=== PATIENT | male | born 1965 | race Caucasian/White ===

== ENCOUNTER 2019-03-15 17:33 | Outpatient (REF) | payer BC, SELFPAY ==
[2019-03-17 16:12] LABS: Ethyl Glucuronide Screen, U Negative
[2019-03-19 06:22] LABS: Benzoylecgonine 223 ng/mL (Cutoff: 50); Cocaine Negative ng/mL (Cutoff: 50); Cocaine Interpretation Positive.
== END 2019-03-15 17:53 ==
LOC: NCHCN 17:33
PROVIDERS: PCP Internal Medicine; Visit Provider Nurse Practitioner Family
DX: F15.10 Other stimulant abuse, uncomplicated (principal); F10.11 Alcohol abuse, in remission
CPT/HCPCS: 80307; 80353

== ENCOUNTER 2019-04-12 10:53 | Outpatient (REF) | payer BC, SELFPAY ==
[2019-04-16 03:54] LABS: Amphetamine Negative ng/mL (Cutoff: 25); MDMA (Ecstasy) Negative ng/mL (Cutoff: 25); Methamphetamine Negative ng/mL (Cutoff: 25); Phentermine Negative ng/mL (Cutoff: 25); Pseudoephedrine/Ephedrine Negative ng/mL (Cutoff: 25)
[2019-04-16 15:21] LABS: Benzoylecgonine Negative ng/mL (Cutoff: 50); Cocaine Negative ng/mL (Cutoff: 50); Cocaine Interpretation Negative.
[2019-04-18 22:47] LABS: 2-OH-Ethyl-Flurazepam Negative ng/mL (Cutoff: 100); 7-NH-Clonazepam Negative ng/mL (Cutoff: 100); 7-NH-Flunitrazepam Negative ng/mL (Cutoff: 50); Alpha OH-Alprazolam Negative ng/mL (Cutoff: 100); Alpha-OH-Triazolam Negative ng/mL (Cutoff: 100); Benzodiazepines Interpretation Positive.; Lorazepam 619 ng/mL (Cutoff: 100); Temazepam Negative ng/mL (Cutoff: 100)
== END 2019-04-12 11:13 ==
LOC: NCHCN 10:53
PROVIDERS: PCP Internal Medicine; Visit Provider Nurse Practitioner Psychiatric/Mental Health
DX: F15.10 Other stimulant abuse, uncomplicated (principal)
CPT/HCPCS: 80324; 80346; 80353

== ENCOUNTER 2020-03-28 08:39 | Outpatient (REF) | payer OTHER, SELFPAY ==
[2020-03-28 21:05] LABS: Hemoglobin A1C 5.6 % (<5.7)
[2020-03-28 21:15] LABS: ALT 52 U/L (16-63); AST 28 U/L (15-37); Albumin 3.9 g/dL (3.4-5.0); Alkaline Phosphatase 65 U/L (46-116); Anion Gap 9.3 mmol/L (3-11); BUN 17 mg/dL (7-18); Bilirubin, Total 0.7 mg/dL (0.2-1.0); CO2 25.7 mmol/L (21.0-32.0); CREATININE 1.58 mg/dL (0.70-1.30); Calcium 8.7 mg/dL (8.5-10.1); Calculated LDL 167 mg/dL (<100); Chloride 104 mmol/L (98-107); Cholesterol 236 mg/dL (<200); Estimated GFR 46.29 (mL/min/1.73m2); Glucose 100 mg/dL (74-106); HDL Cholesterol 39 mg/dL (40-60); Potassium 4.3 mmol/L (3.5-5.1); Sodium 139 mmol/L (136-145); TSH (W/Ref FT4) 0.99 uIU/mL (0.36-3.74); Triglyceride 150 mg/dL (<150)
== END 2020-03-28 08:59 ==
LOC: NCHCN 08:39
PROVIDERS: PCP Internal Medicine; Visit Provider Physician Assistant
DX: E78.5 Hyperlipidemia, unspecified (principal); I12.9 Hypertensive chronic kidney disease with stage 1 through stage 4 chronic kidney disease, or unspecified chronic kidney disease; N18.30 Chronic kidney disease, stage 3 unspecified
CPT/HCPCS: 80053; 80061; 83036; 84443

== ENCOUNTER 2021-07-31 17:51 | Outpatient (REF) | payer OTHER, SELFPAY ==
[2021-08-02 15:13] LABS: Chlamydia Result Negative (Negative); GC Result Negative (Negative)
[2021-08-08 15:42] LABS: Source Urine
[2021-08-08 15:43] LABS: T.vaginalis, Misc, RNA Positive (Negative)
== END 2021-07-31 17:52 | disposition home or self-care (01) ==
LOC: NCHCN 17:51
PROVIDERS: PCP Internal Medicine; Visit Provider Nurse Practitioner Family
DX: Z20.2 Contact with and (suspected) exposure to infections with a predominantly sexual mode of transmission (principal)
CPT/HCPCS: 87491; 87591; 87661

== ENCOUNTER 2022-04-13 17:47 | Emergency (ER) | payer OTHER, SELFPAY ==
[2022-04-13 17:52] VITALS: BP 142/86; PULSE 83; RESP 18; TEMP 36.5; O2SAT 97
--- OUTSIDE RECORDS SUMMARY | 2022-04-13 17:55 | XMS_ITS | Encounter Summary ---
:1965 Author Organization [facility] Address [facility] [address] [place] [address] Care Team Providers Name Role Phone Jf Cervantes Primary Care Provider Encounter Details Date Type Department Care Team Description 09/08/2017 Orders Only Nephrology Hypertension Raquel Goldsmith on W, DO Hypertension, unspecified type; at [facility] CKD (chronic kidney disease) stage 2, GFR 60-89 ml/min; [facility] Hematuria, unspecified type; [facility] NEPHROLOGY DEPT Proteinuria, unspecified type; [place] [phone] [place] [address] Gout, unspecified cause, unspecified chr onicity, unspecified site [phone] Social History Tobacco Use Types Packs/Day Years Used Date Smoking Tobacco: Never Smokeless Tobacco: Never Sex Assigned at Date Recorded Not on file documented as of this encounter Plan of Treatment Scheduled Orders Name Type Priority Associated Diagnoses Order S chedule CBC (with Diff) Lab Routine Hypertension, Expected: 0 09/09/2017 unspecified type (Approximate), CKD (chronic kidney Expires: 09/08/2018 disease) stage 2, GFR 60-89 ml/min Hematuria, unspecified type Proteinuria, unspecified type Gout, unspecified cause, unspecified chronicity, unspecified site Comprehensive metabolic Lab Routine Hypertension, Exp ected: 09/09/2017 panel (non-fasting) unspecified type (Approximate), CKD (chronic kidney Expires: 03/11/2018 disease) stage 2, GFR 60-89 ml/min Hematuria, unspecified type Proteinuria, unspecified type Gout, unspecified cause, unspecified chronicity, unspecified site Magnesium Lab Routine Hypertension, Expected: 08/17 unspecified type (Approximate), CKD (chronic kidney Expires: 03/11/2018 disease) stage 2, GFR 60-89 ml/min Hematuria, unspecified type Proteinuria, unspecified type Gout, unspecified cause, unspecified chronicity, unspecified site Phosphorus Lab Routine Hypertension, Expected: 08/17 unspecified type (Approximate), CKD (chronic kidney Expires: 09/08/2018 disease) stage 2, GFR 60-89 ml/min Hematuria, unspecified type Proteinuria, unspecified type Gout, unspecified cause, unspecified chronicity, unspecified site Uric acid Lab Routine Gout, unspecified cause, Exp ected: 09/09/2017 unspecified chronicity, (Jovan roximate), unspecified site Expires: documented as of this encounter Visit Diagnoses Diagnosis Hypertension, unspecified type CKD (chronic kidney disease) stage 2, GF R 60-89 ml/min Chronic kidney disease, Stage II (mild) Hematuria, unspecified type Proteinuria, unspecified type Gout, unspecified cause, unspecified chr onicity, unspecified site documented in this encounter Care Teams Tennis Player Relationship Specialty Start Date End Date Jf Cervantes PA PCP - General General Internal Medicine 01/16/[address] [place] [id number] documented as of this encounter
--- OUTSIDE RECORDS SUMMARY | 2022-04-13 17:55 | XMS_ITS | Encounter Summary ---
:1965 Author Organization [facility] [place] [address] Care Team Providers Name Role Phone Jf Cervantes Primary Care Provider Reason for Visit Reason Comments Chronic Kidney Disease Hematuria Encounter Details Date Type Department Care Team Description 09/09/2017 Office Visit Nephrology Hypertension Mary Kate Emery MD [facility] [place] [address] Chronic kidney disease, unspecified CKD stage; at [facility] Stevie Goldsmith, DO [facility] [place] [address] Microscopic hematuria; [facility] Hypertens ion, unspecified type; Drive Gout, unspecified cause, uns pecified chronicity, [place] [address] Social History Tobacco Use Types Packs/Day Years Used Date Smoking Tobacco: Never Smokeless Tobacco: Never Sex Assigned at Date Recorded Not on file documented as of this encounter Last Filed Vital Signs Vital Sign Reading Time Taken Comments Blood Pressure 132/88 09/09/2017 10:02 AM EDT Pulse 84 09/09/2017 10:02 AM EDT Temperature - - Respiratory Rate - - Oxygen Saturation - - Inhaled Oxygen Concentration - - Weight 96.6 kg (213 lb) 09/09/2017 10:02 AM EDT Height 177.8 cm (5' 10) 09/09/2017 10:02 AM EDT Body Mass Index 30.56 09/09/2017 10:02 AM EDT documented in this encounter Progress Notes Stevie Goldsmith, DO - 09/09/2017 3:30 PM EDT [facility] Nephrology/Hypertension Follow Up Mathew Han [id number] 1965 HPI: 52 y/o WM with a history of microscopic hematuria and CKD presents to Nephrology Clinic for follow-up after being re-referred by his PCP. 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 Patient subsequently had a renal biopsy performed when patient was stationed at [employer],but patient describes that results were unremarkable. Patient denies any recent illnesses of hospitalizations. Denies any niurka hematuria, dysuria, flank pain or change in urination. Patient had previous urologic work-up which was also negative. Patient recently was seen by PCP and had his Lisinopril increased from 10 --> 20mg, with improvement of BP control. Patient has a longstanding history of gout, but denies any recent flares over the past 18 months. Patient was started on allopurinol whenlast seen in nephrology Clinic (01/2016), however patient was only taking it intermittently and when he though a flare might be starting. Renal function remains stable --> and serum Cr was stable at 1.22mg/dL this AM PAST MEDICAL HX: Microscopic hematuria (since age 21) HTN x 4 yrs HLD Hx Cocaine abuse Hx Alcohol abuse Gout ROS: -no fever, chills, night sweats -no headache, blurring of vision, diplopia -no dysphagia, hearing problems -no chest pain, palpitation, no BLACK, orthopnea -no cough or SOB -no abdominal pain, nausea, vomiting or diarrhea -no rash -no neuropathy -no LE swelling -no change in mood -no heat or cold intolerance Medications: Prior to Admission medications Medication Sig Start Date End Date Taking? Authorizing Provider lisinopril (PRINIVIL;ZESTRIL) 10 mg Tablet Take 20 mg by mouth daily. Yes PROVIDER, HISTORICAL fexofenadine (RACHEL) 60 mg Tablet Take 60 mg by mouth daily as needed. Yes PROVIDER, HISTORICAL allopurinol (ZYLOPRIM) 100 mg Tablet Take 2 tablets by mouth daily. 02/07/16 Mary Kate Emery MD colchicine (MITIGARE) 0.6 mg Capsule Take 0.6 mg by mouth daily as needed. 02/07/16 Mary Kate Emery MD Allergies / ADRs: No Known Allergies PHYSICAL EXAM: Most Recent Vitals: 09/09/17 1002 BP: 132/88 Pulse: 84 PainSc: 0 - No pain Gen - AAO x 3 in NAD Skin - No rash HEENT - Moist mucous membranes Chest: Lungs clear to auscultation, no wheezes/ rhonchi/ crackles. Heart - S1/S2 normal, no murmur, gallop, or rub. JVP not elevated. Abd - Soft. + BS. No bruit. Non tender. No organomegaly. Ext - Warm. No cyanosis. No dependent edema. Labs/ Imaging: Recent Results (from the past 24 hour(s)) Magnesium Result Value Ref Range Magnesium 0.75 0.69 - 1.07 mmol/L Uric acid Result Value Ref Range Uric Acid 8.1 3.5 - 8.5 mg/dL Comprehensive metabolic panel (non-fasting) Result Value Ref Range Glucose Lvl 89 65 - 199 mg/dL BUN 18 10 - 20 mg/dL Creatinine 1.22 0.80 - 1.50 mg/dL Sodium 139 135 - 145 mmol/L Potassium 4.0 3.5 - 5.0 mmol/L Chloride 101 98 - 107 mmol/L CO2 24 22 - 31 mmol/L Anion Gap 14 5 - 15 mmol/L Calcium 9.3 8.5 - 10.5 mg/dL Total Protein 7.5 6.1 - 8.0 gm/dL Albumin 4.1 3.2 - 5.2 gm/dL AST 22 0 - 39 unit/L ALT 36 0 - 55 unit/L Alk Phos 74 40 - 120 unit/L Total Bilirubin <0.2 (L) 0.2 - 1.3 mg/dL Estimated GFR >60 >=60 PTH Result Value Ref Range PTH 39 15 - 65 pg/mL Phosphorus Result Value Ref Range Phosphorus 2.7 2.5 - 4.5 mg/dL Hemogram Result Value Ref Range WBC 7.0 4.0 - 9.5 x10(3)/mcL RBC 5.15 4.58 - 5.54 x10(6)/mcL Hemoglobin 15.4 13.7 - 16.5 gm/dL Hematocrit 45.9 40.5 - 48.5 % MCV 89.1 82.9 - 93.1 fL MCH 29.9 27.5 - 32.1 pg MCHC 33.6 32.0 - 35.7 gm/dL Platelets 238 145 - 357 x10(3)/mcL RDWSD 42.6 36.0 - 45.0 fL RDWCV 12.9 11.4 - 13.8 % MPV 10.2 7.6 - 12.9 fL nRBC % Auto 0.0 % nRBC Abs Auto 0.000 0.000 - 0.000 x10(3)/mcL Differential, Automated Result Value Ref Range Neutrophils % 64.8 % Neutr Abs (ANC) 4.53 1.70 - 6.10 x10(3)/mcL Lymphocytes % 19.3 % Lymphocytes Abs 1.4 0.9 - 3.2 x10(3)/mcL Monocytes % 11.2 % Monocyte Abs 0.8 0.3 - 0.9 x10(3)/mcL Eosinophils % 3.6 % Eosinophils Abs 0.2 0.0 - 0.4 x10(3)/mcL Basophils % 0.7 % Basophils Abs 0.0 0.0 - 0.1 x10(3)/mcL Immature Gran % 0.40 % Nancy Gran Abs 0.03 0.00 - 0.04 x10(3)/mcL U Albumin/Cre Ratio Result Value Ref Range Alb/Cr Ratio, Random 521 (H) 0 - 29 mcg/mg Cr U Albumin Conc, Random 453.7 mg/L U Creatinine 87 mg/dL Protein/Creatinine Ratio, urine Result Value Ref Range U Creatinine 87 mg/dL U Protein Ran 62 (H) 0 - 12 mg/dL Prot/Cre Ratio 0.7 ratio Urine Microscopy: showed occasional dysmorphic RBCs (1-2 per HPF) Urinalysis: 1+ proteinuria and + microscopic hematuria, otherwise was negative Assessment and Plan: 52 y/o WM with a history of CKD, long standing microscopic hematuria and HTN presents to Nephrology Clinic for follow-up ?? 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 Patient does not have a family historyof renal disease or of hearing/ vision loss. Less likely this is due to IgA based on the chronicity and that he consistently has microscopic hematuria -serum Cr stable/ improved --> was 1.22mg/dL today in clinic -previous normal/ unremarkable renal biopsy. Had length conversation with the patient about possibly repeating renal biopsy. However with the renal function remaining stable, will hold off pursuing biopsy unless there is a change in renal function -Urine prot/creat 0.7 (on RAAS inhibition, MITCHELL-I) -Urine microscopy showed occasional dysmorphic RBCs -continue BP control ?? Hypertension -BP improved and controlled with increase in Lisinopril to 20mg -Patient described occasional dry cough after increase. Discussed the possibility of transitioning him to ARB, however patient did not want to change medication at this time ?? Gout: -Uric acid improved today -Avoid NSAIDS (Indomethacin PRN gouty attacks), and recommend Colchicine v Steroids for treatment offlares -Allopurinol 200mg was started but patient was taking it prn. Recommended q daily dosing Follow up: RTC in 6 months Seen and Discussed w/ Dr. Yuly Goldsmith DO Nephrology Fellow [facility] THOMAS Malhotra [address] [place] [id number] Mary Kate Emery MD - 09/09/2017 3:30 PM EDT Nephrology Attending Mathew Han was seen and examined and discussed with the Renal Fellow Dr Goldsmith The data and chart were reviewed. My findings and recommendations are accurately detailed in the note above. The findings, recommendations, and plan for ongoing care were discussed with the patient and the Renal Fellow documented in this encounter Plan of Treatment Not on filedocumented as of this encounter Procedures Procedure Name Priority Date/Time Associated Diagnosis Comme nts PROTEIN/CREATININE Routine 09/09/2017 3:30 PM Chronic kidney R esults for this RATIO, URINE EDT disease, unspecified procedu re are in CKD stage the results section. U ALBUMIN/CRE RATIO Routine 09/09/2017 3:30 PM Chronic kidney Results for this EDT disease, unspecified procedu re are in CKD stage the results section. documented in this encounter Results (ABNORMAL) Protein/Creatinine Ratio, urine (09/09/2017 3:30 PM EDT) P athologist Signature U Creatinine 87 mg/dL [facility] U Protein Ran 62 (H) 0 - 12 [facility] mg/dL [facility] Prot/Cre Ratio 0.7 ratio [facility] Specimen Anatomical Collection Method Collection Time Receive d Time (Source) Location / / Volume Laterality Urine specimen 09/09/2017 3:30 PM 018 4:28 (specimen) EDT PM EDT Resulting Agency Comment Spec In Lab Mary Kate Emery MD URINE ORDERABLES Performing Organization Address City/State/[place] [address] (ABNORMAL) U Albumin/Cre Ratio (09/09/2017 3:30 PM EDT) athologist Signature Alb/Cr Ratio, 521 (H) 0 - 29 [facility] Random mcg/mg Cr [facility] Comment: Reference Ranges: <30 mcg/mg: Normal 30-300 mcg/mg: Moderately increased albu minuria.* >300 mcg/mg: Severely increased albuminu estela. * ACEI or ARB recommended if diabetic; s uggested if BP>130/80 without diabetes ACEI or ARB strongly recommended if di abetic; recommended if BP>130/80 without diabetes Two of three specimens collected within a 3 to 6 month period should be abnormal before considering a patient to have albuminuria. Transient causes: exercise, fever, infection, CHF, marked hyperglycemia or hypertension. Persistent albuminuria indicates CKD and is an independent risk factor for ASCVD. ADA Standards of Medical Care in Diabete s-2016; KDIGO: Kidney International Supplements (2012) 2, 357? 362 U Albumin Conc, Random 453.7 mg/L [facility] U Creatinine 87 mg/dL [facility] Specimen Anatomical Collection Method Collection Time Receive d Time (Source) Location / / Volume Laterality Urine specimen 09/09/2017 3:30 PM 018 4:28 (specimen) EDT PM EDT Resulting Agency Comment Spec In Lab Mary Kate Emery MD URINE ORDERABLES Performing Organization Address City/State/ZIP Code Phon e Number [place] [phone] documented in this encounter Visit Diagnoses Diagnosis Chronic kidney disease, unspecified CKD stage Microscopic hematuria Hypertension, unspecified type Gout, unspecified cause, unspecified chr onicity, unspecified site documented in this encounter Care Teams Stock Receiver Relationship Specialty Start Date End Date Jf Cervantes PA PCP - General General Internal Medicine 01/16/[address] [place] [id number] documented as of this encounter
--- OUTSIDE RECORDS SUMMARY | 2022-04-13 17:55 | XMS_ITS | Encounter Summary ---
:1965 Author Organization [facility] Address [address] [place] [address] Care Team Providers Name Role Phone Jf Cervantes Primary Care Provider Encounter Details Date Type Department Care Team Description 09/09/2017 Laboratory Appointment Lab 3L [facility] Chronic kidney disease, unspecified CKD stage; [facility] Hypertension, unspecified ty pe; [facility] Hematuria , unspecified type; [place] CKD (chronic kidney disease) stage 2, GFR 60-89 ml/min; [place], [place] Proteinuria, un specified type; [phone] Gout, unspecified cause, uns pecified chronicity, unspecified site [phone] Social History Tobacco Use Types Packs/Day Years Used Date Smoking Tobacco: Never Smokeless Tobacco: Never Sex Assigned at Date Recorded Not on file documented as of this encounter Plan of Treatment Not on filedocumented as of this encounter Procedures Procedure Name Priority Date/Time Associated Comments Diagnosis PTH Routine 09/09/2017 2:25 PM Chronic kidney Results for this EDT disease, procedure are i n unspecified CKD the results stage section. Hypertension, unspecified type Hematuria, unspecified type HEMOGRAM Routine 09/09/2017 2:25 PM Chronic kidney Results for this EDT disease, procedure are i n unspecified CKD the results stage section. Hypertension, unspecified type Hematuria, unspecified type DIFFERENTIAL, Routine 09/09/2017 2:25 PM Chronic kidney Result s for this AUTOMATED EDT disease, procedure are i n unspecified CKD the results stage section. Hypertension, unspecified type Hematuria, unspecified type CBC (WITH DIFF) Routine 09/09/2017 2:25 PM Chronic kidney EDT disease, unspecified CKD stage Hypertension, unspecified type Hematuria, unspecified type URIC ACID Routine 09/09/2017 2:25 PM Chronic kidney Results for this EDT disease, procedure are i n unspecified CKD the results stage section. Hypertension, unspecified type Hematuria, unspecified type PHOSPHORUS Routine 09/09/2017 2:25 PM Chronic kidney Results for this EDT disease, procedure are i n unspecified CKD the results stage section. Hypertension, unspecified type Hematuria, unspecified type MAGNESIUM Routine 09/09/2017 2:25 PM Chronic kidney Results for this EDT disease, procedure are i n unspecified CKD the results stage section. Hypertension, unspecified type Hematuria, unspecified type COMPREHENSIVE Routine 09/09/2017 2:25 PM Chronic kidney Result s for this METABOLIC PANEL EDT disease, procedure ar e in (NON-FASTING) unspecified CKD the results stage section. Hypertension, unspecified type Hematuria, unspecified type documented in this encounter Results Differential, Automated (09/09/2017 2:25 PM EDT) P athologist Signature Neutrophils % 64.8 % [facility] Neutr Abs (ANC) 4.53 1.70 - [facility] 6.10 [facility] x10(3)/[facility] Lymphocytes % 19.3 % [facility] Lymphocytes Abs 1.4 0.9 - 3.2 [facility] x10(3)/[facility] LABORATORY Monocytes % 11.2 % [facility] Monocyte Abs 0.8 0.3 - 0.9 [facility] x10(3)/[facility] LABORATORY Eosinophils % 3.6 % [facility] Eosinophils Abs 0.2 0.0 - 0.4 [facility] x10(3)/[facility] LABORATORY Basophils % 0.7 % [facility] Basophils Abs 0.0 0.0 - 0.1 [facility] x10(3)/[facility] LABORATORY Immature Gran % 0.40 % [facility] Comment: Immature granulocytes(IG's)percentage an d absolute count will include metamyelocytes, myelocytes, and promyelo cytes. Blood smears from CBCs yielding IG's will be scanned manually for concor dance. If this scan disagrees with the automated IG or if promyelocytes are not ed, a manual differential will be performed. Nancy Gran Abs 0.03 0.00 - 0.04 x10(3)/[facility] Specimen Anatomical Collection Method Collection Time Receive d Time (Source) Location / / Volume Laterality Blood specimen 09/09/2017 2:25 PM 018 2:41 (specimen) EDT PM EDT Resulting Agency Comment Spec In Lab Stevie Goldsmith DO HEMATOLOGY ORDERABLES Performing Organization Address City/State/[place] [address] Hemogram (09/09/2017 2:25 PM EDT) athologist Signature WBC 7.0 4.0 - 9.5 [facility] x10(3)/[facility] LABORATORY RBC 5.15 4.58 - [facility] 5.54 [facility] x10(6)/[facility] LABORATORY Hemoglobin 15.4 13.7 - [facility] 16.5 gm/dL [facility] Hematocrit 45.9 40.5 - [facility] 48.5 % [facility] MCV 89.1 82.9 - [facility] 93.1 [facility] LABORATORY MCH 29.9 27.5 - [facility] 32.1 pg [facility] MCHC 33.6 32.0 - [facility] 35.7 gm/dL [facility] Platelets 238 145 - 357 [facility] x10(3)/[facility] RDWSD 42.6 36.0 - [facility] 45.0 [facility] LABORATORY RDWCV 12.9 11.4 - [facility] KARYN 13.8 % [facility] MPV 10.2 7.6 - 12.9 [facility] LABORATORY nRBC % Auto 0.0 % [facility] nRBC Abs Auto 0.000 0.000 - [facility] 0.000 [facility] x10(3)/[facility] LABORATORY Specimen Anatomical Collection Method Collection Time Receive d Time (Source) Location / / Volume Laterality Blood specimen 09/09/2017 2:25 PM 018 2:41 (specimen) EDT PM EDT Resulting Agency Comment Spec In Lab Stevie Goldsmith DO HEMATOLOGY ORDERABLES Performing Organization Address City/State/[place] [address] Phosphorus (09/09/2017 2:25 PM EDT) athologist Signature Phosphorus 2.7 2.5 - 4.[address] [facility] mg/dL [facility] Specimen Anatomical Collection Method Collection Time Receive d Time (Source) Location / / Volume Laterality Blood specimen 09/09/2017 2:25 PM 018 2:41 (specimen) EDT PM EDT Resulting Agency Comment Spec In Lab Dilan Gtz MD CHEMISTRY ORDERABLES Performing Organization Address City/[facility]/ZIP Code Phon e Number [address] PTH (09/09/2017 2:25 PM EDT) athologist Signature PTH 39 15 - 65 [facility]/mL [facility] Specimen Anatomical Collection Method Collection Time Receive d Time (Source) Location / / Volume Laterality Blood specimen 09/09/2017 2:25 PM 018 2:41 (specimen) EDT PM EDT Resulting Agency Comment Spec In Lab Dilan Gtz MD CHEMISTRY ORDERABLES Performing Organization Address City/[facility]/ZIP [facility] [place] [place] [address] (ABNORMAL) Comprehensive metabolic panel (non-fasting) (09/09/2017 2:25 PM EDT) athologist Signature Glucose Lvl 89 65 - 199 [facility] mg/dL [facility] Comment: Diabetes: >=200 mg/dL plus symp toms BUN 18 10 - 20 mg/dL [facility] Creatinine 1.22 0.80 - 1.50 mg/dL [facility] Sodium 139 135 - 145 mmol/L [facility] Potassium 4.0 3.5 - 5.0 mmol/L [facility] Comment: Please note: ??Patients with WBC >100,00 0 may have falsely elevated Potassium levels. ??For accurate Potassium quantif ication in these patients send serum separator tube (gold top) for subsequent determinations. ??Contact the Clinical Chemistry Laboratory if there are any qu estions. Chloride 101 98 - 107 mmol/L [facility] CO2 24 22 - 31 mmol/L [facility] Anion Gap 14 5 - 15 mmol/L [facility] Calcium 9.3 8.5 - 10.5 mg/dL [facility] Total Protein 7.5 6.1 - 8.0 gm/dL [facility] Albumin 4.1 3.2 - 5.2 gm/dL [facility] AST 22 0 - 39 unit/L [facility] ALT 36 0 - 55 unit/L [facility] Alk Phos 74 40 - 120 unit/L [facility] Total Bilirubin <0.2 (L) 0.2 - 1.3 mg/dL [facility] Estimated GFR >60 >=60 [facility] Comment: The reported eGFR should be multiplied b y 1.2 for patients. The MDRD is not an appropriate measure o f renal function for patients with body mass extremes or in patients with acute kidney failure. http://[employer]/DHnkdep http://[employer]/DHMCnkf Specimen Anatomical Collection Method Collection Time Receive d Time (Source) Location / / Volume Laterality Blood specimen 09/09/2017 2:25 PM 018 2:41 (specimen) EDT PM EDT Resulting Agency Comment Spec In Lab Dilan Gtz MD CHEMISTRY ORDERABLES Performing Organization Address City/State/[place] [address] Uric acid (09/09/2017 2:25 PM EDT) P athologist Signature Uric Acid 8.1 3.5 - 8.5 [facility] mg/dL [facility] Specimen Anatomical Collection Method Collection Time Receive d Time (Source) Location / / Volume Laterality Blood specimen 09/09/2017 2:25 PM 018 2:41 (specimen) EDT PM EDT Resulting Agency Comment Spec In Lab Dilan Gtz MD CHEMISTRY ORDERABLES Performing Organization Address City/[facility]/ZIP Code Phon e Number [address] Magnesium (09/09/2017 2:25 PM EDT) P athologist Signature Magnesium 0.75 0.69 - 1.07 [facility] mmol/L [facility] Specimen Anatomical Collection Method Collection Time Receive d Time (Source) Location / / Volume Laterality Blood specimen 09/09/2017 2:25 PM 018 2:41 (specimen) EDT PM EDT Resulting Agency Comment Spec In Lab Dilan Gtz MD CHEMISTRY ORDERABLES Performing Organization Address City/[facility] [place] [address] documented in this encounter Visit Diagnoses Diagnosis Chronic kidney disease, unspecified CKD stage Hypertension, unspecified type Hematuria, unspecified type CKD (chronic kidney disease) stage 2, GF R 60-89 ml/min Chronic kidney disease, Stage II (mild) Proteinuria, unspecified type Gout, unspecified cause, unspecified chr onicity, unspecified site documented in this encounter Care Teams Dot Compliance Coordinator Relationship Specialty Start Date End Date Jf Cervantes PA PCP - General General Internal Medicine 01/16/[address] [place] [id number] documented as of this encounter
--- OUTSIDE RECORDS SUMMARY | 2022-04-13 17:55 | XMS_ITS | Clinical Summary ---
:1965 Author Organization [facility] [place] [address] Care Team Providers Name Role Phone Unknown Primary Care Provider Unavailable Allergies No known active allergies Medications Medication Sig Dispensed Refills Start Date End Date Status lisinopril Take 20 mg by 0 Activ e (PRINIVIL;ZESTRIL) 10 mouth daily. mg TabletIndications: CKD (chronic kidney disease), unspecified stage fexofenadine (RACHEL) Take 60 mg by 0 Active 60 mg mouth daily as TabletIndications: CKD needed. (chronic kidney disease), unspecified stage allopurinol (ZYLOPRIM) Take 2 tablets by 60 tablet 11 6 Active 100 mg Tablet mouth daily. colchicine (MITIGARE) Take 0.6 mg by 30 capsule 1 02/07/2016 Active 0.6 mg Capsule mouth daily as needed. Active Problems Problem Noted Date Chronic kidney disease 09/10/2017 Microscopic hematuria 09/10/2017 Hypertension 09/10/2017 Gout 09/10/2017 Social History Tobacco Use Types Packs/Day Years Used Date Smoking Tobacco: Never Smokeless Tobacco: Never Sex Assigned at Date Recorded Not on file Last Filed Vital Signs Vital Sign Reading [...] Mass Index 30.56 09/09/2017 10:02 AM EDT Plan of Treatment Health Maintenance Due Date Last Done Comments Hepatitis B vaccine (0-59 yrs) (1 - 1965 3-dose series) Covid-19 Vaccine (#1) 01/01/1968 HIV screen 1985 Hepatitis C Screening 1985 Lipid Screening 1985 Tdap adult 1986 Tetanus vaccine 1986 Colonoscopy 2012 Zoster vaccine (1 of 2) 2017 Influenza (Flu) vaccine (1 of 1 - 01/16/2022 Influenza standard series) Diabetes Screening (HgbA1C or Glucose) Discontinued 8, 02/07/2016 Care Teams Turning Machine Operator Helper Relationship Specialty Start Date End Date Unknown PCP - General 05/18/19 None
--- OUTSIDE RECORDS SUMMARY | 2022-04-13 17:56 | XMS_ITS | Encounter Summary ---
:1965 Author Organization [facility] [place] [address] Care Team Providers Name Role Phone Jf Cervantes Primary Care Provider Encounter Details Date Type Department Care Team Description 08/03/2017 Orders Only Nephrology Hypertension Raquel Goldsmith on W, DO Chronic kidney disease, unspecified CKD stage; at [facility] Hypertension, unspecified ty pe; [facility] DR Hematuria, unspecified type [place] [address] [place] [address] [phone] Social History Tobacco Use Types Packs/Day Years Used Date Smoking Tobacco: Never Smokeless Tobacco: Never Sex Assigned at Date Recorded Not on file documented as of this encounter Plan of Treatment Not on filedocumented as of this encounter Results Uric acid (09/09/2017 2:25 PM EDT) athologist Signature Uric Acid 8.1 3.5 - 8.5 [facility] mg/dL [facility] Specimen Anatomical Collection Method Collection Time Receive d Time (Source) Location / / Volume Laterality Blood specimen 09/09/2017 2:25 PM 018 2:41 (specimen) EDT PM EDT Resulting Agency Comment Spec In Lab Dilan Gtz MD CHEMISTRY ORDERABLES Performing Organization Address City/State/[place] [address] Magnesium (09/09/2017 2:25 PM EDT) athologist Signature Magnesium 0.75 0.69 - 1.07 [facility] mmol/L [facility] Specimen Anatomical Collection Method Collection Time Receive d Time (Source) Location / / Volume Laterality Blood specimen 09/09/2017 2:25 PM 018 2:41 (specimen) EDT PM EDT Resulting Agency Comment Spec In Lab Dilan Gtz MD CHEMISTRY ORDERABLES Performing Organization Address City/[facility]/ZIP Code Phon e Number [address] Phosphorus (09/09/2017 2:25 PM EDT) athologist [facility] Phosphorus 2.7 2.5 - 4.5 [facility] Specimen Anatomical Collection Method Collection Time Receive d Time (Source) Location / / Volume Laterality Blood specimen 09/09/2017 2:25 PM 018 2:41 (specimen) EDT PM EDT Resulting Agency Comment Spec In Lab Dilan Gtz MD CHEMISTRY ORDERABLES Performing Organization Address City/[facility]/ZIP Code Phon e Number [address] PTH (09/09/2017 2:25 PM EDT) athologist [facility] PTH 39 15 - 65 [facility] pg/mL [facility] Specimen Anatomical Collection Method Collection Time Receive d Time (Source) Location / / Volume Laterality Blood specimen 09/09/2017 2:25 PM 018 2:41 (specimen) EDT PM EDT Resulting Agency Comment Spec In Lab Dilan Gtz MD CHEMISTRY ORDERABLES Performing Organization Address City/[facility]/ZIP [facility] [place] [address] (ABNORMAL) Comprehensive metabolic panel (non-fasting) (09/09/2017 2:25 PM EDT) athologist [facility] Glucose Lvl 89 65 - 199 [facility] Comment: Diabetes: >=200 mg/dL plus symp toms BUN 18 10 - 20 mg/dL [facility] Creatinine 1.22 0.80 - 1.50 mg/dL [facility] Sodium 139 135 - 145 mmol/L [facility] Potassium 4.0 3.5 - 5.0 mmol/L [facility] Comment: Please note: ??Patients with WBC >100,00 0 may have falsely elevated Potassium levels. ??For accurate Potassium quantif ication in these patients send serum separator tube (gold top) for subsequent determinations. ??Contact the Clinical Chemistry Laboratory if there are any qu estions. Chloride 101 98 - 107 mmol/L [facility] CO2 24 22 - 31 mmol/L [facility] Anion Gap 14 5 - 15 mmol/L [facility] Calcium 9.3 8.5 - 10.5 mg/dL [facility] Total Protein 7.5 6.1 - 8.0 gm/dL [facility] Albumin 4.1 3.2 - 5.2 gm/dL [facility] AST 22 0 - 39 unit/L [facility] ALT 36 0 - 55 unit/L [facility] Alk Phos 74 40 - 120 unit/L [facility] Total Bilirubin <0.2 (L) 0.2 - 1.3 mg/dL [facility] Estimated GFR >60 >=60 [facility] Comment: The reported eGFR should be multiplied b y 1.2 for patients. The MDRD is not an appropriate measure o f renal function for patients with body mass extremes or in patients with acute kidney failure. [email or web address] [email or web address] Specimen Anatomical Collection Method Collection Time Receive d Time (Source) Location / / Volume Laterality Blood specimen 09/09/2017 2:25 PM 018 2:41 (specimen) EDT PM EDT Resulting Agency Comment Spec In Lab Dilan Gtz MD CHEMISTRY ORDERABLES Performing Organization Address City/State/ZIP Code Phon e Number [place] [phone] documented in this encounter Visit Diagnoses Diagnosis Chronic kidney disease, unspecified CKD stage Hypertension, unspecified type Hematuria, unspecified type documented in this encounter Care Teams Bus Washer Relationship Specialty Start Date End Date Jf Cervantes PA PCP - General General Internal Medicine 01/16/[address] [place] [id number] documented as of this encounter
--- OUTSIDE RECORDS SUMMARY | 2022-04-13 17:56 | XMS_ITS | Encounter Summary ---
:1965 Author Organization [facility] Address [address] [place] [address] Care Team Providers Name Role Phone Unknown, Provider Primary Care Provider Encounter Details Date Type Department Care Team Description 04/11/2020 Lab Requisition [facility] Aleja Gaviria for Pathology & MD Gem screening for Laboratory Medicine 41 MEDICAL malignan t neoplasm of [facility] colon [address] [place] [address] [place], [place] [id number] Social History Tobacco Use Types Packs/Day Years Used Date Smoking Tobacco: Never Smokeless Tobacco: Never Alcohol Use Standard Drinks/Week Comments Not Currently 0 (1 standard drink = 0.6 oz pure alcoho l) sober 9 years Sex Assigned at Date Recorded Not on file documented as of this encounter Plan of Treatment Not on filedocumented as of this encounter Procedures Procedure Name Priority Date/Time Associated Diagnosis Comme nts SURGICAL PATHOLOGY Today 04/11/2020 8:40 EST Re sults for this procedure are i n the results section. documented in this encounter Results SURGICAL PATHOLOGY (04/11/2020 8:40 EST) Component Value Ref Test Analysis Performed At [facility] Range Method Time Signature Final A. COLON, SIGMOID, POLYP, BIOPSY: 2019 [facility] Diagnosis - Fragments of tubular adenoma. 15:05 [facility] Attestation By the signature 04/16/2020 [facility] Electronically below, the 15:05 EST CENTER signed by attending LABORATORY Emmett Hancock, physician SERVICES on 03/20 certifies that at 15 05 they have 1) personally conducted a gross and/or microscopic examination of the described specimen(s), and/or personally interpreted the results of laboratory testing of the described specimen(s), and 2) personally rendered or confirmed the above diagnosis. Clinical Screening; colon 04/16/2020 [facility] History polyp 15:05 [facility] SERVICES Gross A. 04/16/2020 [facility] Description Received in formalin clayton d with proper patient identification (initials D, W) and sigmoid polyp are two barlow irregular tissues averaging 0.2 x 0.2 x 0.2 cm. Entirely submitted in A1. 15:05 [facility] LAB[facility]ORY THOMAS RODRIGUEZ(ASCP) 04/13/2020 10:10 SERVICES Performing Lab [facility] 04/16/2020 [facility] AL LAB 15:05 [facility] SERVICES Scanned Images 04/16/2020 [facility] 15:05 [facility] SERVICES Specimen Anatomical Collection Method Collection Time Receive d Time (Source) Location / / Volume Laterality Tissue (Colon, 04/11/2020 8:40 04/13/2020 8:32 Polyp) [facility] EST Aleja Gaviria MD PATHOLOGY ORDERABLES Performing Organization Address City/State/ZIP Code Phon e Number [facility]ORY [address] [place] [address] SERVICES documented in this encounter Visit Diagnoses Diagnosis Encounter for screening for malignant ne oplasm of colon Special screening for malignant neoplasm s, colon documented in this encounter Care Teams Medical Director Occupational Health Relationship Specialty Start Date End Date Unknown, Provider, PCP - General 02/12/19 documented as of this encounter
--- OUTSIDE RECORDS SUMMARY | 2022-04-13 17:56 | XMS_ITS | Encounter Summary ---
:1965 Author Organization [facility] Address [address] [place] [address] Care Team Providers Name Role Phone Merlene Eduardo MD Primary Care Provider Encounter Details Date Type Department Care Team Description 11/21/2015 Results Only [facility] Urology Isra Faye, - [facility] MD [address] [facility] [address] [place] [address] [place], [place] [phone] (Wo rk) Social History Tobacco Use Types Packs/Day Years Used Date Smoking Tobacco: Never Assessed Sex Assigned at Date Recorded Not on file documented as of this encounter Plan of Treatment Not on filedocumented as of this encounter Procedures Procedure Name Priority Date/Time Associated Diagnosis Comme nts CYTOPATHOLOGY Routine 11/21/2015 0:00 EDT Results for this procedure are i n the results section . documented in this encounter Results CYTOPATHOLOGY (11/21/2015 0:00 EDT) Component Value Ref Test Analysis Performed At [facility] Method Time Signature Pathology CYTOPATHOLOGY REPORT [facility] Report: CENTER Reports generated via electronic interface contain origina l data; LABORATORY however they are lacking the format of the original report. SERVICES Caution should be taken when reading/interpreting unformatte d reports. Name: ? MATHEW HAN ? Accession #: ? [id number] : ? 1965 (Age: [age]) ??M ?Collect Date: ? 11/21/2015 Location: ? [facility] ? Receive Date: ? 11/22/2015 Provider: ? ISRA FAYE MD Copy to: ?MERLENE CARSON DO ? CYTOLOGIC DIAGNOSIS: URINE, BARBOTAGE, CYTOLOGIC EVALUATION: - ??No malignant cells identified. - ??Few clusters of urothelial cells present, co nsistent with instrumentation effect. ?? - ??Rare cell with features suggestive of polyoma viral [place]. Document reviewed and electronically signed by: ? SHRUTHI RESTREPO MD Report Date: ??11/23/2015 08:56 By the signature above, the attending physician certifies th at he/she has personally conducted a gross and/or microscopic examin ation of the described specimens and rendered or confirmed the above diagnosis. Specimen Type: ? Urine, Barbotage Clinical History: ? Hematuria. ? Gross Description: ? 10ccs of clear yellow fluid were received and pr ocessed by selective cellular enhancement technique. ? End of Report Specimen (Source) Anatomical Collection Method Collection Time Re ceived Time Location / / Volume Laterality 11/21/2015 11/22/2015 6:38 EDT Isra Faye MD PATHOLOGY ORDERABLES Performing Organization Address City/State/ZIP Code Phon e Number [facility] [address] [place] [address] SERVICES documented in this encounter Visit Diagnoses Not on filedocumented in this encounter Care Teams Home Health Provider Relationship Specialty Start Date End Date Merlene Eduardo MD PCP - General 09/03/15 02/11/19 [address] [place], [place] [id number] documented as of this encounter
--- OUTSIDE RECORDS SUMMARY | 2022-04-13 17:56 | XMS_ITS | Encounter Summary ---
:1965 Author Organization [facility] Address [address] [place] [address] Care Team Providers Name Role Phone Unknown, Provider MD Primary Care Provider Encounter Details Date Type Department Care Team Description 08/01/2021 Lab Requisition [facility] Outr Resulting Lab, Pathology & Laboratory Provider [facility] [address] [place], [place] [id number] Social History Tobacco Use Types Packs/Day Years [...] Procedure Name Priority Date/Time Associated Comments Diagnosis CHLAMYDIA/N. Routine 07/31/2021 11:00 Results for this GONORRHOEAE AMPLIFIED EDT proced ure are in RNA the results section. documented in this encounter Results CHLAMYDIA/N. GONORRHOEAE AMPLIFIED RNA (07/31/2021 11:00 EDT) [facility] Method Time Signature Gonococcus Negative Negative 08/02/2021 [facility] Result 15:08 EDT [facility] Chlamydia Negative Negative 08/02/2021 [facility] Result 15:08 EDT [facility] Specimen Anatomical Collection Method Collection Time Receive d Time (Source) Location / / Volume Laterality Urine (Urine, 07/31/2021 11:00 08/01/2021 Initial Void) EDT 19:08 EDT Provider Outr Resulting Lab MICROBIOLOGY - GENERAL ORD ERABLES Performing Organization Address City/State/ZIP Code Phon e Number [facility] [address] [place] [address] SERVICES documented in this encounter Visit Diagnoses Not on filedocumented in this encounter Care Teams Plan Examiner Relationship Specialty Start Date End Date Unknown, Provider, PCP - General 02/12/19 documented as of this encounter
--- OUTSIDE RECORDS SUMMARY | 2022-04-13 17:56 | XMS_ITS | Encounter Summary ---
:1965 Author Organization [facility] Address [address] [place] [address] Care Team Providers Name Role Phone Philip Eduardo MD Primary Care Provider Encounter Details Date Type Department Care Team Description 11/21/2015 Hospital Encounter [facility]- Maria Eugenia Unknown, Provider, [facility] [address] [facility] [phone] [place] [address] (Work) [phone] Social History Tobacco Use Types Packs/Day Years Used Date Smoking Tobacco: Never Assessed Sex Assigned at Date Recorded Not on file documented as of this encounter Discharge Disposition Disposition Code Departure Means Destination Home or Self [facility] documented in this encounter Plan of Treatment Not on filedocumented as of this encounter Visit Diagnoses Not on filedocumented in this encounter Care Teams Professor Of Mathematics Relationship Specialty Start Date End Date Philip Eduardo MD PCP - General 09/03/15 02/11/19 [address] [place] [address] documented as of this encounter
--- OUTSIDE RECORDS SUMMARY | 2022-04-13 17:56 | XMS_ITS | Encounter Summary ---
:1965 Author Organization [facility] Address [address] [place] [address] Care Team Providers Name Role Phone Unknown, Provider Primary Care Provider Reason for Visit Reason Comments Act 1 Clearance Here for ACT 1 clearance, de nies use of illicit substance today. Arrives alert and oriented, VSS. NAD in triage. Encounter Details Date Type Department Care Team Description 02/12/2019 Emergency [facility] Omer Calixto MD [address] [facility] [place] [phone] Cocaine abuse Emergency Department Emergency, MD [place] ([facility]) (Primary Dx) - [address] [address] Social History Tobacco Use Types Packs/Day Years Used Date Smoking Tobacco: Never Smokeless Tobacco: Never Alcohol Use Standard Drinks/Week Comments Not Currently 0 (1 standard drink = 0.6 oz pure alcoho l) sober 9 years Sex Assigned at Date Recorded Not on file documented as of this encounter Last Filed Vital Signs Vital Sign Reading Time Taken Comments Blood Pressure 160/84 02/12/2019 1634 EDT Pulse 84 02/12/2019 1634 EDT Temperature 36.7 ??C (98.1 ??F) 02/12/2019 1504 EDT Respiratory Rate 18 02/12/2019 1634 EDT Oxygen Saturation 98% 02/12/2019 1634 EDT Inhaled Oxygen Concentration - - Weight 94.8 kg (209 lb) 02/12/2019 1504 EDT Height 180.3 cm (5' 11) 02/12/2019 1504 EDT Body Mass Index 29.15 02/12/2019 1504 EDT documented in this encounter Discharge Diagnoses Diagnosis F14.10 Cocaine abuse, uncomplicated-F14. 10[ICD-10-CM] documented in this encounter Discharge Instructions AttachmentsThe following attachments cannot be sent through Care Everywhere.Drug Overdose: Cocaine (Tanzanian)documented in this encounter Discharge Disposition Disposition Code Departure Means Destination Discharged to Other Facility Car documented in this encounter ED Notes Portillo Denis RN - 02/12/2019 1635 EDT AVS reviewed with patient. Discharge vital signs stable. Ambulatory out of department in no acute distress with [facility] textile machinery sales representative. Dillon Calixto MD - 02/12/2019 1556 EDT This patient received an evaluation and medical screening exam for emergent medical conditions at the [facility] on 02/12/2019 Scribe attestation: This documentation is recorded by Jenifer Cortez acting as Scribe under the direction and presence of Dillon Calixto MD. Dillon Calixto MD: I personally performed the services recorded by the scribe in my presence. Iconfirm the scribe's documentation has been reviewed by me to accurately and completely record my work, treatment, procedures, and medical decision making. HPI Mathew Han is a 53 y.o. male with pertinent medical history who presents to the ED for [facility] clearance. Per patient, he went to [facility] and they sent him here to be medically cleared. He isgoing to [facility] for cocaine abuse. He denies any cocaine use today. He denies any other symptoms. History was provided by: The patient and medical records. Patient's pertinent PMH, FH, SH were reviewed and updated PRN. ROS ROS as noted in HPI above. My standard 10 point review of systems for this complaint is otherwise negative. Physical Exam Vital Signs Vitals Reassessment?: Yes Temp: 36.7 ??C (98.1 ??F) Temp src: Oral Heart Rate: 76 BPM Resp: 20 SpO2: 97 % BP: (!) 159/105 BP Device: BP Machine Patient Position: Sitting BP Cuff Location: Right arm O2 Device: None (Room air) Nursing notes and vital signs were reviewed. Constitutional: Well appearing in no acute distress HEENT: NC/AT. Pupils equal and reactive to light, no scleral icterus Moist oral mucosa without apparent lesions Neck: Full ROM, no cervical LAD Heart: RRR without MRG Lungs: Clear to auscultation bilaterally, no respiratory distress Abdomen: Soft NT/ND Skin: No rash on exposed skin Extremities: No deformities, warm and well perfused. Neuro: Awake, alert, oriented. Speech is fluent. Movements show normal coordination Psych: No agitation or overt thought disorder Data Interpretation Procedures Procedures Medical Decision Making: This is a 53 y.o. male who presents to the ED with medical clearance for cocainin abuse. Pt has no complaints. Will DC to ACT as exam is reassuring and no medical complaints. ED Course This was a 53 year old male who presented to the ED for ACT one clearance for cocaine abuse. A medical screening exam was performed. 1630 - The patient was medically cleared for ACT one and discharged to their care. Impression Final diagnoses: Cocaine abuse ([facility]) Disposition Disposition decisions were made weighing risks and benefits of hospitalization vs. outpatient treatment, the risk for further decompensation, and the patient???s wishes. Discharged. The patient was stable, improved, or requested discharge. Prior to discharge my usual and customary return precautions were reviewed with the patient and/or family. This included follow-up instructions and reasons to return to the Emergency Department if condition worsens, does not improveas expected, or other new concerns arise. The patient's pain was managed to an adequate level weighing risk vs. benefit of further medications. Upon departure from the Emergency Department, the patient's pain was 0 on a zero to ten scale. Any further pain treatment will be at the discretion of the provider following up with the patient based on their clinical assessment. Condition at departure from the Emergency Department: Stable SharitaLyle - 02/12/2019 4986 EDT TCALL: MATHEW HAN. [id number]. PT REFERRED BY [facility] 1 FOR MEDICAL CLEARANCE FROM COCAINE DETOX. LAST USE WAS YESTERDAY. (YAHIR) documented in this encounter Plan of Treatment Not on filedocumented as of this encounter Visit Diagnoses Diagnosis Cocaine abuse (HCC) - Primary Cocaine abuse, unspecified documented in this encounter Care Teams Freight Flow Sales Leader Relationship Specialty Start Date End Date Unknown, Provider, PCP - General 02/12/19 documented as of this encounter
--- OUTSIDE RECORDS SUMMARY | 2022-04-13 17:56 | XMS_ITS | Encounter Summary ---
:1965 Author Organization [facility] Address [address] [place] [address] Care Team Providers Name Role Phone Gautam Madrigal MD Primary Care Provider Unavailable Encounter Details Date Type Department Care Team Description 08/28/2015 Results Only [facility] [place] [phone] [address] [place], [place] [phone] (Wo rk) Social History Tobacco Use Types Packs/Day Years Used Date Smoking Tobacco: Never Assessed Sex Assigned at Date Recorded Not on file documented as of this encounter Plan of Treatment Not on filedocumented as of this encounter Procedures Procedure Name Priority Date/Time Associated Diagnosis Comme nts CYTOPATHOLOGY Routine 08/28/2015 0:00 EDT Results for this procedure are i n the results section . documented in this encounter Results CYTOPATHOLOGY (08/28/2015 0:00 EDT) Component Value Ref Test Analysis Performed At [facility] Method Time Signature Pathology CYTOPATHOLOGY REPORT [facility] Report: CENTER Reports generated via electronic interface contain origina l data; LABORATORY however they are lacking the format of the original report. SERVICES Caution should be taken when reading/interpreting unformatte d reports. Name: ? MATHEW HAN ? Accession #: ? [id number] : ? 1965 (Age: [age]) ??M ?Collect Date: ? 08/28/2015 Location: ? [facility] ? Receive Date: ? 08/30/2015 Provider: ? SIN GUZMAN Copy to: ? CYTOLOGIC DIAGNOSIS: URINE, COLLECTION METHOD NOT SPECIFIED, CYTOLOGIC EVALUATION : - ??No malignant cells identified. - ??Urothelial cells with degenerative changes. - ??Polyoma viral changes. Document reviewed and electronically signed by: ? NEGIN ARAMBULA MD [facility] Report Date: ??08/30/2015 15:38 By the signature above, the attending physician certifies th at he/she has personally conducted a gross and/or microscopic examin ation of the described specimens and rendered or confirmed the above diagnosis. Specimen Type: ? Urine, NOS Clinical History: ? Gout; microscopic hematuria. clinical diagnosis code: ??M10. 9, R31.2 ? Gross Description: ? One vial of Cytolyt was rece ived and processed by selective cellular enhancement technique. ? End of Report Specimen (Source) Anatomical Collection Method Collection Time Re ceived Time Location / / Volume Laterality 08/28/2015 08/30/2015 9:27 EDT Sin GUZMAN PATHOLOGY ORDERABLES Performing Organization Address City/State/ZIP Code Phon e Number [facility] [address] [place] [address] SERVICES documented in this encounter Visit Diagnoses Not on filedocumented in this encounter Care Teams Flower Grower Relationship Specialty Start Date End Date Gautam Madrigal MD PCP - General 08/30/15 09/02/15 documented as of this encounter
--- OUTSIDE RECORDS SUMMARY | 2022-04-13 17:56 | XMS_ITS | Encounter Summary ---
:1965 Author Organization [facility] [place] [address] Care Team Providers Name Role Phone Jf Cervantes Primary Care Provider Reason for Visit Reason Comments Chronic Kidney Disease Consultation (Routine) - Closed Specialty Diagnoses / Procedures Referred By Contact Refer red To Contact Nephrology Diagnoses abnormal renal function and proteinuria Jf Cervantes PA [facility] Nephrology 2m [address] [place], [place] [address] [place] [address] Fax: Referral ID Status Reason Start Date Expiration Date Visits V isits Requested Authorized [id number] Closed Consult, Test 01/16/2016 01/15/2017 [facility] PCP Updated and/or Approved Encounter Details Date Type Department Care Team Description 02/07/2016 Office Visit Nephrology Hypertension Mary Kate Emery MD [facility] [place] [address] CKD (chronic kidney at [facility] Jagjit Lennon, [facility] [place] [address] disease), [place] [address] Social History Tobacco Use Types Packs/Day Years Used Date Smoking Tobacco: Never Smokeless Tobacco: Never Sex Assigned at Date Recorded Not on file documented as of this encounter Last Filed Vital Signs Vital Sign Reading Time Taken Comments Blood Pressure 144/100 02/07/2016 3:37 PM EDT Pulse 84 02/07/2016 3:37 PM EDT Temperature - - Respiratory Rate - - Oxygen Saturation - - Inhaled Oxygen Concentration - - Weight 95.7 kg (211 lb) 02/07/2016 3:37 PM EDT Height 177.8 cm (5' 10) 02/07/2016 3:37 PM EDT Body Mass Index 30.28 02/07/2016 3:37 PM EDT documented in this encounter Progress Notes Jagjit Lennon, DO - 02/07/2016 3:30 PM EDT HYPERTENSION/ NEPHROLOGY CONSULT PATIENT: Mathew Han : 1965 REASON FOR CONSULTATION: Acute kidney injury, hematuria, proteinuria referred by Dr. Cervantes PMH: Microscopic hematuria (since age 21) HTN x 4 yrs HLD Hx Cocaine abuse Hx Alcohol abuse Gout HPI: 50 y.o. male who presents to nephrology clinic to establish care. Patient with hx of microscopic hematuria since age 21. Noticed microscopic hematuria from a screening test as part of [facility]. Subsequently had kidney biopsy in 1987 at [facility] which was 'unremarkable'. Patient denies niurka hematuria, flank pain. No hx of kidney stones, no weight loss. Uses NSAIDs (Indomethacin PRN for gouty attacks; last attack 2 weeks ago). BP 140's at home. On Lisinopril for past 5 months but noncompliant. Had urological workup with negative cystoscopy, cytology. MEDICATIONS: Allergies: No Known Allergies PSH: R knee meniscus repair 1995 FH: Denies family hx of kidney disease SH: Cocaine abuse (last 6 yrs ago), alcohol abuse (quit 6 yrs; would drink 6 beers/day), denies smoking ROS: Constitutional - No fevers, chills, weight loss Skin - No rash or itchy skin HEENT - No headaches, visual changes Resp - No cough, shortness of breath CV - No chest pain, leg swelling, difficulty breathing lying flat GI - No nausea, vomiting,change in bowel habits/abdominal pain - No change in urine output. No pain urinating or blood in urine. Neuro - No weakness. No numbness/ tingling in extremities. PHYSICAL EXAM: Temp: -- Heart Rate: -- Resp: -- BP: -- SpO2: -- Heart Rate from SPO2: -- Appearance - Alert, Comfortable. Skin - No exanthem. HEENT - Sclera white. Mucous membranes moist. Chest: Lungs clear to ausculatation w/o wheezes/ rhonchi/ crackles. Heart - S1 and S2 clear w/o murmur, gallop, or rub. JVP not elevated. Abd - Soft. + BS. No bruit. Non tender. Ext - Warm. No cyanosis. No dependent edema. Neuro - No asterixis. STUDIES: Results for MATHEW HAN ( ) as of 02/09/2016 20:58 Ref. Range 02/07/2016 17:21 WBC Latest Ref Range: 4.0 - 9.5 x10(3)/mcL 7.7 RBC Latest Ref Range: 4.58 - 5.54 x10(6)/mcL 4.96 Hemoglobin Latest Ref Range: 13.7 - 16.5 gm/dL 15.0 Hematocrit Latest Ref Range: 40.5 - 48.5 % 43.9 MCV Latest Ref Range: 82.9 - 93.1 fL 88.5 MCH Latest Ref Range: 27.5 - 32.1 pg 30.2 MCHC Latest Ref Range: 32.0 - 35.7 gm/dL 34.2 RDWSD Latest Ref Range: 36.0 - 45.0 fL 40.7 RDWCV Latest Ref Range: 11.4 - 13.8 % 12.4 Platelets Latest Ref Range: 145 - 357 x10(3)/mcL 287 MPV Latest Ref Range: 7.6 - 12.9 fL 9.9 nRBC % Auto Latest Units: % 0.0 nRBC Abs Auto Latest Ref Range: 0.000 - 0.000 x10(3)/mcL 0.000 Neutr Abs (ANC) Latest Ref Range: 1.70 - 6.10 x10(3)/mcL 4.74 Neutrophils % Latest Units: % 61.5 Immature Gran % Latest Units: % 0.40 Lymphocytes % Latest Units: % 20.6 Monocytes % Latest Units: % 11.6 Eosinophils % Latest Units: % 4.7 Basophils % Latest Units: % 1.2 Nancy Gran Abs Latest Ref Range: 0.00 - 0.04 x10(3)/mcL 0.03 Lymphocytes Abs Latest Ref Range: 0.9 - 3.2 x10(3)/mcL 1.6 Monocyte Abs Latest Ref Range: 0.3 - 0.9 x10(3)/mcL 0.9 Eosinophils Abs Latest Ref Range: 0.0 - 0.4 x10(3)/mcL 0.4 Basophils Abs Latest Ref Range: 0.0 - 0.1 x10(3)/mcL 0.1 Sodium Latest Ref Range: 135 - 145 mmol/L 140 Potassium Latest Ref Range: 3.5 - 5.0 mmol/L 4.2 Chloride Latest Ref Range: 98 - 107 mmol/L 99 CO2 Latest Ref Range: 22 - 31 mmol/L 23 Anion Gap Latest Ref Range: 5 - 15 mmol/L 18 (H) BUN Latest Ref Range: 10 - 20 mg/dL 14 Creatinine Latest Ref Range: 0.80 - 1.50 mg/dL 1.28 Estimated GFR Latest Ref Range: >=60 60 Glucose Lvl Latest Ref Range: 65 - 199 mg/dL 99 Calcium Latest Ref Range: 8.5 - 10.5 mg/dL 8.8 Uric Acid Latest Ref Range: 3.5 - 8.5 mg/dL 8.8 (H) Albumin Latest Ref Range: 3.2 - 5.2 gm/dL 3.9 Creatinine 1.28mg/dL (02/07/16), 1.48mg/dL (10/01/15), 1.53mg/dL (08/28/15) CT abdomen w/o contrast (10/31/15): no obstruction, normal kidneys Urine microscopy (02/07/16): fatty cast, granular RBCs IMPRESSION/ RECOMMENDATIONS: Mr. aHn is a 50 yr old gentleman w/ hx of CKD, hematuria who presents to nephrology clinic to establish care. 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 Patient noncompliant recently thus had discussion reiterating importance of compliant. Hx Gout -Uric acid 8.8 today -Avoid NSAIDS (Indomethacin PRN gouty attacks). -Will start Allopurinol 200mg PO QDAY. -Patient may use Colchicine PRN (ordered) Plan: -Continue Lisinopril -Avoid NSAIDS (Indomethacin PRN gouty attacks). Will start Allopurinol 200mg PO QDAY. Patient may use Colchicine PRN. -Obtained repeat labs today -Will obtain old kidney biopsy records (1987) from [facility] in [place]. -Renal ultrasound RTC in 2 months Thanks for letting us participate in the care of this patient. Seen and Discussed w/ Dr. Yuly Lennon DO Nephrology Fellow Pager [phone] Mary Kate Emery MD - 02/07/2016 3:30 PM EDT Nephrology Attending Mathew Han was seen and examined with the Renal Fellow Dr Lennon The data and chart were reviewed. My findings and recommendations are accurately detailed in the note above. The findings, recommendations, and plan for ongoing care were discussed with the patient and the Renal Fellow documented in this encounter Plan of Treatment Not on filedocumented as of this encounter Procedures Procedure Name Priority Date/Time Associated Diagnosis Comme nts HEMOGRAM Routine 02/07/2016 5:21 PM CKD (chronic kidney Re sults for this EDT disease), procedure are i n unspecified stage the result s section. DIFFERENTIAL, Routine 02/07/2016 5:21 PM CKD (chronic kidney R esults for this AUTOMATED EDT disease), procedure are i n unspecified stage the result s section. CBC (WITH DIFF) Routine 02/07/2016 5:21 PM CKD (chronic kidney EDT disease), unspecified stage URIC ACID Routine 02/07/2016 5:21 PM CKD (chronic kidney Re sults for this EDT disease), procedure are i n unspecified stage the result s section. ALBUMIN LEVEL Routine 02/07/2016 5:21 PM CKD (chronic kidney R esults for this EDT disease), procedure are i n unspecified stage the result s section. BASIC METABOLIC Routine 02/07/2016 5:21 PM CKD (chronic kidney Results for this PANEL (NON-FASTING) EDT disease), procedur e are in unspecified stage the result s section. PROTEIN/CREATININE Routine 02/07/2016 3:30 PM CKD (chronic kid kylah Results for this RATIO, URINE EDT disease), procedure are i n unspecified stage the result s section. documented in this encounter Results Differential, Automated (02/07/2016 5:21 PM EDT) athologist Signature Neutrophils % 61.5 % [facility] Neutr Abs (ANC) 4.74 1.70 - [facility] 6.10 [facility] x10(3)/[facility] LABORATORY Lymphocytes % 20.6 % [facility] Lymphocytes Abs 1.6 0.9 - 3.2 [facility] x10(3)/[facility] LABORATORY Monocytes % 11.6 % [facility] Monocyte Abs 0.9 0.3 - 0.9 [facility] x10(3)/[facility] LABORATORY Eosinophils % 4.7 % [facility] Eosinophils Abs 0.4 0.0 - 0.4 [facility] x10(3)/[facility] LABORATORY Basophils % 1.2 % [facility] Basophils Abs 0.1 0.0 - 0.1 [facility] x10(3)/[facility] LABORATORY Immature Gran % 0.40 % [facility] Comment: Immature granulocytes(IG's)percentage an d absolute count will include metamyelocytes, myelocytes, and promyelo cytes. Blood smears from CBCs yielding IG's will be scanned manually for concor dance. If this scan disagrees with the automated IG or if promyelocytes are not ed, a manual differential will be performed. Nancy Gran Abs 0.03 0.00 - 0.04 x10(3)/[facility] Specimen Anatomical Collection Method Collection Time Receive d Time (Source) Location / / Volume Laterality Blood specimen 02/07/2016 5:21 PM 016 5:31 (specimen) EDT PM EDT Resulting Agency Comment Spec In Lab Mary Kate Emery MD HEMATOLOGY ORDERABLES Performing Organization Address City/State/[place] [address] Hemogram (02/07/2016 5:21 PM EDT) P athologist Signature WBC 7.7 4.0 - 9.5 [facility] x10(3)/[facility] LABORATORY RBC 4.96 4.58 - [place] 5.54 [facility] x10(6)/[facility] LABORATORY Hemoglobin 15.0 13.7 - [facility] 16.5 gm/dL [facility] Hematocrit 43.9 40.5 - [facility] 48.5 % [facility] MCV 88.5 82.9 - [facility] 93.1 [facility] LABORATORY MCH 30.2 27.5 - [place] 32.1 pg [facility] MCHC 34.2 32.0 - [facility] 35.7 gm/dL [facility] Platelets 287 145 - 357 [facility] x10(3)/[facility] LABORATORY RDWSD 40.7 36.0 - [place] 45.0 [facility] LABORATORY RDWCV 12.4 11.4 - [facility] [place] 13.8 % [facility] LABORATORY MPV 9.9 7.6 - 12.9 [facility] LABORATORY nRBC % Auto 0.0 % [facility] nRBC Abs Auto 0.000 0.000 - [facility] 0.000 [facility] x10(3)/[facility] LABORATORY Specimen Anatomical Collection Method Collection Time Receive d Time (Source) Location / / Volume Laterality Blood specimen 02/07/2016 5:21 PM 016 5:31 (specimen) EDT PM EDT Resulting Agency Comment Spec In Lab Mary Kate Emery MD HEMATOLOGY ORDERABLES Performing Organization Address City/State/ZIP Code Phon e Number [place] [phone] (ABNORMAL) Uric acid (02/07/2016 5:21 PM EDT) athologist Signature Uric Acid 8.8 (H) 3.5 - 8.5 [facility] mg/dL [facility] Specimen Anatomical Collection Method Collection Time Receive d Time (Source) Location / / Volume Laterality Blood specimen 02/07/2016 5:21 PM 016 5:31 (specimen) EDT PM EDT Resulting Agency Comment Spec In Lab Mary Kate Emery MD CHEMISTRY ORDERABLES Performing Organization Address City/[facility]/ZIP Code Phon e Number [address] Albumin Level (02/07/2016 5:21 PM EDT) athologist Signature Albumin 3.9 3.2 - 5.2 [facility] gm/dL [facility] Specimen Anatomical Collection Method Collection Time Receive d Time (Source) Location / / Volume Laterality Blood specimen 02/07/2016 5:21 PM 016 5:31 (specimen) EDT PM EDT Resulting Agency Comment Spec In Lab Mary Kate Emery MD CHEMISTRY ORDERABLES Performing Organization Address City/[facility] [place] [address] (ABNORMAL) Basic Metabolic Panel (non-fasting) (02/07/2016 5:21 PM EDT) athologist Signature Glucose Lvl 99 65 - 199 [facility] mg/dL [facility] Comment: Diabetes: >=200 mg/dL plus symp toms BUN 14 10 - 20 mg/dL [facility] Creatinine 1.28 0.80 - 1.50 mg/dL [facility] Comment: Please note that the pediatric reference intervals supplied above were not validated at [facility]. Results from pediatri c patients should be interpreted in conjunction to the patient's age, height and muscle mass. Sodium 140 135 - 145 mmol/L [facility] Potassium 4.2 3.5 - 5.0 mmol/L [facility] Comment: Please note: ??Patients with WBC >100,00 0 may have falsely elevated Potassium levels. ??For accurate Potassium quantif ication in these patients send serum separator tube (gold top) for subsequent determinations. ??Contact the Clinical Chemistry Laboratory if there are any qu estions. Chloride 99 98 - 107 mmol/L [facility] CO2 23 22 - 31 mmol/L [facility] Anion Gap 18 (H) 5 - 15 mmol/L [facility] Calcium 8.8 8.5 - 10.5 mg/dL [facility] Estimated GFR 60 >=60 [facility] Comment: This estimated GFR (eGFR) value was calc ulated using the MDRD equation which has been validated on patients between t he ages of 18 and 70. The MDRD should not be used to assess kidney function in patients < 18 years of age or in patients with extremes of body mass, or in patients with acute kidney failure. This value should be multiplied by 1.2 f or patients. For further information please copy and past e the following links into your internet browser. [email or web address] [email or web address] Specimen Anatomical Collection Method Collection Time Receive d Time (Source) Location / / Volume Laterality Blood specimen 02/07/2016 5:21 PM 016 5:31 (specimen) EDT PM EDT Resulting Agency Comment Spec In Lab Mary Kate Emery MD CHEMISTRY ORDERABLES Performing Organization Address City/State/ZIP Code Phon e Number [place] [phone] (ABNORMAL) Protein/Creatinine Ratio, urine (02/07/2016 3:30 PM EDT) Analysis Performed At Patho logist Time Signature U Creatinine 203 mg/dL [facility] U Protein Ran 206 (H) 0 - 12 [facility] mg/dL [facility] Prot/Cre Ratio 1.0 ratio [facility] Specimen Anatomical Collection Method Collection Time Receive d Time (Source) Location / / Volume Laterality Urine specimen 02/07/2016 3:30 PM 016 5:03 (specimen) EDT PM EDT Resulting Agency Comment Spec In Lab Mary Kate Emery MD URINE ORDERABLES Performing Organization Address City/State/[place] [address] documented in this encounter Visit Diagnoses Diagnosis CKD (chronic kidney disease), unspecifie d stage documented in this encounter Care Teams Crew Scheduler Relationship Specialty Start Date End Date Jf Cervantes PA PCP - General General Internal Medicine 01/16/[address] [place] [phone] documented as of this encounter
--- OUTSIDE RECORDS SUMMARY | 2022-04-13 17:56 | XMS_ITS | Clinical Summary ---
:1965 Author Organization [facility] Address [address] [place] [address] Care Team Providers Name Role Phone Unknown, Provider Primary Care Provider Allergies No known active allergies Social History Tobacco Use Types Packs/Day Years Used Date Smoking Tobacco: Never Smokeless Tobacco: Never Alcohol Use Standard Drinks/Week Comments Not Currently 0 (1 standard drink = 0.6 oz pure alcoho l) sober 9 years Sex Assigned at Date Recorded Not on file Obstetrics History Last Filed Vital Signs Vital Sign Reading [...] Body Mass Index 29.15 02/12/2019 1504 EDT Plan of Treatment Health Maintenance Due Date Last Done Comments Hepatitis C Screen 1965 COVID-19 Vaccine (#1) 01/01/1966 Insurance Payer Benefit Plan / Subscriber ID Effective Dates Phone Addre ss Type Group [employer] MVP ASO [id number] 2019-Present [address] [place] [phone] Care Teams Plastics Supervisor Relationship Specialty Start Date End Date Unknown, Provider, PCP - General 02/12/19
--- OUTSIDE RECORDS SUMMARY | 2022-04-13 17:56 | XMS_ITS | Encounter Summary ---
:1965 Author Organization [place] [address] Care Team Providers Name Role Phone Jf Cervantes Primary Care Provider Encounter Details Date Type Department Care Team Description 05/06/2016 Telephone Nephrology Hypertens ion at [facility] [place] [address] Social History Tobacco Use Types Packs/Day Years Used Date Smoking Tobacco: Never Smokeless Tobacco: Never Sex Assigned at Date Recorded Not on file documented as of this encounter Miscellaneous Notes Telephone Encounter - Fani Guan - 05/06/2016 9:34 AM EST Patient did not answer, Voicemail full. documented in this encounter Plan of Treatment Not on filedocumented as of this encounter Visit Diagnoses Not on filedocumented in this encounter Care Teams Water Pumper Relationship Specialty Start Date End Date Jf Cervantes PA PCP - General General Internal Medicine 01/16/[address] [place] [phone] documented as of this encounter
[2022-04-13 17:59] VITALS: RESP 18
--- NOTE | 2022-04-13 18:00 | RT.EKG_ITS ---
APPROVED REPORT Exam: Resting ECG Reason for Exam: chest pain Patient Location: E HR:82 bpm ECG Measurements Heart Rate 82 AXIS MO 141 P 53 QRSd 86 QRS -15 QT 366 T 54 QTc 428 Conclusion Sinus rhythm...normal P axis, V-rate 60- 99
--- NOTE | 2022-04-13 19:43 | ED.GENADUL_ITS ---
Discharge Plan Disposition Patient Disposition: Home Condition: Stable Discharge Details Clinical Impression: Bronchitis Primary Care Provider: Philip Eduardo ED Provider: Jayda Campos Home Meds and New Rx's Prescriptions: New benzonatate 100 mg capsule 100 mg PO BID-TID PRN (Reason: cough) Qty: 14 0RF Rx Instructions: Take one tablet up to 3 times daily as needed for cough. No Action lisinopril 20 mg tablet 1 tab PO DAILY Label Comments: Take 1 tablet by mouth once a day Discharge Instructions Instructions: Acute Bronchitis (ED) Additional Instructions: Cardiac work up within normal limits, Chest x-ray shows bronchitis. Use the cough medicine as directed. Use the albuterol inhaler, one to two puffs every 4- 6 hours as needed for wheezing and shortness of breath. Follow up with primary care provider in 3-5 days. Return to ED sooner if any w orsening or concerns. Increase oral fluids. Please take Tylenol or Ibuprofen with food every 4-6 hours as needed for pain and swelling. Referrals: Philip Eduardo [Primary Care Provider] - 5 days Medical Decision Making 56 year old male presents to ED with Chief complaint of anxiety and chest pain which is been on and off for last few days. He reports yesterday he was upset and began having some chest pain along with a panic attack. He also endorses cocaine use last cocaine use was 3 days ago. He denies any alcohol or other drugs. He is not a smoker. He does have a past medical history of hypertension and reports that he takes lisinopril which he is taking the last couple of days but does not take consistently. He is not taking aspirin daily. He also reports cough with increased phlegm production. Labs are unremarkable, troponin within normal limits, BUN 21 creatinine 1.4 given a liter of normal saline. X-ray shows bronchitis COVID flu RSV negative. Serial troponin within normal limits patient discharged with follow-up care, given albuterol inhaler and perles. This text was generated using ROSTRation system, please disregard any oddities of phrase or misspellings. Imaging Data Radiologic Study: Radiologist's impression: COMPARISON: No relevant prior studies available. FINDINGS: Lungs: Mild interstitial prominence. No consolidation. Pleural spaces: Unremarkable. No pleural effusion. No pneumothorax. Heart/Mediastinum: Unremarkable. No cardiomegaly. Bones/joints: Unremarkable. IMPRESSION: Mild interstitial prominence which may be chronic. Comparison with prior images would be helpful. Otherwise, mild bronchitis/interstitial pneumonitis not excluded Thank you for allowing us to participate in the care of your patient. Dictated and Authenticated by: Devan Barriga MD Lab Data Lab results reviewed: Yes I reviewed the patient's lab results. Labs: Laboratory Tests Range/Units 04/13/22 04/13/22 04/13/22 19:35 19:35 19:55 WBC (4.4-10.8) 10^3/uL 9.36 RBC (4.36-5.78) 10^6/uL 5.23 Hgb (13.5-17.5) g/dL 15.3 Hct (40.0-50.0) % 47.2 MCV (80-95) fL 90 MCH (27.0-33.0) pg 29.3 MCHC (32.0-36.0) % 32.4 RDW (11.8-14.1) % 13.3 Plt Count (130-400) 10^3/uL 286 MPV (8.0-11.0) fL 9.7 Immature Gran % 0.3 Neutrophils % 68.7 Lymphocytes % 17.2 Monocytes % 10.6 Eosinophils % 2.6 Basophils % 0.6 Nucleated RBC % (0.0-0.3) % 0.0 Absolute Neutrophils (1.2-6.7) 10^3/uL 6.43 Absolute Lymphocytes (1.2-3.4) 10^3/uL 1.61 Absolute Monocytes (0.1-0.8) 10^3/uL 0.99 H Absolute Eosinophils (0.0-0.7) 10^3/uL 0.24 Absolute Basophils (0.0-0.2) 10^3/uL 0.06 Sodium (136-145) mmol/L 137 Potassium (3.5-5.1) mmol/L 4.2 Chloride (98-107) mmol/L 102 Carbon Dioxide (21.0-32.0) mmol/L 27.3 Anion Gap (3-11) mmol/L 7.7 BUN (7-18) mg/dL 21 H Creatinine (0.70-1.30) mg/dL 1.4 H Est GFR (CKD-EPI 2020) (mL/min/1.73m2) 59.73 Glucose (74-106) mg/dL 111 H Calcium (8.5-10.1) mg/dL 9.5 Magnesium (1.8-2.4) mg/dL 2.2 Total Bilirubin (0.2-1.0) mg/dL 0.3 AST (15-37) U/L 22 ALT (16-63) U/L 28 Alkaline Phosphatase (46-116) U/L 69 Troponin I (<or=60) ng/L < 50 Total Protein (6.4-8.2) g/dL 8.4 H Albumin (3.4-5.0) g/dL 3.7 COVID-19 Source Nasopharynx SARS-CoV-2 (PCR) (Negative) Negative Influenza Type A (PCR) (Negative) Negative Influenza Type B (PCR) (Negative) Negative RSV (PCR) (Negative) Negative Sign Out No HPI General Mode of arrival: ambulatory . Date/Time Provider Initiated Documentation: 04/13/22 17:48 . Limitations to Documentation: no limitations . Information obtained by: patient, RN notes reviewed and old records reviewed . HPI Narrative: 56 year old male presents to ED with Chief complaint of anxiety and chest pain which is been on and off for last few days. He reports yesterday he was upset and began having some chest pain along with a panic attack. He also endorses cocaine use last cocaine use was 3 days ago. He denies any alcohol or other drugs. He is not a smoker. He does have a past medical history of hypertension and reports that he takes lisinopril which he is taking the last couple of days but does not take consistently. He is not taking aspirin daily. He also reports cough with increased phlegm production. Denies any fever chills denies any nausea vomiting diarrhea. No abdominal pain. Related Data Home Medications Medication Instructions Recorded Confirmed benzonatate 100 mg capsule 100 mg PO BID-TID PRN cough #14 04/13/22 caps lisinopril 20 mg tablet 1 tab PO DAILY 04/13/22 04/13/22 Previous Rx's Medication Instructions Recorded benzonatate 100 mg capsule 100 mg PO BID-TID PRN cough #14 04/13/22 caps Allergies Allergy/AdvReac Type Severity Reaction Status Date / Time No Known Allergies Allergy Unverified 04/13/22 17:55 General Stated Complaint: Anxiety MANJULA: 3 Review of Systems All systems reviewed & are unremarkable except as noted in HPI and below Constitutional Constitutional: Reports headache(s) ENT Ears, Nose, Mouth, and Throat: Reports headache(s) Cardiovascular Cardiovascular: Reports chest pain Respiratory Respiratory: Reports cough, Reports excessive phlegm production and Reports pain with cough Neurologic Neurologic: Reports headache(s) PFSH All Active Problems (Updated 04/13/22 @ 21:47 by Jayda Campos NP) Bronchitis (Acute) Social History Smoking/Tobacco Use Status: Never Smoking risk assessment performed?: Yes Alcohol Intake: former Substance use type: former substance user Do you feel safe at home: Yes Do you feel safe in your relationship?: Yes Exam Narrative Exam Narrative: Constitutional: Alert and oriented x3. Appears stated age. Normal body habitus. Head: Normocephalic, no trauma. Eyes: Pupils PERRL, Red reflex noted, EOM's intact. Eyelids symmetrical without lesions, discharge, or swelling. ENT: Bilateral TM's WNL, External ear normal to inspection, no mastoid TTP, swelling, or erythema, Nasal turbinates WNL, no nasal discharge. Normal dentition, Posterior pharynx WNL, no exudate. Chest: RRR, Normal S1, S2, distal pulses intact. Resp: Lungs clear to auscultation bilaterally, no wheezes, rales, or rhonchi. Abdomen: Soft, non-distended, Normoactive bowel sounds all 4 quads. Musculoskeletal: Normal gait, 5/5 strength to all four extremities. Skin: No suspicious rashes or lesions. Capillary refill less than 2 sec. Neurologic: Cranial nerves II-XII intact. Alert and oriented x 3. Motor: No deficits noted. Sensory: Intact bilaterally all 4 extremities. Reflexes: DTR's intact bilaterally.. Hematologic/Lymphatic: No ecchymosis, no lymphadenopathy. Course Vital Signs Vital signs: Vital Signs Temperature 36.5 C 04/13/22 17:52 Pulse 83 04/13/22 17:52 Respiratory Rate 18 04/13/22 17:52 Blood Pressure 142/86 H 04/13/22 17:52 Pulse Oximetry 97 04/13/22 17:52 Temperature 36.5 C 04/13/22 17:52 Temperature Source Temporal Artery Scan 04/13/22 17:52 Pulse 83 04/13/22 17:52 Respiratory Rate 18 04/13/22 17:59 Respiratory Effort Non-Labored 04/13/22 17:59 Respiratory Depth Normal 04/13/22 17:59 Respiratory Pattern Normal 04/13/22 17:59 Blood Pressure 142/86 H 04/13/22 17:52 Blood Pressure Position Sitting 04/13/22 17:52 Pulse Oximetry 97 04/13/22 17:52 Oxygen Delivery Method Room Air 04/13/22 17:52 Oxygen Flow Rate 0 04/13/22 17:52
--- NOTE | 2022-04-13 19:45 | DI.RAD_ITS ---
Exam(s) XR CHEST 2V PA LATERAL EXAM: XR CHEST 2V PA LATERAL CLINICAL HISTORY: Cough, Chest pain TECHNIQUE: 2D digital imaging was performed. COMPARISON: No exams were available for comparison FINDINGS: HEART: Normal size. Aorta: PULMONARY VASCULATURE: Normal. LUNGS: Mildly increased diffuse interstitial opacities are seen which could represent an element of f ibrosis. No focal area of consolidation is seen. PLEURAL SPACE: No pleural effusion or pneumothorax. BONE:Unremarkable for age. IMPRESSION: Increased interstitial markings could indicate fibrotic changes. No focal consolidation. DATA REPOSITORY: RADIATION DOSE DELIVERED:
[2022-04-13 19:53] LABS: Abs Immature Grans 0.03 10^3/uL (0.0-0.06); Absolute Basophil Count 0.06 10^3/uL (0.0-0.2); Absolute Eosinophil Count 0.24 10^3/uL (0.0-0.7); Absolute Lymphocyte Count 1.61 10^3/uL (1.2-3.4); Absolute Monocyte Count 0.99 10^3/uL (0.1-0.8); Absolute Neutrophil Count 6.43 10^3/uL (1.2-6.7); Basophils % 0.6; Eosinophils % 2.6; HCT 47.2 % (40.0-50.0); HGB 15.3 g/dL (13.5-17.5); Immature Grans % 0.3; Lymphocytes % 17.2; MCH 29.3 pg (27.0-33.0); MCHC 32.4 % (32.0-36.0); MCV 90 fL (80-95); MPV 9.7 fL (8.0-11.0); Monocytes % 10.6; Neutrophils % 68.7; Platelet Count 286 10^3/uL (130-400); RBC 5.23 10^6/uL (4.36-5.78); RDW 13.3 % (11.8-14.1); RDW-SD 44.4 fL; WBC 9.36 10^3/uL (4.4-10.8)
[2022-04-13 20:15] LABS: ALT 28 U/L (16-63); AST 22 U/L (15-37); Albumin 3.7 g/dL (3.4-5.0); Alkaline Phosphatase 69 U/L (46-116); Anion Gap 7.7 mmol/L (3-11); BUN 21 mg/dL (7-18); Bilirubin, Total 0.3 mg/dL (0.2-1.0); CO2 27.3 mmol/L (21.0-32.0); CREATININE 1.4 mg/dL (0.70-1.30); Calcium 9.5 mg/dL (8.5-10.1); Chloride 102 mmol/L (98-107); Estimated GFR 59.73 (mL/min/1.73m2); Glucose 111 mg/dL (74-106); Magnesium 2.2 mg/dL (1.8-2.4); Potassium 4.2 mmol/L (3.5-5.1); Sodium 137 mmol/L (136-145); Total Protein 8.4 g/dL (6.4-8.2); Troponin I < 50 ng/L (<or=60)
--- NOTE | 2022-04-13 20:23 | DI.VRAD_ITS ---
PROCEDURE INFORMATION: Exam: XR Chest Exam date and time: 04/13/2022 8:14 PM Age: 56 years old Clinical indication: Patient HX: Cough for months, chest pain TECHNIQUE: Imaging protocol: Radiologic exam of the chest. Views: 2 views. COMPARISON: No relevant prior studies available. FINDINGS: Lungs: Mild interstitial prominence. No consolidation. Pleural spaces: Unremarkable. No pleural effusion. No pneumothorax. Heart/Mediastinum: Unremarkable. No cardiomegaly. Bones/joints: Unremarkable. IMPRESSION: Mild interstitial prominence which may be chronic. Comparison with prior images would be helpful. Otherwise, mild bronchitis/interstitial pneumonitis not excluded Dictated and Authenticated by: Devan Barriga MD. Ordering:DESTINI Montelongo MD
[2022-04-13 20:33] LABS: COVID-19 PCR Negative (Negative); Influenza A PCR Negative (Negative); Influenza B PCR Negative (Negative); RSV PCR Negative (Negative)
[2022-04-13 20:38] LABS: Source Nasopharynx
[2022-04-13] MEDS: Normal Saline 1,000 ML 1000 ML IV (20:44)
[2022-04-13] MEDS: Benzonatate 100 MG CAP PO (21:06)
[2022-04-13 22:35] LABS: Troponin I < 50 ng/L (<or=60)
[2022-04-13] MEDS: Albuterol HFA 8 GM 60 PUFF INH IH (22:53)
[2022-04-13 22:54] VITALS: BP 139/70; PULSE 72; RESP 16; TEMP 36.9; O2SAT 99
== END 2022-04-13 22:47 | disposition home or self-care (01) ==
PROVIDERS: Emergency Provider Registered Nurse Emergency; PCP Internal Medicine
DX: J40 Bronchitis, not specified as acute or chronic (principal); I10 Essential (primary) hypertension; Z20.822 Contact with and (suspected) exposure to COVID-19
CPT/HCPCS: 36415; 80053; 87637; 93005; 96360; 99284; 71046; 83735; 84484; 85025; 93010; 99285; J3490

== ENCOUNTER 2022-08-23 03:48 | Inpatient (IN) | payer OTHER, SELFPAY ==
[2022-08-23] VITALS (98 sets, daily range): BP systolic 91–144; BP diastolic 60–89; PULSE 67–92; RESP 8–39; TEMP 36.2–37; O2SAT 84–100
--- NOTE | 2022-08-23 03:30 | RT.EKG_ITS ---
APPROVED REPORT Exam: Resting ECG Reason for Exam: post cardiac arrest Patient Location: E HR:89 bpm ECG Measurements Heart Rate 89 AXIS OH 155 P 49 QRSd 97 QRS -17 QT 382 T 56 QTc 466 Conclusion Sinus rhythm...normal P axis, V-rate 60- 99
--- NOTE | 2022-08-23 03:45 | DI.CT_ITS ---
Exam(s) CT CHEST PE ABD PELVIS W EXAM: CT CHEST PE ABD PELVIS W CLINICAL HISTORY: fall, syncope, trauma. TECHNIQUE: Imaging Protocol: Axial CT angiography was performed with multi-slice acquisition and mu lti-planar and/or 3D reconstructions. CONTRAST MATERIAL: Intravenous: Contrast contrast volume:100 mL COMPARISON: No exams were available for comparison FINDINGS: CHEST: Tracheobronchial tree: Patent where visualized. Pulmonary parenchyma: There are bilateral ground-glass opacities present. The findings are most porsche ed in the upper lobes bilaterally and the superior segments of the lower lobes bilaterally. There is relative sparing of the right middle lobe. No architectural distortion. Pulmonary Arteries: No evidence of filling defect to suggest pulmonary emboli. Mediastinum and Breonna: No dominant adenopathy or fluid collection. The esophagus is unremarkable. The small hiatal hernia. Visualized thyroid gland: Unremarkable. Pleura: No effusion or pneumothorax. Heart: The heart is not dilated. Coronary artery calcification is present. No pericardial effusion. Aorta: Thoracic aorta non-dilated. No evidence of dissection. Atherosclerosis is present. Bones: Within normal limits for the patient's age. Soft tissues: Unremarkable. ABDOMEN: Liver: There is decreased attenuation of the liver suggesting fatty infiltration. No measurable mass . Portal, Superior Mesenteric, and Splenic Veins: Unremarkable. Gallbladder and Biliary Tract: No radiodense calculus or dilation. Pancreas: Normal density, no abnormal calcifications or inflammatory process. Spleen: Normal. Adrenals: No masses seen. Kidneys: Normal size, contour and axis. No radiodense stones or obstructive uropathy. There is a 1.2 cm hypodensity in the upper pole of the left kidney. Hounsfield units of 60. This is indeterminate. Abdominal Aorta: Abdominal portion non-dilated. Atherosclerosis. Bowel: No obstruction or bowel wall thickening. Appendix is unremarkable. Peritoneal Cavity: No ascites, collection or mesenteric inflammatory response. No free air. Lymph Nodes: Within normal limits. Bones: Within normal limits for the patient's age. Soft Tissues: There is a small fat containing umbilical hernia. There is a left inguinal hernia. PELVIS: Bladder: Symmetric distention, no gross wall thickening. Reproductive Organs: Unremarkable as visualized. Lymph Nodes: Within normal limits. Bones: Within normal limits. IMPRESSION: 1. No evidence pulmonary embolism, thoracic aortic dissection or aneurysm. 2. Bilateral ground-glass opacities predominantly involving the upper lobes and superior segments of the lower lobes bilaterally. This may represent a pneumonia. Pulmonary edema or hemorrhage/contusio ns should be considered. Please correlate clinically. 3. No acute abdominal or pelvic organ injury. No acute fracture. 4. Indeterminate 1.2 cm left renal upper pole hypodensity. Further characterization with MRI is amrk mmended. RADIATION DOSE DELIVERED: 1,687.98mGy.cm Total DLP DATA REPOSITORY: All CT scans at this facility are submitted to the National Radiology Data Registry (NRDR) Dose Index Registry (DIR) with the [employer] ([employer]). RADIATION OPTIMIZATION: All CT scans at this facility use at least one of these dose optimization te chniques: automated exposure control; mA and/or kV adjustment per patient size (includes targeted exa ms where dose is matched to clinical indication); or iterative reconstruction.
--- NOTE | 2022-08-23 04:00 | DI.CT_ITS ---
Exam(s) CT HEAD CERVICAL SPINE WO EXAM: CT HEAD CERVICAL SPINE WO CLINICAL HISTORY: fall, syncope, trauma. TECHNIQUE: Imaging Protocol: Axial computed tomography images with coronal and sagittal reformatted images were created and reviewed COMPARISON: No priors for comparison. FINDINGS: CT Head: Ventricles and Extra axial spaces: Normal in size and morphology for the patient's age. Hemorrhage: None. Cerebral parenchyma: Normal. Midline shift: None. Brainstem/Cerebellum: Normal. Calvarium: Normal. Visualized Paranasal sinuses/Mastoids: Clear. Soft Tissues: There is a small subcutaneous hematoma overlying the left frontal bone. CT Cervical Spine: Bones: No acute fracture or subluxation. Degenerative changes are seen throughout the cervical spine. Soft Tissues: Unremarkable. Lung Apices: There are ground-glass opacities in the lung apices bilaterally. Please refer to the CT scan of the chest, abdomen and pelvis from the same day. IMPRESSION: 1. No acute intracranial process. 2. Small subcutaneous hematoma overlying the left frontal bone. 3. No acute fracture or subluxation in the cervical spine. RADIATION DOSE DELIVERED: 1,568.89mGy.cm Total DLP DATA REPOSITORY: All CT scans at this facility are submitted to the National Radiology Data Registry (NRDR) Dose Index Registry (DIR) with the [employer] ([employer]). RADIATION OPTIMIZATION: All CT scans at this facility use at least one of these dose optimization te chniques: automated exposure control; mA and/or kV adjustment per patient size (includes targeted exa ms where dose is matched to clinical indication); or iterative reconstruction.
--- NOTE | 2022-08-23 04:04 | W.ED.GENAD ---
Discharge Plan Disposition Patient Disposition: Admit to [facility] Discharge Details Clinical Impression: Cardiac arrest, Cocaine abuse, Bilateral pulmonary contusion, Facial laceration, Hypoxia, Kidney lesion, Concussion Admit Date/Time: 08/23/22 05:40 Admit Provider: Otilio Florentino Attending Provider: Otilio Florentino Primary Care Provider: Philip Eduardo ED Provider: Trell Cordoba Discharge Data Discharge Date/Time-TO BE ENTERED AT DEPARTURE: 08/23/22 06:15 Medical Decision Making 410 --57-year-old male arrives by EMS with altered mental status after cardiac arrest. Bystander CPR was provided in addition to 2 minutes of CPR by EMS before ROSC obtained. Patient was noted to have pinpoint pupils and respiratory depression. He was given naloxone and mentation has improved. Patient arrives confused, hemodynamically stable. Patient is hypoxic in the low 90s on supplemental oxygen. He does have signs of head trauma including laceration left forehead. Unclear etiology for cardiac arrest. Consider substance abuse versus acute pulmonary embolism versus arrhythmia versus other. EKG was reviewed and interpreted by me: Please see report, normal sinus rhythm, 89 bpm, nondiagnostic. Consider acute intracranial traumatic hemorrhage. Plan to obtain CT of the head. We will obtain CT of the chest to assess for acute pulmonary embolism and acute thoracic traumatic injury as well as CT of the abdomen pelvis to assess for traumatic injury from fall. Initial labs reviewed including VBG shows concerning for metabolic acidosis. -- Patient was given 500 mL crystalloid bolus. Zofran 4 mg IV for nausea. 500 --CT of the head was interpreted by radiology: No acute intracranial abnormality. CT of the cervical spine was interpreted by radiology: Degenerative changes. No acute findings are evident. CT of the chest interpreted by radiology: Bilateral, left worse than right, mid and upper lung zone mixed consolidative and groundglass opacities, suspicious for pneumonia. Pulmonary edema or hemorrhage may appear similar. No pulmonary emboli. CT of the abdomen pelvis interpreted by radiology: No acute intra-abdominal or pelvic findings. Indeterminate 12 mm left upper pole hypodense lesion. Recommend outpatient CT or MRI for further characterization. Patient reassessed and continues to have repetitive questioning. Maintaining airway. Patient saturating in low 90s on supplemental mask oxygen. Will give ceftriaxone 1g IV for potential PNA. Patient admits to smoking cocaine. Consider possible accidental fentanyl exposure. Plan will be to hospitalize in the ICU. 4 cm left forehead laceration was irrigated with copious sterile saline and primary closure performed with skin adhesive. Hemostasis achieved. Wound border well approximated. 535 --I spoke with Dr. Florentino, on-call hospitalist, discussed ED presentation and course, he will admit the patient. He request bridging admission orders be placed to expedite transfer to the ICU. Lab Data Lab results reviewed: Yes I reviewed the patient's lab results. Labs: Laboratory Tests Range/Units 08/23/22 08/23/22 08/23/22 03:35 03:35 03:35 WBC (4.4-10.8) 10^3/uL 10.46 RBC (4.36-5.78) 10^6/uL 5.59 Hgb (13.5-17.5) g/dL 16.6 Hct (40.0-50.0) % 51.6 H MCV (80-95) fL 92 MCH (27.0-33.0) pg 29.7 MCHC (32.0-36.0) % 32.2 RDW (11.8-14.1) % 12.8 Plt Count (130-400) 10^3/uL 280 MPV (8.0-11.0) fL 9.8 Immature Gran % 1.5 Neutrophils % 80.0 Lymphocytes % 10.8 Monocytes % 7.0 Eosinophils % 0.1 Basophils % 0.6 Nucleated RBC % (0.0-0.3) % 0.0 Absolute Neutrophils (1.2-6.7) 10^3/uL 8.37 H Absolute Lymphocytes (1.2-3.4) 10^3/uL 1.13 L Absolute Monocytes (0.1-0.8) 10^3/uL 0.73 Absolute Eosinophils (0.0-0.7) 10^3/uL 0.01 Absolute Basophils (0.0-0.2) 10^3/uL 0.06 PT (9.3-11.0) sec 10.9 INR (0.9-1.1) 1.1 APTT (21.5-31.9) sec 26.1 VBG pH (7.31-7.41) VBG pCO2 (41-51) mmHg VBG pO2 mmHg VBG HCO3 (23-28) mmol/L VBG Total CO2 (24-29) mmol/L VBG O2 Saturation % VBG Base Excess (-2-3) mmol/L Sodium (136-145) mmol/L 137 Potassium (3.5-5.1) mmol/L 4.5 Chloride (98-107) mmol/L 100 Carbon Dioxide (21.0-32.0) mmol/L 20.6 L Anion Gap (3-11) mmol/L 16.4 H BUN (7-18) mg/dL 26 H Creatinine (0.70-1.30) mg/dL 2.4 H Est GFR (CKD-EPI 2020) (mL/min/1.73m2) 31.09 Glucose (74-106) mg/dL 309 H Calcium (8.5-10.1) mg/dL 9.1 Magnesium (1.8-2.4) mg/dL 2.2 Total Bilirubin (0.2-1.0) mg/dL 0.5 AST (15-37) U/L 45 H ALT (16-63) U/L 69 H Alkaline Phosphatase (46-116) U/L 61 Troponin I (<or=60) ng/L < 50 Total Protein (6.4-8.2) g/dL 8.6 H Albumin (3.4-5.0) g/dL 3.9 COVID-19 Source Patient ABO/Rh Antibody Screen Range/Units 08/23/22 08/23/22 08/23/22 03:35 04:00 04:38 WBC (4.4-10.8) 10^3/uL RBC (4.36-5.78) 10^6/uL Hgb (13.5-17.5) g/dL Hct (40.0-50.0) % MCV (80-95) fL MCH (27.0-33.0) pg MCHC (32.0-36.0) % RDW (11.8-14.1) % Plt Count (130-400) 10^3/uL MPV (8.0-11.0) fL Immature Gran % Neutrophils % Lymphocytes % Monocytes % Eosinophils % Basophils % Nucleated RBC % (0.0-0.3) % Absolute Neutrophils (1.2-6.7) 10^3/uL Absolute Lymphocytes (1.2-3.4) 10^3/uL Absolute Monocytes (0.1-0.8) 10^3/uL Absolute Eosinophils (0.0-0.7) 10^3/uL Absolute Basophils (0.0-0.2) 10^3/uL PT (9.3-11.0) sec INR (0.9-1.1) APTT (21.5-31.9) sec VBG pH (7.31-7.41) 7.20 L VBG pCO2 (41-51) mmHg 51 VBG pO2 mmHg 38 VBG HCO3 (23-28) mmol/L 20 L VBG Total CO2 (24-29) mmol/L 18 L VBG O2 Saturation % 63 VBG Base Excess (-2-3) mmol/L -8 L Sodium (136-145) mmol/L Potassium (3.5-5.1) mmol/L Chloride (98-107) mmol/L Carbon Dioxide (21.0-32.0) mmol/L Anion Gap (3-11) mmol/L BUN (7-18) mg/dL Creatinine (0.70-1.30) mg/dL Est GFR (CKD-EPI 2020) (mL/min/1.73m2) Glucose (74-106) mg/dL Calcium (8.5-10.1) mg/dL Magnesium (1.8-2.4) mg/dL Total Bilirubin (0.2-1.0) mg/dL AST (15-37) U/L ALT (16-63) U/L Alkaline Phosphatase (46-116) U/L Troponin I (<or=60) ng/L Total Protein (6.4-8.2) g/dL Albumin (3.4-5.0) g/dL COVID-19 Source Nasal/Nares Patient ABO/Rh O Negative Antibody Screen NEGATIVE She lives in [place] HPI General Mode of arrival: ambulatory. Date/Time Provider Initiated Documentation: 08/23/22 04:04. Limitations to Documentation: altered mental status. Information obtained by: patient and EMS. HPI Narrative: 57-year-old male presents with EMS after cardiac arrest. Patient apparently collapsed in his bedroom to the floor. His started CPR. EMS arrived to find the patient pulseless. CPR was continued for 2 minutes at which point there was return of spontaneous circulation. Patient required continued rescue breathing. Patient was noted to have pinpoint pupil. IO placed left distal femur. Naloxone was administered by IO and patient slowly had improvement in mentation. Mentation has improved in route to the hospital. He continues to be hypoxic and require supplemental oxygen. Related Data Home Medications Medication Instructions Recorded Confirmed benzonatate 100 mg capsule 100 mg PO BID-TID PRN cough #14 04/13/22 08/23/22 caps lisinopril 20 mg tablet 1 tab PO DAILY 04/13/22 08/23/22 albuterol sulfate 90 mcg/actuation 2 inh inhalation QID PRN #8.5 grams 08/23/22 aerosol inhaler amoxicillin 500 mg-potassium 1 tab PO TID #15 tabs 08/23/22 clavulanate 125 mg tablet (Augmentin) prednisone 20 mg tablet 40 mg PO DAILY #10 tabs 08/23/22 Previous Rx's Medication Instructions Recorded benzonatate 100 mg capsule 100 mg PO BID-TID PRN cough #14 04/13/22 caps albuterol sulfate 90 mcg/actuation 2 inh inhalation QID PRN #8.5 grams 08/23/22 aerosol inhaler amoxicillin 500 mg-potassium 1 tab PO TID #15 tabs 08/23/22 clavulanate 125 mg tablet (Augmentin) prednisone 20 mg tablet 40 mg PO DAILY #10 tabs 08/23/22 Allergies Allergy/AdvReac Type Severity Reaction Status Date / Time No Known Allergies Allergy Unverified 08/23/22 04:47 General MANJULA: 3 Review of Systems Unobtainable due to mental status Cardiovascular Cardiovascular: Reports chest pain PFSH All Active Problems (Updated 08/23/22 @ 07:01 by Otilio Florentino MD) Acute kidney injury (Acute) Cardiac arrest (Acute) Cocaine abuse (Acute) Bilateral pulmonary contusion (Acute) Facial laceration (Acute) Hypoxia (Acute) Kidney lesion (Acute) Concussion (Acute) Social History Smoking/Tobacco Use Status: Never Smoking risk assessment performed?: Yes Alcohol Intake: former Substance use type: former substance user Do you feel safe at home: Yes Do you feel safe in your relationship?: Yes Exam Const Nutritional Appearance: well nourished Limitations: altered mental status HENMT Head: no Maldonado's sign, laceration (Left supraorbital) and no raccoon eyes Mouth: moist mucous membranes Eyes Conjunctivae: normal conjunctivae Sclera: normal sclerae Neck Neck: trachea midline and supple Resp Auscultation: clear to auscultation bilaterally, no rales, no rhonchi and no wheezes Cardio Rate: regular rate and not tachycardic Rhythm: regular rhythm GI Palpation: soft, not firm, no guarding, no masses, not rigid and nontender Skin General skin exam: no rashes or lesions noted Neuro General: patient alert, patient awake, tone normal and patient confused Other: Following commands, repetitive questioning, moving all extremities Extrem General: no edema Procedures Laceration Laceration 1: Site: face Side (If applicable): left Size (cm): 4 Description: linear Depth: simple, single layer Pre-repair: wound explored and irrigated extensively Skin layer closed with: other (skin adhesive) Critical Care Time Critical Care Time Critical Care Time: Yes Total Critical Care Time: 50 Attestation: I spent greater than 50 minutes addressing this patient's immediate life threats. Please see MDM section of note. This time was spent engaged in work directly related to the patient's care, exclusive of separate procedures, and failure to initiate these interventions would have likely resulted in clinically significant or life threatening deterioration in the patient's condition.
[2022-08-23 04:06] LABS: BE (Venous) -8 mmol/L (-2-3); HCO3 (Venous) 20 mmol/L (23-28); O2 Sat (Venous) 63 %; TCO2 (Venous) 18 mmol/L (24-29); pCO2 (Venous) 51 mmHg (41-51); pO2 (Venous) 38 mmHg
[2022-08-23 04:11] LABS: Abs Immature Grans 0.16 10^3/uL (0.0-0.06); Absolute Basophil Count 0.06 10^3/uL (0.0-0.2); Absolute Eosinophil Count 0.01 10^3/uL (0.0-0.7); Absolute Lymphocyte Count 1.13 10^3/uL (1.2-3.4); Absolute Monocyte Count 0.73 10^3/uL (0.1-0.8); Absolute Neutrophil Count 8.37 10^3/uL (1.2-6.7); Basophils % 0.6; Eosinophils % 0.1; HCT 51.6 % (40.0-50.0); HGB 16.6 g/dL (13.5-17.5); Immature Grans % 1.5; Lymphocytes % 10.8; MCH 29.7 pg (27.0-33.0); MCHC 32.2 % (32.0-36.0); MCV 92 fL (80-95); MPV 9.8 fL (8.0-11.0); Platelet Count 280 10^3/uL (130-400); RBC 5.59 10^6/uL (4.36-5.78); RDW 12.8 % (11.8-14.1); RDW-SD 43.9 fL; WBC 10.46 10^3/uL (4.4-10.8)
[2022-08-23 04:21] LABS: INR 1.1 (0.9-1.1); PTT Activated 26.1 sec (21.5-31.9); Prothrombin Time 10.9 sec (9.3-11.0)
--- NOTE | 2022-08-23 04:23 | NUR.NOTE ---
Accessed [facility] patient chart for med list and tetanus status.Nursing Note:
[2022-08-23] MEDS: Ondansetron 4 MG/2 ML VIAL IVP (04:26)
[2022-08-23] MEDS: Omnipaque 350 MG/ML 100 ML BTL IJ (04:27)
[2022-08-23] MEDS: Normal Saline - Diluent 50 ML VIAL IJ (04:28)
[2022-08-23 04:29] LABS: ALT 69 U/L (16-63); AST 45 U/L (15-37); Albumin 3.9 g/dL (3.4-5.0); Alkaline Phosphatase 61 U/L (46-116); Anion Gap 16.4 mmol/L (3-11); BUN 26 mg/dL (7-18); Bilirubin, Total 0.5 mg/dL (0.2-1.0); CO2 20.6 mmol/L (21.0-32.0); CREATININE 2.4 mg/dL (0.70-1.30); Calcium 9.1 mg/dL (8.5-10.1); Chloride 100 mmol/L (98-107); Estimated GFR 31.09 (mL/min/1.73m2); Glucose 309 mg/dL (74-106); Magnesium 2.2 mg/dL (1.8-2.4); Potassium 4.5 mmol/L (3.5-5.1); Sodium 137 mmol/L (136-145); Total Protein 8.6 g/dL (6.4-8.2); Troponin I < 50 ng/L (<or=60)
[2022-08-23] MEDS: Lactated Ringers 500 ML 1000 ML IV (04:37)
[2022-08-23] MEDS: Lidocaine 2% Jelly 6 ML SYR (04:37)
[2022-08-23 04:41] LABS: Source Nasal/Nares
--- NOTE | 2022-08-23 04:45 | DI.VRAD_ITS ---
PROCEDURE INFORMATION: Exam: CT Head Without Contrast Exam date and time: 08/23/2022 4:13 AM Age: 57 years old Clinical indication: Injury or trauma; Blunt trauma (contusions or hematomas); Consciousness not specified; Blunt trauma and concussion/head injury; Injury details: Fall, syncope, trauma TECHNIQUE: Imaging protocol: Computed tomography of the head without contrast. Radiation optimization: All CT scans at this facility use at least one of these dose optimization techniques: automated exposure control; mA and/or kV adjustment per patient size (includes targeted exams where dose is matched to clinical indication); or iterative reconstruction. COMPARISON: No relevant prior studies available. FINDINGS: Brain: Normal. No hemorrhage. Unremarkable white matter. No mass effect. Cerebral ventricles: No ventriculomegaly. Paranasal sinuses: Visualized sinuses are unremarkable. No fluid levels. Mastoid air cells: Visualized mastoid air cells are well aerated. Bones/joints: Unremarkable. No acute fracture. Soft tissues: Left frontal scalp hematoma. IMPRESSION: No acute intracranial abnormality. PROCEDURE INFORMATION: Exam: CT Cervical Spine Without Contrast Exam date and time: 08/23/2022 4:13 AM Age: 57 years old Clinical indication: Injury or trauma; Blunt trauma (contusions or hematomas); Consciousness not specified; Blunt trauma and concussion/head injury; Injury details: Fall, syncope, trauma TECHNIQUE: Imaging protocol: Computed tomography of the cervical spine without contrast. Radiation optimization: All CT scans at this facility use at least one of these dose optimization techniques: automated exposure control; mA and/or kV adjustment per patient size (includes targeted exams where dose is matched to clinical indication); or iterative reconstruction. COMPARISON: CR XR CHEST 2V PA LATERAL 04/13/2022 8:14 PM FINDINGS: Bones/joints: No acute fracture. Normal alignment. Multilevel uncovertebral spurring and hypertrophic facet arthropathy. No significant disc bulge or herniation. No severe spinal canal stenosis. No significant neural foraminal narrowing. Lungs: Ground-glass opacification within the lung apices. Please refer to dedicated CT of the chest for complete findings. Soft tissues: Unremarkable. IMPRESSION: Degenerative changes. No acute findings are evident. Dictated and Authenticated by: Celio Delcid MD. Ordering:KATHLEEN Cai MD
--- NOTE | 2022-08-23 04:52 | DI.VRAD_ITS ---
PROCEDURE INFORMATION: Exam: CTA Chest With Contrast Exam date and time: 08/23/2022 4:17 AM Age: 57 years old Clinical indication: Pain and injury or trauma; Generalized; Abdominal pain; Localized; Blunt trauma (contusions or hematomas); Left-sided; Injury details: Fall, syncope, trauma TECHNIQUE: Imaging protocol: Computed tomographic angiography of the chest with contrast. 3D rendering (Not supervised by radiologist): MIP and/or 3D reconstructed images were created by the technologist. Radiation optimization: All CT scans at this facility use at least one of these dose optimization techniques: automated exposure control; mA and/or kV adjustment per patient size (includes targeted exams where dose is matched to clinical indication); or iterative reconstruction. Contrast material: OMNI 350; Contrast volume: 100 ml; Contrast route: INTRAVENOUS (IV); COMPARISON: CR XR CHEST 2V PA LATERAL 04/13/2022 8:14 PM FINDINGS: Pulmonary arteries: Normal. No pulmonary emboli. Aorta: No aortic aneurysm. No aortic dissection. Lungs: Left worse than right upper and midlung zone predominant mixed ground-glass and consolidative opacities. Pleural spaces: No pleural effusion or pneumothorax. Heart: Unremarkable. No cardiomegaly. No pericardial effusion. Lymph nodes: Unremarkable. No enlarged lymph nodes. Diaphragm: Small sliding hiatal hernia. Bones/joints: Unremarkable. No acute fracture. Soft tissues: Unremarkable. IMPRESSION: Bilateral, left worse than right, mid and upper lung zone mixed consolidative and ground-glass opacities, suspicious for pneumonia. Pulmonary edema or hemorrhage may appear similar. PROCEDURE INFORMATION: Exam: CT Abdomen And Pelvis With Contrast Exam date and time: 08/23/2022 4:17 AM Age: 57 years old Clinical indication: Pain and injury or trauma; Generalized; Abdominal pain; Localized; Blunt trauma (contusions or hematomas); Left-sided; Injury details: Fall, syncope, trauma TECHNIQUE: Imaging protocol: Computed tomography of the abdomen and pelvis with contrast. Radiation optimization: All CT scans at this facility use at least one of these dose optimization techniques: automated exposure control; mA and/or kV adjustment per patient size (includes targeted exams where dose is matched to clinical indication); or iterative reconstruction. Contrast material: OMNI 350; Contrast volume: 100 ml; Contrast route: INTRAVENOUS (IV); COMPARISON: CR XR CHEST 2V PA LATERAL 04/13/2022 8:14 PM FINDINGS: Liver: Normal. No mass. Gallbladder and bile ducts: Normal. No calcified stones. No ductal dilation. Pancreas: Normal. No ductal dilation. Spleen: Normal. No splenomegaly. Adrenal glands: Normal. No mass. Kidneys and ureters: Kidneys enhance symmetrically. Left upper pole 12 mm hypodensity, average 60 Hounsfield units, indeterminate. No hydronephrosis. Stomach and bowel: No obstruction. No mucosal thickening. Appendix: Normal appendix. Intraperitoneal space: No free air. No significant fluid collection. Vasculature: Atherosclerosis. Mild ectasia of the infrarenal abdominal aorta up to 2.3 cm. No aneurysm. Lymph nodes: No enlarged lymph nodes. Urinary bladder: Unremarkable as visualized. Reproductive: Unremarkable as visualized. Bones/joints: No acute fracture. Soft tissues: Small fat containing periumbilical hernia and right inguinal hernia. IMPRESSION: 1. No acute intra-abdominal or pelvic findings. 2. Indeterminate 12 mm left upper pole hypodense lesion. Recommend outpatient CT or MRI for further characterization. Dictated and Authenticated by: Genoveva Montano MD. Ordering:KATHLEEN Cai MD
[2022-08-23 05:04] LABS: *AMPHETAMINES SCREEN URINE Negative (Negative); *BARBITURATES SCREEN URINE Negative (Negative); *BENZODIAZEPINES SCREEN URINE Negative (Negative); Cannabinoids THC Negative (Negative); Cocaine Screen,Urine Positive (Negative); METHADONE URINE SCREEN Negative (Negative); OPIATES URINE SCREEN Negative (Negative)
[2022-08-23 05:09] LABS: Tricyclic Antidepressants Negative (Negative)
[2022-08-23 05:13] LABS: COVID-19 PCR Negative (Negative)
[2022-08-23] MEDS: cefTRIAXone 1 GM/50 ML BAG IVPB (05:22)
--- NOTE | 2022-08-23 06:29 | W.PM.HP.N ---
Date of service: 08/23/22 Time of Service: 06:29 Assessment and Plan Assessment and plan (1) Cardiac arrest: Status: Resolved Assessment and plan: Found down by at home. CPR administered by and then for 2 more minutes by EMS. IO placed. Narcan administered and his level of consciousness improved. He does not recall the events. Has admitted to smoking cocaine to ED staff but now is questioning whether he did or not. First troponin negative. Cont cardiac monitoring. Requiring supplemental O2. + chest wall pain, s/p chest compressions. (2) Cocaine abuse: Status: Acute Assessment and plan: He states he had been clean and sober for 12 years. Now states he is angry with himself and that he is screwed. Questionably also had intake of fentanyl given his improved mentation/level of consciousness when narcan administered. Care management to discuss substance abuse resources. (3) Bilateral pulmonary contusion: Status: Acute Assessment and plan: CT chest indicates PNA vs hemorrhage vs edema; possibly combination. Intermittent cough with bloody sputum. (4) Facial laceration: Status: Acute Assessment and plan: Wound edges well approximated with skin glue. (5) Kidney lesion: Status: Acute Assessment and plan: He will need f/u scan as outpt. (6) Concussion: Status: Acute Assessment and plan: No recall of the events that led to his collapse. (7) Hypoxia: Status: Resolved Assessment and plan: Secondary to possible PNA, likely hemorrhage as a result of CPR and edema. Titrate O2. He denies tobacco use. (8) Acute kidney injury: Status: Acute Assessment and plan: Creatinine elevated at 2.4. Creatinine 1.4 in Mar. Encourage fluid intake. Hold lisinopril. History of Present Illness History of Present Illness Chief Complaint: Cardiac arrest Narrative: This is a 57 yo male with a PMH of HTN. He presented to the ED via EMS after found down in his home. He collapsed on his bedroom floor and his initiated CPR. EMS arrived and continued CPR after finding no pulse. After 2 minutes of CPR there was return of spontaneous circulation. He also required rescue breathing. Pupils noted to be pinpoint and naloxone administered via IO that was placed in the left distal femur. His mentation/level of consciousness improved. A laceration of the left forehead was noted. CT head showed no acute processes. Atrophy noted. EKG showed NSR rate of [address] c-spine w/o acute findings. CT chest with bilateral mid and upper lung zone mixed consolidative and groundglass opacities suspicious for PNA, but pulmonary edema or hemorrhage possible. No pulmonary emboli. CT abd/pelvis w/o acute findings. An indeterminate 12 mm left upper pole kidney hypodense lesion noted. Recommended outpt CT or MRI for further characterisation. 4cm left forehead lac. was cleansed and closed with skin adhesive. Lab showed a WBC count of 10.46. Hgb 16.6. VBG pH 7.2. CO2 18. pO2 38. Na 137. K 4.5. Anion Gap 16.4. BUN 26. Creatinine 2.4. AST 45. ALT 69. Trop neg. Toxicology + for cocaine. Ceftriaxone 1 gr IV administered in the ED. Review of Systems All systems reviewed & are unremarkable except as noted in HPI and below PFSH All Active Problems (Updated 08/27/22 @ 00:05 by RADHA CEJA) Acute kidney injury (Acute) Cocaine abuse (Acute) Bilateral pulmonary contusion (Acute) Facial laceration (Acute) Kidney lesion (Acute) Concussion (Acute) Social History Smoking/Tobacco Use Status: Never Smoking risk assessment performed?: Yes Alcohol Intake: former Substance use type: former substance user Do you feel safe at home: Yes Do you feel safe in your relationship?: Yes Meds Allergies and Home Medications Allergies Allergy/AdvReac Type Severity Reaction Status Date / Time No Known Allergies Allergy Unverified 08/23/22 04:47 Home Medications Medication Instructions Recorded Confirmed Type benzonatate 100 mg capsule 100 mg PO BID-TID PRN cough #14 04/13/22 08/23/22 Rx caps lisinopril 20 mg tablet 1 tab PO DAILY 04/13/22 08/23/22 History albuterol sulfate 90 mcg/actuation 2 inh inhalation QID PRN #8.5 grams 08/23/22 Rx aerosol inhaler amoxicillin 500 mg-potassium 1 tab PO TID #15 tabs 08/23/22 Rx clavulanate 125 mg tablet (Augmentin) prednisone 20 mg tablet 40 mg PO DAILY #10 tabs 08/23/22 Rx Exam Const Nutritional Appearance: well nourished Limitations: altered mental status HENMT Head: no Maldonado's sign, laceration (Left supraorbital) and no raccoon eyes Mouth: moist mucous membranes Eyes Conjunctivae: normal conjunctivae Sclera: normal sclerae Neck Neck: trachea midline and supple Resp Effort & Inspection: normal respiratory effort Auscultation: clear to auscultation bilaterally, no rales, no rhonchi and no wheezes Cardio Rate: regular rate Rhythm: regular rhythm Heart Sounds: S1 normal and S2 normal GI Palpation: soft, not rigid and nontender Skin General skin exam: no rashes or lesions noted Neuro General: patient alert, patient awake and patient confused Other: Following commands, repetitive questioning, moving all extremities Extrem General: no calf tenderness and no edema Results Labs 08/23/22 03:35 08/23/22 03:35 Labs: Laboratory Results - last 24 hr 08/23/22 08/23/22 08/23/22 03:35 03:35 03:35 WBC 10.46 RBC 5.59 Hgb 16.6 Hct 51.6 H MCV 92 MCH 29.7 MCHC 32.2 RDW 12.8 Plt Count 280 MPV 9.8 Immature Gran % 1.5 Neutrophils % 80.0 Lymphocytes % 10.8 Monocytes % 7.0 Eosinophils % 0.1 Basophils % 0.6 Nucleated RBC % 0.0 Absolute Neutrophils 8.37 H Absolute Lymphocytes 1.13 L Absolute Monocytes 0.73 Absolute Eosinophils 0.01 Absolute Basophils 0.06 PT 10.9 INR 1.1 APTT 26.1 VBG pH VBG pCO2 VBG pO2 VBG HCO3 VBG Total CO2 VBG O2 Saturation VBG Base Excess Sodium 137 Potassium 4.5 Chloride 100 Carbon Dioxide 20.6 L Anion Gap 16.4 H BUN 26 H Creatinine 2.4 H Est GFR (CKD-EPI 2020) 31.09 Glucose 309 H Calcium 9.1 Magnesium 2.2 Total Bilirubin 0.5 AST 45 H ALT 69 H Alkaline Phosphatase 61 Troponin I < 50 Total Protein 8.6 H Albumin 3.9 Urine Opiates Screen Urine Methadone Screen Ur Barbiturates Screen Ur Tricyclics Screen Ur Amphetamines Screen U Benzodiazepines Scrn Urine Cocaine Screen Ur THC Screen COVID-19 Source SARS-CoV-2 (PCR) Patient ABO/Rh Antibody Screen 08/23/22 08/23/22 08/23/22 03:35 04:00 04:38 WBC RBC Hgb Hct MCV MCH MCHC RDW Plt Count MPV Immature Gran % Neutrophils % Lymphocytes % Monocytes % Eosinophils % Basophils % Nucleated RBC % Absolute Neutrophils Absolute Lymphocytes Absolute Monocytes Absolute Eosinophils Absolute Basophils PT INR APTT VBG pH 7.20 L VBG pCO2 51 VBG pO2 38 VBG HCO3 20 L VBG Total CO2 18 L VBG O2 Saturation 63 VBG Base Excess -8 L Sodium Potassium Chloride Carbon Dioxide Anion Gap BUN Creatinine Est GFR (CKD-EPI 2020) Glucose Calcium Magnesium Total Bilirubin AST ALT Alkaline Phosphatase Troponin I Total Protein Albumin Urine Opiates Screen Negative Urine Methadone Screen Negative Ur Barbiturates Screen Negative Ur Tricyclics Screen Negative Ur Amphetamines Screen Negative U Benzodiazepines Scrn Negative Urine Cocaine Screen Positive A Ur THC Screen Negative COVID-19 Source SARS-CoV-2 (PCR) Patient ABO/Rh O Negative Antibody Screen NEGATIVE 08/23/22 04:38 WBC RBC Hgb Hct MCV MCH MCHC RDW Plt Count MPV Immature Gran % Neutrophils % Lymphocytes % Monocytes % Eosinophils % Basophils % Nucleated RBC % Absolute Neutrophils Absolute Lymphocytes Absolute Monocytes Absolute Eosinophils Absolute Basophils PT INR APTT VBG pH VBG pCO2 VBG pO2 VBG HCO3 VBG Total CO2 VBG O2 Saturation VBG Base Excess Sodium Potassium Chloride Carbon Dioxide Anion Gap BUN Creatinine Est GFR (CKD-EPI 2020) Glucose Calcium Magnesium Total Bilirubin AST ALT Alkaline Phosphatase Troponin I Total Protein Albumin Urine Opiates Screen Urine Methadone Screen Ur Barbiturates Screen Ur Tricyclics Screen Ur Amphetamines Screen U Benzodiazepines Scrn Urine Cocaine Screen Ur THC Screen COVID-19 Source Nasal/Nares SARS-CoV-2 (PCR) Negative Patient ABO/Rh Antibody Screen Last Vital Signs Temp 37.0 C 08/23/22 04:11 Pulse 81 08/23/22 05:30 Resp 23 08/23/22 05:32 BP 115/75 08/23/22 05:30 Pulse Ox 94 08/23/22 05:32 Time Spent Time spent with Patient: 40-54 minutes Time was spent: preparing to see the patient(eg.review tests), obtaining and/or reviewing separately otained hiistory, ordering medications,tests, procedures, referring, communicating with other health urgent care nurse practitioner, indepentently interpreting results, counseling the patient and care coordination
[2022-08-23 07:43] LABS: Lab Add On Test DONE
[2022-08-23 08:02] LABS: Anion Gap 10.8 mmol/L (3-11); BUN 25 mg/dL (7-18); CO2 22.2 mmol/L (21.0-32.0); CREATININE 1.7 mg/dL (0.70-1.30); Calcium 8.9 mg/dL (8.5-10.1); Chloride 105 mmol/L (98-107); Estimated GFR 47.02 (mL/min/1.73m2); Glucose 184 mg/dL (74-106); Potassium 4.6 mmol/L (3.5-5.1); Sodium 138 mmol/L (136-145)
--- NOTE | 2022-08-23 08:13 | NUR.NOTE ---
Patient vomits approximately 300ml of pink fluid. RN martina's oxymask. Oxygenation much better after vomiting. Patient now on 3 liters of 02 via nasal cannula sating 93%.Nursing Note:
[2022-08-23 08:14] LABS: Troponin I 257 ng/L (<or=60)
--- NOTE | 2022-08-23 08:16 | NUR.NOTE ---
Labs are drawn.
--- NOTE | 2022-08-23 08:16 | NUR.NOTE ---
RN removes IO in left leg above the knee.Nursing Note:
--- NOTE | 2022-08-23 08:18 | PDOC.CMIN ---
- If Service Date Differs Date of service: 08/23/22 Time of Service: 08:18 Care Management Initial Assess REASON FOR HOSPITALIZATION:: Cardiac arrest, pulmonary contusions PAST MEDICAL HISTORY/PAST SURGICAL HISTORY:: All Active Problems (Updated 08/23/22 @ 07:01 by Otilio Florentino MD). Acute kidney injury (Acute). Cardiac arrest (Acute). Cocaine abuse (Acute). Bilateral pulmonary contusion (Acute). Facial laceration (Acute). Hypoxia (Acute). Kidney lesion (Acute). Concussion (Acute) PREVIOUS FUNCTIONAL STATUS/SOCIAL/FAMILY SUPPORTS:: Mathew lives in [facility] with his girlfriend Sherry. He drives and is independent at baseline. 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 Per RN, Mathew has a recovery room rn and sponsor. CURRENT FUNCTIONAL STATUS:: Mathew is lying in bed, he is awake and engages in conversation, minimally. Per pt, he is leaving the hospital AMA by 11:15am. He reports, that the doctor feels he should stay, but he needs to leave. His girlfriend is arranging a taxi. ADVANCE DIRECTIVES:: None Has patient been provided with info about the portal/API?: Yes Did the patient sign up for the portal?: No CODE STATUS:: Full Code INSURANCE COVERAGE / FINANCIAL ISSUES:: [facility] CURRENT HOME/COMMUNITY SERVICES/EQUIPMENT:: None PRIMARY CARE PHYSICIAN:: Philip Eduardo PATIENT/FAMILY EDUCATION NEEDS:: Review discharge instructions, limitations and plan to follow up with community providers. Discuss ask me three. TRANSPORTATION:: Via private vehicle with family PLAN:: Mathew is leaving AMA. His girlfriend arranged a Taxi. Mathew is encouraged to follow up with his PCP and recovery room rn. New RX's are Printed.
[2022-08-23 08:22] LABS: BE (Venous) -4 mmol/L (-2-3); HCO3 (Venous) 22 mmol/L (23-28); O2 Sat (Venous) 94 %; TCO2 (Venous) 19 mmol/L (24-29); pCO2 (Venous) 40 mmHg (41-51); pH (Venous) 7.35 (7.31-7.41); pO2 (Venous) 68 mmHg
[2022-08-23 08:24] LABS: Procalcitonin 0.3 ng/mL
[2022-08-23 08:24] LABS: Lactate 1.3 mmol/L (0.6-1.4)
--- NOTE | 2022-08-23 08:54 | NUR.NOTE ---
Patient has a calm and appropriate discussion telephonically with his significant other. Patient now tired and wants to sleep.Nursing Note:
--- NOTE | 2022-08-23 09:19 | NUR.NOTE ---
Patient drinks a small cup of orange juice and vomits same immediately.Nursing Note:
--- NOTE | 2022-08-23 09:45 | RT.EKG_ITS ---
APPROVED REPORT Exam: Resting ECG Reason for Exam: elevated troponin Patient Location: I HR:68 bpm ECG Measurements Heart Rate 68 AXIS MT 146 P 42 QRSd 87 QRS -11 QT 456 T 24 QTc 486 Conclusion Sinus rhythm...normal P axis, V-rate 50- 99 Borderline abnrm T, anterolateral leads...T flat/neg, I aVL V2-V6 Borderline prolonged QT interval...QTc >475mS
--- NOTE | 2022-08-23 09:56 | NUR.NOTE ---
Meera is dc'd by RN.Nursing Note:
--- NOTE | 2022-08-23 10:38 | NUR.NOTE ---
EKG is taken by respiratory therapist.Nursing Note:
--- NOTE | 2022-08-23 10:38 | NUR.NOTE ---
International Relations Professor meets with patient.Nursing Note:
--- NOTE | 2022-08-23 10:43 | DSE_ITS ---
Date of service: 08/23/22 Time of Service: 10:43 DS: Diagnosis Discharge Diagnosis (1) Cardiac arrest: Status: Acute Asessment and Plan: s/p cardiopulmonary arrest after use of cocaine. Patient received immediate bystander CPR and subsequent treatment by EMS and achieved ROSC while in the field. Incident occurred in his home. Patient was admitted to the ICU w/ bilateral pulmonary hemorrhages/contusions, ?pneumonia and was treated w/ supplemental oxygen, analgesics and empiric antibiotics (Rocephin). No cardiac arrhythmia were noted during his time he was hospitalized. He suffered SWAPNIL and recieved intravenous fluid hydration. Patient refused to remain hospitalized even though it was explained that needed observtion for at least 24 hours to monitor for cardiac arrhythmias, provide antibiotics, oxygen, iv hydration for renal recovery and to monitor his pulmonary and renal status. He was advised to cease use of illicit drugs or medications. He understands that he nearly . Neverthless, he indicated that he had matters that he had to take care of and refused to remain hospitalized. He left the hospital against medical advice fully understanding the potential consequences of his actions including worsening hypoxemia, worsening renal function, cardiac arrhythmias and potential . Patient was discharged w/ an Rx for Augmentin for potential pneumonic infection and an albuterol inhaler to use as needed for wheezing. He was given a 5 day course of prednisone. CM met with him to see what assistance he may need. (2) Cocaine abuse: Status: Acute (3) Bilateral pulmonary contusion: Status: Acute (4) Facial laceration: Status: Acute (5) Kidney lesion: Status: Acute Asessment and Plan: Patient was informed of the indeterminate 1.2 cm left upper pole renal lesion and advised to have this further investigated. It was explained that at this time we can not exclude the possibility of an early cancer. (6) Concussion: Status: Acute (7) Hypoxia: Status: Acute Asessment and Plan: patient's SPO2 at rest off oxygen at the time of discharge was 92% (8) Acute kidney injury: Status: Acute Discharge Plan Disposition Patient Disposition: Against Medical Advice Condition: Stable Discharge Details Reason For Visit: pulmonary contusions, post cardiac arrest, hypoxia Admit Date/Time: 08/23/22 05:40 Admit Provider: Otilio Florentino Attending Provider: Otilio Florentino Primary Care Provider: Primeau,Philip E Home Meds and New Rx's Prescriptions: New amoxicillin-pot clavulanate [Augmentin] 500-125 mg tablet 1 tab PO TID Qty: 15 0RF albuterol sulfate 90 mcg/actuation HFA aerosol inhaler 2 inh inhalation QID PRNQty: 8.5 0RF prednisone 20 mg tablet 40 mg PO DAILY Qty: 10 0RF Held lisinopril 20 mg tablet 1 tab PO DAILY Hold Instructions: Resume on 08/26/22. Patient Comments: Take 1 tablet by mouth once a day No Action benzonatate 100 mg capsule 100 mg PO BID-TID PRN (Reason: cough) Qty: 14 0RF Rx Instructions: Take one tablet up to 3 times daily as needed for cough. Discharge Instructions Instructions: Acute Kidney Injury (DC), Pulmonary Contusion (DC), Impaired Ki dney Function (DC) Additional Instructions: You survived cardiopulmonary arrest that was associated with recent cocaine use and you sustained acute bilteral pulmonary contusions/hemorrhage and may have concommitant pneumonia. You also suffered chest wall and facial contusions and suffered from acute kidney injury (not trauma but decreased kidney function noted by abnormal BUN and creatinine). With iv fluid hydration your kidney function was improving although not yet back to your baseline. You were started on iv antibiotics (Ceftriaxone) and are being discharged on oral antibiotics (Augmentin) for 5 days along w/ an inhaler bronchodilator (albuterol HFA) and a short course of corticosteroids, prednisone (to reduce lung inflammation and help w/ the pain). You should refrain from any further use of cocaine or other non-medical drug use. You have chosen to leave the hospital against the advice of your physicians as we believe you should be observed for a minimum of 24 hours to monitor for cardiac arrhythmia, allow you lungs and kidneys to recover. If you have worsening shortness of breath, dizziness, passing out, palpitations, chest pressure/pain (other than the musculoskeletal chest wall pain which was due to the chest contusion from CPR, then please return to the hospital. Stay off your lisinopril for the next few days until your kidneys recover and drink plenty of water ( 6 to 8 glasses of 8 ounces) per day. As part of your evaluation you had a CT scan done of your chest, abdomen and pelivs. An incidental finding was a non-specific 1.2 cm (about 1/2 inch) sized hypodensity was seen on the upper pole of your left kidney. While this may be a benign finding, we can not exclude the possibility of this developing into a cancer. It is recommended that you have an MRI of your kidneys within the next month to further characterize the nature of this lesion. Your primary care provider can provide referral for this MRI or he can refer you to a urologist who can follow this. Referrals: Philip Eduardo [Primary Care Provider] - (call the office on Thursday for follow up in the next week) Activity:: Activity as Tolerated Equipment/Supplies:: No Equipment Needed Diet:: Normal Diet Discharge Orders Discharge Orders: Discharge Order (Routine); Ordered 08/23/22 Ordered By: Jerrell Michelle Discharge Data Discharge Date/Time-TO BE ENTERED AT DEPARTURE: 08/23/22 11:50 Discharge Comment: Patient to follow-up with primary care physician. DS: Summary Time Spent with Patient providing and/or coordinating discharge services: Less than 30 minutes Status at Discharge Functional status at discharge: independent ambulation Overall status at discharge: patient is not back to baseline Mental Status: mental status grossly normal Speech and Movement: speech and movement normal Mood: congruent mood Affect: normal affect Exam Narrative Exam Narrative: Middle-aged white male with mendieta and long graying black hair who has contusions over his forehead and bridge of his nose. He is alert and oriented person place time circumstance. We discussed the circumstances of his cardiopulmonary arrest as well as the subsequent complications. Psych Mental Status: mental status grossly normal Speech and Movement: speech and movement normal Mood: congruent mood Affect: normal affect DS: Data Vitals/I&O Vitals and I&O: Vital Signs Temperature 36.2 C L 08/23/22 08:28 Temperature Source Temporal Artery Scan 08/23/22 08:28 Pulse 67 08/23/22 09:01 Pulse 72 08/23/22 09:50 Respiratory Rate 21 08/23/22 09:50 Respiratory Effort Non-Labored 08/23/22 08:28 Respiratory Depth Shallow 08/23/22 08:28 Respiratory Pattern Tachypnea 08/23/22 08:28 Blood Pressure 106/60 08/23/22 09:01 Blood Pressure Mean 72 08/23/22 09:01 Blood Pressure Position Supine 08/23/22 08:28 Pulse Oximetry 94 08/23/22 09:50 Respiratory End-tidal CO2 38 08/23/22 07:50 Oxygen Delivery Method Nasal Cannula 08/23/22 08:28 Oxygen Flow Rate 2 08/23/22 08:28 Pain Level 1 08/23/22 08:28 Comment RN present 08/23/22 06:33 Intake & Output 08/22/22 08/22/22 08/23/22 11:59 23:59 11:59 Intake Total 560 / 560 Output Total 1200 / 1200 Balance -640 / -640 Weight 86.3 kg Intake: IV 510 / 510 Oral 50 / 50 Output: Urine 1200 / 1200 Other: Urine Color Yellow Urine Appearance Clear Urine Odor None Comment Was emptied prior to transfer to ICU from ER. Voiding Methods Indwelling Catheter Data Completed and Pending Labs on day of discharge: Labs from last 24 hours 08/23/22 08/23/22 08/23/22 12:00 08:15 08:15 WBC RBC Hgb Hct MCV MCH MCHC RDW Plt Count MPV Immature Gran % Neutrophils % Lymphocytes % Monocytes % Eosinophils % Basophils % Nucleated RBC % Absolute Neutrophils Absolute Lymphocytes Absolute Monocytes Absolute Eosinophils Absolute Basophils PT INR APTT VBG pH 7.35 VBG pCO2 40 L VBG pO2 68 VBG HCO3 22 L VBG Total CO2 19 L VBG O2 Saturation 94 VBG Base Excess -4 L VBG Lactate 1.3 Sodium Potassium Chloride Carbon Dioxide Anion Gap BUN Creatinine Est GFR (CKD-EPI 2020) Glucose Calcium Magnesium Total Bilirubin AST ALT Alkaline Phosphatase Troponin I Pending Total Protein Albumin Procalcitonin Urine Opiates Screen Urine Methadone Screen Ur Barbiturates Screen Ur Tricyclics Screen Ur Amphetamines Screen U Benzodiazepines Scrn Urine Cocaine Screen Ur THC Screen COVID-19 Source SARS-CoV-2 (PCR) Add-On Test Request Patient ABO/Rh Antibody Screen 08/23/22 08/23/22 08/23/22 07:35 07:35 07:35 WBC RBC Hgb Hct MCV MCH MCHC RDW Plt Count MPV Immature Gran % Neutrophils % Lymphocytes % Monocytes % Eosinophils % Basophils % Nucleated RBC % Absolute Neutrophils Absolute Lymphocytes Absolute Monocytes Absolute Eosinophils Absolute Basophils PT INR APTT VBG pH VBG pCO2 VBG pO2 VBG HCO3 VBG Total CO2 VBG O2 Saturation VBG Base Excess VBG Lactate Sodium 138 Potassium 4.6 Chloride 105 Carbon Dioxide 22.2 Anion Gap 10.8 BUN 25 H Creatinine 1.7 H Est GFR (CKD-EPI 2020) 47.02 Glucose 184 H Calcium 8.9 Magnesium Total Bilirubin AST ALT Alkaline Phosphatase Troponin I Total Protein Albumin Procalcitonin 0.3 Urine Opiates Screen Urine Methadone Screen Ur Barbiturates Screen Ur Tricyclics Screen Ur Amphetamines Screen U Benzodiazepines Scrn Urine Cocaine Screen Ur THC Screen COVID-19 Source SARS-CoV-2 (PCR) Add-On Test Request DONE Patient ABO/Rh Antibody Screen 08/23/22 08/23/22 08/23/22 07:35 04:38 04:38 WBC RBC Hgb Hct MCV MCH MCHC RDW Plt Count MPV Immature Gran % Neutrophils % Lymphocytes % Monocytes % Eosinophils % Basophils % Nucleated RBC % Absolute Neutrophils Absolute Lymphocytes Absolute Monocytes Absolute Eosinophils Absolute Basophils PT INR APTT VBG pH VBG pCO2 VBG pO2 VBG HCO3 VBG Total CO2 VBG O2 Saturation VBG Base Excess VBG Lactate Sodium Potassium Chloride Carbon Dioxide Anion Gap BUN Creatinine Est GFR (CKD-EPI 2020) Glucose Calcium Magnesium Total Bilirubin AST ALT Alkaline Phosphatase Troponin I 257 H* Total Protein Albumin Procalcitonin Urine Opiates Screen Negative Urine Methadone Screen Negative Ur Barbiturates Screen Negative Ur Tricyclics Screen Negative Ur Amphetamines Screen Negative U Benzodiazepines Scrn Negative Urine Cocaine Screen Positive A Ur THC Screen Negative COVID-19 Source Nasal/Nares SARS-CoV-2 (PCR) Negative Add-On Test Request Patient ABO/Rh Antibody Screen 08/23/22 08/23/22 08/23/22 04:00 03:35 03:35 WBC RBC Hgb Hct MCV MCH MCHC RDW Plt Count MPV Immature Gran % Neutrophils % Lymphocytes % Monocytes % Eosinophils % Basophils % Nucleated RBC % Absolute Neutrophils Absolute Lymphocytes Absolute Monocytes Absolute Eosinophils Absolute Basophils PT 10.9 INR 1.1 APTT 26.1 VBG pH 7.20 L VBG pCO2 51 VBG pO2 38 VBG HCO3 20 L VBG Total CO2 18 L VBG O2 Saturation 63 VBG Base Excess -8 L VBG Lactate Sodium Potassium Chloride Carbon Dioxide Anion Gap BUN Creatinine Est GFR (CKD-EPI 2020) Glucose Calcium Magnesium Total Bilirubin AST ALT Alkaline Phosphatase Troponin I Total Protein Albumin Procalcitonin Urine Opiates Screen Urine Methadone Screen Ur Barbiturates Screen Ur Tricyclics Screen Ur Amphetamines Screen U Benzodiazepines Scrn Urine Cocaine Screen Ur THC Screen COVID-19 Source SARS-CoV-2 (PCR) Add-On Test Request Patient ABO/Rh O Negative Antibody Screen NEGATIVE 08/23/22 08/23/22 03:35 03:35 WBC 10.46 RBC 5.59 Hgb 16.6 Hct 51.6 H MCV 92 MCH 29.7 MCHC 32.2 RDW 12.8 Plt Count 280 MPV 9.8 Immature Gran % 1.5 Neutrophils % 80.0 Lymphocytes % 10.8 Monocytes % 7.0 Eosinophils % 0.1 Basophils % 0.6 Nucleated RBC % 0.0 Absolute Neutrophils 8.37 H Absolute Lymphocytes 1.13 L Absolute Monocytes 0.73 Absolute Eosinophils 0.01 Absolute Basophils 0.06 PT INR APTT VBG pH VBG pCO2 VBG pO2 VBG HCO3 VBG Total CO2 VBG O2 Saturation VBG Base Excess VBG Lactate Sodium 137 Potassium 4.5 Chloride 100 Carbon Dioxide 20.6 L Anion Gap 16.4 H BUN 26 H Creatinine 2.4 H Est GFR (CKD-EPI 2020) 31.09 Glucose 309 H Calcium 9.1 Magnesium 2.2 Total Bilirubin 0.5 AST 45 H ALT 69 H Alkaline Phosphatase 61 Troponin I < 50 Total Protein 8.6 H Albumin 3.9 Procalcitonin Urine Opiates Screen Urine Methadone Screen Ur Barbiturates Screen Ur Tricyclics Screen Ur Amphetamines Screen U Benzodiazepines Scrn Urine Cocaine Screen Ur THC Screen COVID-19 Source SARS-CoV-2 (PCR) Add-On Test Request Patient ABO/Rh Antibody Screen PFSH All Active Problems (Updated 08/23/22 @ 07:01 by Otilio Florentino MD) Acute kidney injury (Acute) Cardiac arrest (Acute) Cocaine abuse (Acute) Bilateral pulmonary contusion (Acute) Facial laceration (Acute) Hypoxia (Acute) Kidney lesion (Acute) Concussion (Acute) Social History Smoking/Tobacco Use Status: Never Smoking risk assessment performed?: Yes Alcohol Intake: former Substance use type: former substance user Do you feel safe at home: Yes Do you feel safe in your relationship?: Yes Time Spent with Patient Time Spent with Patient: <45 minutes Time was spent: preparing to see the patient(eg.review tests), obtaining and/or reviewing separately otained hiistory, ordering medications,tests, procedures, indepentently interpreting results and counseling the patient
--- NOTE | 2022-08-23 11:02 | CMDISCH_ITS ---
- If Service Date Differs Date of service: 08/23/22 Time of Service: 11:02 LACE Index Scoring Tool - Questions: Length of Stay (in days): 1 Acuity (Admit via E.D.?): Yes E.D. Visits: 2 - Answers: Total Score: 6 Risk of Readmission: Low Risk Care Management Discharge Reason for Hospitalization: Cardiac arrest, pulmonary contusions Discharge Plan: Mathew is leaving AMA. His girlfriend arranged a Taxi. Mathew is encouraged to follow up with his PCP and recovery manager. Patient/Family Education Needs: Review AMA risks, encourage pt to follow up with his community providers. Discuss ask me three.
--- NOTE | 2022-08-23 11:44 | NUR.NOTE ---
Patient given paper scrubs since patient's clothing was cut up in ED. Both IV's are dc'd and covered with gauze and tape. Cab to arrive in front of hospital at noon today to collect patient. Patient will be placed in wheel chaire and brought to entrance of hospital. Patient sating 94% on room air.Nursing Note:
== END 2022-08-23 11:50 | disposition left against medical advice (07) | DRG 205 ==
LOC: ER 05:48 → ICU 06:17
PROVIDERS: Internal Medicine; Admitting Provider Family Medicine; Emergency Provider Student in an Organized Health Care Education/Training Program; PCP Internal Medicine; Visit Provider Family Medicine
DX: S27.322A Contusion of lung, bilateral, initial encounter (principal); I46.9 Cardiac arrest, cause unspecified; S06.0X9A Concussion with loss of consciousness of unspecified duration, initial encounter; F14.10 Cocaine abuse, uncomplicated; S01.81XA Laceration without foreign body of other part of head, initial encounter; R09.02 Hypoxemia; W19.XXXA Unspecified fall, initial encounter; R93.422 Abnormal radiologic findings on diagnostic imaging of left kidney
CPT/HCPCS: 36415; 51702; 71275; 74177; 80048; 80053; 80307; 82805; 84145; 86850; 86900; 86901; 87635; 93005; 96365; 96375; 99285; 70450; 72125; 83605; 83735; 84484; 85025; 85610; 85730; 93010; 99223; J0696; J2405; J3490

== ENCOUNTER 2022-08-26 18:17 | Outpatient (REF) | payer OTHER, SELFPAY ==
[2022-08-26 18:59] LABS: ALT 39 U/L (16-63); AST 24 U/L (15-37); Albumin 3.5 g/dL (3.4-5.0); Alkaline Phosphatase 70 U/L (46-116); Anion Gap 12.2 mmol/L (3-11); BUN 26 mg/dL (7-18); Bilirubin, Total 0.4 mg/dL (0.2-1.0); CO2 23.8 mmol/L (21.0-32.0); CREATININE 1.7 mg/dL (0.70-1.30); Calcium 9.1 mg/dL (8.5-10.1); Chloride 103 mmol/L (98-107); Estimated GFR 47.02 (mL/min/1.73m2); Glucose 171 mg/dL (74-106); Potassium 4.8 mmol/L (3.5-5.1); Sodium 139 mmol/L (136-145)
== END 2022-08-26 18:18 | disposition home or self-care (01) ==
LOC: NCHCN 18:17
PROVIDERS: PCP Internal Medicine; Visit Provider Physician Assistant
DX: I10 Essential (primary) hypertension (principal)
CPT/HCPCS: 80053

== ENCOUNTER 2022-09-02 11:26 | Outpatient (REF) | payer OTHER, SELFPAY ==
[2022-09-02 19:42] LABS: Anion Gap 4.9 mmol/L (3-11); BUN 26 mg/dL (7-18); CO2 29.1 mmol/L (21.0-32.0); CREATININE 1.5 mg/dL (0.70-1.30); Calcium 8.7 mg/dL (8.5-10.1); Calculated LDL 125 mg/dL (<100); Chloride 103 mmol/L (98-107); Cholesterol 211 mg/dL (<200); Estimated GFR 54.64 (mL/min/1.73m2); Glucose 98 mg/dL (74-106); HDL Cholesterol 40 mg/dL (40-60); Potassium 4.8 mmol/L (3.5-5.1); Sodium 137 mmol/L (136-145); Triglyceride 231 mg/dL (<150)
== END 2022-09-02 11:27 | disposition home or self-care (01) ==
LOC: NCHCN 11:26
PROVIDERS: PCP Internal Medicine; Visit Provider Physician Assistant
DX: F14.10 Cocaine abuse, uncomplicated (principal); I10 Essential (primary) hypertension; N18.30 Chronic kidney disease, stage 3 unspecified
CPT/HCPCS: 80048; 80061

== ENCOUNTER 2023-06-11 09:18 | Emergency (ER) | payer OTHER, SELFPAY ==
[2023-06-11 09:26] VITALS: BP 170/113; PULSE 72; RESP 18; TEMP 36.6; O2SAT 99
--- NOTE | 2023-06-11 09:30 | DI.RAD_ITS ---
Exam(s) XR WRIST LT COMPLETE EXAM: XR WRIST LT COMPLETE CLINICAL HISTORY: pain and swelling. TECHNIQUE: 2D digital imaging was performed of the left wrist. Three images were obtained. PA, obl ique and lateral views were obtained. COMPARISON: No exams were available for comparison FINDINGS: BONES: No acute fracture is present. No bony destructive lesion is seen. There is a lucency seen at t he medial aspect of the distal radius only on the PA view (series 1, image 1). This may reflect posi tioning artifact. JOINTS: The carpal bones are normally aligned. The joint spaces are well maintained. SOFT TISSUE: Normal. IMPRESSION: No definite acute fracture or dislocation. DATA REPOSITORY: RADIATION DOSE DELIVERED:
[2023-06-11] MEDS: oxyCODONE 5 mg/Acetaminophen 325 mg TAB 2 TAB PO (09:52)
[2023-06-11] MEDS: predniSONE 20 MG TAB 40 MG PO (09:52)
[2023-06-11 10:14] LABS: Abs Immature Grans 0.03 10^3/uL (0.0-0.06); Absolute Basophil Count 0.03 10^3/uL (0.0-0.2); Absolute Eosinophil Count 0.14 10^3/uL (0.0-0.7); Absolute Lymphocyte Count 0.73 10^3/uL (1.2-3.4); Absolute Monocyte Count 0.71 10^3/uL (0.1-0.8); Absolute Neutrophil Count 7.52 10^3/uL (1.2-6.7); Basophils % 0.3; Eosinophils % 1.5; HCT 46.9 % (40.0-50.0); HGB 15.8 g/dL (13.5-17.5); Immature Grans % 0.3; MCH 29.9 pg (27.0-33.0); MCHC 33.7 % (32.0-36.0); MCV 89 fL (80-95); MPV 9.7 fL (8.0-11.0); Monocytes % 7.8; Neutrophils % 82.1; Platelet Count 229 10^3/uL (130-400); RBC 5.29 10^6/uL (4.36-5.78); RDW 12.7 % (11.8-14.1); RDW-SD 41.6 fL; WBC 9.16 10^3/uL (4.4-10.8)
[2023-06-11 10:16] LABS: ESR 36 mm/hr (0-20)
[2023-06-11 10:27] LABS: ALT 29 U/L (16-63); AST 13 U/L (15-37); Albumin 3.1 g/dL (3.4-5.0); Alkaline Phosphatase 58 U/L (46-116); Anion Gap 8.9 mmol/L (3-11); BUN 14 mg/dL (7-18); Bilirubin, Total 0.5 mg/dL (0.2-1.0); CO2 25.1 mmol/L (21.0-32.0); CREATININE 1.5 mg/dL (0.70-1.30); Calcium 8.5 mg/dL (8.5-10.1); Chloride 103 mmol/L (98-107); Estimated GFR 54.64 (mL/min/1.73m2); Glucose 184 mg/dL (74-106); Potassium 4.2 mmol/L (3.5-5.1); Sodium 137 mmol/L (136-145); Total Protein 7.7 g/dL (6.4-8.2)
--- NOTE | 2023-06-11 10:44 | ED.GENADUL_ITS ---
HPI General Date/Time Provider Initiated Documentation: 06/11/23 09:30 . HPI Narrative: This 57-year-old male with history of cocaine abuse, chronic kidney disease, hyperlipidemia, hypertension presents with report of left wrist pain and swelling. This started several days ago. He states he has a history of gout and this is similar. He has had gout in this wrist before. He denies any trauma. He denies any fever or chills. He is still actively using cocaine. He denies alcohol or injection of illicit drugs. States the pain is exacerbated with moving his wrist. Related Data Home Medications Medication Instructions Recorded Confirmed benzonatate 100 mg capsule 100 mg PO BID-TID PRN cough #14 04/13/22 08/23/22 caps lisinopril 20 mg tablet 1 tab PO DAILY 04/13/22 08/23/22 albuterol sulfate 90 mcg/actuation 2 inh inhalation QID PRN #8.5 grams 08/23/22 aerosol inhaler amoxicillin 500 mg-potassium 1 tab PO TID #15 tabs 08/23/22 clavulanate 125 mg tablet (Augmentin) prednisone 20 mg tablet 40 mg (2 x 20 mg) PO DAILY #10 tabs 08/23/22 lisinopril 20 mg tablet 20 mg PO DAILY 09/01/22 prednisone 20 mg tablet 40 mg (2 x 20 mg) PO DAILY #8 tabs 06/11/23 Previous Rx's Medication Instructions Recorded benzonatate 100 mg capsule 100 mg PO BID-TID PRN cough #14 04/13/22 caps albuterol sulfate 90 mcg/actuation 2 inh inhalation QID PRN #8.5 grams 08/23/22 aerosol inhaler amoxicillin 500 mg-potassium 1 tab PO TID #15 tabs 08/23/22 clavulanate 125 mg tablet (Augmentin) prednisone 20 mg tablet 40 mg (2 x 20 mg) PO DAILY #10 tabs 08/23/22 prednisone 20 mg tablet 40 mg (2 x 20 mg) PO DAILY #8 tabs 06/11/23 Allergies Allergy/AdvReac Type Severity Reaction Status Date / Time No Known Allergies Allergy Unverified 08/23/22 04:47 General Stated Complaint: [facility] MANJULA: 3 Course Vital Signs Vital signs: Vital Signs Temperature 36.6 C 06/11/23 09:26 Pulse 72 06/11/23 09:26 Respiratory Rate 18 01/25/24 09:26 Blood Pressure 170/113 H 06/11/23 09:26 Pulse Oximetry 99 06/11/23 09:26 Temperature 36.6 C 06/11/23 09:26 Temperature Source Temporal Artery Scan 06/11/23 09:26 Pulse 72 06/11/23 09:26 Respiratory Rate 18 06/11/23 09:26 Respiratory Effort Normal 06/11/23 09:56 Blood Pressure 170/113 H 06/11/23 09:26 Blood Pressure Position Sitting 06/11/23 09:26 Pulse Oximetry 99 06/11/23 09:26 Oxygen Delivery Method Room Air 06/11/23 09:26 Oxygen Flow Rate 0 06/11/23 09:26 Lab/Test Results Lab/Test Results: Laboratory Tests Range/Units 06/11/23 10:07 WBC (4.4-10.8) 10^3/uL 9.16 RBC (4.36-5.78) 10^6/uL 5.29 Hgb (13.5-17.5) g/dL 15.8 Hct (40.0-50.0) % 46.9 MCV (80-95) fL 89 MCH (27.0-33.0) pg 29.9 MCHC (32.0-36.0) % 33.7 RDW (11.8-14.1) % 12.7 Plt Count (130-400) 10^3/uL 229 MPV (8.0-11.0) fL 9.7 Immature Gran % 0.3 Neutrophils % 82.1 Lymphocytes % 8.0 Monocytes % 7.8 Eosinophils % 1.5 Basophils % 0.3 Nucleated RBC % (0.0-0.3) % 0.0 Absolute Neutrophils (1.2-6.7) 10^3/uL 7.52 H Absolute Lymphocytes (1.2-3.4) 10^3/uL 0.73 L Absolute Monocytes (0.1-0.8) 10^3/uL 0.71 Absolute Eosinophils (0.0-0.7) 10^3/uL 0.14 Absolute Basophils (0.0-0.2) 10^3/uL 0.03 ESR (0-20) mm/hr 36 H Sodium (136-145) mmol/L 137 Potassium (3.5-5.1) mmol/L 4.2 Chloride (98-107) mmol/L 103 Carbon Dioxide (21.0-32.0) mmol/L 25.1 Anion Gap (3-11) mmol/L 8.9 BUN (7-18) mg/dL 14 Creatinine (0.70-1.30) mg/dL 1.5 H Est GFR (CKD-EPI 2020) (mL/min/1.73m2) 54.64 Glucose (74-106) mg/dL 184 H Calcium (8.5-10.1) mg/dL 8.5 Total Bilirubin (0.2-1.0) mg/dL 0.5 AST (15-37) U/L 13 L ALT (16-63) U/L 29 Alkaline Phosphatase (46-116) U/L 58 C-Reactive Protein (0.0-0.3) mg/dL 1.60 H Total Protein (6.4-8.2) g/dL 7.7 Albumin (3.4-5.0) g/dL 3.1 L Medical Decision Making 57-year-old male presenting with left wrist pain and swelling, swelling noted to left wrist, mildly decreased range of motion, neurovascularly intact, no erythema, no tenderness to forearm or elbow X-ray was ordered which does not show evidence of acute abnormality per radiology interpretation my review Labs with creatinine of 1.5, consistent with patient's prior CKD, encouraged to follow-up with his doctor regarding this Placed under a splint for comfort, likely gout given history of similar symptoms and risk factors Placed on prednisone for the next 5 days Encouraged to return for reassessment if no improvement in 48 hours Tylenol for breakthrough pain, given 4 tablets of oxycodone with risk of addiction reviewed No evidence of septic joint at this time Mildly elevated CRP and sed rate, likely related to gouty arthritis Return precautions reviewed and patient expressed understanding Encouraged to have blood pressure checked by primary care physician Quality:SDOH Health Related Social Needs: No Data to Display PFSH All Active Problems (Updated 06/11/23 @ 10:45 by THOMAS Glass) Pain and swelling of left wrist (Acute) CKD (chronic kidney disease) (Chronic) Anxiety (Chronic) HLD (hyperlipidemia) (Acute) HTN (hypertension) with goal to be determined (Acute) Acute kidney injury (Acute) Cocaine abuse (Acute) Bilateral pulmonary contusion (Acute) Facial laceration (Acute) Kidney lesion (Acute) Concussion (Acute) Medical History (Updated 06/11/23 @ 10:45 by THOMAS Glass) Alcohol abuse Gout Social History Smoking/Tobacco Use Status: Never Smoking risk assessment performed?: Yes Alcohol Intake: former Substance use type: former substance user Do you feel safe at home: Yes Do you feel safe in your relationship?: Yes Discharge Plan Disposition Patient Disposition: Home Condition: Stable Discharge Details Clinical Impression: CKD (chronic kidney disease), Pain and swelling of left wrist Primary Care Provider: Philip Eduardo ED Provider: Radha Crowder Home Meds and New Rx's Prescriptions: New prednisone 20 mg tablet 40 mg PO DAILY Qty: 8 0RF Continued lisinopril 20 mg tablet 20 mg PO DAILY lisinopril 20 mg tablet 1 tab PO DAILY Hold Instructions: Resume on 08/26/22. Patient Comments: Take 1 tablet by mouth once a day benzonatate 100 mg capsule 100 mg PO BID-TID PRN (Reason: cough) Qty: 14 0RF Rx Instructions: Take one tablet up to 3 times daily as needed for cough. amoxicillin-pot clavulanate [Augmentin] 500-125 mg tablet 1 tab PO TID Qty: 15 0RF albuterol sulfate 90 mcg/actuation HFA aerosol inhaler 2 inh inhalation QID PRNQty: 8.5 0RF prednisone 20 mg tablet 40 mg PO DAILY Qty: 10 0RF Discharge Instructions Additional Instructions: I have given you 4 tablets of oxycodone, do not use any illicit substances while taking this medication If you are not feeling improvement with the prednisone within the next 48 hours you should be reassessed to be sure this is not an infected joint You received your dose of prednisone today, your next dose is tomorrow Take Tylenol 1 g every 6 hours, do not exceed 4 g of Tylenol daily Wear your wrist splint for comfort With spreading redness, worsening pain, please return immediately for reassessment You have chronic kidney disease, please follow-up with your doctor regarding additional intervention Referrals: Philip Eduardo [Primary Care Provider] - 2 days
[2023-06-11 11:00] VITALS: BP 141/96; PULSE 63; RESP 16; TEMP 37; O2SAT 95
== END 2023-06-11 11:08 | disposition home or self-care (01) ==
PROVIDERS: Emergency Provider Physician Assistant; PCP Internal Medicine
DX: M25.532 Pain in left wrist (principal); I12.9 Hypertensive chronic kidney disease with stage 1 through stage 4 chronic kidney disease, or unspecified chronic kidney disease; N18.9 Chronic kidney disease, unspecified; I10 Essential (primary) hypertension
CPT/HCPCS: 80053; 85652; 99284; 73110; 85025; 86140; J7512

== ENCOUNTER 2023-06-29 13:48 | Emergency (ER) | payer OTHER, SELFPAY ==
[2023-06-29 13:52] VITALS: BP 173/98; PULSE 75; RESP 18; TEMP 37.1; O2SAT 99
--- OUTSIDE RECORDS SUMMARY | 2023-06-29 14:05 | XMS_ITS | Continuity of Care Document ---
Author Name Unknown Organization [facility] Address [address] [place] [address] Encounter [facility] NBR [id number] Date(s): 01/15/23 - 01/15/23 [facility] Occupational Health [address] [place] [address]- [place] Encounter Diagnosis Encounter for examination required by Department of Transportation (DOT) (Discharge Diagnosis) - 01/15/23 Discharge Disposition: Home or Self Care Attending Physician: Galina Thurman APRN Admitting Physician: Galina Thurman APRN Physician Outpatient Note * Genoveva Esquivel PA-C: PERFORM Event Display: Office Clinic Note Physician Authored Date: [id number] KRISHPATRICK DIANA Anastasia :1965 Age:57 years Sex:Male Visit Date:01/15/2023 History of Present Illness Patient is a 57-year-old male who presents to the occupational health office today for a DOT physical. 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 ??Last renewed 3 months ago due to elevated blood pressure. ??He was started on lisinopril 20 mg once daily which she has been taking daily. ??No adverse side effects. ??Denies any headaches, chest pain shortness of breath or exertional dizziness. ??Please see scanned documents. ?? No surgical procedures. He otherwise feels well,??in??normal state of health. Review of Systems Constitutional:?No??fevers,?No??chills,?No??sweats Eye:?No??recent visual problems ENT:?No??ear pain,?No??nasal congestion,?No??sore throat Respiratory:?No??shortness of breath,?No??cough Cardiovascular:?No??Chest pain,?No??palpitations,?No??syncope Gastrointestinal:?Nonausea,?No??vomiting,?No??diarrhea Genitourinary:?No??hematuria Magdi/Lymph:?No??bruising tendency,?No??swollen lymph glands Endocrine:?No??excessive thirst,??No??excessive hunger Musculoskeletal:??No??back pain,??No??neck pain,??No??joint pain,??No??muscle pain,??No??decreased range of motion Integumentary:?No??rash,?No??pruritus,?No??abrasions Neurologic: Alert & oriented X 4 Psychiatric:?No??anxiety,?No??depression Physical Exam General: Alert and oriented, well nourished,?No??acute distress Eye: PERRL, EOMI,?Normal?conjunctiva HENT: Normocephalic, clear tympanic membranes,?Normal? hearing, moist oral mucosa,?No??scleral icterus,?No??sinus tenderness Neck: Supple, non-tender,?No??carotid bruits,?No??JVD,?No??lymphadenopathy Lungs:??Clear to auscultation?? Respiration:??Non-Labored Heart:?Normal? rate,?Regular??rhythm,?No??murmur,?No??gallop,?No??edema Breast:?No??lumps,?No??bumps,?No??scars,?Normal? nipples Abdomen: Soft, non-tender, non-distended,?Normal? bowel sounds,?No??masses Musculoskeletal:?Normal? range of motion and strength,?No??tenderness,?No??swelling Skin: Skin is warm, dry and pink,?No??rashes,?No??lesions Neurologic: Awake, alert and oriented X4, CN II-XII intact Psychiatric: Cooperative, appropriate mood and affect Assessment/Plan 1.??Encounter for examination required by Department of Transportation (DOT)??Z02.89 Patient meets DOT guidelines for a 1 year certificate??wearing corrective lenses. ??Please see scanned documents. Repeat blood pressure 138/88.?? No adverse side effects of lisinopril, take as prescribed.?He will continue to follow-up with his PCP as recommended. Problem List/Past Medical History Ongoing No qualifying data Historical No qualifying data Medications No active medications Allergies No active allergies Electronically Signed on 01/15/23 02:05 PM Genoveva Esquivel PA-C Patient Care team information Care Team Related Persons Name: PADMAJA RUDOLPH
--- NOTE | 2023-06-29 14:10 | ED.GENADUL_ITS ---
HPI General Mode of arrival: ambulatory . Date/Time Provider Initiated Documentation: 06/29/23 13:55 . Limitations to Documentation: no limitations . Information obtained by: patient . History of Present Illness 57 year old M presents to the emergency department with the chief complaint of right posterior shoulder pain, described as moderate, Quality is described as aching, Patient reports no radiation. Patient started experiencing this day(s) (4) and it has been intermittent. No relieving factors improve symptom(s), No exacerbating factors reported . Patient notes no other symptoms.; denies chest pain and fever/chills. Patient did receive the following treatments prior to arrival, none Related Data Home Medications Medication Instructions Recorded Confirmed lisinopril 20 mg tablet 1 tab PO DAILY 04/13/22 06/29/23 albuterol sulfate 90 mcg/actuation 2 inh inhalation QID PRN #8.5 grams 08/23/22 06/29/23 aerosol inhaler lisinopril 20 mg tablet 20 mg PO DAILY 09/01/22 06/29/23 cyclobenzaprine 10 mg tablet 10 mg PO TID PRN #20 tabs 06/29/23 Previous Rx's Medication Instructions Recorded albuterol sulfate 90 mcg/actuation 2 inh inhalation QID PRN #8.5 grams 08/23/22 aerosol inhaler cyclobenzaprine 10 mg tablet 10 mg PO TID PRN #20 tabs 06/29/23 Allergies Allergy/AdvReac Type Severity Reaction Status Date / Time No Known Allergies Allergy Unverified 06/29/23 13:54 General Stated Complaint: Orthopedic MANJULA: 4 Review of Systems All systems reviewed & are unremarkable except as noted in HPI and below Constitutional Constitutional: Denies chills, Denies fever(s) and Denies weakness Cardiovascular Cardiovascular: Denies chest pain and Denies dyspnea Respiratory Respiratory: Denies cough and Denies dyspnea Gastrointestinal Gastrointestinal: Denies abdominal pain, Denies nausea and Denies vomiting Musculoskeletal Musculoskeletal: Denies joint swelling Integumentary/Breasts Skin/Breast: Denies rash Neurologic Neurologic: Denies weakness Exam Const General: no acute distress Orientation: alert HENAL Head: normal to inspection Ears: external ears normal General nose exam: external nose normal Mouth: moist mucous membranes Eyes General: appearance normal, both eyes and all related structures Neck Neck: normal visual inspection Resp Effort & Inspection: normal respiratory effort and able to speak in complete sentences Auscultation: clear to auscultation bilaterally Cardio Jugular venous pressure: no JVD Rate: regular rate Heart Sounds: no murmurs Skin General skin exam: no rashes or lesions noted Neuro General: patient alert and patient oriented x3 Extrem General: normal to inspection Right upper extremity: normal to inspection, full ROM and normal capillary refill Psych Mental Status: mental status grossly normal Course Vital Signs Vital signs: Vital Signs Temperature 37.1 C 06/29/23 13:52 Pulse 75 06/29/23 13:52 Respiratory Rate 18 06/29/23 13:52 Blood Pressure 173/98 H 06/29/23 13:52 Pulse Oximetry 99 06/29/23 13:52 Temperature 37.1 C 06/29/23 13:52 Temperature Source Temporal Artery Scan 06/29/23 13:52 Pulse 75 06/29/23 13:52 Respiratory Rate 18 06/29/23 13:52 Respiratory Effort Normal, Non-Labored 06/29/23 13:56 Blood Pressure 173/98 H 06/29/23 13:52 Blood Pressure Position Sitting 06/29/23 13:52 Pulse Oximetry 99 06/29/23 13:52 Oxygen Delivery Method Room Air 06/29/23 13:52 Oxygen Flow Rate 0 06/29/23 13:52 Medical Decision Making 57-year-old male with a history of chronic kidney disease, hypertension, hyperlipidemia, comes in with 4 days of right shoulder pain. He states he was in an argument with someone and moved his right arm and had some pain behind the right shoulder which has been intermittent since then. Denies any falls, chest pain, difficulty breathing, fevers or chills. He is alert and oriented x 4 no distress on exam speaking clearly. He localizes the pain to the right posterior shoulder over the trapezius muscle and has reproducible tenderness here, full range of motion of the shoulder though he does say it hurts to move his shoulder, no redness, no warmth, intact distal sensation and swelling. Suspect trapezius strain, no findings on exam to suggest infectious etiology such as septic joint. Will obtain x-rays and reassess. xray unremarkable, pt stable and feels better after Flexeril. He is stable for discharge, will provide a sling to use for comfort and advised to follow-up with either his primary care or orthopedics within 1 to 2 weeks if not improving. Return precautions given Differential Diagnosis Differential Diagnosis: trapezius strain, spasm Medical Records Medical records reviewed: Yes I reviewed the patient's medical records. Imaging Data Radiologic Study: Attestation: I personally reviewed and interpreted this imaging study as follows: Imaging: X-Ray Radiologist's impression: Exam(s) XR SHOULDER RT COMPLETE 2+V EXAM: XR SHOULDER RT COMPLETE 2+V CLINICAL HISTORY: pain. TECHNIQUE: 2D digital imaging was performed. Five views. COMPARISON: No exams were available for comparison FINDINGS: BONES: No acute fracture is present. No bony destructive lesion is seen. JOINTS: No dislocation present. Mild degenerative changes at the AC joint and glenohumeral joint. SOFT TISSUE: Normal. IMPRESSION: Mild degenerative changes. Quality:SDOH Health Related Social Needs: No Data to Display PFSH All Active Problems (Updated 06/29/23 @ 14:19 by Campbell Burnett MD) Strain of right trapezius muscle (Acute) Pain and swelling of left wrist (Acute) CKD (chronic kidney disease) (Chronic) Anxiety (Chronic) HLD (hyperlipidemia) (Acute) HTN (hypertension) with goal to be determined (Acute) Acute kidney injury (Acute) Cocaine abuse (Acute) Bilateral pulmonary contusion (Acute) Facial laceration (Acute) Kidney lesion (Acute) Concussion (Acute) Medical History (Updated 06/29/23 @ 14:19 by Campbell Burnett MD) Alcohol abuse Gout Social History Smoking/Tobacco Use Status: Never Smoking risk assessment performed?: Yes Alcohol Intake: former Substance use type: former substance user Do you feel safe at home: Yes Do you feel safe in your relationship?: Yes Discharge Plan Disposition Patient Disposition: Home Condition: Stable Discharge Details Clinical Impression: Strain of right trapezius muscle Primary Care Provider: Philip Eduardo ED Provider: Campbell Burnett Home Meds and New Rx's Prescriptions: New cyclobenzaprine 10 mg tablet 10 mg PO TID PRNQty: 20 0RF Continued lisinopril 20 mg tablet 20 mg PO DAILY lisinopril 20 mg tablet 1 tab PO DAILY Hold Instructions: Resume on 08/26/22. Patient Comments: Take 1 tablet by mouth once a day albuterol sulfate 90 mcg/actuation HFA aerosol inhaler 2 inh inhalation QID PRNQty: 8.5 0RF Discharge Instructions Additional Instructions: Your x-ray did not show any concerning findings at this time. If pain continues in a week follow-up with your primary care or orthopedics. If you feel more ill, have new symptoms such as high fevers, or difficulty breathing return to the emergency department
[2023-06-29] MEDS: Cyclobenzaprine 10 MG TAB PO (14:16)
--- NOTE | 2023-06-29 14:38 | DI.RAD_ITS ---
Exam(s) XR SHOULDER RT COMPLETE 2+V EXAM: XR SHOULDER RT COMPLETE 2+V CLINICAL HISTORY: pain. TECHNIQUE: 2D digital imaging was performed. Five views. COMPARISON: No exams were available for comparison FINDINGS: BONES: No acute fracture is present. No bony destructive lesion is seen. JOINTS: No dislocation present. Mild degenerative changes at the AC joint and glenohumeral joint. SOFT TISSUE: Normal. IMPRESSION: Mild degenerative changes. DATA REPOSITORY: RADIATION DOSE DELIVERED:
== END 2023-06-29 15:14 | disposition home or self-care (01) ==
PROVIDERS: Emergency Provider Emergency Medicine; PCP Internal Medicine
DX: S46.811A Strain of other muscles, fascia and tendons at shoulder and upper arm level, right arm, initial encounter (principal); X50.1XXA Overexertion from prolonged static or awkward postures, initial encounter
CPT/HCPCS: 99283; 73030

== ENCOUNTER 2023-09-20 16:45 | Emergency (ER) | payer OTHER, SELFPAY ==
[2023-09-20] VITALS (118 sets, daily range): BP systolic 118–155; BP diastolic 60–93; PULSE 76–84; RESP 13–34; TEMP 37.3–39.3; O2SAT 94–99
--- NOTE | 2023-09-20 17:15 | RT.EKG_ITS ---
APPROVED REPORT Exam: Resting ECG Reason for Exam: chest pain Patient Location: E HR:89 bpm ECG Measurements Heart Rate [address] 129 P 53 QRSd 97 QRS -32 QT 363 T 12 QTc 414 Conclusion Sinus rhythm...normal P axis, V-rate 60- 99 Atrial premature complexes...SV complexes w/ short R-R intvls Left axis deviation...QRS axis (-30,-90) Physician: no stemi
--- NOTE | 2023-09-20 17:15 | DI.RAD_ITS ---
Exam(s) XR PORTABLE CHEST AP EXAM: XR PORTABLE CHEST AP CLINICAL HISTORY: cough, SOB, fever, crack coke, he is describing co TECHNIQUE: 2D digital imaging was performed. COMPARISON: CR,XR XR CHEST 2V PA LATERAL from 04/13/2022 FINDINGS: LUNGS: Fibrotic changes. No focal consolidation. No pleural abnormality seen. HEART: Normal size. AORTA: Normal diameter. BONES: Unremarkable for age. Soft tissues: Unremarkable. IMPRESSION: No acute findings. DATA REPOSITORY: RADIATION DOSE DELIVERED:
--- NOTE | 2023-09-20 17:19 | ED.GENADUL_ITS ---
Discharge Plan Disposition Patient Disposition: Home Condition: Good Discharge Details Clinical Impression: RSV bronchitis, Pneumonia Primary Care Provider: Philip Eduardo ED Provider: Gianfranco Henderson Home Meds and New Rx's Prescriptions: New benzonatate 100 mg capsule 100 mg PO TID Qty: 30 0RF doxycycline hyclate 100 mg tablet 100 mg PO BID Qty: 20 0RF No Action lisinopril 20 mg tablet 20 mg PO DAILY rosuvastatin 10 mg tablet 10 mg PO DAILY Patient Comments: TAKE ONE TABLET BY MOUTH EVERY DAY lisinopril 20 mg tablet 1 tab PO DAILY Hold Instructions: Resume on 08/26/22. Patient Comments: Take 1 tablet by mouth once a day albuterol sulfate 90 mcg/actuation HFA aerosol inhaler 2 inh inhalation QID PRNQty: 8.5 0RF Discharge Instructions Instructions: Acute Bronchitis (ED), Pneumonia (ED) Additional Instructions: At this time you have RSV bronchiolitis with mild pneumonia. Please take the antibiotic doxycycline as prescribed. Please make sure to take it with food as it can cause nausea and vomiting if you take it on an empty stomach. The likely original source of your symptoms was RSV which is respiratory syncytial virus. This causes an increase in mucus production. Please avoid any smoking. Please take the inhaler Symbicort 2 puffs every 12 hours for the next 1 to 2 weeks. If you notice any worsening of your symptoms, or any new symptoms such as vomiting, diarrhea, fever, chills, shortness of breath, chest pain, numbness, weakness, or fainting , please return immediately to the emergency department for reevaluation. Please follow up with your primary care provider as soon as possible for reassessment and reevaluation. As always, it was a pleasure parti cipating in your medical care today. Referrals: Philip Eduardo [Primary Care Provider] - [facility] General Date/Time Provider Initiated Documentation: 09/20/23 16:46 . HPI Narrative: This is a pleasant 58-year-old male with a past medical history of hypertension, high cholesterol, anxiety, history of, who presents today for evaluation of 4 days of cough. Patient states that 4 days ago the patient took 3-4 hits of cocaine from a friend. However the third hit felt very atypical. He had burning in his lungs after this. Since then he has had a cough, felt weak, felt tired and fatigued. He denies any vomiting or diarrhea. He denies any focal chest pain. He does admit to a fever at home. He denies any hemoptysis. No other complaints at this time. No other modifying factors. He does not smoke tobacco. He does not vape. Related Data Home Medications Medication Instructions Recorded Confirmed lisinopril 20 mg tablet 1 tab PO DAILY 04/13/22 09/20/23 albuterol sulfate 90 mcg/actuation 2 inh inhalation QID PRN #8.5 grams 08/23/22 09/20/23 aerosol inhaler lisinopril 20 mg tablet 20 mg PO DAILY 09/01/22 09/20/23 benzonatate 100 mg capsule 100 mg PO TID #30 caps 09/20/23 doxycycline hyclate 100 mg tablet 100 mg PO BID #20 tabs 09/20/23 rosuvastatin 10 mg tablet 10 mg PO DAILY 09/20/23 09/20/23 Previous Rx's Medication Instructions Recorded albuterol sulfate 90 mcg/actuation 2 inh inhalation QID PRN #8.5 grams 08/23/22 aerosol inhaler benzonatate 100 mg capsule 100 mg PO TID #30 caps 09/20/23 doxycycline hyclate 100 mg tablet 100 mg PO BID #20 tabs 09/20/23 Allergies Allergy/AdvReac Type Severity Reaction Status Date / Time No Known Allergies Allergy Unverified 09/20/23 17:01 General Stated Complaint: RespSymp MANJULA: 3 Review of Systems All systems reviewed & are unremarkable except as noted in HPI and below Exam Narrative Exam Narrative: 1.Const: Well-nourished, Well-developed, appearing stated age 2.Eyes: PERRL, no conjunctival injection, and symmetrical lids. 3.ENT: Atraumatic external nose and ears. Moist MM. Neck: Symmetric, trachea midline, No thyromegaly. 4.CVS: +S1/S2, No murmurs or gallops. Peripheral pulses 2+ and equal in all extremities. Brisk capillary refill in all extremities. 5.RESP: Unlabored respiratory effort. Minimal crackles in the bases, worse on the left than the right. 6.GI: Soft, Nontender/Nondistended, No hepatosplenomegaly. No guarding or rebound. 7.MSK: Normocephalic/Atraumatic, Extremities w/o deformity or ttp No cyanosis or clubbing, Normal movement of all extremities 8.Skin: Warm, Dry. No rashes or lesions. 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 Sensation grossly intact, no focal neurologic deficits. 10.Psych: (AAO) x3. Appropriate mood and affect Course Vital Signs Vital signs: Vital Signs Temperature 39.3 C H 09/20/23 17:03 Pulse 82 09/20/23 17:03 Respiratory Rate 18 09/20/23 17:03 Blood Pressure 150/69 H 09/20/23 17:03 Pulse Oximetry 99 09/20/23 17:03 Temperature 39.3 C H 09/20/23 17:12 Temperature Source Temporal Artery Scan 09/20/23 17:12 Pulse 82 09/20/23 17:03 Respiratory Rate 18 09/20/23 17:03 Respiratory Effort Normal, Non-Labored 09/20/23 17:07 Blood Pressure 150/69 H 09/20/23 17:03 Blood Pressure Position Sitting 09/20/23 17:03 Pulse Oximetry 99 09/20/23 17:03 Oxygen Delivery Method Room Air 09/20/23 17:03 Oxygen Flow Rate 0 09/20/23 17:03 Pain Level 9 09/20/23 17:03 Medical Decision Making This is a pleasant 58-year-old male with a past medical history of hypertension, high cholesterol, anxiety, history of, who presents today for evaluation of 4 days of cough. Patient states that 4 days ago the patient took 3-4 hits of cocaine from a friend. However the third hit felt very atypical. He had burning in his lungs after this. Since then he has had a cough, felt weak, felt tired and fatigued. He denies any vomiting or diarrhea. He denies any focal chest pain. He does admit to a fever at home. He denies any hemoptysis. No other complaints at this time. No other modifying factors. He does not smoke tobacco. He does not vape. Exam demonstrates minimal crackles in the bases worse on the left than the right, patient is febrile, oxygen saturation is good. Concern for pneumonia, empyema, or other concerning pulmonary etiology. No wheezes. No hypoxemia. No indication for breathing treatments at this time. Will get blood cultures, evaluate for concerning etiology, get a chest x-ray, monitor closely and reassess. No murmur on exam to suggest endocarditis. No IV drug use. 7:13 PM Patient is still febrile, laboratory workup shows evidence of elevated white blood cell count, mild left shift, no bandemia. pH demonstrates no acidosis. Electrolytes normal. Creatinine slightly elevated at 1.5. Procalcitonin is 0.1. Troponin normal, EKG benign. With the patient's persistent cough and laboratory workup and a negative chest x-ray I am concerned for potential underlying underlying etiology. Will get a CT for further assessment, will monitor closely and reassess. Patient remained stable hemodynamically. Lactate is 1.9. He has received 2 L of lactated Ringer. He is requesting UDS for further identification of potential inhaled substances. We will get this. 8:[address] scan results have returned, no evidence of pulmonary embolism, no mass or consolidation otherwise aside for some interstitial densities noted on the posterior margins of both lungs. RSV test has returned positive. COVID and flu negative. Troponin normal. Procalcitonin is mildly elevated at 0.1. I am concerned for early development of pneumonia in conjunction with bronchitis and pulmonary irritation from smoking the crack cocaine. Interestingly enough the patient's urine drug screen is negative including for cocaine. On reassessment patient feels much better, he shows no evidence of hypoxemia or respiratory distress otherwise. He has been rehydrated, he has been started on his first dose of doxycycline. Will give a Symbicort inhaler for pulmonary irritation management. Will give Tessalon Perles to help with the cough. Patient will be discharged home. Discussed red flags which to return. I have extensively reviewed the treatment plan and discharge instructions with the patient and their family. I have addressed all patient concerns at this time. The patient and family was made aware of what symptoms to monitor for that would warrant a return to the emergency department. Discussed the plan with the patient and family, they demonstrate verbal understanding and agreement with our assessment and plan at this time. The documentation in this chart was dictated using [employer] dictation software. Please excuse any dictation errors. FINDINGS: Lungs: Lungs are clear throughout with no mass or consolidation detected. Pleural spaces: No pneumothorax or pleural effusion detected. Heart/Mediastinum: Heart size is normal and vessel margins are sharply defined. Bones/joints: No acute osseous lesions are detected. IMPRESSION: No acute findings. Thank you for allowing us to participate in the care of your patient. Dictated and Authenticated by: Peewee Baez MD 09/20/2023 6:46 PM Eastern Time ([place] & [place]) FINDINGS: Pulmonary arteries: There is adequate opacification of blood within the main pulmonary outflow tract, right and left pulmonary arteries and major lobar and segmental branches to both lungs with no pulmonary embolism detected. Aorta: Unremarkable. No aortic aneurysm. No aortic dissection. Lungs: Indistinct interstitial densities are seen along the posterior margins of both lower lobes and the lung parenchyma is otherwise grossly clear throughout with no discrete mass or consolidation identified. Pleural spaces: No pneumothorax or pleural effusion. Heart: Coronary calcifications are evident and heart size is normal with no jasson dence of pericardial effusion or right heart strain. RV/LV ratio is estimated at 0.75. Lymph nodes: No mediastinal or hilar mass or adenopathy detected. Bones/joints: No acute osseous lesions are detected at thoracic levels. Soft tissues: Unremarkable IMPRESSION: 1. No acute pulmonary embolism is identified. 2. Indistinct interstitial densities incidentally noted along the posterior margins of both lower lobes with no other parenchymal mass or consolidation detected. 3. Coronary calcifications are evident and heart size is normal with no evidence of pericardial effusion or right heart strain. RV/LV ratio is estimated at 0.75. Thank you for allowing us to participate in the care of your patient. Dictated and Authenticated by: Peewee Baez MD 09/20/2023 7:46 PM Eastern Time ([place] & [place]) Quality:SDOH Health Related Social Needs: No Data to Display PFSH All Active Problems (Updated 09/20/23 @ 20:51 by Gianfranco Henderson DO) Pneumonia (Acute) RSV bronchitis (Acute) Anxiety (Chronic) HLD (hyperlipidemia) (Acute) HTN (hypertension) with goal to be determined (Acute) Acute kidney injury (Acute) Cocaine abuse (Acute) Bilateral pulmonary contusion (Acute) Facial laceration (Acute) Kidney lesion (Acute) Concussion (Acute) Medical History Alcohol abuse Gout Social History Smoking/Tobacco Use Status: Never Smoking risk assessment performed?: Yes Alcohol Intake: former Drug use: Binges Substance use type: former substance user and crack/cocaine Details: last smoked crack 5 days ago, thinks 'bad shit'. Housing: apartment Do you feel safe at home: Yes Do you feel safe in your relationship?: Yes
[2023-09-20 17:29] LABS: BE (Venous) 2 mmol/L (-2-3); HCO3 (Venous) 26 mmol/L (23-28); O2 Sat (Venous) 79 %; TCO2 (Venous) 23 mmol/L (24-29); pCO2 (Venous) 38 mmHg (41-51); pH (Venous) 7.45 (7.31-7.41); pO2 (Venous) 41 mmHg
[2023-09-20 17:30] LABS: Lactate 1.9 mmol/L (0.6-1.4)
[2023-09-20 17:31] LABS: Abs Immature Grans 0.05 10^3/uL (0.0-0.06); Absolute Basophil Count 0.05 10^3/uL (0.0-0.2); Absolute Eosinophil Count 0.05 10^3/uL (0.0-0.7); Absolute Lymphocyte Count 0.87 10^3/uL (1.2-3.4); Absolute Monocyte Count 1.17 10^3/uL (0.1-0.8); Absolute Neutrophil Count 10.38 10^3/uL (1.2-6.7); Basophils % 0.4 %; Eosinophils % 0.4 %; HCT 46.1 % (40.0-50.0); HGB 15.5 g/dL (13.5-17.5); Immature Grans % 0.4 %; Lymphocytes % 6.9 %; MCH 29.8 pg (27.0-33.0); MCHC 33.6 % (32.0-36.0); MCV 89 fL (80-95); MPV 9.7 fL (8.0-11.0); Monocytes % 9.3 %; Neutrophils % 82.6 %; Platelet Count 220 10^3/uL (130-400); RBC 5.21 10^6/uL (4.36-5.78); RDW 12.7 % (11.8-14.1); RDW-SD 41.3 fL; WBC 12.57 10^3/uL (4.4-10.8)
[2023-09-20] MEDS: Lactated Ringers 1,000 ML 1000 ML IV ×2 (17:41→18:22)
[2023-09-20 17:55] LABS: ALT 24 U/L (16-63); AST 12 U/L (15-37); Albumin 3.2 g/dL (3.4-5.0); Alkaline Phosphatase 76 U/L (46-116); Anion Gap 12.5 mmol/L (3-11); BUN 12 mg/dL (7-18); Bilirubin, Total 0.5 mg/dL (0.2-1.0); CO2 25.5 mmol/L (21.0-32.0); CREATININE 1.5 mg/dL (0.70-1.30); Calcium 8.6 mg/dL (8.5-10.1); Chloride 99 mmol/L (98-107); Glucose 140 mg/dL (74-106); Potassium 3.6 mmol/L (3.5-5.1); Sodium 137 mmol/L (136-145); Total Protein 8.1 g/dL (6.4-8.2); Troponin I < 50 ng/L (< or =60)
[2023-09-20 18:04] LABS: Procalcitonin 0.1 ng/mL
--- NOTE | 2023-09-20 18:45 | DI.CT_ITS ---
Exam(s) CT CHEST PE CTA EXAM: CT CHEST PE CTA CLINICAL HISTORY: cough, fever, eval for pneumonia/PE. TECHNIQUE: Imaging Protocol: Axial CT angiography was performed with multi-slice acquisition and mu lti-planar reconstructions as well as axial, coronal and sagittal MIP reconstructions. CONTRAST MATERIAL: Intravenous: Omnipaque 350 Contrast volume:100 ml COMPARISON: CT CT CHEST PE ABD PELVIS W from 08/23/2022 FINDINGS: Pulmonary Arteries: No evidence of filling defect to suggest pulmonary emboli. Tracheobronchial tree: No mucous plugging. Mediastinum and Breonna: No dominant adenopathy or fluid collection. Pulmonary parenchyma: There are a few tiny peripheral posterior cysts. Posterior dependent changes. No consolidation or dominant measurable mass. Pleura: Trace right pleural effusion versus posterior pleural thickening. No pneumothorax. Heart: The heart is not dilated. Moderate coronary artery calcifications are seen. No pericardial e ffusion. Aorta: Thoracic aorta non-dilated. No dissection. Upper abdomen: No acute findings. Bones: Unremarkable for age. Tubes, Catheters, and Lines: None Soft tissues: Unremarkable. IMPRESSION: No evidence of pulmonary embolism. Trace right pleural fluid versus pleural thickening. RADIATION DOSE DELIVERED: 448.92mGy.cm Total DLP DATA REPOSITORY: All CT scans at this facility are submitted to the National Radiology Data Registry (NRDR) Dose Index Registry (DIR) with the [employer] (ACR). RADIATION OPTIMIZATION: All CT scans at this facility use at least one of these dose optimization te chniques: automated exposure control; mA and/or kV adjustment per patient size (includes targeted exa ms where dose is matched to clinical indication); or iterative reconstruction.
--- NOTE | 2023-09-20 18:46 | DI.VRAD_ITS ---
PROCEDURE INFORMATION: Exam: XR Chest Exam date and time: 09/20/2023 5:42 PM Age: 58 years old Clinical indication: Cough and shortness of breath; Patient HX: Cough, SOB, fever, crack coke, he is describing CO TECHNIQUE: Imaging protocol: Radiologic exam of the chest. Views: 1 view. COMPARISON: CT CHEST PE ABD PELVIS W 08/23/2022 4:17 AM FINDINGS: Lungs: Lungs are clear throughout with no mass or consolidation detected. Pleural spaces: No pneumothorax or pleural effusion detected. Heart/Mediastinum: Heart size is normal and vessel margins are sharply defined. Bones/joints: No acute osseous lesions are detected. IMPRESSION: No acute findings. Dictated and Authenticated by: Peewee Baez MD. Ordering:SOLOMON Medel MD
[2023-09-20] MEDS: Omnipaque 350 MG/ML 100 ML BTL IJ (19:15)
[2023-09-20] MEDS: Normal Saline Flush 10 ML SYR IVP (19:15)
[2023-09-20] MEDS: Normal Saline - Diluent 50 ML VIAL IJ (19:16)
[2023-09-20] MEDS: Ketorolac 15 MG/ML VIAL IVP (19:39)
[2023-09-20] MEDS: ACETAMINOPHEN 1,000 MG/100 ML BTL 400 MG IVPB (19:43)
--- NOTE | 2023-09-20 19:46 | DI.VRAD_ITS ---
PROCEDURE INFORMATION: Exam: CTA Chest With Contrast Exam date and time: 09/20/2023 7:15 PM Age: 58 years old Clinical indication: Other: Unspecified; Patient HX: Cough 4 days, chest pain TECHNIQUE: Imaging protocol: Computed tomographic angiography of the chest with contrast. Exam focused on the arteries. 3D rendering (Not supervised by radiologist): MIP and/or 3D reconstructed images were created by the technologist. COMPARISON: CT CHEST PE ABD PELVIS W 08/23/2022 4:17 AM FINDINGS: Pulmonary arteries: There is adequate opacification of blood within the main pulmonary outflow tract, right and left pulmonary arteries and major lobar and segmental branches to both lungs with no pulmonary embolism detected. Aorta: Unremarkable. No aortic aneurysm. No aortic dissection. Lungs: Indistinct interstitial densities are seen along the posterior margins of both lower lobes and the lung parenchyma is otherwise grossly clear throughout with no discrete mass or consolidation identified. Pleural spaces: No pneumothorax or pleural effusion. Heart: Coronary calcifications are evident and heart size is normal with no evidence of pericardial effusion or right heart strain. RV/LV ratio is estimated at 0.75. Lymph nodes: No mediastinal or hilar mass or adenopathy detected. Bones/joints: No acute osseous lesions are detected at thoracic levels. Soft tissues: Unremarkable. IMPRESSION: 1. No acute pulmonary embolism is identified. 2. Indistinct interstitial densities incidentally noted along the posterior margins of both lower lobes with no other parenchymal mass or consolidation detected. 3. Coronary calcifications are evident and heart size is normal with no evidence of pericardial effusion or right heart strain. RV/LV ratio is estimated at 0.75. Dictated and Authenticated by: Peewee Baez MD. Ordering:SOLOMON Medel MD
[2023-09-20 20:25] LABS: *AMPHETAMINES SCREEN URINE Negative (Negative); *BARBITURATES SCREEN URINE Negative (Negative); *BENZODIAZEPINES SCREEN URINE Negative (Negative); Cannabinoids THC Negative (Negative); Cocaine Screen,Urine Negative (Negative); METHADONE URINE SCREEN Negative (Negative); OPIATES URINE SCREEN Negative (Negative)
[2023-09-20 20:28] LABS: Tricyclic Antidepressants Negative (Negative)
[2023-09-20 20:39] LABS: COVID-19 PCR Negative (Negative); Influenza A PCR Negative (Negative); Influenza B PCR Negative (Negative)
[2023-09-20 20:40] LABS: RSV PCR Positive (Negative); Source NASOPHARYNX
[2023-09-20] MEDS: Benzonatate 100 MG CAP PO (20:54)
[2023-09-20] MEDS: Doxycycline Hyclate 100 MG CAP PO (20:54)
[2023-09-20] MEDS: Budesonide/Formoterol 160/4.5 6 GM 60 PUFF INH IH (20:55)
== END 2023-09-20 21:28 | disposition home or self-care (01) ==
PROVIDERS: Emergency Provider Student in an Organized Health Care Education/Training Program; PCP Internal Medicine
DX: J20.5 Acute bronchitis due to respiratory syncytial virus (principal); J12.1 Respiratory syncytial virus pneumonia; F14.90 Cocaine use, unspecified, uncomplicated; I10 Essential (primary) hypertension; E78.5 Hyperlipidemia, unspecified; F41.9 Anxiety disorder, unspecified
CPT/HCPCS: 71275; 80053; 80307; 82805; 84145; 87637; 93005; 96361; 96365; 96375; 99285; 71045; 83605; 84484; 85025; 93010; 99284; J0131; J1885; J3490

== ENCOUNTER 2024-01-17 09:54 | Emergency (ER) | payer OTHER, SELFPAY ==
[2024-01-17 10:11] VITALS: BP 127/79; PULSE 73; RESP 12; TEMP 36.7; O2SAT 98
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
[2024-01-17] MEDS: oxyCODONE 5 mg/Acetaminophen 325 mg TAB 1 TAB PO (10:51)
[2024-01-17] MEDS: predniSONE 20 MG TAB 60 MG PO (10:52)
[2024-01-17 11:02] VITALS: BP 127/79; PULSE 73; RESP 12; TEMP 36.7; O2SAT 98
== END 2024-01-17 11:03 | disposition home or self-care (01) ==
PROVIDERS: Emergency Provider Registered Nurse Emergency; PCP Internal Medicine
DX: M54.16 Radiculopathy, lumbar region (principal)
CPT/HCPCS: 99283; J7512

== ENCOUNTER 2024-01-20 13:44 | Emergency (ER) | payer OTHER, SELFPAY ==
[2024-01-20 13:54] VITALS: BP 102/76; PULSE 71; RESP 16; TEMP 36.7; O2SAT 98
--- OUTSIDE RECORDS SUMMARY | 2024-01-20 14:07 | XMS_ITS | Encounter Summary ---
Author Organization [facility] [place] [address] Care Team Providers Care Building Principal Name Role Phone Jf Cervantes Primary Care Provider [phone] Reason for Visit * Reason Comments Chronic Kidney Disease * Consultation (Routine) - Closed Specialty Diagnoses / Procedures Referred By Contpernell t Referred To Contact Nephrology Diagnoses abnormal renal function and proteinuria Jf Cervantes PA [address] [address] [facility] [address] [place] [id number] Referral ID Status Reason Start Date Expiration Date V isits Requested Visits Authorized [id number] Closed Consult, [facility] PCP Updated and/or Approved 01/16/2016 01/15/2017 1 1 Encounter Details Date Type Department Care Team (Latest Contact Info) Description 02/07/2016 3:30 PM EDT Office Visit Nephrology [place] [address] Mary Kate Emery MD [facility] [place] [address] Jagjit Lennon, [facility] [place] [address] CKD (chronic kidney disease), unspecified stage Social History Tobacco Use Types Packs/Day Years Used Date Smoking Tobacco: Never Smokeless Tobacco: Never Sex and Gender Information Value Date Recorded Sex Assigned at Not on file Gender Identity Not on file Sexual Orientation Not on file documented as of this [...] EDT documented in this encounter Progress Notes * Jagjit Lennon, DO - 02/07/2016 3:30 PM [...] from a screening test as part of [facility]. Subsequently had kidney biopsy in 1987 at [facility] which was 'unremarkable'. Patient denies niurka hematuria, flank pain. No hx of kidney stones, no weight loss. Uses NSAIDs (Indomethacin PRNfor gouty attacks; last attack 2 weeks ago). [...] fatty cast, granular RBCs IMPRESSION/ RECOMMENDATIONS: Mr. Han is a 50 yr old gentleman w/ hx of CKD, hematuria who presents to nephrology clinic to establish care. 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 -Renal ultrasound RTC in 2 months Thanks for letting us participate in the care of this patient. Seen and Discussed w/ Dr. Yuly Lennon DO Nephrology Fellow Pager [phone] * Mary Kate Emery MD - 02/07/2016 3:30 [...] this encounter Plan of Treatment Not on file documented as of this encounter Procedures Procedure Name Priority Date/Time Associated Diagnosis Comments HEMOGRAM Routine 02/07/2016 5:21 PM EDT CKD (chronic kidney disease), unspecified stage DIFFERENTIAL, AUTOMATED Routine 02/07/2016 5:21 PM EDT CKD (chronic kidney disease), unspecified stage CBC (WITH DIFF) Routine 02/07/2016 5:21 PM EDT CKD (chronic kidney disease), unspecified stage URIC ACID Routine 02/07/2016 5:21 PM EDT CKD (chronic kidney disease), unspecified stage ALBUMIN LEVEL Routine 02/07/2016 5:21 PM EDT CKD (chronic kidney disease), unspecified stage BASIC METABOLIC PANEL Routine 02/07/2016 5:21 PM EDT CKD (chronic kidney disease), unspecified stage PROTEIN/CREATININE RATIO, URINE Routine 02/07/2016 3:30 PM EDT CKD (chronic kidney disease), unspecified stage documented in this encounter Results * Differential, Automated (02/07/2016 5:21 PM EDT) Neutrophil % 61.5 % [facility] Neutrophil Absolute 4.74 1.70 - 6.10 x10(3)/[facility] Lymph % 20.6 % [facility] Lymphocytes Abs 1.6 0.9 - 3.2 x10(3)/[facility] Monocyte % 11.6 % [facility] Monocyte Abs 0.9 0.3 - 0.9 x10(3)/[facility] Eos % 4.7 % [facility] Eosinophils Abs 0.4 0.0 - 0.4 x10(3)/[facility] Basophil % 1.2 % [facility] Baso Absolute 0.1 0.0 - 0.1 x10(3)/[facility] Immature Gran % 0.40 % [facility] Comment: Immature granulocytes(IG's)percentage and absolute count will include metamyelocytes, myelocytes, and promyelocytes. Blood smears from CBCs yielding IG's will be scanned manually for concordance. If this scan disagrees with the automated IG or if promyelocytes are noted, a manual differential will be performed. Immature Gran Absolute 0.03 0.00 - 0.04 x10(3)/[facility] Blood specimen (specimen) 02/07/2016 5:21 PM EDT 02/07/2016 5:31 PM EDT Narrative Resulting Agency Comment Spec In Lab Mary Kate Emery MD HEMATOLOGY ORDERABLE S [facility] [place] [address] * Hemogram (02/07/2016 5:21 PM EDT) White Blood Cell 7.7 4.0 - 9.5 x10(3)/[facility] Red Blood Cell 4.96 4.58 - 5.54 x10(6)/[facility] Hemoglobin 15.0 13.7 - 16.5 gm/dL [facility] Hematocrit 43.9 40.5 - 48.5 % [facility] Mean Cell Volume 88.5 82.9 - 93.1 [facility] Mean Cell Hemoglobin 30.2 27.5 - 32.1 pg [facility] Mean Cell Hemoglobin Concentration 34.2 32.0 - 35.7 gm/dL [facility] Platelet 287 145 - 357 x10(3)/[facility] RDW Standard Deviation 40.7 36.0 - 45.0 [facility] RDW coefficient of variation 12.4 11.4 - 13.8 % [facility] Mean Platelet Volume 9.9 7.6 - 12.9 [facility] NRBC% auto 0.0 % [facility] NRBC Absolute 0.000 0.000 - 0.000 x10(3)/[facility] Blood specimen (specimen) 02/07/2016 5:21 PM EDT 02/07/2016 5:31 PM EDT Narrative Resulting Agency Comment Spec In Lab Mary Kate Emery MD HEMATOLOGY ORDERABLE S [facility] [place] [address] * (ABNORMAL) Uric acid (02/07/2016 5:21 PM EDT) Uric Acid 8.8(H) 3.5 - 8.5 mg/dL [facility] Blood specimen (specimen) 02/07/2016 5:21 PM EDT 02/07/2016 5:31 PM EDT Narrative Resulting Agency Comment Spec In Lab Mary Kate Emery MD CHEMISTRY ORDERABLES Performing Organization Address [facility] Co de Phone Number [facility] [address] * Albumin Level (02/07/2016 5:21 PM EDT) Albumin 3.9 3.2 - 5.2 gm/dL [facility] Blood specimen (specimen) 02/07/2016 5:21 PM EDT 02/07/2016 5:31 PM EDT Narrative Resulting Agency Comment Spec In Lab Mary Kate Emery MD CHEMISTRY ORDERABLES Performing Organization Address [facility] Co de Phone Number [facility] [address] * (ABNORMAL) Basic Metabolic Panel (non-fasting) (02/07/2016 5:21 PM EDT) Pathologist [facility] Glucose 99 65 - 199 mg/dL [facility] Comment:Diabetes: >=200 mg/d L plus symptoms Blood Urea Nitrogen 14 10 - 20 mg/dL [facility] Creatinine 1.28 0.80 - 1.50 mg/dL [facility] Comment: Please note that the pediatric reference intervals supplied above were not validated at [facility]. Results from pediatric patients should be interpreted in conjunction to the patient's age, height and muscle mass. Sodium 140 135 - 145 mmol/L [facility] Potassium 4.2 3.5 - 5.0 mmol/L [facility] Comment: Please note: ??Patients with WBC >100,000 may have falsely elevated Potassium levels. ??For accurate Potassium quantification in these patients send serum separator tube (gold top) for subsequent determinations. ??Contact the Clinical Chemistry Laboratory if there are any questions. Chloride 99 98 - 107 mmol/L [facility] Carbon Dioxide 23 22 - 31 mmol/L [facility] Anion Gap 18(H) 5 - 15 mmol/L [facility] Calcium 8.8 8.5 - 10.5 mg/dL [facility] Est Glomerular Filtration Rate 60 >=60 [facility] Comment: This estimated GFR (eGFR) value was calculated using the MDRD equation which has been validated on patients between the ages of 18 and 70. The MDRD should not be used to assess kidney function in patients < 18 years of age or in patients with extremes of body mass, or in patients with acute kidney failure. This value should be multiplied by 1.2 for patients. For further information please copy and paste the following links into your internet browser. [email or web address]/DHnkdep [email or web address]/DHMCnkf Blood specimen (specimen) 02/07/2016 5:21 PM EDT 02/07/2016 5:31 PM EDT Narrative Resulting Agency Comment Spec In Lab Mary Kate Emery MD CHEMISTRY ORDERABLES Performing Organization Address City/[facility] Co de Phone Number [facility] [address] * (ABNORMAL) Protein/Creatinine Ratio, urine (02/07/2016 3:30 PM EDT) Creatinine, Urine 203 mg/dL [facility] Protein, Urine 206(H) 0 - 12 mg/dL [facility] Protein / Creatinine Ratio, Urine 1.0 ratio [facility] Urine specimen (specimen) 02/07/2016 3:30 PM EDT 02/07/2016 5:03 PM EDT Narrative Resulting Agency Comment Spec In Lab Mary Kate Emery MD URINE ORDERABLES Performing Organization Address City/[facility]/ZIP Co de Phone Number [facility] [place] [address] documented in this encounter Visit Diagnoses Diagnosis CKD (chronic kidney disease), unspecified stage documented in this encounter Care Teams Building Principal Relationship Specialty Start Date End Date Jf Cervantes PA [address] [place] [id number] PCP - General General Internal Medicine 01/16/16 documented as of this encounter
--- OUTSIDE RECORDS SUMMARY | 2024-01-20 14:07 | XMS_ITS | Clinical Summary ---
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 Venipuncture / Unknown 01/14/2024 4:14 EDT 01/14/2024 4:17 EDT Fani Laws DO CHEMISTRY & BLOO D GAS ORDERABLES [facility] [address] [place] [id number] * EKG 12-LEAD (01/14/2024 4:05 EDT) 01/14/2024 4:05 EDT Narrative [facility] - 01/14/2024 8:43 EDT ? [facility] ? Test Date: ?2024-01-14 Pat Name: ? DIANA RUDOLPH ? Department: ? Room: ? A02 Gender: ? Male ? Nurse: ?? lw : ?1965 ? Requested By: STEFANY Almeida Order Number: [id number] ? [place] CHO: ?? ALFONZO BROWN MD ? Measurements Intervals ?[place] ? Rate: ? 94 ? P: ?52 VT: ? 136 ?QRS: ?-3 QRSD: ? 94 ? T: ?50 QT: ? 378 ? QTc: ?472 ? Interpretive Statements Sinus rhythm with premature supraventricular complexes and with occasional premature ventricular complexes Inferior infarct ,old No previous ECG available for comparison I reviewed the tracing and have either agreed or edited the findings in this report. Electronically Signed On 01-14-2024 08:43:21 EDT by ALFONZO BROWN MD. Procedure Note Alfonzo Brown MD - 01/14/2024 [facility] Test Date: 2024-01-14 Pat Name: DIANA RUDOLPH Department: Room: A02 Gender: Male Nurse: darron : 1965 Requested By: STEFANY LOPEZ Order Number: [id number] [place] MD: ALFONZO BROWN MD Measurements Intervals [place] Rate: 94 P: 52 VT: 136 QRS: -3 QRSD: 94 T: 50 QT: 378 QTc: 472 Interpretive Statements Sinus rhythm with premature supraventricular complexes and withoccasional premature ventricular complexes Inferior infarct ,old No previous ECG available for comparison I reviewed the tracing and have either agreed or edited the findings inthis report. Electronically Signed On 01-14-2024 08:43:21 EDT by ALFONZO MARIE. Fani Laws DO CARDIAC ECG [facility] from Last 3 Months Care Teams Endband Cutter Hand Relationship Specialty Start Date End Date Unknown, Provider, PCP - General 02/12/19
--- OUTSIDE RECORDS SUMMARY | 2024-01-20 14:07 | XMS_ITS | Encounter Summary ---
Author Organization [facility] [place] [address] Care Team Providers Care Rate Examiner Name Role Phone Jf Cervantes Primary Care Provider [phone] Encounter Details Date Type Department Care Team ([facility] st Contact Info) Description 09/08/2017 Orders Only [place] [address] Stevie Goldsmith, [facility] [place] [address] Hypertension, unspecified type; CKD (chronic kidney disease) stage 2, GFR 60-89 ml/min; Hematuria, unspecified type; Proteinuria, unspecified type; Gout, unspecified cause, unspecified chronicity, unspecified site Social History Tobacco Use Types Packs/Day Years Used Date Smoking Tobacco: Never Smokeless Tobacco: Never Sex and Gender Information Value Date Recorded Sex Assigned at Not on file Gender Identity Not on file Sexual Orientation Not on file documented as of this encounter Plan of Treatment Scheduled Orders Name Type Priority Associated Diagnoses Orde r Schedule CBC (with Diff) Lab Routine Hypertension, unspecified type CKD (chronic kidney disease) stage 2, GFR 60-89 ml/min Hematuria, unspecified type Proteinuria, unspecified type Gout, unspecified cause, unspecified chronicity, unspecified site Expected: 09/09/2017 (Approximate), Expires: 09/08/2018 Comprehensive metabolic panel (non-fasting) Lab Routine Hypertension, unspecified type CKD (chronic kidney disease) stage 2, GFR 60-89 ml/min Hematuria, unspecified type Proteinuria, unspecified type Gout, unspecified cause, unspecified chronicity, unspecified site Expected: 09/09/2017 (Approximate), Expires: 03/11/2018 Magnesium Lab Routine Hypertension, unspecified type CKD (chronic kidney disease) stage 2, GFR 60-89 ml/min Hematuria, unspecified type Proteinuria, unspecified type Gout, unspecified cause, unspecified chronicity, unspecified site Expected: 09/09/2017 (Approximate), Expires: 03/11/2018 Phosphorus Lab Routine Hypertension, unspecified type CKD (chronic kidney disease) stage 2, GFR 60-89 ml/min Hematuria, unspecified type Proteinuria, unspecified type Gout, unspecified cause, unspecified chronicity, unspecified site Expected: 09/09/2017 (Approximate), Expires: 09/08/2018 Uric acid Lab Routine Gout, unspecified cause, unspecified chronicity, unspecified site Expected: 09/09/2017 (Approximate), Expires: 03/11/2018 documented as of this encounter Visit Diagnoses Diagnosis Hypertension, unspecified type CKD (chronic kidney disease) stage 2, GFR 60-89 ml/min Chronic kidney disease, Stage II (mild) Hematuria, unspecified type Proteinuria, unspecified type Gout, unspecified cause, unspecified chronicity, unspecified site documented in this encounter Care Teams Rate Examiner Relationship Specialty Start Date End Date Jf Cervantes [place] [address] [place] [id number] PCP - General General Internal Medicine 01/16/16 documented as of this encounter
--- OUTSIDE RECORDS SUMMARY | 2024-01-20 14:07 | XMS_ITS | Encounter Summary ---
Author Organization [facility] [place] [address] Care Team Providers Care Platform Attendant Name Role Phone Jf Cervantes Primary Care Provider [phone] Reason for Visit * Reason Comments Chronic Kidney Disease Hematuria Encounter Details Date Type Department Care Team (Latest Contact Info) Description 09/09/2017 3:30 PM EDT Office Visit [place] [address] Mary Kate Emery MD [facility] [place] [address] Stevie Goldsmith DO [facility] [place] [address] Chronic kidney disease, unspecified CKD stage; Microscopic hematuria; Hypertension, unspecified type; Gout, unspecified cause, unspecified chronicity, [...] documented in this encounter Progress Notes * Haleigh Goldsmithn Meeta, DO - 09/09/2017 3:30 PM EDT [facility] Nephrology/Hypertension Follow Up Mathew Han [id number] 1965 HPI: 52 y/o WM with a history of microscopic hematuria and CKD presents to Nephrology Clinic for follow-up after being re-referred by his PCP. Patient was initially diagnosed with microscopic hematuria when he was 21 years old as part of routine health screening in the [employer] (where he served for 6 years). Patient subsequently had a renal biopsy performed when patient was stationed at [facility], but patient describes that results were unremarkable. Patient denies any recent illnesses of hospitalizations. Denies any niurka hematuria, dysuria, flank pain or change in urination. Patient had previous urologic work-up which was also negative. Patient recently was seen by PCP and had his Lisinopril increased from 10 --> 20mg, with improvement of BP control. Patient has a longstanding hi story of gout, but denies any recent flares over the past 18 months. Patient was started on allopurinol when last seen in nephrology Clinic (01/2016), however patient was only taking it intermittentlyand when he though a flare might be starting. Renal function remains stable --> and serum Cr wasstable at 1.22mg/dL this AM PAST MEDICAL HX: [...] standing microscopic hematuria and HTN presents to NephrologyClinic for follow-up ?? 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 Patient does not have a family history of renal disease or of hearing/ vision loss. Less likely this is due to IgA based on the chronicity and that he consistently has microscopic hematuria -serum Cr stable/ improved --> was 1.22mg/dL today in clinic -previous normal/ unremarkable renal biopsy. Had length conversation with the patient about possibly repeating renal biopsy. However with the renal function remaining stable, will hold off pursuingbiopsy unless there is a change in renal [...] and recommend Colchicine v Steroids for treatment of flares -Allopurinol 200mg was started but patient was taking it prn. Recommended q daily dosing Follow up: RTC in 6 months Seen and Discussed w/ Dr. Yuly Goldsmith DO Nephrology Fellow [facility] THOMAS Malhotra [address] [place] [id number] * Mary Kaet Emery MD - 09/09/2017 3:30 PM EDT [...] Procedure Name Priority Date/Time Associated Diagnosis Comments PROTEIN/CREATININE RATIO, URINE Routine 09/09/2017 3:30 PM EDT Chronic kidney disease, unspecified CKD stage U ALBUMIN/CRE RATIO Routine 09/09/2017 3 :30 PM EDT Chronic kidney disease, unspecified CKD stage documented in this encounter Results * (ABNORMAL) Protein/Creatinine Ratio, urine (09/09/2017 3:30 PM EDT) Creatinine, Urine 87 mg/dL [facility] Protein, Urine 62(H) 0 - 12 mg/dL [facility] Protein / Creatinine Ratio, Urine 0.7 ratio [facility] Urine specimen (specimen) 09/09/2017 3:30 PM EDT 09/09/2017 4:28 PM EDT Narrative Resulting Agency Comment Spec In Lab Mary Kate Emery MD URINE ORDERABLES [facility] [place] [address] * (ABNORMAL) U Albumin/Cre Ratio (09/09/2017 3:30 PM EDT) Albumin / Creatinin Ratio, Urine 521(H) 0 - 29 mcg/mg Cr [facility] Comment: Reference Ranges: <30 mcg/mg: Normal 30-300 mcg/mg: Moderately increased albuminuria.* >300 mcg/mg: Severely increased albuminuria. * ACEI or ARB recommended if diabetic; suggested if BP>130/80 without diabetes ACEI or ARB strongly recommended if diabetic; recommended if BP>130/80 without diabetes Two of three specimens collected within a 3 to 6 month period should be abnormal before considering a patient to have albuminuria. Transient causes: exercise, fever, infection, CHF, marked hyperglycemia or hypertension. Persistent albuminuria indicates CKD and is an independent risk factor for ASCVD. ADA Standards of Medical Care in Diabetes-2016; KDIGO: Kidney International Supplements (2012) 2, 357? 362 Albumin, Urine 453.7 mg/L [facility] Creatinine, Urine 87 mg/dL [facility] Urine specimen (specimen) 09/09/2017 3:30 PM EDT 09/09/2017 4:28 PM EDT Narrative Resulting Agency Comment Spec In Lab Mary Kate Emery MD URINE ORDERABLES [facility] [place] [address] documented in this encounter Visit Diagnoses Diagnosis Chronic kidney disease, unspecified CKD stage Microscopic hematuria Hypertension, unspecified type Gout, unspecified cause, unspecified chronicity, unspecified site documented in this encounter Care Teams Platform Attendant Relationship Specialty Start Date End Date Jf Cervantes [place] [address] [place] [id number] PCP - General General Internal Medicine 01/16/16 documented as of this encounter
--- OUTSIDE RECORDS SUMMARY | 2024-01-20 14:07 | XMS_ITS | Continuity of Care Document ---
Author Organization [facility] Occupationa l Health Address [address] [place] [address] Encounter [facility] NBR [id number] Date(s): 12/25/23 - 12/25/23 [facility] Occupational Health [address] [place] [address]- [place] Encounter Diagnosis Encounter for examination required by Department of Transportation (DOT) (Discharge Diagnosis) - 12/25/23 Discharge Disposition: Home or Self Care Attending Physician: THOMAS Barba Assessment and Plan Extracted from: Title:Office Visit Note Author:THOMAS Barba Date:12/25/23 1.??Encounter for examinatio n required by Department of Transportation (DOT)??Z02.89 ??Patient meets qualifications 1 year DOT card secondary hypertension. ??Please see scanned documentation. Results Laboratory List Name Date .Urinalysis POCT 12/25/23 Most recent to oldest [Reference Range]: 1 Method of Collect POC cc *NA* (12/25/23 4:47 PM) Specific [place], Ur POC 1.025 *NA* (12/25/23 4:47 PM) Specimen Color POC [Yellow] Dark Yellow *ABN* (12/25/23 4:47 PM) Glucose, Urine POC Negative mg/dL *NA* (12/25/23 4:47 PM) Bilirubin, Urine POC [Negative] Negative (12/25/23 4:47 PM) Ketones, Urine POC [Negative mg/dL] Nega tive mg/dL (12/25/23 4:47 PM) Blood, Urine POC [Negative] Negative (12/25/23 4:47 PM) pH, Urine POC 5.50 *NA* (12/25/23 4:47 PM) Protein, Urine POC [Negative mg/dL] 30 m g/dL *ABN* (12/25/23 4:47 PM) Urobilinogen, Urine POC [0.2] 0.2 (12/25/23 4:47 PM) Nitrite, Urine POC [Negative] Negative (12/25/23 4:47 PM) Leuk Esterase, Urine POC [Negative] Trac e *ABN* (12/25/23 4:47 PM) Clarity, Urine POC [Clear] Clear (12/25/23 4:47 PM) Physician Outpatient Note * THOMAS Barba: PERFORM Event Display: Office Clinic Note Physician Authored Date: [id number] DIANA RUDOLPH :1965 Age:58 years Sex:Male Visit Date:12/25/2023 Chief Complaint DOT Exam History of Present Illness Patient presents DOT exam. ??He denies any current active medical conditions. ??Is having increasedstressors recently with the recent hospitalization of his ??however he is working with his counselor. 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 ??He denies any current use within the past??15 years.?? He follows with his primary medical provider for his hypertension.?? Is well-controlled with his current medications. ??Denies any current chest pain, shortness of breath, syncope. Physical Exam General: Alert and oriented, well nourished, no acute distress. Eye:??Pupils are reactive, conjunctiva clear. HENT: Normocephalic, clear tympanic membranes, throat clear no exudate and uvula is midline Neck: Supple, non-tender, no lymphadenopathy Lungs: Clear to auscultation, non-labored respiration. Heart: Normal rate, regular rhythm, no murmur, gallop or edema. Abdomen: Soft, non-tender, non-distended, no masses. Musculoskeletal: Normal range of motion and strength, no tenderness or swelling. Skin: Skin is warm, dry, no rashes or lesions in examined areas. Neurologic: Awake, alert and oriented X3, normal cognition and interaction. Psychiatric: Cooperative, appropriate mood and affect. Assessment/Plan 1.??Encounter for examination required by Department of Transportation (DOT)??Z02.89 ??Patient meets qualifications 1 year DOT card secondary hypertension. ??Please see scanned documentation. Problem List/Past Medical History Ongoing No qualifying data Historical No qualifying data Medications No active medications Allergies No active allergies Lab Results Test Name Test Result Date/Time Method of Collect POC cc 12/25/2023 16:47 EDT Specimen Color POC Dark Yellow 12/25/2023 16:47 EDT Clarity, Urine POC Clear 12/25/2023 16:47 EDT Glucose, Urine POC Negative 12/25/2023 16:47 EDT Bilirubin, Urine POC Negative 12/25/2023 16:47 EDT Ketones, Urine POC Negative 12/25/2023 16:47 EDT Specific [place], Ur POC 1.025 12/25/2023 16:47 EDT pH, Urine POC 5.50 12/25/2023 16:47 EDT Protein, Urine POC 30 12/25/2023 16:47 EDT Urobilinogen, Urine POC 0.2 12/25/2023 16:47 EDT Nitrite, Urine POC Negative 12/25/2023 16:47 EDT Blood, Urine POC Negative 12/25/2023 16:47 EDT Leuk Esterase, Urine POC Trace 12/25/2023 16:47 EDT Electronically Signed on 12/25/2023 17:27 EDT THOMAS Barba Patient Care team information Care Team Related Persons Name: PADMAJA RUDOLPH
--- OUTSIDE RECORDS SUMMARY | 2024-01-20 14:07 | XMS_ITS | Encounter Summary ---
[place] [address] Care Team Providers Care Splitter Machine Name Role Phone Jf Cervantes Primary Care Provider [phone] Encounter Details Date Type Department Care Team ([facility] st Contact Info) Description 05/06/2016 Telephone [place] [address] Fani Godinez Social History Tobacco Use Types Packs/Day Years Used Date Smoking Tobacco: Never Smokeless Tobacco: Never Sex and Gender Information Value Date Recorded Sex Assigned at Not on file Gender Identity Not on file Sexual Orientation Not on file documented as of this encounter Miscellaneous Notes * Telephone Encounter - Fani Guan - 05/06/2016 9:34 AM EST Patient did not answer, Voicemail full. documented in this encounter Plan of Treatment Not on file documented as of this encounter Visit Diagnoses Not on filedocumented in this encounter Care Teams Splitter Machine Relationship Specialty Start Date End Date Jf Cervantes PA [address] [place] [id number] PCP - General General Internal Medicine 01/16/16 documented as of this encounter
--- OUTSIDE RECORDS SUMMARY | 2024-01-20 14:07 | XMS_ITS | Encounter Summary ---
Author Organization [facility] [place] [address] Care Team Providers Care Bosom Presser Name Role Phone Jf Cervantes Primary Care Provider [phone] Encounter Details Date Type Department Care Team ([facility] st Contact Info) Description 08/03/2017 Orders Only [place] [address] Stevie Goldsmith, [facility] [place] [address] Chronic kidney disease, unspecified CKD stage; Hypertension, unspecified type; Hematuria, unspecified type Social History Tobacco Use Types Packs/Day Years Used Date Smoking Tobacco: Never Smokeless Tobacco: Never Sex and Gender Information Value Date Recorded Sex Assigned at Not on file Gender Identity Not on file Sexual Orientation Not on file documented as of this encounter Plan of Treatment Not on file documented as of this encounter Results * Uric acid (09/09/2017 2:25 PM EDT) Uric Acid 8.1 3.5 - 8.5 mg/dL [facility] Blood specimen (specimen) 09/09/2017 2:25 PM EDT 09/09/2017 2:41 PM EDT Narrative Resulting Agency Comment Spec In Lab Dilan Gtz MD CHEMISTRY ORDERABLES [facility] [place] [address] * Magnesium (09/09/2017 2:25 PM EDT) Magnesium 0.75 0.69 - 1.07 mmol/L [facility] Blood specimen (specimen) 09/09/2017 2:25 PM EDT 09/09/2017 2:41 PM EDT Narrative Resulting Agency Comment Spec In Lab Dilan Gtz MD CHEMISTRY ORDERABLES Performing Organization Address City/[facility]/ZIP Co de Phone Number [facility] [place] [address] * Phosphorus (09/09/2017 2:25 PM EDT) Phosphorus 2.7 2.5 - 4.5 mg/dL [facility] Blood specimen (specimen) 09/09/2017 2:25 PM EDT 09/09/2017 2:41 PM EDT Narrative Resulting Agency Comment Spec In Lab Dilan Gtz MD CHEMISTRY ORDERABLES Performing Organization Address City/[facility]/ZIP Co de Phone Number [facility] [place] [address] * PTH (09/09/2017 2:25 PM EDT) Parathyroid Hormone 39 15 - 65 pg/mL [facility] Blood specimen (specimen) 09/09/2017 2:25 PM EDT 09/09/2017 2:41 PM EDT Narrative Resulting Agency Comment Spec In Lab Dilan Gtz MD CHEMISTRY ORDERABLES Performing Organization Address [facility] Co de Phone Number [facility] [place] [address] * (ABNORMAL) Comprehensive metabolic panel (non-fasting) (09/09/2017 2:25 PM EDT) Glucose 89 65 - 199 mg/dL [facility] Comment:Diabetes: >=200 mg/d L plus symptoms Blood Urea Nitrogen 18 10 - 20 mg/dL [facility] Creatinine 1.22 0.80 - 1.50 mg/dL [facility] Sodium 139 135 - 145 mmol/L [facility] Potassium 4.0 3.5 - 5.0 mmol/L [facility] Comment: Please note: ??Patients with WBC >100,000 may have falsely elevated Potassium levels. ??For accurate Potassium quantification in these patients send serum separator tube (gold top) for subsequent determinations. ??Contact the Clinical Chemistry Laboratory if there are any questions. Chloride 101 98 - 107 mmol/L [facility] Carbon Dioxide 24 22 - 31 mmol/L [facility] Anion Gap 14 5 - 15 mmol/L [facility] Calcium 9.3 8.5 - 10.5 mg/dL [facility] Protein, Total 7.5 6.1 - 8.0 gm/dL [facility] Albumin 4.1 3.2 - 5.2 gm/dL [facility] Aspartate Aminotransferase 22 0 - 39 unit/L [facility] Alanine Aminotransferase 36 0 - 55 unit/L [facility] Alkaline Phosphatase 74 40 - 120 unit/L [facility] Bilirubin, Total <0.2(L) 0.2 - 1.3 mg/dL [facility] Est Glomerular Filtration Rate >60 >=60 [facility] Comment: The reported eGFR should be multiplied by 1.2 for patients. The MDRD is not an appropriate measure of renal function for patients with body mass extremes or in patients with acute kidney failure. [email or web address] Blood specimen (specimen) 09/09/2017 2:25 PM EDT 09/09/2017 2:41 PM EDT Narrative Resulting Agency Comment Spec In Lab Dilan Gtz MD CHEMISTRY ORDERABLES [facility] [place] [address] documented in this encounter Visit Diagnoses Diagnosis Chronic kidney disease, unspecified CKD stage Hypertension, unspecified type Hematuria, unspecified type documented in this encounter Care Teams Bosom Presser Relationship Specialty Start Date End Date Jf Cervantes PA [address] [address] PCP - General General Internal Medicine 01/16/16 documented as of this encounter
--- OUTSIDE RECORDS SUMMARY | 2024-01-20 14:07 | XMS_ITS | Referral Summary ---
Author Organization [facility] Address [address] [place] [address] Care Team Providers Care Bottom Polisher Name Role Phone Unknown, Provider Primary Care Provider Encounters Date Type Department Care Team Description 01/14/2024 Prep for Procedure [facility] [address] [place], [place] [id number] Agusto Raymond MD Closed traumatic volar dislocation of lunate bone, right, initial encounter (Primary Dx) 01/14/2024 Travel 01/14/2024 3:58 EDT - 01/14/2024 14:04 EDT Emergency [facility] Emergency Department [address] [place] [address] Fani Laws, Cathleen Russo MD Compression fracture of L5 vertebra, initial encounter ([facility]) (Primary Dx); Renal mass, left; Closed head injury, initial encounter; Concussion with loss of consciousness, initial encounter; Closed traumatic volar dislocation of lunate bone, right, initial encounter [S63.094A]; Closed traumatic volar dislocation of lunate bone, right, initial encounter Discharge Disposition: Home or Self Care from Last 3 Months Allergies No known active allergies Active Problems Problem Noted Date Diagnosed Date Closed traumatic volar dislo cation of lunate bone, right, initial encounter 01/14/2024 Social History Tobacco Use Types Packs/Day Years [...] on file Sexual Orientation Not on file Last Filed Vital Signs [...] Body Mass Index 29.15 02/12/2019 1504 EDT Functional Status Functional Status Response Date of Assess ment Are you deaf or do you have serious difficulty h earing? No 01/14/2024 Plan of Treatment Upcoming Encounters Date Type Department Care Team (Late st Contact Info) Description 01/26/2024 7:30 EDT Hospital Encounter [facility] Operating Room [address] [place] [address] Agusto Raymond MD [address] [place] [address] [id number] 01/26/2024 7:30 EDT - 01/26/2024 10:20 EDT Surgery [facility] [address] [place], [place] [address] [place] [address] [place] [address] OPEN TREATMENT, DISLOCATION, LUNATE BONE [21229 (CPT??)] 02/10/2024 9:45 EDT Office Visit [facility] - [address] [place] [address] Jessy Cunningham MD [address] [place] [address] [place] [address] Scheduled Procedures Name Priority Associated Diagnoses Date/Ti me OPEN TREATMENT, DISLOCATION, LUNATE BONE Closed traumatic volar dislocation of lunate bone, right, initial encounter 01/26/2024 7:30 EDT CAPSULORRHAPHY OR RECONSTRUCTION, WRIST, OPEN Closed traumatic volar dislocation of lunate bone, right, initial encounter 01/26/2024 7:30 EDT Procedures Procedure Name Priority Date/Time Associated Diagnosis [...] previous CT given limitations of this examination. [id number] Narrative 01/14/2024 13:35 EDT INDICATION: upright AP [...] sacroiliac joints are intact. Resulting Agency Comment [id number] Procedure Note Srinivas Cole MD - 01/14/2024 [...] theprevious CT given limitations of this examination. [id number] Cathleen Vuong MD IMG DIAGNOSTIC IMAG ING [...] No significant change compared to earlier today. [id number] Narrative 01/14/2024 11:[address] ABDOMEN (ONLY) [...] Colonic diverticulosis, only partially included on the jsgrc-cp-nqog. Peritoneal Cavity: No intraperitoneal free fluid or [...] similar to earlier today. Resulting Agency Comment [id number] Procedure Note Haile Hayward MD - 01/14/2024 [...] Normalappendix. Colonic diverticulosis, only partially included on errzqzrr-ok-odyv. Peritoneal Cavity: No intraperitoneal free fluid or free air identified inthe upper abdomen. Body Wall: Small fat-containing umbilical hernia. Lymph Nodes: No enlarged upper abdominal lymph nodes identified. Vascular Structures: Moderate calcified peripheral atheroscleroticdisease. Infrarenal abdominal aorta mildly ectatic, measuring up to 2.5cm. Musculoskeletal: Moderate L5 burst fracture, with mild bony retropulsion,similar to the comparison study performed earlier today (sagittal [id number] image 72). Associated trace prevertebral/retroperitoneal hematoma,also similar to earlier today. IMPRESSION 1. Ovoid 1 cm left kidney upper pole lesion, with features favoring amildly proteinaceous cyst. Surveillance renal protocol MR recommended in 6months. 2. Known moderate L5 burst fracture, with associated traceprevertebral/retroperitoneal hematoma. No significant change compared toearlier today. [id number] Fani Laws DO [facility] [place] ORDERABLE S * XR WRIST RIGHT [...] to that seen on the previous exam. [id number] Narrative 01/14/2024 9:55 EDT INDICATION: post reduction. COMPARISON: None. TECHNIQUE: 3 views of the right wrist were obtained. Resulting Agency Comment [id number] Procedure Note Srinivas Cole MD - 01/14/2024 [...] to that seen on the previous exam. [id number] Cathleen Vuong MD IMG DIAGNOSTIC IMAG ING ORDERABLES * ECG REPORT - SCANNED (01/14/2024 8:56 EDT) 01/14/2024 8:56 EDT Scan 2 Funeral Arrangement Director PROCEDURE/MINOR SINCERE GICAL ORDERABLES * XR WRIST [...] ?? Stable mildly comminuted, intra-articular, mildly impacted, dbmq-at-agmfqexxyv displaced fracture of the base of the 1st metacarpal. THIS DOCUMENT HAS BEEN ELECTRONICALLY SIGNED BY BREE BROWNE MD FOR ANY QUESTIONS OR CONCERNS REGARDING THIS REPORT PLEASE CALL [facility] AT [phone] Narrative 01/14/2024 7:00 EDT PROCEDURE INFORMATION: Exam: [...] fragments. Stable mildly comminuted, intra-articular, mildly impacted bfdl-tb-ioqlkpivhq displaced fracture of the base of the [...] fragments. Stable mildly comminuted, intra-articular, mildly impacted xdoa-il-kytwtdjfsn displaced fracture of the base of the 1st metacarpal. Soft tissues: Soft tissue swelling of the wrist. IMPRESSION 1. Persistent lunate dislocation. 2. Interval reduction of previously seen volar dislocation of the carpus. 3. Acute fracture of the triquetrum. 4. Interval improvement in alignment of mildly displaced oblique fracture through the base of the radial styloid. 5. Stable mildly comminuted, intra-articular, mildly impacted, idxo-xb-uyjmajhvbh displaced fracture of the base of the 1st metacarpal. THIS DOCUMENT HAS BEEN ELECTRONICALLY SIGNED BY BREE BROWNE MD FOR ANY QUESTIONS OR CONCERNS REGARDING THIS REPORT PLEASE CALL [facility] [phone] Fani C Veto SMITH IMG DIAGNOSTIC I MAGING ORDERABLES * XR [...] REGARDING THIS REPORT PLEASE CALL [facility] AT [phone] Impressions 01/14/2024 5:35 EDT 1. ?? Volar dislocation of the carpus. 2. ?? Lunate dislocation. 3. ?? Acute, moderately displaced, oblique fracture through the base of the radial styloid. THIS DOCUMENT HAS BEEN ELECTRONICALLY SIGNED BY BREE BROWNE MD FOR ANY QUESTIONS OR CONCERNS REGARDING THIS REPORT PLEASE CALL [facility] AT [phone] Narrative 01/14/2024 5:35 EDT PROCEDURE INFORMATION: Exam: [...] CONCERNS REGARDING THIS REPORT PLEASE CALL [facility] [phone] Fani Laws DO [facility] DIAGNOSTIC I MAGING ORDERABLES * CT THORACIC [...] REGARDING THIS REPORT PLEASE CALL [facility] AT [phone] Narrative 01/14/2024 5:27 EDT PROCEDURE INFORMATION: Exam: CT [...] CONCERNS REGARDING THIS REPORT PLEASE CALL [facility] [phone] Fani Laws DO [facility] ORDERABLE S * CT LUMBAR SPINE [...] REGARDING THIS REPORT PLEASE CALL [facility] AT [phone] Impressions 01/14/2024 5:26 EDT 1. ?? Acute, [...] REGARDING THIS REPORT PLEASE CALL [facility] AT [phone] Narrative 01/14/2024 5:26 EDT PROCEDURE INFORMATION: Exam: [...] CONCERNS REGARDING THIS REPORT PLEASE CALL [facility] [phone] Fani Laws DO [facility] [place] ORDERABLE S * CT CHEST W CONTRAST (01/14/2024 5:06 EDT) Anatomical Region Laterality Modality Chest Computed Tomogra phy 01/14/2024 4:43 EDT Impressions 01/14/2024 5:15 EDT 1. ?? No acute traumatic injuries identified in the chest. 2. ?? Hqqs-kk-kztptchr coronary artery calcifications. 3. ?? Findings raising the possibility of interstitial lung disease. If indicated, consider high-resolution chest CT for further evaluation. 4. ?? Please refer to separately dictated abdomen pelvis CT report for description of findings in this region. THIS DOCUMENT HAS BEEN ELECTRONICALLY SIGNED BY BREE BROWNE MD FOR ANY QUESTIONS OR CONCERNS REGARDING THIS REPORT PLEASE CALL [facility] AT [phone] Narrative 01/14/2024 5:15 EDT PROCEDURE INFORMATION: Exam: [...] No cardiomegaly. No pericardial effusion. Coronary arteries: Lwgu-ra-nnyzhnvl coronary artery calcifications. Lymph nodes: Unremarkable. No [...] No cardiomegaly. No pericardial effusion. Coronary arteries: Efhd-uk-mzwixroy coronary artery calcifications. Lymph nodes: Unremarkable. No enlarged lymph nodes. Vasculature: Unremarkable. No aortic aneurysm. Bones/joints: Unremarkable. No acute fracture. Soft tissues: Unremarkable. IMPRESSION 1. No acute traumatic injuries identified in the chest. 2. Pbgd-km-udpufdcw coronary artery calcifications. 3. Findings raising the possibility of interstitial lung disease. If indicated, consider high-resolution chest CT for further evaluation. 4. Please refer to separately dictated abdomen pelvis CT report for description of findings in this region. THIS DOCUMENT HAS BEEN ELECTRONICALLY SIGNED BY BREE BROWNE MD FOR ANY QUESTIONS OR CONCERNS REGARDING THIS REPORT PLEASE CALL [facility] [phone] Fani Laws DO [facility] [place] ORDERABLE S * CT ABDOMEN PELVIS [...] REGARDING THIS REPORT PLEASE CALL [facility] AT [phone] Narrative 01/14/2024 5:22 EDT PROCEDURE INFORMATION: Exam: [...] CONCERNS REGARDING THIS REPORT PLEASE CALL [facility] [phone] Fani Laws DO IMG CT ORDERABLE S * CT HEAD WO CONTRAST (01/14/2024 4:54 EDT) Anatomical Region Laterality Modality Head Computed Tomogra phy 01/14/2024 4:34 EDT Impressions 01/14/2024 5:26 EDT No acute intracranial process. THIS DOCUMENT HAS BEEN ELECTRONICALLY SIGNED BY FANI LEON MD FOR ANY QUESTIONS OR CONCERNS REGARDING THIS REPORT PLEASE CALL [facility] AT [phone] Narrative 01/14/2024 5:26 EDT PROCEDURE INFORMATION: Exam: [...] CONCERNS REGARDING THIS REPORT PLEASE CALL [facility] [phone] Fani Laws DO IMG CT ORDERABLE S [...] REGARDING THIS REPORT PLEASE CALL [facility] AT [phone] Narrative 01/14/2024 5:26 EDT PROCEDURE INFORMATION: Exam: [...] OR CONCERNS REGARDING THIS REPORT PLEASE CALL [facility] [phone] Fani Laws DO IMG CT ORDERABLE S * HOLD SST (01/14/2024 4:14 EDT) Hold Hold 01/14/2024 5:30 EDT [facility] Blood VENOUS BLOOD / Unknown Venipuncture / Unknown 01/14/2024 4:14 EDT 01/14/2024 4:17 EDT Fani Laws DO LAB INFO SERVICE AND SUPPORT & PHONE RESULT [facility] [address] [place] [address] * HOLD LAVENDER TOP (01/14/2024 4:14 EDT) Hold Hold 01/14/2024 5:30 EDT [facility] Blood VENOUS BLOOD / Unknown Venipuncture / Unknown 01/14/2024 4:14 EDT 01/14/2024 4:17 EDT Fani Laws DO LAB INFO SERVICE AND SUPPORT & PHONE RESULT Performing Organization Address [facility]/ZIP Co de Phone Number [facility] [address] [place] [address] * HOLD GREEN TOP (01/14/2024 4:14 EDT) Hold Hold 01/14/2024 5:30 EDT [facility] Blood VENOUS BLOOD / Unknown Venipuncture / Unknown 01/14/2024 4:14 EDT 01/14/2024 4:17 EDT Fani Laws DO LAB INFO SERVICE AND SUPPORT & PHONE RESULT Performing Organization Address [facility]/ZIP Co de Phone Number [facility] [address] [place] [address] * HOLD BLUE TOP (01/14/2024 4:14 EDT) Hold Hold 01/14/2024 5:30 EDT [facility] Blood VENOUS BLOOD / Unknown Venipuncture / Unknown 01/14/2024 4:14 EDT 01/14/2024 4:17 EDT Fani Reynoldsi DO LAB INFO SERVICE AND SUPPORT & PHONE RESULT Performing Organization Address City/[facility]/ZIP Co de Phone Number [facility] [address] [place] [address] * TROPONIN I (01/14/2024 4:14 EDT) [facility] Troponin I (ng/mL) <0.034 <0.034 ng/mL 01/14/2024 5:05 [facility] Comment:Slight hemolysis abhijit ntified, interpret with caution as results may be affected due to hemolysis. Blood VENOUS BLOOD / Unknown Venipuncture / Unknown 01/14/2024 4:14 EDT 01/14/2024 4:17 EDT [facility] - 01/14/2024 5:05 EDT The results of this assay can be falsely lowered due to the consumption of Biotin. Fani Laws DO CHEMISTRY & BLOO D GAS ORDERABLES [facility] [address] [place] [address] * (ABNORMAL) COMPLETE BLOOD COUNT AND DIFFERENTIAL (01/14/2024 4:14 EDT) [facility] WBC 9.02 4.00 - 10.40 K/cmm 01/14/2024 4:31 [facility] RBC 5.44 4.36 - 5.78 M/cmm 01/14/2024 4:31 [facility] Hemoglobin 15.9 13.8 - 17.3 g/dL 01/14/2024 4:31 [facility] HCT 47.5 39.5 - 50.2 % 01/14/2024 4:31 [facility] MCV 87 81 - 95 fL 01/14/2024 4:31 [facility] MCH 29.2 27.6 - 33.0 pg 01/14/2024 4:31 [facility] MCHC 33.5 32.8 - 36.4 g/dL 01/14/2024 4:31 [facility] RDW-CV 12.4 <14.2 % 01/14/2024 4:31 [facility] RDW-SD 39.3 <46.0 fl 01/14/2024 4:31 [facility] PLT 201 141 - 377 K/cmm 01/14/2024 4:31 [facility] MPV 9.7 9.5 - 12.7 fL 01/14/2024 4:31 [facility] % Neutrophils 63.4 % 01/14/2024 4:31 [facility] % Lymphocytes 18.6 % 01/14/2024 4:31 [facility] % Monocytes 12.1 % 01/14/2024 4:31 [facility] % Eosinophils 3.8 % 01/14/2024 4:31 [facility] % Basophils 1.0 % 01/14/2024 4:31 [facility] % Immature Grans 1.1(H) <0.9 % 01/14/20 4:31 [facility] Absolute Neutrophils 5.72 2.20 - 8.85 K/cmm 01/14/2024 4:31 [facility] Absolute Lymphocytes 1.68 1.09 - 3.30 K/cmm 01/14/2024 4:31 [facility] Absolute Monocytes 1.09(H) 0.10 - 0.80 K/cmm 01/14/2024 4:31 [facility] Absolute Eosinophils 0.34 0.03 - 0.61 K/cmm 01/14/2024 4:31 [facility] ABS Basophils 0.09 0.01 - 0.11 K/cmm 01/14/2024 4:31 [facility] Absolute Immature Grans 0.10(H) 0.00 - 0.06 K/cmm 01/14/2024 4:31 [facility] Type of Differential: Auto 01/14/2024 4:31 [facility] Blood VENOUS BLOOD / Unknown Venipuncture / Unknown 01/14/2024 4:14 EDT 01/14/2024 4:17 EDT Fani Laws DO PACKAGES & DNA P ROBE ORDERABLES Performing Organization Address [facility] Co de Phone Number [facility] [address] [place] [address] * MAGNESIUM (01/14/2024 4:14 EDT) Magnesium 1.9 1.7 - 2.8 mg/dL 01/14/2024 4:42 EDT [facility] Comment:Moderate hemolysis i dentified, interpret with caution as results may be affected due to hemolysis. Blood VENOUS BLOOD / Unknown Venipuncture / Unknown 01/14/2024 4:14 EDT 01/14/2024 4:17 EDT Fani Laws DO CHEMISTRY & BLOO D GAS ORDERABLES Performing Organization Address City/[facility] Co de Phone Number [facility] [address] [place] [address] * (ABNORMAL) COMPREHENSIVE METABOLIC PANEL (CMP) (01/14/2024 4:14 EDT) Sodium 137 136 - 145 mmol/L 01/14/2024 4:[facility] Potassium 5.1(H) 3.5 - 5.0 mmol/L 01/14/2024 4:42 [facility] Comment:Moderate hemolysis i dentified, interpret with caution as hemolysis will elevate potassium result. Chloride 106 96 - 110 mmol/L 01/14/2024 4:42 [facility] CO2 Total 22 22 - 32 mmol/L 01/14/2024 4:42 [facility] Glucose 118(H) 70 - 99 mg/dl 01/14/2024 4:42 [facility] BUN 35(H) 10 - 26 mg/dL 01/14/2024 4:42 [facility] Comment:Moderate hemolysis i dentified, interpret with caution as results may be affected due to hemolysis. Creatinine 1.23 0.66 - 1.25 mg/dL 01/14/2024 4:42 [facility] eGFR 69 >60 mL/min/1.7 3m2 01/14/2024 4:42 [facility] Total Protein 8.0 6.3 - 8.2 g/dL 01/14/2024 4:42 [facility] Comment:Moderate hemolysis i dentified, interpret with caution as results may be affected due to hemolysis. Albumin 4.5 3.4 - 4.9 g/dL 01/14/2024 4:42 [facility] Comment:Moderate hemolysis i dentified, interpret with caution as results may be affected due to hemolysis. Alkaline Phosphatase 78 38 - 126 U/L 01/14/2024 4:42 [facility] Comment:Moderate hemolysis i dentified. Hemolysis will decrease ALKP result. Suggest re-evaluation if clinically indicated AST 48(H) 15 - 46 U/L 01/14/2024 4:42 [facility] Comment:Moderate hemolysis i dentified, interpret with caution as results may be affected due to hemolysis. ALT 39 <50 U/L 01/14/2024 4:42 [facility] Bilirubin, Total 0.9 <1.4 mg/dL 01/14/20 24 4:42 [facility] Comment:Moderate hemolysis i dentified, interpret with caution as results may be affected due to hemolysis. Calcium 9.3 8.5 - 10.5 mg/dL 01/14/2024 4:42 [facility] Albumin/Globulin Ratio 1.3 1.0 - 2.5 01/14/2024 4:42 [facility] Anion Gap 9 5 - 14 mmol/L 01/14/2024 4:42 [facility] Blood VENOUS BLOOD / Unknown Venipuncture / Unknown 01/14/2024 4:14 EDT 01/14/2024 4:17 EDT Fani Laws DO CHEMISTRY & BLOO D GAS ORDERABLES [facility] [address] [place] [address] * EKG 12-LEAD (01/14/2024 4:05 EDT) 01/14/2024 4:[address] [facility] - 01/14/2024 8:43 EDT ? [facility] ? Test Date: ?2024-01-14 Pat Name: ? DIANA RUDOLPH ? Department: ? Room: ? A02 Gender: ? Male ? 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 Requested By: VETO Almeida Order Number: [id number] ? [place] CHO: ?? ALFONZO BROWN MD ? Measurements Intervals ?Gilbert ? Rate: ? 94 ? P: ?52 WA: ? 136 ?QRS: ?-3 QRSD: ? 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 Electronically Signed On 01-14-2024 08:43:21 EDT by ALFONZO MARIE. Fani Laws DO CARDIAC ECG [facility] from Last 3 Months Care Teams Bottom Polisher Relationship Specialty Start Date End Date Unknown, Provider, PCP - General 02/12/19
--- OUTSIDE RECORDS SUMMARY | 2024-01-20 14:07 | XMS_ITS | Clinical Summary ---
Author Organization [facility] Address [facility] [place] [address] Care Team Providers Care Keyboard Action Assembler Name Role Phone Unknown Primary Care Provider Unavailabl e Allergies No known active allergies Medications Medication Sig Dispensed Refills Start Date End Date Status lisinopril (PRINIVIL;ZESTRIL) 10 mg TabletIndications:CKD (chronic kidney disease), unspecified stage Take 20 mg by mouth daily. Active fexofenadine (RACHEL) 60 mg TabletIndications:CKD (chronic kidney disease), unspecified stage Take 60 mg by mouth daily as needed. Active allopurinol (ZYLOPRIM) 100 mg Tablet Take 2 tablets by mouth daily. 60 tablet 11 02/07/2016 Active colchicine (MITIGARE) 0.6 mg Capsule Take 0.6 mg by mouth daily as needed. 30 capsule 1 02/07/2016 Active Active Problems Problem Noted Date Diagnosed Date Chronic kidney disease 09/10/2017 Microscopic hematuria [...] Health Maintenance Due Date Last Done Comments CT Colonography 1965 Colonoscopy 1965 Colorectal Cancer Screening 1965 FIT DNA 1967 FIT 1965 Sigmoidoscopy (10 year) with FIT yearly 1967 Sigmoidoscopy 1965 HIV screen 1985 Hepatitis C Screening 1985 Lipid Screening 1985 Hepatitis B vaccine (0-59 yrs) (1) 1986 Tdap adult 1986 Tetanus vaccine 1986 Zoster vaccine (1 of 2) 2017 Advance Directive 2022 Covid-19 Vaccine (1 - 2022-24 season) 2023 Influenza (Flu) vaccine (1 o f 1 - Influenza standard series) 01/17/2024 Diabetes Screening (HgbA1C or Glucose) Discontinued , 02/07/2016 Procedures Procedure Name Priority Date/Time Associated Diagnosis Comments COMPREHENSIVE METABOLIC PANEL Routine 09/09/2017 2:25 PM EDT Chronic kidney disease, unspecified CKD stage Hypertension, unspecified type Hematuria, unspecified type from Last 3 Months or Most Recently Relevant to Health Maintenance Results * (ABNORMAL) Comprehensive metabolic panel (non-fasting) (09/09/2017 2:25 PM EDT) Glucose 89 65 - 199 mg/dL [facility] Comment:Diabetes: >=200 mg/d L plus symptoms Blood Urea Nitrogen 18 10 - 20 mg/dL [facility] Creatinine 1.22 0.80 - 1.50 mg/dL [facility] Sodium 139 135 - 145 mmol/L [facility] Potassium 4.0 3.5 - 5.0 mmol/L [facility] Comment: Please note: ??Patients with WBC >100,000 may have falsely elevated Potassium levels. ??For accurate Potassium quantification in these patients send serum separator tube (gold top) for subsequent determinations. ??Contact the Clinical Chemistry Laboratory if there are any questions. Chloride 101 98 - 107 mmol/L [facility] Carbon Dioxide 24 22 - 31 mmol/L [facility] Anion Gap 14 5 - 15 mmol/L [facility] Calcium 9.3 8.5 - 10.5 mg/dL [facility] Protein, Total 7.5 6.1 - 8.0 gm/dL [facility] Albumin 4.1 3.2 - 5.2 gm/dL [facility] Aspartate Aminotransferase 22 0 - 39 unit/L [facility] Alanine Aminotransferase 36 0 - 55 unit/L [facility] Alkaline Phosphatase 74 40 - 120 unit/L [facility] Bilirubin, Total <0.2(L) 0.2 - 1.3 mg/dL [facility] Est Glomerular Filtration Rate >60 >=60 [facility] Comment: The reported eGFR should be multiplied by 1.2 for patients. The MDRD is not an appropriate measure of renal function for patients with body mass extremes or in patients with acute kidney failure. [email or web address]/DHnkdep [email or web address]://[employer]/DHMCnkf Blood specimen (specimen) 09/09/2017 2:25 PM EDT 09/09/2017 2:41 PM EDT Narrative Resulting Agency Comment Spec In Lab Dilan Gtz MD CHEMISTRY ORDERABLES [facility] [place] [address] from Last 3 Months or Most Recently Relevant to Health Maintenance Care Teams Keyboard Action Assembler Relationship Specialty Start Date End Date Unknown None PCP - General 05/18/19
--- OUTSIDE RECORDS SUMMARY | 2024-01-20 14:07 | XMS_ITS | Encounter Summary ---
Author Organization Formerly [facility] [place] [address] Care Team Providers Care Fraud Prevention Analyst Name Role Phone Jf Cervantes Primary Care Provider [phone] Encounter Details Date Type Department Care Team (Latest Contact Info) Description 09/09/2017 2:30 PM EDT Laboratory Appointment Lab [address] [place] [id number] Chronic kidney disease, unspecified CKD stage; Hypertension, unspecified type; Hematuria, unspecified type; CKD (chronic kidney disease) stage 2, GFR 60-89 ml/min; Proteinuria, unspecified type; Gout, unspecified cause, unspecified [...] Procedure Name Priority Date/Time Associated Diagnosis Comments PTH Routine 09/09/2017 2:25 PM EDT Chronic kidney disease, unspecified CKD stage Hypertension, unspecified type Hematuria, unspecified type HEMOGRAM Routine 09/09/2017 2:25 PM EDT Chronic kidney disease, unspecified CKD stage Hypertension, unspecified type Hematuria, unspecified type DIFFERENTIAL, AUTOMATED Routine 09/09/2017 2:25 PM EDT Chronic kidney disease, unspecified CKD stage Hypertension, unspecified type Hematuria, unspecified type CBC (WITH DIFF) Routine 09/09/2017 2:25 PM EDT Chronic kidney disease, unspecified CKD stage Hypertension, unspecified type Hematuria, unspecified type URIC ACID Routine 09/09/2017 2:25 PM EDT Chronic kidney disease, unspecified CKD stage Hypertension, unspecified type Hematuria, unspecified type PHOSPHORUS Routine 09/09/2017 2:25 PM EDT Chronic kidney disease, unspecified CKD stage Hypertension, unspecified type Hematuria, unspecified type MAGNESIUM Routine 09/09/2017 2:25 PM EDT Chronic kidney disease, unspecified CKD stage Hypertension, unspecified type Hematuria, unspecified type COMPREHENSIVE METABOLIC PANEL Routine 09/09/2017 2:25 PM EDT Chronic kidney disease, unspecified CKD stage Hypertension, unspecified type Hematuria, unspecified type documented in this encounter Results * Differential, Automated (09/09/2017 2:25 PM EDT) Neutrophil % 64.8 % [facility] Neutrophil Absolute 4.53 1.70 - 6.10 x10(3)/[facility] Lymph % 19.3 % [facility] Lymphocytes Abs 1.4 0.9 - 3.2 x10(3)/[facility] Monocyte % 11.2 % [facility] Monocyte Abs 0.8 0.3 - 0.9 x10(3)/[facility] Eos % 3.6 % [facility] Eosinophils Abs 0.2 0.0 - 0.4 x10(3)/[facility] Basophil % 0.7 % [facility] Baso Absolute 0.0 0.0 - 0.1 x10(3)/[facility] Immature Gran % 0.40 % [facility] Comment: Immature granulocytes(IG's)percentage and absolute count will include metamyelocytes, myelocytes, and promyelocytes. Blood smears from CBCs yielding IG's will be scanned manually for concordance. If this scan disagrees with the automated IG or if promyelocytes are noted, a manual differential will be performed. Immature Gran Absolute 0.03 0.00 - 0.04 x10(3)/[facility] Blood specimen (specimen) 09/09/2017 2:25 PM EDT 09/09/2017 2:41 PM EDT Narrative Resulting Agency Comment Spec In Lab Stevie Goldsmith DO HEMATOLOGY ORDERABLE S [facility] [place] [address] * Hemogram (09/09/2017 2:25 PM EDT) White Blood Cell 7.0 4.0 - 9.5 x10(3)/[facility] Red Blood Cell 5.15 4.58 - 5.54 x10(6)/[facility] Hemoglobin 15.4 13.7 - 16.5 gm/dL [facility] Hematocrit 45.9 40.5 - 48.5 % [facility] Mean Cell Volume 89.1 82.9 - 93.1 [facility] Mean Cell Hemoglobin 29.9 27.5 - 32.1 pg [facility] Mean Cell Hemoglobin Concentration 33.6 32.0 - 35.7 gm/dL [facility] Platelet 238 145 - 357 x10(3)/[facility] RDW Standard Deviation 42.6 36.0 - 45.0 [facility] RDW coefficient of variation 12.9 11.4 - 13.8 % [facility] Mean Platelet Volume 10.2 7.6 - 12.9 [facility] NRBC% auto 0.0 % [facility] NRBC Absolute 0.000 0.000 - 0.000 x10(3)/[facility] Blood specimen (specimen) 09/09/2017 2:25 PM EDT 09/09/2017 2:41 PM EDT Narrative Resulting Agency Comment Spec In Lab Stevie Goldsmith DO HEMATOLOGY ORDERABLE S Performing Organization Address City/[facility]/ZIP Co de Phone Number [facility] [place] [address] * Phosphorus (09/09/2017 2:25 PM EDT) Phosphorus 2.7 2.5 - 4.5 mg/dL [facility] Blood specimen (specimen) 09/09/2017 2:25 PM EDT 09/09/2017 2:41 PM EDT Narrative Resulting Agency Comment Spec In Lab Dilan Gtz MD CHEMISTRY ORDERABLES Performing Organization Address [facility] Co de Phone Number [facility] [place] [address] * PTH (09/09/2017 2:25 PM EDT) Parathyroid Hormone 39 15 - 65 pg/mL [facility] Blood specimen (specimen) 09/09/2017 2:25 PM EDT 09/09/2017 2:41 PM EDT Narrative Resulting Agency Comment Spec In Lab Dilan Gtz MD CHEMISTRY ORDERABLES Performing Organization Address [facility] Co de Phone Number [facility] [place] [address] * (ABNORMAL) Comprehensive metabolic panel (non-fasting) (09/09/2017 2:25 PM EDT) Glucose 89 65 - 199 mg/dL [facility] Comment:Diabetes: >=200 mg/d L plus symptoms Blood Urea Nitrogen 18 10 - 20 mg/dL [facility] Creatinine 1.22 0.80 - 1.50 mg/dL [facility] Sodium 139 135 - 145 mmol/L [facility] Potassium 4.0 3.5 - 5.0 mmol/L [facility] Comment: Please note: ??Patients with WBC >100,000 may have falsely elevated Potassium levels. ??For accurate Potassium quantification in these patients send serum separator tube (gold top) for subsequent determinations. ??Contact the Clinical Chemistry Laboratory if there are any questions. Chloride 101 98 - 107 mmol/L [facility] Carbon Dioxide 24 22 - 31 mmol/L [facility] Anion Gap 14 5 - 15 mmol/L [facility] Calcium 9.3 8.5 - 10.5 mg/dL [facility] Protein, Total 7.5 6.1 - 8.0 gm/dL [facility] Albumin 4.1 3.2 - 5.2 gm/dL [facility] Aspartate Aminotransferase 22 0 - 39 unit/L [facility] Alanine Aminotransferase 36 0 - 55 unit/L [facility] Alkaline Phosphatase 74 40 - 120 unit/L [facility] Bilirubin, Total <0.2(L) 0.2 - 1.3 mg/dL [facility] Est Glomerular Filtration Rate >60 >=60 [facility] Comment: The reported eGFR should be multiplied by 1.2 for patients. The MDRD is not an appropriate measure of renal function for patients with body mass extremes or in patients with acute kidney failure. http://Wordseye.Socket Mobile/DHnkdep http://TellApart/DHMCnkf Blood specimen (specimen) 09/09/2017 2:25 PM EDT 09/09/2017 2:41 PM EDT Narrative Resulting Agency Comment Spec In Lab Dilan Gtz MD CHEMISTRY ORDERABLES [facility] [address] * Uric acid (09/09/2017 2:25 PM EDT) Uric Acid 8.1 3.5 - 8.5 mg/dL [facility] Blood specimen (specimen) 09/09/2017 2:25 PM EDT 09/09/2017 2:41 PM EDT Narrative Resulting Agency Comment Spec In Lab Dilan Gtz MD CHEMISTRY ORDERABLES Performing Organization Address City/[facility]/ZIP Co de Phone Number [facility] [place] [address] * Magnesium (09/09/2017 2:25 PM EDT) Magnesium 0.75 0.69 - 1.07 mmol/L [facility] Blood specimen (specimen) 09/09/2017 2:25 PM EDT 09/09/2017 2:41 PM EDT Narrative Resulting Agency Comment Spec In Lab Dilan Gtz MD CHEMISTRY ORDERABLES Performing Organization Address [facility] Co de Phone Number [facility] [place] [address] documented in this encounter Visit Diagnoses Diagnosis Chronic kidney disease, unspecified CKD stage Hypertension, unspecified type Hematuria, unspecified type CKD (chronic kidney disease) stage 2, GFR 60-89 ml/min Chronic kidney disease, Stage II (mild) Proteinuria, unspecified type Gout, unspecified cause, unspecified chronicity, unspecified site documented in this encounter Care Teams Fraud Prevention Analyst Relationship Specialty Start Date End Date Jf Cervantes [place] [address] [place] [id number] PCP - General General Internal Medicine 01/16/16 documented as of this encounter
--- OUTSIDE RECORDS SUMMARY | 2024-01-20 14:08 | XMS_ITS | Encounter Summary ---
Author Organization [facility] Address [address] [place] [address] Care Team Providers Care Roller Billet Mill Name Role Phone Unknown, Provider Primary Care Provider [phone] Encounter Details Date Type Department Care Team (Latest Contact Info) Description 01/14/2024 Travel Social History Tobacco Use Types Packs/Day Years [...] on file documented as of this encounter Functional Status Functional Status Response Date of Assess ment Are you deaf or do you have serious difficulty h earing? No 01/14/2024 documented as of this encounter Plan of Treatment Upcoming Encounters Date Type Department Care Team (Late st Contact Info) Description 01/26/2024 7:30 EDT Hospital Encounter [facility] Operating Room [address] [place] [address] [place] [address] [place] [address] [place] [address] 01/26/2024 7:30 EDT - 01/26/2024 10:20 EDT Surgery [facility] Operating Room [address] [place] [address] Agusto Raymond MD [address] [facility] [address] [place] [address] OPEN TREATMENT, DISLOCATION, LUNATE BONE [[id number] (CPT??)] 02/10/2024 9:45 EDT Office Visit [facility] Spine Program - [address] [place] [address] Jessy Cunningham MD [address] [facility] [place] [address] Scheduled Procedures Name Priority Associated Diagnoses Date/Ti me OPEN TREATMENT, DISLOCATION, LUNATE BONE Closed traumatic volar dislocation of lunate bone, right, initial encounter 01/26/2024 7:30 EDT CAPSULORRHAPHY OR RECONSTRUCTION, WRIST, OPEN Closed traumatic volar dislocation of lunate bone, right, initial encounter 01/26/2024 7:30 EDT documented as of this encounter Visit Diagnoses Not on filedocumented in this encounter Care Teams Rol[employer]illet Mill Relationship Specialty Start Date End Date Unknown, Provider, PCP - General 02/12/19 documented as of this encounter
--- OUTSIDE RECORDS SUMMARY | 2024-01-20 14:08 | XMS_ITS | Encounter Summary ---
Author Organization [facility] Address [address] [place] [address] Care Team Providers Care Piece Work Inspector Name Role Phone Philip Eduardo MD Primary Care Provider [phone] Encounter Details Date Type Department Care Team (Latest Contact Info) Description 11/21/2015 6:29 EDT - 11/21/2015 23:59 EDT Hospital Encounter [facility] [address] [place] [id number] Unknown, Provider, Discharge Disposition: Home or Self Care Social History Tobacco Use Types Packs/Day Years Used Date Smoking Tobacco: Never Assessed Sex and Gender Information Value Date Recorded Sex Assigned at Not on file Gender Identity Not on file Sexual Orientation Not on file documented as of this encounter Discharge Disposition Disposition Code Departure Means Destination Home or Self Fpc documented in this encounter Plan of Treatment Upcoming Encounters Date Type Department Care Team (Late st Contact Info) Description 01/26/2024 7:30 EDT Hospital Encounter [facility] Operating Room [address] [place] [address] [place] [address] [place] [id number] 01/26/2024 7:30 EDT - 01/26/2024 10:20 EDT Surgery [facility] Operating Room [address] [place] [address] [place] [address] [place] [address], [place] [address] OPEN TREATMENT, DISLOCATION, LUNATE BONE [[id number] (CPT??)] 02/10/2024 9:45 EDT Office Visit [facility] Spine Program - [facility] [address] [facility] [place] [address] Jessy Cunningham MD [address] [place] [address] [place] [address] Scheduled Procedures Name Priority Associated Diagnoses Date/Ti me OPEN TREATMENT, DISLOCATION, LUNATE BONE Closed traumatic volar dislocation of lunate bone, right, initial encounter 01/26/2024 7:30 EDT CAPSULORRHAPHY OR RECONSTRUCTION, WRIST, OPEN Closed traumatic volar dislocation of lunate bone, right, initial encounter 01/26/2024 7:30 EDT documented as of this encounter Visit Diagnoses Not on filedocumented in this encounter Care Teams Piece Work Inspector Relationship Specialty Start Date End Date Philip Eduardo MD [address] [place] [address] PCP - General 09/03/15 02/11/19 documented as of this encounter
--- OUTSIDE RECORDS SUMMARY | 2024-01-20 14:08 | XMS_ITS | Encounter Summary ---
Author Organization Health system Address [address] [place] [address] Care Team Providers Care Quality Control Head Name Role Phone Unknown, Provider Primary Care Provider [phone] Encounter Details Date Type Department Care Team (Late st Contact Info) Description 08/01/2021 Lab Requisition [facility] Pathology & Laboratory Medicine - [facility] [address] [place] [address] Outr Resulting Lab, Provider Social History Tobacco Use Types Packs/Day Years [...] Info) Description 01/26/2024 7:30 EDT Hospital Encounter [facility] Operating Room [address] [place] [address] Agusto Raymond MD [address] [facility] [address] [place] [address] 01/26/2024 7:30 EDT - 01/26/2024 10:20 EDT Surgery [facility] Operating Room [address] [place] [address] Agusto Raymond MD [address] [facility] [address] [place] [address] OPEN TREATMENT, DISLOCATION, LUNATE BONE [[id number] (CPT??)] 02/10/2024 9:45 EDT Office Visit [facility] Spine Program - [address] [address] Jessy Cunningham MD [address] [facility] [place] [address] Scheduled Procedures Name Priority Associated Diagnoses Date/Ti me OPEN TREATMENT, DISLOCATION, LUNATE BONE Closed traumatic volar dislocation of lunate bone, right, initial encounter 01/26/2024 7:30 EDT CAPSULORRHAPHY OR RECONSTRUCTION, WRIST, OPEN Closed traumatic volar dislocation of lunate bone, right, initial encounter 01/26/2024 7:30 EDT documented as of this encounter Procedures Procedure Name Priority Date/Time Associated Diagnosis Comments CHLAMYDIA/N. GONORRHOEAE AMPLIFIED NUCLEIC ACID Routine 07/31/2021 11:00 EDT documented in this encounter Results * CHLAMYDIA/N. GONORRHOEAE AMPLIFIED RNA (07/31/2021 11:00 EDT) Neisseria gonorrhoeae Result Negative Negative 08/02/2021 15:08 EDT [facility] Chlamydia trachomatis Result Negative Negative 08/02/2021 15:08 EDT [facility] Urine URINE / Unknown 07/31/2021 1 1:00 EDT 08/01/2021 19:08 EDT Provider Outr Resulting Lab MICROBIOLOGY - GENERAL ORDERABLES [facility] [address] [place] [address] documented in this encounter Visit Diagnoses Not on filedocumented in this encounter Care Teams Quality Control Head Relationship Specialty Start Date End Date Unknown, Provider, PCP - General 02/12/19 documented as of this encounter
--- OUTSIDE RECORDS SUMMARY | 2024-01-20 14:08 | XMS_ITS | Encounter Summary ---
Author Organization [facility] Address [address] [place] [address] Care Team Providers Care Endbander Name Role Phone Unknown, Provider Primary Care Provider [phone] Encounter Details Date Type Department Care Team (Late st Contact Info) Description 04/11/2020 Lab Requisition [facility] Pathology & Laboratory Medicine - [address] [address] Aleja Gaviria MD [address] [place] [address] [place], [place] [phone] Encounter for screening for malignant neoplasm of colon Social History Tobacco Use Types Packs/Day Years [...] Info) Description 01/26/2024 7:[address] [facility] Operating Room [address] [place] [address] Agusto Raymond MD [address] [facility] [address] [place] [id number] 01/26/2024 7:30 EDT - 01/26/2024 10:[address] [facility] Operating Room [address] [place] [address] Agusto Raymond MD [address] [facility] [address] [place], [place] [address] OPEN TREATMENT, DISLOCATION, LUNATE BONE [[id number] (CPT??)] 02/10/2024 9:45 EDT Office Visit [facility] Spine Program - [address] [place] [address] Jessy Cunningham MD [address] [place] [address] Scheduled Procedures Name Priority Associated Diagnoses Date/Ti me OPEN TREATMENT, DISLOCATION, LUNATE BONE Closed traumatic volar dislocation of lunate bone, right, initial encounter 01/26/2024 7:30 EDT CAPSULORRHAPHY OR RECONSTRUCTION, WRIST, OPEN Closed traumatic volar dislocation of lunate bone, right, initial encounter 01/26/2024 7:30 EDT documented as of this encounter Procedures Procedure Name Priority Date/Time Associated Diagnosis Comments SURGICAL PATHOLOGY Today 04/11/2020 8:40 EST documented in this encounter Results * SURGICAL PATHOLOGY (04/11/2020 8:40 EST) Final Diagnosis A. COLON, SIGMOID, POLYP, BIOPSY: - Fragments of tubular adenoma. 04/16/2020 15:05 [facility] Attestation By the signature below, the attending physician certifies that they have 1) personally conducted a gross and/or microscopic examination of the described specimen(s), and/or personally interpreted the results of laboratory testing of the described specimen(s), and 2) personally rendered or confirmed the above diagnosis. 04/16/2020 15:05 [facility] at 1505 Clinical History Screening; colon polyp 04/16/2020 15:05 [facility] Gross Description A. Received in formalin labelled with proper patient identification (initials D, W) and sigmoid polyp are two barlow irregular tissues averaging 0.2 x 0.2 x 0.2 cm. Entirely submitted in A1. THOMAS RODRIGUEZ(ASCP) 04/13/2020 10:10 04/16/2020 15:05 EST [facility] Performing Lab [facility] 04/16/2020 15:05 EST [facility] Scanned Images 04/16/2020 15:05 EST [facility] Tissue POLYP OF COLON / Unknown 04/11/2020 8:40 EST 04/13/2020 8:32 EST Aleja Gaviria MD PATHOLOGY ORDER SHER[facility] [address] [place] [address] documented in this encounter Visit Diagnoses Diagnosis Encounter for screening for malignant neoplasm of colon Special screening for malignant neoplasms, colon Closed traumatic volar dislocation of lunate bone, right, initial encounter documented in this encounter Care Teams Endbander Relationship Specialty Start Date End Date Unknown, Provider, PCP - General 02/12/19 documented as of this encounter
--- OUTSIDE RECORDS SUMMARY | 2024-01-20 14:08 | XMS_ITS | Encounter Summary ---
Author Organization [facility] Address [address] [place] [address] Care Team Providers Care Seasonal Customer Service Associate Name Role Phone Merlene Eduardo MD Primary Care Provider [phone] Encounter Details Date Type Department Care Team (Late st Contact Info) Description 11/21/2015 Results Only [facility] Urology - [facility] [address] [place], [place] [address] Isra Faye MD [address] [place] [phone] Social History Tobacco Use Types Packs/Day Years Used Date Smoking Tobacco: Never Assessed Sex and Gender Information Value Date Recorded Sex Assigned at Not on file Gender Identity Not on file Sexual Orientation Not on file documented as of this encounter Plan of Treatment Upcoming Encounters Date Type Department Care Team (Late st Contact Info) Description 01/26/2024 7:30 EDT Hospital Encounter [facility] Operating Room [address] [place] [address] [place] [address] [place] [address] 01/26/2024 7:30 EDT - 01/26/2024 10:20 EDT Surgery [facility] Operating Room [address] [place], [place] [address] [place] [address] [place] [address] OPEN TREATMENT, DISLOCATION, LUNATE BONE [[id number] (CPT??)] 02/10/2024 9:45 EDT Office Visit [facility] Spine Program - [address] [place] [address] Jessy Cunningham MD [address] [facility] [place] [address] Scheduled Procedures Name Priority Associated Diagnoses Date/Ti me OPEN TREATMENT, DISLOCATION, LUNATE BONE Closed traumatic volar dislocation of lunate bone, right, initial encounter 01/26/2024 7:30 EDT CAPSULORRHAPHY OR RECONSTRUCTION, WRIST, OPEN Closed traumatic volar dislocation of lunate bone, right, initial encounter 01/26/2024 7:30 EDT documented as of this encounter Procedures Procedure Name Priority Date/Time Associated Diagnosis Comments CYTOPATHOLOGY Routine 11/21/2015 0:00 EDT documented in this encounter Results * CYTOPATHOLOGY (11/21/2015 0:00 EDT) Pathology Report: CYTOPATHOLOGY REPORT Reports generated via electronic interface contain original data; however they are lacking the format of the original report. Caution should be taken when reading/interpreti ng unformatted reports. Name: ? MATHEW RUDOLPH ? Accession #: ? [id number] : ? 1965 (Age: 50) ??M ?Collect Date: ? 11/21/2015 Location: ? [facility] ? Receive Date: ? 11/22/2015 Provider: ? ISRA FAYE MD Copy to: ?MERLENE CARSON DO ? CYTOLOGIC DIAGNOSIS: URINE, BARBOTAGE, CYTOLOGIC EVALUATION: - ??No malignant cells identified. - ??Few clusters of urothelial cells present, consistent with instrumentation effect. ?? - ??Rare cell with features suggestive of polyoma viral change. Document reviewed and electronically signed by: ? SHRUTHI RESTREPO MD Report Date: ??11/23/2015 08:56 By the signature above, the attending physician certifies that he/she has personally conducted a gross and/or microscopic examination of the described specimens and rendered or confirmed the above diagnosis. Specimen Type: ? Urine, Barbotage Clinical History: ? Hematuria. ? Gross Description: ? 10ccs of clear yellow fluid were received and processed by selective cellular enhancement technique. ? End of Report [facility] 11/21/2015 11/22/2015 6:3 8 EDT Isra Faye MD PATHOLOGY [facility]A [facility] [address] [place] [address] documented in this encounter Visit Diagnoses Not on filedocumented in this encounter Care Teams Seasonal Customer Service Associate Relationship Specialty Start Date End Date Merlene Eduardo MD [address] [place] [address] PCP - General 09/03/15 02/11/19 documented as of this encounter
--- OUTSIDE RECORDS SUMMARY | 2024-01-20 14:08 | XMS_ITS | Encounter Summary ---
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 findings in this region. THIS DOCUMENT HAS BEEN ELECTRONICALLY SIGNED BY BREE BROWNE MD FOR ANY QUESTIONS OR CONCERNS REGARDING THIS REPORT PLEASE CALL [facility] AT [phone] Narrative 01/14/2024 5:15 EDT PROCEDURE INFORMATION: Exam: [...] No cardiomegaly. No pericardial effusion. Coronary arteries: Ufgz-hq-kyjyhvjb coronary artery calcifications. Lymph nodes: Unremarkable. No [...] No cardiomegaly. No pericardial effusion. Coronary arteries: Hcqr-dg-nrnveyxx coronary artery calcifications. Lymph nodes: Unremarkable. No enlarged lymph nodes. Vasculature: Unremarkable. No aortic aneurysm. Bones/joints: Unremarkable. No acute fracture. Soft tissues: Unremarkable. IMPRESSION 1. No acute traumatic injuries identified in the chest. 2. Mglz-al-hmktuvtk coronary artery calcifications. 3. Findings raising the possibility of interstitial lung disease. If indicated, consider high-resolution chest CT for further evaluation. 4. Please refer to separately dictated abdomen pelvis CT report for description of findings in this region. THIS DOCUMENT HAS BEEN ELECTRONICALLY SIGNED BY BREE BROWNE MD FOR ANY QUESTIONS OR CONCERNS REGARDING THIS REPORT PLEASE CALL [facility] [phone] Fani Laws DO [facility] CT ORDERABLE S * CT CERVICAL SPINE WO CONTRAST (01/14/2024 4:54 EDT) Anatomical Region Laterality Modality Computed Tomogra phy 01/14/2024 4:34 EDT Impressions 01/14/2024 5:26 EDT 1. ?? No evidence of fracture or dislocation. 2. ?? Multilevel degenerative changes noted. THIS DOCUMENT HAS BEEN ELECTRONICALLY SIGNED BY FANI LEON MD FOR ANY QUESTIONS OR CONCERNS REGARDING THIS REPORT PLEASE CALL [facility] AT [phone] [facility] 01/14/2024 5:26 EDT PROCEDURE INFORMATION: Exam: CT [...] CONCERNS REGARDING THIS REPORT PLEASE CALL [facility] [phone] Fani Juan Pablo Laws DO IMG CT ORDERABLE S * CT HEAD WO CONTRAST (01/14/2024 4:54 EDT) Anatomical Region Laterality Modality Head Computed Tomogra phy 01/14/2024 4:34 EDT Impressions 01/14/2024 5:26 EDT No acute intracranial process. THIS DOCUMENT HAS BEEN ELECTRONICALLY SIGNED BY FANI LEON MD FOR ANY QUESTIONS OR CONCERNS REGARDING THIS REPORT PLEASE CALL [facility] AT [phone] Narrative 01/14/2024 5:26 EDT PROCEDURE INFORMATION: Exam: [...] CONCERNS REGARDING THIS REPORT PLEASE CALL [facility] [phone] Fani Laws DO IMG CT ORDERABLE S * MAGNESIUM (01/14/2024 4:14 EDT) Pathologist [facility] Magnesium 1.9 1.7 - 2.8 mg/dL 01/14/2024 4:42 EDT [facility] Comment:Moderate hemolysis i dentified, interpret with caution as results may be affected due to hemolysis. Blood VENOUS BLOOD / Unknown Venipuncture / Unknown 01/14/2024 4:14 EDT 01/14/2024 4:17 EDT Fani Laws DO CHEMISTRY & BLOO D GAS ORDERABLES [facility] [address] [place] [address] * TROPONIN I (01/14/2024 4:14 EDT) [facility] Troponin I (ng/mL) <0.034 <0.034 ng/mL 01/14/2024 5:05 EDT [facility] Comment:Slight hemolysis abhijit ntified, interpret with caution as results may be affected due to hemolysis. Blood VENOUS BLOOD / Unknown Venipuncture / Unknown 01/14/2024 4:14 EDT 01/14/2024 4:17 EDT Narrative [facility] - 01/14/2024 5:05 EDT The results of this assay can be falsely lowered due to the consumption of Biotin. Fani Laws DO CHEMISTRY & BLOO D GAS ORDERABLES [facility] [address] [place] [address] * (ABNORMAL) COMPREHENSIVE METABOLIC PANEL (CMP) (01/14/2024 4:14 EDT) Sodium 137 136 - 145 mmol/L 01/14/2024 4:42 [facility] Potassium 5.1(H) 3.5 - 5.0 mmol/L 01/14/2024 4:42 [facility] Comment:Moderate hemolysis i dentified, interpret with caution as hemolysis will elevate potassium result. Chloride 106 96 - 110 mmol/L 01/14/2024 4:42 [facility] CO2 Total 22 22 - 32 mmol/L 01/14/2024 4:42 [facility] Glucose 118(H) 70 - 99 mg/dl 01/14/2024 4:42 [facility] BUN 35(H) 10 - 26 mg/dL 01/14/2024 4:42 [facility] Comment:Moderate hemolysis i dentified, interpret with caution as results may be affected due to hemolysis. Creatinine 1.23 0.66 - 1.25 mg/dL 01/14/2024 4:42 [facility] eGFR 69 >60 mL/min/1.7 3m2 01/14/2024 4:42 [facility] Total Protein 8.0 6.3 - 8.2 g/dL 01/14/2024 4:42 [facility] Comment:Moderate hemolysis i dentified, interpret with caution as results may be affected due to hemolysis. Albumin 4.5 3.4 - 4.9 g/dL 01/14/2024 4:42 [facility] Comment:Moderate hemolysis i dentified, interpret with caution as results may be affected due to hemolysis. Alkaline Phosphatase 78 38 - 126 U/L 01/14/2024 4:42 [facility] Comment:Moderate hemolysis i dentified. Hemolysis will decrease ALKP result. Suggest re-evaluation if clinically indicated AST 48(H) 15 - 46 U/L 01/14/2024 4:42 [facility] Comment:Moderate hemolysis i dentified, interpret with caution as results may be affected due to hemolysis. ALT 39 <50 U/L 01/14/2024 4:42 [facility] Bilirubin, Total 0.9 <1.4 mg/dL 01/14/20 4:42 [facility] Comment:Moderate hemolysis i dentified, interpret with caution as results may be affected due to hemolysis. Calcium 9.3 8.5 - 10.5 mg/dL 01/14/2024 4:42 [facility] Albumin/Globulin Ratio 1.3 1.0 - 2.5 01/14/2024 4:42 [facility] Anion Gap 9 5 - 14 mmol/L 01/14/2024 4:42 [facility] Blood VENOUS BLOOD / Unknown Venipuncture / Unknown 01/14/2024 4:14 EDT 01/14/2024 4:17 EDT Fani Laws DO CHEMISTRY & BLOO D GAS ORDERABLES [facility] [address] [place] [address] * (ABNORMAL) COMPLETE BLOOD COUNT AND DIFFERENTIAL (01/14/2024 4:14 EDT) WBC 9.02 4.00 - 10.40 K/cmm 01/14/2024 4:31 [facility] RBC 5.44 4.36 - 5.78 M/cmm 01/14/2024 4:31 [facility] Hemoglobin 15.9 13.8 - 17.3 g/dL 01/14/2024 4:31 [facility] HCT 47.5 39.5 - 50.2 % 01/14/2024 4:31 [facility] MCV 87 81 - 95 fL 01/14/2024 4:31 [facility] MCH 29.2 27.6 - 33.0 pg 01/14/2024 4:31 [facility] MCHC 33.5 32.8 - 36.4 g/dL 01/14/2024 4:31 [facility] RDW-CV 12.4 <14.2 % 01/14/2024 4:31 [facility] RDW-SD 39.3 <46.0 fl 01/14/2024 4:31 [facility] PLT 201 141 - 377 K/cmm 01/14/2024 4:31 [facility] MPV 9.7 9.5 - 12.7 fL 01/14/2024 4:31 [facility] % Neutrophils 63.4 % 01/14/2024 4:31 [facility] % Lymphocytes 18.6 % 01/14/2024 4:31 [facility] % Monocytes 12.1 % 01/14/2024 4:31 [facility] % Eosinophils 3.8 % 01/14/2024 4:31 [facility] % Basophils 1.0 % 01/14/2024 4:31 [facility] % Immature Grans 1.1(H) <0.9 % 01/14/20 4:31 [facility] Absolute Neutrophils 5.72 2.20 - 8.85 K/cmm 01/14/2024 4:31 [facility] Absolute Lymphocytes 1.68 1.09 - 3.30 K/cmm 01/14/2024 4:31 [facility] Absolute Monocytes 1.09(H) 0.10 - 0.80 K/cmm 01/14/2024 4:31 [facility] Absolute Eosinophils 0.34 0.03 - 0.61 K/cmm 01/14/2024 4:31 [facility] ABS Basophils 0.09 0.01 - 0.11 K/cmm 01/14/2024 4:31 [facility] Absolute Immature Grans 0.10(H) 0.00 - 0.06 K/cmm 01/14/2024 4:31 [facility] Type of Differential: Auto 01/14/2024 4:31 [facility] Blood VENOUS BLOOD / Unknown Venipuncture / Unknown 01/14/2024 4:14 EDT 01/14/2024 4:17 EDT Fani Laws DO PACKAGES & DNA P ROBE ORDERABLES Performing Organization Address City/[facility]/ZIP Co de Phone Number [facility] [address] [place] [address] * HOLD BLUE TOP (01/14/2024 4:14 EDT) Hold Hold 01/14/2024 5:30 EDT [facility] Blood VENOUS BLOOD / Unknown Venipuncture / Unknown 01/14/2024 4:14 EDT 01/14/2024 4:17 EDT Fani Laws DO LAB INFO SERVICE AND SUPPORT & PHONE RESULT [facility] [address] [place] [address] * HOLD SST (01/14/2024 4:14 EDT) Hold Hold 01/14/2024 5:30 EDT [facility] Blood VENOUS BLOOD / Unknown Venipuncture / Unknown 01/14/2024 4:14 EDT 01/14/2024 4:17 EDT Fani Juan Pablo Laws DO LAB INFO SERVICE AND SUPPORT & PHONE RESULT Performing Organization Address [facility]/ZIP Co de Phone Number [facility] [address] [place] [address] * HOLD LAVENDER TOP (01/14/2024 4:14 EDT) Hold Hold 01/14/2024 5:30 EDT [facility] Blood VENOUS BLOOD / Unknown Venipuncture / Unknown 01/14/2024 4:14 EDT 01/14/2024 4:17 EDT Fani Juan Pablo Laws DO LAB INFO SERVICE AND SUPPORT & PHONE RESULT Performing Organization Address [facility] de Phone Number [facility] [address] [place] [address] * HOLD GREEN TOP (01/14/2024 4:14 EDT) Hold Hold 01/14/2024 5:30 EDT [facility] Blood VENOUS BLOOD / Unknown Venipuncture / Unknown 01/14/2024 4:14 EDT 01/14/2024 4:17 EDT Fani Juan Pablo Laws DO LAB INFO SERVICE AND SUPPORT & PHONE RESULT Performing Organization Address [facility] Co de Phone [facility] [address] [place] [address] * EKG 12-LEAD (01/14/2024 4:05 EDT) 01/14/2024 4:05 EDT Narrative [facility] - 01/14/2024 8:43 EDT ? [facility] ? Test Date: ?2024-01-14 Pat Name: ? DIANA RUDOLPH ? Department: ? Room: ? A02 Gender: ? Male ? [employer] Bpm Consultant: ?? lw : ?1965 ? Requested By: VETO Almeida Order Number: [id number] ? Reading MD: ?? ALFONZO BROWN MD ? Measurements Intervals ?[place] ? Rate: ? 94 ? P: ?52 SC: ? 136 ?QRS: ?-3 QRSD: ? 94 [...] Alfonzo Brown MD - 01/14/2024 [facility] Test Date: 2024-01-14 Pat Name: DIANA RUDOLPH Department: Room: A02 Gender: Male [employer] Bpm Consultant: darron : 1965 Requested By: VETO LOPEZ Order Number: [id number] Reading MD: ALFONZO BROWN MD Measurements Intervals [place] Rate: 94 P: 52 SC: 136 QRS: -3 QRSD: 94 T: 50 QT: 378 QTc: 472 Interpretive Statements Sinus rhythm with premature supraventricular complexes and withoccasional premature ventricular complexes Inferior infarct ,old No previous ECG available for comparison I reviewed the tracing and have either agreed or edited the findings inthis report. Electronically Signed On 01-14-2024 08:43:21 EDT by ALFONZO MARIE. Fani Laws DO CARDIAC ECG [facility] documented in this encounter Visit Diagnoses Diagnosis Compression fracture of L5 vertebra, initial encounter ([facility])- Primary Renal mass, left Unspecified disorder of kidney and ureter Closed head injury, initial encounter Concussion with loss of consciousness, initial encounter Closed traumatic volar dislocation of lunate bone, right, initial encounter [B49.943L] Closed traumatic volar dislocation of lunate bone, right, initial encounter Closed traumatic volar dislocation of lunate bone, right, initial encounter- Primary Closed traumatic volar dislocation of lunate bone, right, initial encounter documented in this encounter Administered Medications Inactive Administered Medications - up to 3 most recent administrations Medication Order MAR Action Action Date Dose Rate Site acetaminophen (TYLENOL) tablet 975 mg 975 mg (rounded from 1,000 mg), oral, NOW X1, 1 dose, On Thu01/14/24 at 1300, STAT Given 01/14/2024 12:43 EDT 975 mg HYDROmorphone (DILAUDID) 2 mg/mL injection 1 dose, Starting on Thu01/14/24 at 0827, Until Thu01/14/24 at 1605 HYDROmorphone (DILAUDID) injection 1 mg 1 mg, intravenous, NOW X1, 1 dose, On Thu01/14/24 at 0830, Routine Given 01/14/2024 8:29 EDT 1 mg HYDROmorphone (DILAUDID) tablet 2 mg 2 mg, oral, NOW X1, 1 dose, On Thu01/14/24 at 1130, STAT Given 01/14/2024 11:11 EDT 2 mg ibuprofen (MOTRIN) tablet 600 mg 600 mg, oral, NOW X1, 1 dose, On Thu01/14/24 at 1300, STAT Given 01/14/2024 12:43 EDT 600 mg iohexoL (OMNIPAQUE 350) solution 100 mL 100 mL, intravenous, Once in imaging, 1 dose, Starting on Thu01/14/24 at 0455, Until Thu01/14/24 at 0506, Routine Given 01/14/2024 5:06 EDT 100 mL iohexoL (OMNIPAQUE 350) solution 100 mL 100 mL, intravenous, Once in imaging, 1 dose, Starting on Thu01/14/24 at 0949, Until Thu01/14/24 at 1016, Routine Given 01/14/2024 10:16 EDT 100 mL morphine PF injection 4 mg 4 mg, intravenous, NOW X1, 1 dose, On Thu01/14/24 at 0545, Routine Given 01/14/2024 5:31 EDT 4 mg oxyCODONE 5 mg Tab STARTER PACK 1 Package, oral, Once (Without Time Specified), 1 dose, Starting on Thu01/14/24 at 1246, Until Thu01/14/24 at 1356, STAT Given 01/14/2024 13:56 EDT 1 Package documented in this encounter Active and Recently Administered Medications Times are shown in EDT. Scheduled Medication Order 01/12/2024 01/13/2024 01/14/2024 acetaminophen (TYLENOL) tablet 975 mg (COMPLETED) 975 mg (rounded from 1,000 mg), oral, NOW X1, 1 dose, On Abby 01/14/24 at 1300, STAT 1243 (Given - Provid er: Emili Bearden RN) HYDROmorphone (DILAUDID) injection 1 mg (COMPLETED) 1 mg, intravenous, NOW X1, 1 dose, On Abby 01/14/24 at 0830, Routine 0829 (Given - Provid er: Emili Bearden RN)0844 (Completed - Provider: Emili Bearden RN) HYDROmorphone (DILAUDID) injection 1 mg 1 mg, intravenous, NOW X1, 1 dose, On Abby 01/14/24 at 0915, Routine 0922 (Not Given - Pr ovider: Emili Bearden RN - Reason: Change in condition - Comment: Nerve block effective) HYDROmorphone (DILAUDID) tablet 2 mg (COMPLETED) 2 mg, oral, NOW X1, 1 dose, On Abby 01/14/24 at 1130, STAT 1111 (Given - Provid er: Emili Bearden RN) ibuprofen (MOTRIN) tablet 600 mg (COMPLETED) 600 mg, oral, NOW X1, 1 dose, On Abby 01/14/24 at 1300, STAT 1243 (Given - Provid er: Emili Bearden RN) iohexoL (OMNIPAQUE 350) solution 100 mL (COMPLETED) 100 mL, intravenous, Once in imaging, 1 dose, Starting on Abby 01/14/24 at 0455, Until Abby 01/14/24 at 0506, Routine 0506 (Given - Provid er: Barber Simon) iohexoL (OMNIPAQUE 350) solution 100 mL (COMPLETED) 100 mL, intravenous, Once in imaging, 1 dose, Starting on Abby 01/14/24 at 0949, Until Abby 01/14/24 at 1016, Routine 1016 (Given - Provid er: Morenita Bolaños) morphine PF injection 4 mg (COMPLETED) 4 mg, intravenous, NOW X1, 1 dose, On Abby 01/14/24 at 0545, Routine 0531 (Given - Provid er: Liza Cherry, ELEN) oxyCODONE 5 mg Tab STARTER PACK (COMPLETED) 1 Package, oral, Once (Without Time Specified), 1 dose, Starting on Abby 01/14/24 at 1246, Until Abby 01/14/24 at 1356, STAT 1356 (Given - Provid er: Emili Bearden RN) No Frequency Medication Order 01/12/2024 01/13/2024 01/14/2024 HYDROmorphone (DILAUDID) 2 mg/mL injection 1 dose, Starting on Abby 01/14/24 at 0827, Until Abby 01/14/24 at 1605 documented in this encounter Orders Medications Ordered That Nik ht Not Have Been Administered Count Last Ordered Date First Ordered Date HYDROmorphone (DILAUDID) injection 1 mg 1 0 01/14/2024 Nursing Count Last Ordered Date First Orde red Date CALL TRANSFER CENTER [facility] 1 01/14/2024 documented in this encounter Care Teams [employer] Supervisor Relationship Specialty Start Date End Date Unknown, Provider, PCP - General 02/12/19 documented as of this encounter
--- OUTSIDE RECORDS SUMMARY | 2024-01-20 14:08 | XMS_ITS | Encounter Summary ---
Author Organization [facility] Address [address] [place] [address] Care Team Providers Care Fire Prevention Officer Name Role Phone Gautam Madrigal MD Primary Care Provider Unavail able Encounter Details Date Type Department Care Team (Late st Contact Info) Description 08/28/2015 Results Only [facility] [phone] Sin Cervantes PA [address] [place] [address] Social History Tobacco Use Types Packs/Day Years Used Date Smoking Tobacco: Never Assessed Sex and Gender Information Value Date Recorded Sex Assigned at Not on file Gender Identity Not on file Sexual Orientation Not on file documented as of this encounter Plan of Treatment Upcoming Encounters Date Type Department Care Team (Late st Contact Info) Description 01/26/2024 7:30 EDT Hospital Encounter [facility] Operating Room [address] [place], [place] [id number] Agusto Raymond MD [address] [address] 01/26/2024 7:30 EDT - 01/26/2024 10:20 EDT Surgery [facility] Operating Room [address] [place] [address] Agusto Raymond MD [address] [address] OPEN TREATMENT, DISLOCATION, LUNATE BONE [[id number] (CPT??)] 02/10/2024 9:45 EDT Office Visit [facility] [place] [address] [place] [address] Jessy Cunningham MD [address] [facility] [place] [phone] Scheduled Procedures Name Priority Associated Diagnoses Date/Ti me OPEN TREATMENT, DISLOCATION, LUNATE BONE Closed traumatic volar dislocation of lunate bone, right, initial encounter 01/26/2024 7:30 EDT CAPSULORRHAPHY OR RECONSTRUCTION, WRIST, OPEN Closed traumatic volar dislocation of lunate bone, right, initial encounter 01/26/2024 7:30 EDT documented as of this encounter Procedures Procedure Name Priority Date/Time Associated Diagnosis Comments CYTOPATHOLOGY Routine 08/28/2015 0:00 EDT documented in this encounter Results * CYTOPATHOLOGY (08/28/2015 0:00 EDT) Pathology Report: CYTOPATHOLOGY REPORT Reports generated via electronic interface contain original data; however they are lacking the format of the original report. Caution should be taken when reading/interpret ing unformatted reports. Name: ? MATHEW HAN ? Accession #: ? [id number] : ? 1965 (Age: 50) ??M ?Collect Date: ? 08/28/2015 Location: ? [facility] ? Receive Date: ? 08/30/2015 Provider: ? SIN GUZMAN Copy to: ? CYTOLOGIC DIAGNOSIS: URINE, COLLECTION METHOD NOT SPECIFIED, CYTOLOGIC EVALUATION: - ??No malignant cells identified. - ??Urothelial cells with degenerative changes. - ??Polyoma viral changes. Document reviewed and electronically signed by: ? NEGIN ARAMBULA MD [facility] Report Date: ??08/30/2015 15:38 By the signature above, the attending physician certifies that he/she has personally conducted a gross and/or microscopic examination of the described specimens and rendered or confirmed the above diagnosis. Specimen Type: ? Urine, NOS Clinical History: ? Gout; microscopic hematuria. clinical diagnosis code: ??M10.9, R31.2 ? Gross Description: ? One vial of Cytolyt was received and processed by selective cellular enhancement technique. ? End of Report [facility] 08/28/2015 08/30/2015 9:2 7 EDT Sin GUZMAN PATHOLOGY ORDERABLES [facility] [address] [place] [address] documented in this encounter Visit Diagnoses Not on filedocumented in this encounter Care Teams Fire Prevention Officer Relationship Specialty Start Date End Date Gautam Madrigal MD PCP - General 08/30/15 09/02/15 documented as of this encounter
--- OUTSIDE RECORDS SUMMARY | 2024-01-20 14:08 | XMS_ITS | Encounter Summary ---
Author Organization [facility] Address [address] [place] [address] Care Team Providers Care Vocational Rehabilitation Supervisor Name Role Phone Unknown, Provider Primary Care Provider [phone] Encounter Details Date Type Department Care Team (Latest Contact Info) Description 02/12/2019 Travel Social History Tobacco Use Types Packs/Day Years Used Date Smoking Tobacco: Never Smokeless Tobacco: Never Alcohol Use Standard Drinks/Week Comments Not Currently 0 (1 standard drink = 0.6 oz pur e alcohol) sober 9 years Sex and Gender Information Value Date Recorded Sex Assigned at Not on file Gender Identity Not on file Sexual Orientation Not on file documented as of this encounter Plan of Treatment Upcoming Encounters Date Type Department Care Team (Late st Contact Info) Description 01/26/2024 7:30 EDT Hospital Encounter [facility] Operating Room [address] [place], [place] [id number] Agusto Raymond MD [address] [address] 01/26/2024 7:30 EDT - 01/26/2024 10:20 EDT Surgery [facility] Operating Room [address] [place], [place] [address] Agusto Raymond MD [address] [facility] [address] [place] [address] OPEN TREATMENT, DISLOCATION, LUNATE BONE [[id number] (CPT??)] 02/10/2024 9:45 EDT Office Visit [facility] Spine Program - [address] [place] [address] Jessy Cunninhgam MD [address] [facility] [place] [phone] Scheduled Procedures Name Priority Associated Diagnoses Date/Ti me OPEN TREATMENT, DISLOCATION, LUNATE BONE Closed traumatic volar dislocation of lunate bone, right, initial encounter 01/26/2024 7:30 EDT CAPSULORRHAPHY OR RECONSTRUCTION, WRIST, OPEN Closed traumatic volar dislocation of lunate bone, right, initial encounter 01/26/2024 7:30 EDT documented as of this encounter Visit Diagnoses Not on filedocumented in this encounter Care Teams Vocational Rehabilitation Supervisor Relationship Specialty Start Date End Date Unknown, Provider, PCP - General 02/12/19 documented as of this encounter
--- OUTSIDE RECORDS SUMMARY | 2024-01-20 14:08 | XMS_ITS | Encounter Summary ---
Author Organization [facility] Address [address] [place] [address] Care Team Providers Care Environmental Program Manager Name Role Phone Unavailable Primary Care Provider Unavailabl e Encounter Details Date Type Department Care Team (Latest Contact Info) Description 08/29/2015 7:31 EDT - 08/29/2015 23:59 EDT Hospital Encounter [address] [address] Unknown, Provider, Discharge Disposition: Home or Self Care Social History Tobacco Use Types Packs/Day Years Used Date Smoking Tobacco: Never Assessed Sex and Gender Information Value Date Recorded Sex Assigned at Not on file Gender Identity Not on file Sexual Orientation Not on file documented as of this encounter Discharge Disposition Disposition Code Departure Means Destination Home or Self Alf documented in this encounter Plan of Treatment Upcoming Encounters Date Type Department Care Team (Late st Contact Info) Description 01/26/2024 7:30 EDT Hospital Encounter [facility] Operating Room [address] [place] [address] [place] [address] [place] [id number] 01/26/2024 7:30 EDT - 01/26/2024 10:20 EDT Surgery [facility] Operating Room [address] [place] [address] Agusto Raymond MD [address] [id number] OPEN TREATMENT, DISLOCATION, LUNATE BONE [19170 (CPT??)] 02/10/2024 9:45 EDT Office Visit [facility] Spine Program - [facility] [address] [facility] [place] [address] Jessy Cunningham MD [address] [place] [address] [place] [address] Scheduled Procedures Name Priority Associated [...]
--- OUTSIDE RECORDS SUMMARY | 2024-01-20 14:08 | XMS_ITS | Encounter Summary ---
Author Organization [facility] Address [address] [place] [address] Care Team Providers Care Wheel Installer Name Role Phone Unknown, Provider Primary Care Provider [phone] Encounter Details Date Type Department Care Team (Late st Contact Info) Description 01/14/2024 Prep for Procedure [facility] Orthopedics & Sport Medicine [address] [place], [place] [id number] Agusto Raymond MD [address] [facility] [address] [place], [place] [phone] Closed traumatic volar dislocation of lunate bone, right, initial encounter (Primary Dx) Social History Tobacco Use Types Packs/Day Years [...] Info) Description 01/26/2024 7:30 EDT Hospital Encounter [facility] Operating Room [address] [place], [place] [phone] Agusto Raymond MD 13[address] [facility] [address] [place], [place] [phone] 01/26/2024 7:30 EDT - 01/26/2024 10:20 EDT Surgery [facility] Operating Room [address] [place] [address] Agusto Raymond MD 13[address] [facility] [address] [place] [address] OPEN TREATMENT, DISLOCATION, LUNATE BONE [15529 (CPT??)] 02/10/2024 9:45 EDT Office Visit [facility] Spine Program - [address] [place] [address] Jessy Cunningham MD [address] [facility] [place] [address] Scheduled Procedures Name Priority Associated Diagnoses Date/Ti me OPEN TREATMENT, DISLOCATION, LUNATE BONE Closed traumatic volar dislocation of lunate bone, right, initial encounter 01/26/2024 7:30 EDT CAPSULORRHAPHY OR RECONSTRUCTION, WRIST, OPEN Closed traumatic volar dislocation of lunate bone, right, initial encounter 01/26/2024 7:30 EDT documented as of this encounter Visit Diagnoses Diagnosis Closed traumatic volar dislocation of lunate bone, right, initial encounter- Primary Closed traumatic volar dislocation of lunate bone, right, initial encounter- Primary Closed traumatic volar dislocation of lunate bone, right, initial encounter documented in this encounter Orders Case Request Count Last Ordered Date First Orde red Date CASE REQUEST OPERATING ROOM 1 01/14/2024 documented in this encounter Care Teams Wheel Installer Relationship Specialty Start Date End Date Unknown, Provider, PCP - General 02/12/19 documented as of this encounter
--- OUTSIDE RECORDS SUMMARY | 2024-01-20 14:08 | XMS_ITS | Encounter Summary ---
Author Organization [facility] Address [address] [place] [address] Care Team Providers Care Patient Access Name Role Phone Unknown, Provider Primary Care Provider Reason for Visit * Reason Comments [facility] Clearance Here for [facility] 1 clear ance, denies use of illicit substance today. Arrives alert and oriented, VSS. NAD in triage. Encounter Details Date Type Department Care Team (Late st Contact Info) Description 02/12/2019 14:31 EDT - 02/12/2019 16:36 EDT Emergency [facility] Emergency Department - [facility] [address] [place] [address] Dillon Calixto MD [address] [place] [address], [address] [place] [address] Emergency, MD [place] Cocaine abuse ([facility]) (Primary Dx) Discharge Disposition: Discharged to Other Facility Social History Tobacco Use Types Packs/Day Years [...] encounter Discharge Diagnoses Diagnosis F14.10 Cocaine abuse, uncomplicated-F14.10[ICD-10-CM] documented in this encounter Discharge Instructions * Attachments The following attachments cannot be sent through Care Everywhere. * Drug Overdose: Cocaine (Syrian) documented in this encounter Discharge Disposition Disposition Code Departure Means Destination Discharged to Other Facility Car documented in this encounter ED Notes * Portillo Densi RN - 02/12/2019 1635 EDT AVS reviewed with patient. Discharge vital signs stable. Ambulatory out of department in no acute distress with [facility] senior account representative. * Dillon Calixto MD - 02/12/2019 1556 EDT This patient received an evaluation and medical screening exam for emergent medical conditions at the [facility] on 02/12/2019 Scribe attestation: This documentation is recorded by Jenifer Cortez acting as Scribe under the direction and presence of Dillon Calixto MD. Dillon Calixto MD: I personally performed the services recorded by the scribe in my presence. I confirm the scribe's documentation has been reviewed by me to accurately and completely record my work, treatment, procedures, and medical decision making. HPI Mathew Han is a 53 y.o. male with pertinent medical history who presents to the ED for ACT [facility] clearance. Per patient, he went to [facility] and they sent him here to be medically cleared. He is going to [facility] for cocaine abuse. He [...] their care. Impression Final diagnoses: Cocaine abuse ([facility]) Disposition Disposition decisions were made weighing risks [...] Emergency Department if condition worsens, does not improve as expected, or other new concerns arise. The [...] at departure from the Emergency Department: Stable * Lyle Sheriff - 02/12/2019 1451 EDT TCALL: MATHEW HAN. [id number]. PT REFERRED BY [facility] FOR MEDICAL CLEARANCE FROM COCAINE DETOX.LAST USE WAS YESTERDAY. (YAHIR) documented in this encounter Plan of Treatment Upcoming Encounters Date Type Department Care Team (Late st Contact Info) Description 01/26/2024 7:30 EDT Hospital Encounter [facility] Operating Room [address] [place] [address] [place] [address] [place] [address] 01/26/2024 7:30 EDT - 01/26/2024 10:20 EDT Surgery [facility] Operating Room [address] [place] [address] Agusto Raymond MD [address] [place] [address] OPEN TREATMENT, DISLOCATION, LUNATE BONE [84074 (CPT??)] 02/10/2024 9:45 EDT Office Visit [facility] Spine Program - [address] [address] Jessy Cunningham MD [address] [place] [address] [place] [address] Scheduled Procedures Name Priority Associated Diagnoses Date/Ti me OPEN TREATMENT, DISLOCATION, LUNATE BONE Closed traumatic volar dislocation of lunate bone, right, initial encounter 01/26/2024 7:30 EDT CAPSULORRHAPHY OR RECONSTRUCTION, WRIST, OPEN Closed traumatic volar dislocation of lunate bone, right, initial encounter 01/26/2024 7:30 EDT documented as of this encounter Visit Diagnoses Diagnosis Cocaine abuse ([facility])- Primary Cocaine abuse, unspecified Closed traumatic volar dislocation of lunate bone, right, initial encounter documented in this encounter Care Teams Patient Access Relationship Specialty Start Date End Date Unknown, Provider, PCP - General 02/12/19 documented as of this encounter
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
[2024-01-20] MEDS: Lidocaine 5% Patch 2 PATCH TP (15:43)
[2024-01-20] MEDS: Gabapentin 300 MG CAP PO (15:43)
[2024-01-20] MEDS: Cyclobenzaprine 10 MG TAB PO (15:43)
== END 2024-01-20 15:40 | disposition home or self-care (01) ==
PROVIDERS: Emergency Provider Student in an Organized Health Care Education/Training Program; PCP Internal Medicine
DX: M54.50 Low back pain, unspecified (principal); I10 Essential (primary) hypertension; E78.00 Pure hypercholesterolemia, unspecified
CPT/HCPCS: 99283

== ENCOUNTER 2024-01-24 13:04 | Emergency (ER) | payer OTHER, SELFPAY ==
[2024-01-24 13:14] VITALS: RESP 16; TEMP 36.7
--- NOTE | 2024-01-24 13:45 | DI.RAD_ITS ---
Exam(s) XR HIP PELVIS ADULT BL EXAM: XR HIP PELVIS ADULT BL CLINICAL HISTORY: BACK PAIN. TECHNIQUE: 2D digital imaging was performed of the pelvis and bilateral hips. Three images were obt ained. AP pelvis and lateral views of both hips were obtained. COMPARISON: CT CT CHEST PE ABD PELVIS W from 08/23/2022 FINDINGS: BONES: No acute fracture is present. No bony destructive lesion is seen. JOINTS: No dislocation present. The hips are well maintained. There are mild degenerative changes se en at the sacroiliac joints. The symphysis pubis is unremarkable. SOFT TISSUE: Vascular calcifications are present. IMPRESSION: 1. Unremarkable radiographs of bilat hips. 2. Please refer to the x-ray of the lumbar spine for details on the L5 compression fracture deformity . DATA REPOSITORY: RADIATION DOSE DELIVERED:
--- NOTE | 2024-01-24 14:39 | DI.RAD_ITS ---
Exam(s) XR LUMBAR SPINE AP, LAT EXAM: XR LUMBAR SPINE AP, LAT CLINICAL HISTORY: BACK PAIN. TECHNIQUE: 2D digital imaging was performed of the lumbar spine. Three images were obtained. AP, l ateral, right oblique, left oblique and L5-S1 spot views were obtained. COMPARISON: CT CT CHEST PE ABD PELVIS W from 08/23/[address] CHEST PE CTA from 09/20/2023 FINDINGS: BONES: There is a new compression fracture of L5. This was not present on the most recent evaluation of this area which was 08/23/2022. There is loss of approximately 50 percent of the height of the elizabeth tebral body. There is retropulsion noted into the spinal canal. No other lumbar spine fracture is s een. Small osteophyte is seen at the superior endplate of L3. No facet hypertrophy identified. DISKS: There is disc space narrowing at T12-L1. ALIGNMENT: Lumbar spinal alignment is within normal limits. No spondylolysis or spondylolisthesis. SOFT TISSUE: Normal. IMPRESSION: Compression fracture of L5 with loss of approximately 50 percent of the height of the vertebral body. Retropulsion into the spinal canal is noted. This is of indeterminate age. CT scan of the lumbar spine is recommended for further evaluation. DATA REPOSITORY: RADIATION DOSE DELIVERED:
--- NOTE | 2024-01-24 15:30 | DI.CT_ITS ---
Exam(s) CT LUMBAR SPINE WO EXAM: CT LUMBAR SPINE WO CLINICAL HISTORY: L5 compression fx, retropulsion. TECHNIQUE: Imaging Protocol: Axial computed tomography images with coronal and sagittal reformatted images were created and reviewed COMPARISON: CR XR LUMBAR SPINE AP, LAT from 01/24/2024 FINDINGS: Bones: The last intervertebral disc space is designated the L5/S1 level for the numbering purpose of this examination. Acute appearing compression fracture of the L5 vertebral body with greater than 50 percent loss of he ight. Mild retropulsion into the central canal by few millimeters. The remaining vertebral body hei ghts are well maintained. No posterior element fractures. Alignment is satisfactory. T12-L1: No disc herniations or bulges are present. L1-2: No disc herniations or bulges are present. L2-3: No disc herniations or bulges are present. L3-4: No disc herniations or bulges are present. L4-5: Mild disc bulging. L5-S1: No disc herniations or bulges are present. The visualized SI joints and sacrum are well maintained. Soft Tissues: The paraspinal soft tissues are unremarkable. IMPRESSION: L5 compression fracture of greater than 50 percent with retropulsion of few millimeters. RADIATION DOSE DELIVERED: 808.71mGy.cm Total DLP DATA REPOSITORY: All CT scans at this facility are submitted to the National Radiology Data Registry (NRDR) Dose Index Registry (DIR) with the [employer] ([employer]). RADIATION OPTIMIZATION: All CT scans at this facility use at least one of these dose optimization te chniques: automated exposure control; mA and/or kV adjustment per patient size (includes targeted exa ms where dose is matched to clinical indication); or iterative reconstruction.
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
[2024-01-24] MEDS: Acetaminophen 500 MG TAB 1000 MG PO (16:06)
[2024-01-24] MEDS: oxyCODONE 5 MG TAB PO (16:07)
[2024-01-24] MEDS: Lidocaine 5% Patch 1 PATCH TP (16:07)
[2024-01-24] MEDS: Ketorolac 10 MG TAB PO (16:07)
--- NOTE | 2024-01-24 17:24 | DI.VRAD_ITS ---
PROCEDURE INFORMATION: Exam: CT Lumbar Spine Without Contrast Exam date and time: 01/24/2024 4:17 PM Age: 58 years old Clinical indication: Other: L5 compression FX, retropulsion TECHNIQUE: Imaging protocol: Computed tomography of the lumbar spine without contrast. Radiation optimization: All CT scans at this facility use at least one of these dose optimization techniques: automated exposure control; mA and/or kV adjustment per patient size (includes targeted exams where dose is matched to clinical indication); or iterative reconstruction. COMPARISON: CR XR LUMBAR SPINE AP, LAT 01/24/2024 2:33 PM FINDINGS: Bones/joints: There is an acute compression fracture seen in the L5 vertebral body with greater than 50% loss in vertebral body height. There is retropulsion of fracture fragments into the spinal canal causing at least mild spinal canal stenosis. Mild multilevel degenerative disc disease and bilateral facet arthropathy noted causing mild bilateral neural foraminal narrowing at L4-L5. Soft tissues: Unremarkable. IMPRESSION: 1. Significant compression fracture in the L5 vertebral body with retropulsion of fracture fragments causing at least mild spinal canal stenosis. 2. Mild degenerative changes noted. Dictated and Authenticated by: Clara Kellogg MD. Ordering:LAKESHA Medel MD
[2024-01-24 17:38] VITALS: BP 102/63; PULSE 80; RESP 18; TEMP 37; O2SAT 96
== END 2024-01-24 19:15 | disposition home or self-care (01) ==
PROVIDERS: Emergency Provider Physician Assistant; PCP Internal Medicine; Referring Provider Student in an Organized Health Care Education/Training Program; Visit Provider Physician Assistant
DX: S32.050D Wedge compression fracture of fifth lumbar vertebra, subsequent encounter for fracture with routine healing (principal); V89.2XXD Person injured in unspecified motor-vehicle accident, traffic, subsequent encounter
CPT/HCPCS: 73521; 99284; 72100; 72131

== ENCOUNTER 2024-05-31 18:12 | Outpatient (REF) | payer OTHER, SELFPAY ==
--- OUTSIDE RECORDS SUMMARY | 2024-05-31 18:14 | XMS_ITS ---
Author Organization Unknown Address [address] [place] [address] [phone] Phone Care Team Providers Care Mend Worker Name Role Phone SAI PRINCE Attending Unavailable Social History Type Status Start Date End Date Code Code Syst em Sex Male Hospital Discharge Instructions Should you have any questions prior to discharge, please contact a member of your healthcare team. If you have left the hospital and have any questions, please contact your primary care physician. Reason For Referral No Data Found Plan of Treatment No Data Found Encounters Encounter Diagnosis Start Date Code Code Sys tem Other symptoms and signs inv olving cognitive functions and awareness 02/15/2024 SNOMED-CT Personal Care Team Section Performer Name Performer Role Active Date Inactive Da te
--- OUTSIDE RECORDS SUMMARY | 2024-05-31 18:14 | XMS_ITS | Encounter Summary ---
Author Organization [facility] Address [facility] [place] [address] Care Team Providers Care Outside Plant Supervisor Name Role Phone Philip Eduardo MD Primary Care Provider [phone] Reason for Visit * Reason Comments Follow-up CAST OFF XR RIGHT WRIST FRACTURE AND THUMB DISLOCATION Encounter Details Date Type Department Care Team (Late st Contact Info) Description 04/27/2024 2:30 PM EST Office Visit [place] [address] Savana Madrigal PA [facility] [place] [address] Closed fracture dislocation of lunate bone of right wrist with routine healing, subsequent encounter; Closed displaced Nestor's fracture of right thumb with malunion Social History Tobacco Use Types Packs/Day Years Used Date Smoking Tobacco: Never Smokeless Tobacco: Never Alcohol Use Standard Drinks/Week Comments Not Currently 0 (1 standard drink = 0.6 oz pure alcohol) Hasn't had a drink since 2009 [facility] Inpatient Questions Answer Date Recorded Does Anyone Try to Keep You From Having Contact with Others or Doing Things Outside Your Home? no 03/03/2024 Feels Threatened by Someone no 02/15 Feels Unsafe at Home or Work/School no 03/03/2024 Physical Signs of Abuse Present no 03/03/2024 Sex and Gender Information Value Date Recorded Sex Assigned at Not on file Gender Identity Not on file Sexual Orientation Not on file documented as of this encounter Last Filed Vital Signs Vital Sign Reading Time Taken Comments Blood Pressure - - Pulse - - Temperature - - Respiratory Rate - - Oxygen Saturation - - Inhaled Oxygen Concentration - - Weight 90.7 kg (200 lb) 04/27/2024 2:26 PM EST Height 180.3 cm (5' 11) 04/27/2024 2:26 PM EST Body Mass Index 27.89 04/27/2024 2:26 PM EST documented in this encounter Progress Notes * Savana Madrigal PA - 04/27/2024 2:30 PM EST Images from the original note were not included. PATIENT NAME: Mathew Han AGE: 58 y.o. MR#: [id number] DATE OF VISIT: 04/27/2024 SURGERY: Right distal radius ORIF, lunate dislocation ORIF with ligament repairs, wrist bridge plating, 1st metacarpal base ORIF DOS 03/03/24 (Dr. Benoit) CHIEF COMPLAINT: 8 weeks s/p right distal radius ORIF, lunate dislocation ORIF with ligament repairs, wrist bridge plating, 1st metacarpal base HISTORY OF PRESENT ILLNESS: Mr. Han is a right hand dominant 58 y.o. male who comes into clinic today for evaluation of the right hand and wrist. The patient has a history significant for CKD,HTN, gout. Patient sustained a right distal radius fracture, lunate dislocation, Nestor fracture in December 2023 initially treated at [facility] with subsequent transfer of care to our facility in February 2024 now s/p right distal radius ORIF, lunate dislocation ORIF with ligament repairs, wrist bridge plating, 1st metacarpal base. The patient reports no pain in the hand or wrist with the exception of the base of the 5th metacarpal base, and 2 places at the base of the thumb. He reports unchanged dorsal thumb numbness. Medications and Allergies were reviewed in eD-[facility] PAST MEDICAL HX: No past medical history on file. PAST SURGICAL HX: Past Surgical History: Procedure Laterality Date PRO OPEN REPAIR WRIST DISLOCATION Right 03/03/2024 OPEN TREATMENT RADIOCARPAL-INTERCARPAL DISLOCATION (WRVU 8.09) performed by Petey Benoit MD [facility] PRO OPEN RX DISTAL RADIUS FX, INTRA-ARTICULAR, 2 FRAG Right 03/03/2024 ORIF DISTAL RADIUS, INTRA-ARTICULAR FX.TWO SEG. (WRVU 11.07) performed by Petey Benoit MD at [facility] OSC PRO OPEN TX CARPOMETACARPAL FRACTURE DISLOCATE THUMB Right 03/03/2024 OPEN TX. CARPOMETACARPAL FX. DISLOCATION, THUMB, W W/O FIXATION (WRVU 7.94) performed by Petey Benoit MD at [facility] FAMILY HX: No family history on file. SOCIAL HX: Social History Occupational History Not on file Tobacco Use Smoking status: Never Smokeless tobacco: Never Vaping Use Vaping status: Never Used Substance and Sexual Activity Alcohol use: Not Currently Comment: Hasn't had a drink since 2009 Drug use: Not Currently Sexual activity: Not on file ROS: Constitutional: Denies fevers, chills Respiratory: Denies cough GI: denies vomiting Skin: Denies new rashes or lesions Neuro: Positive for numbness Musculoskeletal: as above in HPI 03/02/2024 General Health, Prior Treatments, PreExisting Condition, Health Habits, About You PROMIS-10 General Health Very Good PROMIS-10 Quality of Life Good PROMIS-10 Physical Health Very Good PROMIS-10 Mental Health Very Good PROMIS-10 Social Activity Very Good PROMIS-10 Everyday Activities Mostly PROMIS-10 Pain 3 PROMIS-10 Fatigue Mild PROMIS-10 Social Roles Very Good PROMIS-10 Anxious or Depressed Sometimes PROMIS PHYSICAL SCORE (range 16-68) 50.8 PROMIS MENTAL SCORE (range 21-68) 48.3 Treatments Tried Regular exercise Brace Alzheimers or dementia No Cirrohosis or liver disease No HIV/AIDS No Pain in more than one joint in legs No Back or neck pain Yes Heart attack No Heart failure Yes Unclog/bypass leg arteries No Stroke, blood clot, TIA No Asthma No Emphysema, chronic bronchities, or COPD No Stomach ulcers/peptic ulcer disease No Diabetes No Poor kidney function No Rheumatic condtions No Cancer No Weight (lbs) 198 Height (feet) 5 feet Height (Inches) 10 BMI 28.41 (Overweight) Ever used tobacco products No Ever used alcoholic beverages Yes Alcohol frequency Never WHO - Alcohol Advice 0 (You are at low risk of health and other problems from your current pattern of use.) Live Alone No Marital situation Schooling Some college or 2 - year degree Combined Household Income $75,000 or more # People Supported 3 Mauritanian, , No, not Mauritanian// Race White Health Literacy Extremely Currently working Yes Current job situation Full-time Employment status before injury Currently working Returned to previous employment Yes Working at same capacity as before injury No Spending time in inpatient rehab facility No Rate overall condition today 8 Multiple values from one day are sorted in reverse-chronological order No data to display No data to display PHYSICAL EXAM: Mr. Han is a 58 y.o. male General appearance: in no acute distress, alert, cooperative Psych: cooperative with exam, appropriate Head: normocephalic, atraumatic EENT: EOMI grossly intact Neck: supple, trachea midline Cardiac: regular rate and rhythm by peripheral pulse Lungs: non-labored respirations Musculoskeletal: RUE Inspection: Well-healed incisions. Without drainage or erythema. No skin tenting. Palpation: Exquisitely tender to palpation over prominent pins over the base of the fifth metacarpal as well as over the base of the thumb. ROM: Full digit 2 through 4 range of motion. Full thumb IP joint range of motion. Neurovascular: SGILT R/M/U/Ax nerve distributions; AIN/PIN/U nerves fire; 2+ radial pulse DIAGNOSTIC STUDIES: Rigth wrist and thumb XR were personally reviewed and demonstrate unchanged alignment of the wrist with hardware in maintained alignment. ASSESSMENT: 8 weeks s/p right distal radius ORIF, lunate dislocation ORIF with ligament repairs, wrist bridge plating, 1st metacarpal base PLAN: -The patient was counseled that there does not appear to be any skin tenting on physical exam todaynor do the pins appear to be changed on x-ray today. The patient will return to a cast. He will remain nonweightbearing with the right upper extremity. - Fiberglass short arm thumb spica cast applied today. - He will return for follow up on 05/16/24 for cast off, XR, bivalved cast application prior to surgery on 05/20/23. - The patient understands to contact us if they have any other questions or concerns. Savana Madrigal PA-C Department of Orthopaedics [facility] documented in this encounter Plan of Treatment Upcoming Encounters Date Type Department Care Team (Late st Contact Info) Description 06/08/2024 3:45 PM EST Appointment XRay at [address] [place] [address] Petey Benoit MD [facility] [place]OPAED[place] [address] 06/08/2024 4:30 PM EST Office Visit Orthopaedics at [facility] [place] [phone] Petey Benoit MD [facility] [place] [address] documented as of this encounter Results * XR Wrist 3 Views Right (05/16/2024 10:11 AM EST) Infer WORKSTATION ID [id number] RAD Anatomical Region Laterality Modality Right Digital Radiogra phy Impressions 05/16/2024 10:39 AM EST 1. Osseous bridging at Nestor fracture site and no hardware complications. 2. Lunate dislocation remains reduced. 3. The radial styloid fracture line is obliterated. 4. Unchanged and uncomplicated fixation hardware. Thank you for letting us participate in the care of this patient. ??If you are a health care provider and have any questions regarding this report, please contact the number below. ??For patients who have questions please contact the health acute care registered nurse that requested your imaging first. ? Narrative 05/16/2024 10:39 AM EST EXAMINATION: XR WRIST 3 VIEWS RIGHT CLINICAL HISTORY: Entered by ordering service: right wrist fracture S62.121D, Displaced fracture of lunate (semilunar), right wrist, subsequent encounter for fracture with routine healing - S62.221P, Displaced Nestor's fracture, right hand, subsequent encounter for fracture with malunion TECHNIQUE: RIGHT wrist, 3 view[s] COMPARISON: Multiple examination since March 03, 2024. FINDINGS: Recent ORIF of intra-articular fracture of distal radius, ORIF of lunate dislocation and ORIF of displaced Nestor fracture of thumb metacarpal base. Bones First metacarpal- the Nestro fracture is fixated by K wires. The fracture lines are near completely obliterated. No hardware complications. Distal radius-ORIF of radial styloid fracture with plate and screws. The fracture lucency is no longer visible. Unchanged and uncomplicated fixation hardware. Lunate-K wires traversing the scapholunate and lunotriquetral intervals. The coaxial alignment is maintained Uncomplicated bridge plate expanding third metacarpal and distal radial shafts. Ulna-tiny nonunited bone fragments distal to ulna styloid. Joints Radiocarpal joint- congruent Distal radioulnar joint- congruent Scapholunate [SL] interval - ??normal Basal joint- normal alignment Scaphoid trapezial trapezoid [STT] joint- ??normal alignment. Soft Tissue Minimal residual soft tissue swelling Procedure Note Lisa Rodriguez MD - 05/16/2024 EXAMINATION: XR WRIST 3 VIEWS RIGHT CLINICAL HISTORY: Entered by ordering service: right wrist fracture S62.121D, Displaced fracture of lunate (semilunar), right wrist,subsequent encounter for fracture with routine healing - S62.221P, DisplacedRolando's fracture, right hand, subsequent encounter for fracture with malunion TECHNIQUE: RIGHT wrist, 3 view[s] COMPARISON: Multiple examination since March 03, 2024. FINDINGS: Recent ORIF of intra-articular fracture of distal radius, ORIF of lunate dislocation and ORIF of displaced Nestor fracture of thumb metacarpalbase. Bones First metacarpal- the Nestor fracture is fixated by K wires. The fracture lines are near completely obliterated. No hardware complications. Distal radius-ORIF of radial styloid fracture with plate and screws. The fracture lucency is no longer visible. Unchanged and uncomplicatedfixation hardware. Lunate-K wires traversing the scapholunate and lunotriquetral intervals.The coaxial alignment is maintained Uncomplicated bridge plate expanding third metacarpal and distal radialshafts. Ulna-tiny nonunited bone fragments distal to ulna styloid. Joints Radiocarpal joint- congruent Distal radioulnar joint- congruent Scapholunate [SL] interval - normal Basal joint- normal alignment Scaphoid trapezial trapezoid [STT] joint- normal alignment. Soft Tissue Minimal residual soft tissue swelling IMPRESSION 1. Osseous bridging at Nestor fracture site and no hardwarecomplications. 2. Lunate dislocation remains reduced. 3. The radial styloid fracture line is obliterated. 4. Unchanged and uncomplicated fixation hardware. Thank you for letting us participate in the care of this patient. If youare a health care provider and have any questions regarding this report,please contact the number below. For patients who have questions please contactthe health acute care registered nurse that requested your imaging first. Petey Benoit MD IMG DX ORDERABLES documented in this encounter Visit Diagnoses Diagnosis Closed fracture dislocation of lunate bone of right wrist with routine healing, subsequent encounter Closed displaced Nestor's fracture of right thumb with malunion Closed fracture dislocation of lunate bone of right wrist with routine healing, subsequent encounter Closed displaced Nestor's fracture of right thumb with malunion documented in this encounter Care Teams Outside Plant Supervisor Relationship Specialty Start Date End Date Philip Eduardo MD [address] [place] [id number] PCP - General General Internal Medicine 02/29/24 documented as of this encounter
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
--- OUTSIDE RECORDS SUMMARY | 2024-05-31 18:14 | XMS_ITS | Encounter Summary ---
Author Organization [facility] [place] [address] Care Team Providers Care Form Setter Steel Pan Forms Name Role Phone Philip Eduardo MD Primary Care Provider [phone] Reason for Visit * Reason Comments Follow-up Closed displaced Rol ando's fracture of right thumb with malunion Encounter Details Date Type Department Care Team (Late st Contact Info) Description 05/16/2024 10:00 AM EST Office [place] [address] Closed displaced Nestor's fracture of right thumb with malunion Social History Tobacco Use Types Packs/Day Years Used Date Smoking Tobacco: Never Smokeless Tobacco: Never Alcohol Use Standard Drinks/Week Comments Not Currently 0 (1 standard drink = 0.6 oz pure alcohol) Hasn't had a drink since 2009 [facility] Inpatient Questions Answer Date Recorded Does Anyone [...] on file documented as of this encounter Progress Notes * Milena Fountain - 05/16/2024 10:00 AM EST Mathew Han presents to the clinic for a cast off per Dr. Benoit. The cast was intact upon arrival. The patient was explained how the cast saw works and the cast was removed. The patient tolerated this procedure well. The patient's skin was intact.The patient was then sent to x-ray. documented in this encounter Plan of Treatment Upcoming Encounters Date Type Department Care Team (Late st Contact Info) Description 06/08/2024 3:45 PM EST Appointment XRay at [address] [place] [address] Petey Benoit MD [facility] [place] [address] 06/08/2024 4:30 PM EST Office Visit Orthopaedics at [facility] [place] [phone] Petey Benoit MD [facility] [place] [address] documented as of this encounter Visit Diagnoses Diagnosis Closed displaced Nestor's fracture of right thumb with malunion documented in this encounter Care Teams Form Setter Steel Pan Forms Relationship Specialty Start Date End Date Philip Eduardo MD [address] [place] [id number] PCP - General General Internal Medicine 02/29/24 documented as of this encounter
--- OUTSIDE RECORDS SUMMARY | 2024-05-31 18:14 | XMS_ITS | Encounter Summary ---
Author Organization [facility] [place] [address] Care Team Providers Care Facility Sales And Admin Name Role Phone Philip Eduardo MD Primary Care Provider Reason for Visit * Auth/Cert (Routine) Specialty Diagnoses / Procedures Referred By Bridget t Referred To Contact Diagnoses Retained orthopedic hardware symptomatic hardware s/p surgery Procedures PRO REMOVAL DEEP IMPLANT REMOVAL OF IMPLANT, DEEP, UPPER EXTREMITY (WRVU 5.96) Rick Benoit MD [facility] [place]OP[facility] [address] [facility] Referral ID Status Reason Start Date Expiration Date Visits Re quested Visits Authorized [id number] 1 1 Encounter Details Date Type Department Care Team (Late st Contact Info) Description 05/17/2024 2:08 PM EST - 05/17/2024 3:43 PM EST Surgery [place] [address] Rick Benoit MD [facility]THOPAED[facility] [place] [address] REMOVAL OF IMPLANT, DEEP, UPPER EXTREMITY (WRVU 5.96) Social History Tobacco Use Types Packs/Day Years Used Date Smoking Tobacco: Never Smokeless Tobacco: Never Alcohol Use Standard Drinks/Week Comments Not Currently 0 (1 standard drink = 0.6 oz pure alcohol) Hasn't had a drink since 2009 [facility] Inpatient Questions Answer Date Recorded Does Anyone [...] Sign Reading Time Taken Comments Blood Pressure 147/97 05/17/2024 2:00 PM EST Pulse 65 05/17/2024 2:00 PM EST Temperature 36 ??C (96.8 ??F) 05/17/2024 1:15 PM EST Respiratory Rate 12 05/17/2024 2:00 PM EST Oxygen Saturation 98% 05/17/2024 2:00 PM EST Inhaled Oxygen Concentration - - Weight 95.7 kg (211 lb) 05/17/2024 1:02 PM EST Height 180.3 cm (5' 11) 05/17/2024 1:02 PM EST Body Mass Index 29.43 05/17/2024 1:02 PM EST documented in this encounter Discharge Instructions * Discharge Instructions* Chasity Gleason RN - 05/17/2024 1:36 PM EST General Anesthesia Discharge Instructions Go home and rest. You may be sleepy for several hours. Take it easy as sudden position changes may cause nausea and/or dizziness. Use caution on stairs. Do not smoke if you are alone. Follow a light to regular diet as tolerated today. If nausea occurs, start with clear liquids, and progress slowly to a regular diet. Do not drive, operate machinery, drink alcoholic beverages or make any legal decisions after havinggeneral anesthesia. The medications given change your reaction time and alter your judgement. IV site -- slight redness is normal, you can use warm compresses. If tenderness and redness increases or foul drainage occurs, please contact your M.D. Patients who have had endotracheal tubes/LMA (tubes used by the anesthesia staff to ensure a safe airway during your operation) may have a sore throat. This is normal and cold liquids or soothing lozenges will help ease this discomfort. Narcotic pain medications can cause constipation, please ask the surgeons office what they recommend for prevention of this. Some non-pharmaceutical means of constipation prevention include increasing intake of fluids, eating more fruits and vegetables as well as fruit juices. If you are uncomfortable and/or unable to urinate within 8 hours of discharge and it is before 5 pm, call your physician. If it is after 5pm go to the closest emergency room or call the hospital sonoscope operator at [phone] and ask for physician acquisition manager covering for your physician. Questions or problems after 5pm or on a weekend: Call the [facility] sonoscope operator at and ask for the physician acquisition manager covering for your doctor. At 1:15 pm you received 975 mg of acetaminophen- Your next dose should not be taken before 8 hours have passed or as advised by your provider. Next dose not before- 9:15 pm. You should not take more than a total of 3000 mg of acetaminophen in a 24 hour period. * Patient Instructions* Natalia Salinas PA - 05/17/2024 7:13 AM EST Orthopaedic Hand Surgery Same Day Discharge Instructions: General Activities Diet: Start light and progress as tolerated. No alcoholic beverages on the day of surgery or while taking narcotics. If taking narcotics, make sure you are getting plenty of fluids and fiber. In general, care should be taken the first several days following surgery to limit strenuous activity. You want to avoid any activities that you may lose your balance, slip, trip, fall or re-injure your surgery. You may shower tomorrow. Cover your dressing/cast with a plastic bag to keep it dry. No driving while taking narcotic medications or wearing a device (splint, cast, sling, brace) that limits joint mobility. When you feel you can safely control your vehicle and respond to unpredictable situations you may resume driving. Hand Use Decreased sensation for several hours following surgery is often from the local anesthesia used during the procedure. This will resolve on its own. If a regional anesthetic was used, wear your sling until you regain full function of your limb, andkeep a close eye on the positioning of your arm and hand. When you have regained function and sensation you may then remove the sling. Do not use your operative hand for any lifting, pushing or pulling. You may move your elbow and shoulder as tolerated. Gentle exercises with any exposed fingers are encouraged and gently opening and closing the digits will keep the joints flexible. Specific activities and exercises will be discussed at your first postoperative visit. Ice and elevation Some swelling is expected after surgery. Ice and elevation are the best remedies to reduce swellingand pain. Keep your hand properly elevated above the level of the heart i.e., fingers above palm, palm above the wrist, wrist above the elbow. Use pillows to increase elevation. Intermittently apply ice to the outside of the dressing for 20 minutes 6-8 times a day. You will want to ice and elevate for 5-7 days after surgery or as long as it hurts. Do not rely on a sling as it does not sufficiently elevate your hand. For proper elevation while walking around place your surgical hand on your opposite shoulder. Dressing/ Wound: The post-op dressing, splint or cast is a very important part of your treatment. If you have any questions please call us for clarification. If your dressing becomes wet or damaged please call the office. No creams, lotions or ointments on your incision. Keep steri-strips in place. They will fall off ontheir own Keep your dressing clean and DRY until your follow-up appointment. Do not change your dressing. If a plaster splint or a cast has been applied --do not remove it or stick objects in it (i.e. coathangers, pencils). Please keep it dry, bag it for showers and keep out of running water. If it becomes wet you must call the office. Pain Management Most patients only require narcotics for a short period of time. Ice and elevation is an effective and important modality to use in conjunction with your oral pain medication. In a day or two you maybe ready to start decreasing the amount of pain medication your taking. Pain medication is to be taken on an ???as needed?if needed?? basis. Remember to start with the least amount and evaluate its effectiveness. You should not drink alcoholic beverages while on pain medication. If tolerated, please take Tylenol three times a day in conjunction with the narcotic as they complement each other. Once pain is better controlled, you may simply take extra strength Tylenol, one to two tablets every six hours as needed. Do not exceed 3,000 mg in 24 hours. The most common side effects of narcotic pain medications are nausea and constipation. To decrease nausea always take pain medication with food. If you are experiencing vomiting, please call us rightaway. To minimize constipation, drink plenty of fluids, eat a high fiber diet with plenty of fruitsand vegetables, and take a stool softener or laxative as needed. You may take an anti-inflammatory medication such as Ibuprofen/Advil/Motrin or Naproxen/Aleve. Refer to the medication bottles for daily allowance and dosing. Discontinue if it causes stomach upset. Contact Information: During clinic hours M-F 8-4:30 please call [phone] If it is after 5:00PM on a weekday or a weekend and it is of an urgent nature please call [phone] and ask for the on-call orthopaedic resident. Call if: You have a fever greater than 101 F or experience chills Increased drainage from incision Redness or extreme swelling around incision Increased pain or change in pain that is not controlled with elevation, ice and your pain medication. Any questions concerns related to surgery Future Appointments Date Time Provider Department Center 06/03/2024 1:30 PM CAST ROOM 3A [facility] [address] [place] [address] 06/03/2024 2:15 PM [facility] DX ROOM 1 Xray [facility] Rad 06/03/2024 3:00 PM Natalia Salinas PA [address] documented in this encounter Medications at Time of Discharge Medication Sig Dispensed Refills Start Date End Date oxyCODONE (Roxicodone) 5 mg tablet Take 1 tablet by mouth every 6 hours as needed for Pain (post-op pain). 12 tablet 05/17/2024 lisinopriL (Zestril) 20 mg tablet Take 1 tablet by mouth Daily at Noon. 02/04/2024 lidocaine (Lidoderm) 5% Adhesive Patch, Medicated Change 1 patch on the skin every 12 hours. 01/20/2024 rosuvastatin (Crestor) 10 mg tablet Take 1 tablet by mouth Daily at Noon. 02/04/2024 fexofenadine (RACHEL) 60 mg TabletIndications:CKD (chronic kidney disease), unspecified stage Take 60 mg by mouth as needed. allopurinol (ZYLOPRIM) 100 mg Tablet Take 2 tablets by mouth daily. 60 tablet 11 02/07/2016 colchicine (MITIGARE) 0.6 mg Capsule Take 0.6 mg by mouth daily as needed. 30 capsule 1 02/07/2016 documented as of this encounter Progress Notes * Liz Abel RN - 05/17/2024 4:33 PM EST Discharge instructions and medications reviewed with patient and escort. All questions answered andwritten copy sent home with patient. Patient ambulated to car for discharge accompanied by [facility] staff member. documented in this encounter H&P Notes * Natalia Salinas PA - 05/17/2024 2:11 PM EST Patient Name: Mathew Han Patient Age: 58 y.o. Birthdate: 1965 Admit date: 05/17/2024 Attending Physician: Rick Benoit MD Pre-op H&P: The patient's history and physical exam have been reviewed and completed. There has been no interval change from that of the pre-operative history and physical exam done within the last 30 days. Physical Exam: General: NAD CV: RRR Pulm: Non-labored respiration Operative site: Marked Patient eligible to proceed to the OR as planned. THOMAS Du, 05/17/2024, 1411 documented in this encounter Miscellaneous Notes * Brief Op Note - Rick Benoit MD - 05/17/2024 4:06 PM EST Brief Operative Note Patient Name: Mathew Han : [id number] MR#: [id number] Case Date: 05/17/2024 Surgeon: Surgeons and Role: * Rick Benoit MD - Primary * Natalia Salinas PA - Physician Chief [facility] Preoperative diagnosis: Retained deep orthopedic hardware right thumb and wrist Postoperative diagnosis: Retained deep orthopedic hardware right thumb and wrist Procedure(s) (LRB): REMOVAL OF IMPLANT, DEEP, UPPER EXTREMITY (WRVU 5.96) (Right) Modifiers: : THOMAS/SAVANNA assistant scientist surgeon (no qualified resident available) Anesthesia: General/supraclavicular block Complications: None Intake: Intraprocedure Crystalloid Total Intake sodium chloride 0.9% 900.00 mL Total Intake 900 mL Output Blood Loss 0 mL Total Output 0 mL Net Net Volume 900 mL Transfusion No data found in the last 1 encounters. Output: Estimated Blood Loss: 0 mL Urine Output:: (no urine output recorded) Other Output: (no other output recorded) Drains: None Disposition: awakened from anesthesia, extubated and taken to the recovery room in a stable condition, having suffered no apparent untoward event. Condition: doing well without problems Attestation: Case Date: 05/17/2024 No qualified resident available. * Op Note - Rick Benoit MD - 05/17/2024 2:38 PM EST [facility] Operative Note Patient Name: Mathew Han : [id number] MR#: [id number] Case Date: 05/17/2024 Surgeon: Surgeons and Role: * Rick Benoit MD - Primary * Natalia Salinas PA - Physician Chief [facility] Preoperative diagnosis: Retained deep orthopedic hardware right thumb and wrist Postoperative diagnosis: Retained deep orthopedic hardware right thumb and wrist Procedures: Excision of deep buried orthopedic implants right thumb and right wrist Anesthesia: General/supraclavicular block Operative indications: Mathew Han is a 58-year-old male who sustained a right lunate dislocation, an intra-articular right distal radius fracture, and a Nestor fracture of his right thumb metacarpal base. These were managed by me surgically with ORIF of his distal radius, ORIF of his Nestor fracture of his right thumb, ligament repair and pinning of his carpus, application of a bridge plate across his right wrist on 03/03/2024. His fractures have now healed and the hardware is no longer needed. He was now brought back to the operating room for removal of his orthopedic hardware inorder to allow him to begin range of motion of his right thumb and wrist. This procedure was done with a physician's assistant scientist because there was no qualified resident available to assist. Summary of procedures: After both general and right supraclavicular block anesthesia were performed, and 2 g of intravenous cefazolin were administered, the patient's right upper extremity was prepped with a Hibiclens scrub and a ChloraPrep. His right upper extremity was draped in the usual sterilefashion. A preoperative timeout was performed as per [facility] protocol. His right arm was exsanguinatedwith an Esmarch bandage and a brachial tourniquet was inflated to 900 mmHg. The pins stabilizing the thumb metacarpal fracture were first localized with fluoroscopy. Two incisions were made over the radial border of his right thumb metacarpal that incorporated the pin sites.Subcutaneous spreading and each of the 4 pins in the thumb metacarpal was identified and removed intheir entirety. The surgical sites were irrigated and then they were closed using 4-0 nylon sutures. I then made another incision over the radial aspect of his right wrist utilizing his original scar.Subcutaneous spreading was performed with care being taken to avoid injury to subcutaneous nerves and blood vessels. The radial sensory nerve was protected.. The radial styloid plate was identified with blunt dissection. The screws were first removed from the plate without difficulty. The pins in the distal end of the plate were also removed without difficulty in their entirety. Two additional radial styloid pins were removed and additional pins were exposed fixing the scaphoid to the lunate and the scaphoid to the capitate. All of these pins were removed. An incision was then made over the ulnar styloid pins. Subcutaneous spreading was performed and these pins were identified and grasped with a needle livery car driver. They were removed from the carpus without difficulty. There were no remaining Kwires present in the hand or wrist. An incision was made over the proximal end of the dorsal bridge plate and another incision was madeover the distal end of the bridge plate utilizing the original scars. Subcutaneous spreading was performed in each site and tendons were retracted. The 4 screws in the proximal end of the plate were identified and they were removed without difficulty. The 3 screws in the third metacarpal were identified with blunt dissection and they were removed without difficulty. The plate was gently mobilizedand removed without difficulty. Fluoroscopy was then done and all hardware was found to be removed with the exception of a suture anchor in the lunate. All fractures appear to be well-healed and the c arpus remained well aligned. There was no other retained hardware noted, and no acute fractures were sustained. The incision sites over the radial aspect of the wrist, over the third metacarpal, and over the dorsum of the radius were all irrigated. They were all closed using 4-0 nylon sutures. A total of 7 cc of 1% lidocaine with epinephrine was injected into the incision sites. Sterile soft dressings were applied and the tourniquet was released with a tourniquet time was 67 minutes. All digits rapidly became pink with brisk capillary refill. A palmar plaster splint was applied followed by a sling to hisright arm. He was then extubated and transferred to the recovery room in stable condition. There was no measurable blood loss. IV fluid replacement was 900 cc of crystalloid. He tolerated the procedures well without apparent complications. At the time of suture removal he can be converted to a removable brace and he can start wrist and thumb range of motion at the time of that visit. Attestation: Case Date: 05/17/2024 No qualified resident available. RICK BENOIT MD 05/17/2024 documented in this encounter Plan of Treatment Upcoming Encounters Date Type Department Care Team (Late st Contact Info) Description 06/08/2024 3:45 PM EST Appointment XRay at [address] [place] [address] Rick Benoit MD [facility] [place]OP[facility] [address] 06/08/2024 4:30 PM EST Office Visit [facility]opaedics [facility] [place] [address] Rick Benoit MD [facility]OP[facility] [address] documented as of this encounter Procedures Procedure Name Priority Date/Time Associated Diagnosis Comments XR FLUORO NO RAD <1HR - OR USE Routine 05/17/2024 3:59 PM EST Removal Deep Implant (25725) 05/17/2024 2:20 PM EST Retained orthopedic hardware REMOVAL OF IMPLANT, DEEP, UPPER EXTREMITY Routine 05/17/2024 12:56 PM EST Retained orthopedic hardware documented in this encounter Results * XR Fluoro No Rad <1Hr - OR Use (05/17/2024 3:59 PM EST) Narrative Dicom, Auditing User - 05/17/2024 4:01 PM EST This exam is auto-finalizing. No interpretation was done. Rick Benoit MD IMG FLUORO ORDERABLE S documented in this encounter Visit Diagnoses Diagnosis Retained orthopedic hardware Reserved for inherently not codable concepts WITHOUT codable children S/P hardware removal R wrist 05/17/24 Dr. Benoit Retained orthopedic hardware Reserved for inherently not codable concepts WITHOUT codable children documented in this encounter Administered Medications Inactive Administered Medications - up to 3 most recent administrations Medication Order MAR Action Action Date Dose Rate Site acetaminophen (Tylenol) tablet 975 mg 975 mg (rounded from 1,000 mg), Oral, ONCE, 1 dose, On Thu05/17/24 at 0630 Given 05/17/2024 1:14 PM EST 975 mg lidocaine-EPINEPHrin e (1% - 1:100,000) injection PRN, Starting on Thu05/17/24 at 1548, Until Thu05/17/24 at 1854, Intra-Operative (Intra-Procedure), Routine Given 05/17/2024 3:48 PM EST 7 mLs 19- Surgical Site midazolam (pf) (Versed) (1 mg/mL) injection 1 mg 1 mg, Intravenous, EVERY 5 MIN PRN, Starting on Thu05/17/24 at 1256, Until Thu05/17/24 at 1644, Other, sedation or prior to injection of local anesthetic, Hold for delirium/agitation. (Maximum dose 5 mg)., Day of Surgery (Day of Procedure), Routine Given 05/17/2024 1:53 PM EST 2 mg sodium chloride 0.9% infusion 1,000 mL, at 100 mL/hr, Intravenous, CONTINUOUS, Starting on Thu05/17/24 at 1315, Until Thu05/17/24 at 1644, Day of Surgery (Day of Procedure) New Bag 05/17/2024 1:33 PM EST 1,000 mLs 100 mL/hr documented in this encounter Active and Recently Administered Medications Times are shown in EST. Scheduled Medication Order 05/15/2024 05/16/2024 05/17/2024 acetaminophen (Tylenol) tablet 975 mg (COMPLETED) 975 mg (rounded from 1,000 mg), Oral, ONCE, 1 dose, On Thu05/17/24 at 0630 1314 (Given - Provid er: Chasity Gleason RN) ceFAZolin (Ancef) (100 mg/mL) injection solution 2 g (COMPLETED) 2 g, Intravenous, LABEL PRINTER TO O.R., 1 dose, On Thu05/17/24 at 0730, To be prepared by and administered by Anesthesia. Reconstitute each ceFAZolin 1 gram vial with 10 mL of NS or SWFI = 100 mg/mL May inject IV without further dilution over 3 to 5 minutes., Indication for (Active or Suspected): Prophylaxis 1428 (New Bag - Prov ider: Portillo Wyatt CRNA) Continuous Medication Order 05/15/2024 05/16/2024 05/17/2024 sodium chloride 0.9% infusion (CANCELED) 1,000 mL, at 100 mL/hr, Intravenous, CONTINUOUS, Starting on Thu05/17/24 at 1315, Until Thu05/17/24 at 1644, Day of Surgery (Day of Procedure) 1333 (New Bag - Prov ider: Chasity Gleason RN) PRN Medication Order 05/15/2024 05/16/2024 05/17/2024 lidocaine-EPINEPHrine (1% - 1:100,000) injection (CANCELED) PRN, Starting on Thu05/17/24 at 1548, Until Thu05/17/24 at 1854, Intra-Operative (Intra-Procedure), Routine 1548 (Given - Provid er: Rick Benoit MD) midazolam (pf) (Versed) (1 mg/mL) injection 1 mg (CANCELED) 1 mg, Intravenous, EVERY 5 MIN PRN, Starting on Thu05/17/24 at 1256, Until Thu05/17/24 at 1644, Other, sedation or prior to injection of local anesthetic, Hold for delirium/agitation. (Maximum dose 5 mg)., Day of Surgery (Day of Procedure), Routine 1353 (Given - Provid er: Anh Amin RN) documented in this encounter Care Teams Facility Sales And Admin Relationship Specialty Start Date End Date Philip Eduardo MD [address] [place] [id number] PCP - General General Internal Medicine 02/29/24 documented as of this encounter
--- OUTSIDE RECORDS SUMMARY | 2024-05-31 18:14 | XMS_ITS | Encounter Summary ---
Author Organization [facility] [place] [address] Care Team Providers Care Marble Worker Name Role Phone Philip Eduardo MD Primary Care Provider Encounter Details Date Type Department Care Team (Latest Contact Info) Description 04/27/2024 Travel Social History Tobacco Use Types Packs/Day Years Used Date Smoking Tobacco: Never Smokeless Tobacco: Never Alcohol Use Standard Drinks/Week Comments Not Currently 0 (1 standard drink = 0.6 oz pure alcohol) Hasn't had a drink since 2009 [facility] Inpatient Questions Answer Date Recorded Does [...] 06/08/2024 3:45 PM EST Appointment XRay at [address] [place] [address] Petey Benoit MD [facility] [place] [address] 06/08/2024 4:30 PM EST Office Visit Orthopaedics at [facility] [place] [id number] Petey Benoit MD [facility] [place] [address] documented as of this encounter Visit Diagnoses Not on filedocumented in this encounter Care Teams Marble Worker Relationship Specialty Start Date End Date Philip Eduardo MD [address] [address] PCP - General General Internal Medicine 02/29/24 documented as of this encounter
--- OUTSIDE RECORDS SUMMARY | 2024-05-31 18:14 | XMS_ITS | Clinical Summary ---
Author Organization [facility] Address [facility] [place] [address] Care Team Providers Care Coal Screener Name Role Phone Philip Eduardo MD Primary Care Provider Allergies No known active allergies Medications Medication Sig Dispensed Refills Start Date End Date Status fexofenadine (RACHEL) 60 mg TabletIndications:C KD (chronic kidney disease), unspecified stage Take 60 mg by mouth as needed. Active allopurinol (ZYLOPRIM) 100 mg Tablet Take 2 tablets by mouth daily. 60 tablet 11 02/07/2016 Active Additional Information Patient taking differently:200 mg OralPRN, Reported on 02/11/2024 colchicine (MITIGARE) 0.6 mg Capsule Take 0.6 mg by mouth daily as needed. 30 capsule 1 02/07/2016 Active lisinopriL (Zestril) 20 mg tablet Take 1 tablet by mouth Daily at Noon. 02/04/2024 Active lidocaine (Lidoderm) 5% Adhesive Patch, Medicated Change 1 patch on the skin every 12 hours. 01/20/2024 Active rosuvastatin (Crestor) 10 mg tablet Take 1 tablet by mouth Daily at Noon. 02/04/2024 Active oxyCODONE (Roxicodone) 5 mg tablet Take 1 tablet by mouth every 6 hours as needed for Pain (post-op pain). 12 tablet 05/17/2024 Active Active Problems Problem Noted Date Diagnosed Date S/P hardware removal R wrist 05/17/24 Dr. Shanell moreira 05/17/2024 Retained orthopedic hardware 03/16/2024 Closed fracture dislocation of lunate of right w rist 03/02/2024 Closed displaced Nestor's f racture of right thumb with malunion 03/02/2024 Chronic kidney disease 09/10/2017 Microscopic hematuria 09/10/2017 Hypertension 09/10/2017 Gout 09/10/2017 Encounters Date Type Department Care Team Description 05/23/2024 Orders Only Orthopa[facility] at [place] [phone] Natalia Salinas PA Closed fracture dislocation of lunate of right wrist, initial encounter 05/17/2024 2:16 PM EST Anesthesia Event [facility] [place] [phone] Donal Marr III, MD Nguyen, Tung T, MD 05/17/2024 2:08 PM EST - 05/17/2024 3:43 PM EST Surgery [facility] [place] [address] Petey Benoit MD REMOVAL OF IMPLANT, DEEP, UPPER EXTREMITY (WRVU 5.96) 05/17/2024 12:46 PM EST - 05/17/2024 4:54 PM EST Hospital Encounter [facility] [place] [address] Petey Benoit MD Retained orthopedic hardware Discharge Disposition: Home 05/16/2024 11:00 AM EST Office Visit [place] [address] Petey Benoit MD Closed displaced Nestor's fracture of right thumb with malunion 05/16/2024 10:30 AM EST Office Visit [place] [address] Antoine Villegas, OT Closed displaced Nestor's fracture of right thumb with malunion; Retained orthopedic hardware; Closed fracture dislocation of lunate of right wrist, initial encounter; Closed fracture dislocation of lunate bone of right wrist with routine healing, subsequent encounter; Injury of right hand including fingers, initial encounter; Right wrist injury, initial encounter 05/16/2024 10:00 AM EST Office [place] [address] Closed displaced Nestor's fracture of right thumb with malunion 05/16/2024 9:50 AM EST - 05/16/2024 11:59 PM EST Hospital Encounter XRay at [address] [place] [address] Petey Benoit MD Closed fracture dislocation of lunate bone of right wrist with routine healing, subsequent encounter; Closed displaced Nestor's fracture of right thumb with malunion Discharge Disposition: Home 05/16/2024 Travel 04/27/2024 2:30 PM EST Office [place] [phone] Savana Madrigal PA Closed fracture dislocation of lunate bone of right wrist with routine healing, subsequent encounter; Closed displaced Nestor's fracture of right thumb with malunion 04/27/2024 2:00 PM EST - 04/27/2024 11:59 PM EST Hospital Encounter XRay at [address] [place] [address] Petey Benoit MD Closed fracture dislocation of lunate bone of right wrist with routine healing, subsequent encounter; Closed displaced Nestor's fracture of right thumb with malunion Discharge Disposition: Home 04/27/2024 1:45 PM EST Office Visit [place] [phone] Closed displaced Nestor's fracture of right thumb with malunion 04/27/2024 Travel 04/08/2024 Orders [place] [phone] Petey Benoit MD Closed displaced Nestor's fracture of right thumb with malunion; Closed fracture dislocation of lunate bone of right wrist with routine healing, subsequent encounter 03/18/2024 Telephone [place] [phone] Petey Benoit MD Appointment 03/16/2024 1:00 PM EDT Office Visit [place] [address] Petey Benoit MD Retained orthopedic hardware (Primary Dx); Closed displaced Nestor's fracture of right thumb with malunion; Closed fracture dislocation of lunate bone of right wrist with routine healing, subsequent encounter 03/16/2024 10:30 AM EDT Office Visit [place] [phone] Closed displaced Nestor's fracture of right thumb with malunion 03/16/2024 9:52 AM EDT - 03/16/2024 11:59 PM EDT Hospital Encounter XRay at [address] [place] [address] Petey Benoit MD Closed fracture dislocation of lunate bone of right wrist with routine healing, subsequent encounter; Injury of right hand including fingers, initial encounter Discharge Disposition: Home 03/16/2024 Travel 03/03/2024 9:37 AM EDT Anesthesia Event [facility] [place] [address] Maryjane Estrada MD Fuller, Mitchell, MD 03/03/2024 9:20 AM EDT - 03/03/2024 1:10 PM EDT Surgery [facility] [place] [phone] Petey Benoit MD OPEN TREATMENT RADIOCARPAL-INTERCA RPAL DISLOCATION (WRVU 8.09) 03/03/2024 8:24 AM EDT - 03/03/2024 2:45 PM EDT Hospital Encounter [facility] [place] [address] Petey Benoit MD Closed fracture dislocation of lunate of right wrist, initial encounter Discharge Disposition: Home 03/03/2024 Orders [place] [address] Petey Benoit MD Closed fracture dislocation of lunate bone of right wrist with routine healing, subsequent encounter; Injury of right hand including fingers, initial encounter 03/02/2024 2:30 PM EDT Office [place] [address] Petey Benoit MD Closed fracture dislocation of lunate of right wrist, initial encounter (Primary Dx) 03/02/2024 11:31 AM EDT - 03/02/2024 11:59 PM EDT Hospital Encounter CT Scan at [facility] [place] [address] Petey Benoit MD Injury of right hand including fingers, initial encounter; Right wrist injury, initial encounter Discharge Disposition: Home 03/02/2024 11:00 AM EDT - 03/02/2024 11:30 AM EDT Hospital Encounter XRay at [address] [place] [address] Petey Benoit MD Injury of right hand including fingers, initial encounter; Right wrist injury, initial encounter Discharge Disposition: Home 03/02/2024 Travel 03/02/2024 Orders Only Orthopaedics at [facility] [place] [address] Petey Benoit MD Injury of right hand including fingers, initial encounter; Right wrist injury, initial encounter 02/29/2024 Transcribe Orders eDH Incoming Referrals [phone] Chaya Arzola PA Other dislocation of right wrist and hand, initial encounter from Last 3 Months Social History Tobacco Use Types Packs/Day Years Used Date Smoking Tobacco: Never Smokeless Tobacco: Never Alcohol Use Standard Drinks/Week Comments Not Currently 0 (1 standard drink = 0.6 oz pure alcohol) Hasn't had a drink since 2009 [facility] Inpatient Questions Answer Date Recorded Does Anyone [...] Sign Reading Time Taken Comments Blood Pressure 142/93 05/17/2024 4:30 PM EST Pulse 70 05/17/2024 4:30 PM EST Temperature 36.3 ??C (97.3 ??F) 05/17/2024 3:55 PM ES T Respiratory Rate 18 05/17/2024 4:15 PM EST Oxygen Saturation 98% 05/17/2024 4:30 PM EST Inhaled Oxygen Concentration - - Weight 95.7 kg (211 lb) 05/17/2024 1:02 PM EST Height 180.3 cm (5' 11) 05/17/2024 1:02 PM EST Body Mass Index 29.43 05/17/2024 1:02 PM EST Plan of Treatment Upcoming Encounters Date Type Department Care Team (Late st Contact Info) Description 06/08/2024 3:45 PM EST Appointment XRay at [address] [place] [address] Petey Benoit MD [facility] [place] [address] 06/08/2024 4:30 PM EST Office Visit Orthopaedics at [facility] [place] [address] Petey Benoit MD [facility] [place] [address] Health Maintenance Due Date Last Done Comments CT Colonography 1967 Colonoscopy 1967 Colorectal Cancer Screening 1967 FIT DNA 1967 FIT 1967 Sigmoidoscopy (10 year) with FIT yearly 1967 Sigmoidoscopy 1967 HIV screen 1985 Hepatitis C Screening 1985 Hepatitis B vaccine (0-59 yrs) (1) 1986 Tetanus/Diphtheria/Pertussis Vaccines (1 - Tdap) 1986 Pneumoccocal Vaccine: 50+ (1 of 1 - PCV) 2017 Zoster vaccine (1 of 2) 2017 Diabetes Screening (HgbA1C or Glucose) 09/09/2020, 02/07/2016 Advance Directive 2022 Covid-19 Vaccine (1 - season) 2024 Influenza (Flu) vaccine (1 o f 1 - Influenza standard series) 01/17/2024 Medical Devices Explanted Type Area Db2 Developer Device Identifier Shelf Expiration Date Model / Serial / Lot Screw 2.7x30mm Nlck Ft Ti Variax ([id number]) (Autoreq) - [id number] Explanted:Qty: 1 on 03/03/[address] [facility] IMPLANTS Right: [facility] [employer] - [place]AMALA [id number] / / Screw 2.7x8mm Lck Ft Ti Variax ([id number]) (Autoreq) - [id number] Explanted:Qty: 1 on 03/03/[address] [facility] IMPLANTS Right: [facility] [employer] - [place]A [id number] / / Suture [place] Full Thread 2.2mm 2-0 Fiberwire Sdrill ([id number]) - [id number] Implanted:Qty: 1 on 03/03/2024 by Petey Benoit MD at [facility] Explanted:Qty: 1 on 05/17/2024 by Petey Benoit MD at [facility] IMPLANTS Right: [facility] [place] [id number] 09/14/2028 [id number] / / [id number] Screw 2.7x24mm Lck Ft Ti Variax ([id number]) (Autoreq) - [id number] Implanted:Qty: 1 on 03/03/2024 by Petey Benoit MD at [facility] Explanted:Qty: 1 on 05/17/2024 by Petey Benoit MD at [facility] IMPLANTS Right: [facility] [employer] - [place] [id number] / / Screw 2.7x32mm Lck Ft Ti Variax ([id number]) (Autoreq) - [id number] Implanted:Qty: 1 on 03/03/2024 by Petey Benoit MD at [facility] Explanted:Qty: 1 on 05/17/2024 by Petey Benoit MD at [facility] IMPLANTS Right: Arm [employer] - [place] [id number] / / Screw 3.0x12mm Lck Multi Thread Gold Ti Freefix ([id number]) - [id number] Implanted:Qty: 1 on 03/03/2024 by Petey Benoit MD at [facility] Explanted:Qty: 1 on 05/17/2024 by Petey Benoit MD at [facility] IMPLANTS Right: Arm SKELET[employer] - SKELETAL D [facility]-3012 0-TS / / Kwire Implanted:Qty: 1 on 03/03/2024 by Petey Benoit MD at [facility] Explanted:Qty: 1 on 05/17/2024 by Petey Benoit MD at [facility] Right: Thumb 292.16 / / Multi Thread Compression Screw Implanted:Qty: 1 on 03/03/2024 by Petey Benoit MD at [facility] Explanted:Qty: 1 on 05/17/2024 by Petey Benoit MD at [facility] Right: Arm MTNL-3010 0-TS / / Multi Thread Compression Implanted:Qty: 1 on 03/03/2024 by Petey Benoit MD at [facility] Explanted:Qty: 1 on 05/17/2024 by Petey Benoit MD at [facility] Right: Arm MSNL-3014 0-TS / / Multithread Screw Implanted:Qty: 5 on 03/03/2024 by Petey Benoit MD at [facility] Explanted:Qty: 5 on 05/17/2024 by Petey Benoit MD at [facility] Right: Arm [facility]-3014 0-TS / / K Wire Implanted:Qty: 2 on 03/03/2024 by Petey Benoit MD at [facility] Explanted:Qty: 2 on 05/17/2024 by Petey Benoit MD at [facility] Right: Arm [id number] / / Plate Mini Frag Implanted:Qty: 1 on 03/03/2024 by Petey Benoit MD at [facility] Explanted:Qty: 1 on 05/17/2024 by Petey Benoit MD at [facility] Right: Arm [id number] / / Plate Skeletal Dynamics Implanted:Qty: 1 on 03/03/2024 by Petey Benoit MD at [facility] Explanted:Qty: 1 on 05/17/2024 by Petey Benoit MD at [facility] Right: Arm GMN-DSP-2 10 / Procedures Procedure Name Priority Date/Time Associated Diagnosis Comments XR FLUORO NO RAD <1HR - OR USE Routine 05/17/2024 3:59 PM EST Removal Deep Implant () 05/17/2024 2:20 PM EST Retained orthopedic hardware ANESTHESIA BLOCK Routine 05/17/2024 1:55 PM EST REMOVAL OF IMPLANT, DEEP, UPPER EXTREMITY Routine 05/17/2024 12:56 PM EST Retained orthopedic hardware XR WRIST 3 VIEWS RIGHT Routine 4 10:11 AM EST Closed fracture dislocation of lunate bone of right wrist with routine healing, subsequent encounter Closed displaced Nestor's fracture of right thumb with malunion XR FINGER(S) MIN 2 VIEWS RIGHT Routine 04/27/2024 2:13 PM EST Closed displaced Nestor's fracture of right thumb with malunion XR WRIST 3 VIEWS RIGHT Routine 4 2:13 PM EST Closed fracture dislocation of lunate bone of right wrist with routine healing, subsequent encounter XR FINGER(S) MIN 2 VIEWS RIGHT Routine 03/16/2024 10:29 AM EDT Injury of right hand including fingers, initial encounter XR WRIST 3 VIEWS RIGHT Routine 4 10:29 AM EDT Closed fracture dislocation of lunate bone of right wrist with routine healing, subsequent encounter XR FLUORO NO RAD <1HR - OR USE Routine 03/03/2024 6:21 PM EDT ORIF DISTAL RADIUS, INTRA-ARTICULAR FX.TWO SEG. Routine 03/03/2024 1:21 PM EDT Closed fracture dislocation of lunate of right wrist, initial encounter Open Rx Distal Radius Fx, Intra-Articular, 2 Frag ([id number]) Yes 03/03/2024 9:38 AM EDT Closed fracture dislocation of lunate of right wrist, initial encounter MODIFIER VARIAX 2 LOCKING MINI FRAGMENT KAMALA Yes 03/03/2024 9:38 AM EDT Closed fracture dislocation of lunate of right wrist, initial encounter Open Tx Carpometacarpal Fracture Dislocate Thumb ([id number]) Yes 03/03/2024 9:38 AM EDT Closed fracture dislocation of lunate of right wrist, initial encounter Open Repair Wrist Dislocation ([id number]) Yes 03/03/2024 9:38 AM EDT Closed fracture dislocation of lunate of right wrist, initial encounter ANESTHESIA BLOCK Routine 03/03/2024 9:22 AM EDT OPEN TX. CARPOMETACARPAL FX. DISLOCATION, THUMB, W W/O FIXATION Routine 03/03/2024 6:59 AM EDT Closed fracture dislocation of lunate of right wrist, initial encounter OPEN TREATMENT RADIOCARPAL-INTERCARPAL DISLOCATION Routine 03/03/2024 6:59 AM EDT Closed fracture dislocation of lunate of right wrist, initial encounter CT UPPER EXTREMITY RECONSTRUCTION STAT 03/02/2024 12:15 PM EDT Injury of right hand including fingers, initial encounter Right wrist injury, initial encounter CT HAND WO CONTRAST RIGHT STAT 03/02/2024 12:15 PM EDT Injury of right hand including fingers, initial encounter Right wrist injury, initial encounter XR WRIST 3 VIEWS RIGHT Routine 11:23 AM EDT Injury of right hand including fingers, initial encounter Right wrist injury, initial encounter XR FINGER(S) MIN 2 VIEWS RIGHT Routine 03/02/2024 11:23 AM EDT Injury of right hand including fingers, initial encounter Right wrist injury, initial encounter COMPREHENSIVE METABOLIC PANEL Routine 09/09/2017 2:25 PM EDT Chronic kidney disease, unspecified CKD stage Hypertension, unspecified type Hematuria, unspecified type from Last 3 Months or Most Recently Relevant to Health Maintenance Results * XR Fluoro No Rad <1Hr - OR Use (05/17/2024 3:59 PM EST) Only the most recent of2 resultswithin the time period is included. Narrative Dicom, Auditing User - 05/17/2024 4:01 PM EST This exam is auto-finalizing. No interpretation was done. Petey Benoit MD IMG FLUORO ORDERABLE S * Anesthesia Block (05/17/2024 1:55 PM EST) Only the most recent of2 resultswithin the time period is included. Narrative Donal Marr III, MD - 05/17/2024 1:55 PM EST Donal Marr III, MD ? 05/17/2024 ??2:00 PM Anesthesia Block Date/Time: 05/17/2024 1:55 PM Start Time: ??05/17/2024 1:55 PM End Time: ??05/17/2024 2:00 PM Patient Location: ??Block Room Indication: ??Post-op Pain Control Post-op pain management at the request of surgeon. ?? Block Type: ??Supraclavicular nerve block Laterality: ??Right Position: ??Supine Prep: ??Chlorhexidine, patient draped and mask, cap, sterile gloves, hand hygeine Skin Anesthetic: ??Skin Anesthetic: ??Lidocaine 1% ??dose: ??3 Block Technique: ?? SonoPlex ?? 21 ?? 10 cmUltrasound Guided: ??YES, in-plane Ultrasound Image Saved ?? Ultrasound guidance was used to identify the targeted neuronal structure. Ultrasound was also used to identify needle position and to identify tissue (bone, muscle, and blood vessels) to prevent inadvertent intraneural or intravascular needle placement and injection. The spread of local anesthetic was confirmed with live ultrasound imaging. ?Single-Shot: ??Single-shot Local Anesthetic Volume(s) Injected for Nerve Block: ?? BUpivacaine 0.5% - Perineural 25 mL - 05/17/2024 1:55:00 PM Nerve Sensory/MotorTest: ??Events: no complications ?? Notes: ?? Target structures, needle, and local anesthetic spread were visualized under US guidance for the duration of the procedure. No blood aspirated, no pain on injection, no paresthesias. No needle to nerve contact was observed on ultrasound. Performed by: ?? Attending Physician: ? Donal Marr III, MD Authorized by: Donal Marr III, MD ?? Donal Marr III, MD PLUG MAKER [facility] * XR Wrist 3 Views Right (05/16/2024 10:11 AM EST) Only the most recent of4 resultswithin the time period is included. WORKSTATION ID [id number] RAD Anatomical Region Laterality Modality Right Digital [...] who have questions please contact the health manager intensive care that requested your imaging first. ? Narrative [...] thumb metacarpal base. Bones First metacarpal- the Nestor fracture is [...] patients who have questions please contactthe health manager intensive care that requested your imaging first. Electronically signed by: Lisa Rodriguez MD, [facility]([phone]), at 05/16/2024 10:39 AM Petey Benoit MD IMG DX ORDERABLES * XR Fingers Min 2 views Right (Generic) (04/27/2024 2:13 PM EST) Only the most recent of3 resultswithin the time period is included. [employer] Signature WORKSTATION ID [id number] RAD Anatomical Region Laterality Modality Hand Right Digital Radiogra phy Impressions 04/27/2024 2:47 PM EST 1. ??Status post ORIF of a radiocarpal dislocation, first metacarpal base fracture, and scapholunate diastasis. 2. ??No evidence of complication. 3. ??Post reduction alignment is unchanged I have personally reviewed the image(s) and the resident's interpretation and agree with the findings, Lisa Rodriguez MD at 04/27/2024 2:47 PM Thank you for letting us participate in the care of this patient. ??If you are a health care provider and have any questions regarding this report, please contact the number below. ??For patients who have questions please contact the health manager intensive care that requested your imaging first. ? Electronically signed by: Lisa Rodriguez MD, [facility] ([phone]), at 04/27/2024 2:47 PM Narrative 04/27/2024 2:47 PM EST EXAMINATION: XR WRIST 3 VIEWS RIGHT, XR FINGERS MIN 2 VIEWS RIGHT (GENERIC) CLINICAL HISTORY: R wrist fx. R thumb disolaction S62.121D, Displaced fracture of lunate (semilunar), right wrist, subsequent encounter for fracture with routine healing (accession [id number]), S62.221P, Displaced Nestor's fracture, right hand, subsequent encounter for fracture with malunion (accession [id number]) TECHNIQUE: * ??Three views of the right wrist. * ??Three views of the right thumb. COMPARISON: Hand radiographs 03/16/[address] 02/21/2024 FINDINGS: Status post ORIF of a radiocarpal dislocation, first metacarpal base fracture, and scapholunate diastasis. Extensive hardware is intact and unchanged. No lucency or back out. Radiocarpal and intercarpal post reduction alignment is maintained. Comminuted first metacarpal base fracture with interval callus deposition and osseous bridging. Post reduction alignment is maintained. Normal interphalangeal alignment. Minimally displaced ulnar styloid fracture, unchanged. Procedure Note Lisa Rodriguez MD - 04/27/2024 EXAMINATION: XR WRIST 3 VIEWS RIGHT, XR FINGERS MIN 2 VIEWS RIGHT(GENERIC) CLINICAL HISTORY: R wrist fx. R thumb disolaction S62.121D, Displaced fracture of lunate (semilunar), right wrist,subsequent encounter for fracture with routine healing (accession [id number]),S62.221P, Displaced Nestor's fracture, right hand, subsequent encounter forfracture with malunion (accession [id number]) TECHNIQUE: * Three views of the right wrist. * Three views of the right thumb. COMPARISON: Hand radiographs 03/16/[address] 02/21/2024 FINDINGS: Status post ORIF of a radiocarpal dislocation, first metacarpal basefracture, and scapholunate diastasis. Extensive hardware is intact and unchanged.No lucency or back out. Radiocarpal and intercarpal post reduction alignment is maintained. Comminuted first metacarpal base fracture with interval callus depositionand osseous bridging. Post reduction alignment is maintained. Normalinterphalangeal alignment. Minimally displaced ulnar styloid fracture, unchanged. IMPRESSION 1. Status post ORIF of a radiocarpal dislocation, first metacarpal base fracture, and scapholunate diastasis. 2. No evidence of complication. 3. Post reduction alignment is unchanged I have personally reviewed the image(s) and the resident's interpretationand agree with the findings, Lisa Rodriguez MD at 04/27/2024 2:47 PM Thank you for letting us participate in the care of this patient. If youare a health care provider and have any questions regarding this report,please contact the number below. For patients who have questions please contactthe health manager intensive care that requested your imaging first. Electronically signed by: Lisa Rodriguez MD, [facility]([phone]), at 04/27/2024 2:47 PM Petey Benoit MD IMG DX ORDERABLES * CT Upper Extremity Reconstruction (03/02/2024 12:15 PM EDT) [employer] Signature WORKSTATION ID [id number] RAD Anatomical Region Laterality Modality Hip, Leg, Knee, Thigh, Ankle, Foot Computed Tomography Impressions 03/02/2024 1:56 PM EDT 1. ??Displaced radial styloid fracture with a radiocarpal volar dislocation. ??Of note, the lunate, and scaphoid are perched against the volar margin of the distal radius. 2. ??Additional multiple comminuted fractures of hamate, triquetrum and the 5th metacarpal base as above. 3. ??Severely comminuted fracture 1st metacarpal base with extension into 1st CMC with callus deposition likely subacute injury. 4. ??Markedly diastases of scapholunate interval compatible with scapholunate ligament tear. Thank you for letting us participate in the care of this patient. ??If you are a health care provider and have any questions regarding this report, please contact the number below. ??For patients who have questions please contact the health manager intensive care that requested your imaging first. ? Electronically signed by: Viet Shaw MD, [facility] ([phone]), at 03/02/2024 1:56 PM Narrative 03/02/2024 1:56 PM EDT EXAMINATION: CT HAND WO CONTRAST RIGHT (GENERIC), CT UPPER EXTREMITY RECONSTRUCTION CLINICAL HISTORY: Right -displaced fx of 1st metatarsal,displaced fx of the radial styloid, triquetral fx and volar wrist dislocation Doi 01/14/2024 S69.91XA, Unspecified injury of right wrist, hand and finger(s), initial encounter - S69.91XA, Unspecified injury of right wrist, hand and finger(s), initial encounter TECHNIQUE: CT examination of right hand and right wrist performed without administration of intravenous contrast. ??On an independent workstation, 3-D surface rendered reformats are generated.. COMPARISON: None FINDINGS: Bone/joints: There is displaced radial styloid fracture. ??The distal major fragment shows 1 cm volar displacement with resultant articular surface incongruity. ??The entire carpus as a unit is volarly dislocated and disarticulated with the distal radius. ?? The lunate and scaphoid appears to be perched against volar margin of the distal radius (series 309 image 42).Marked scapholunate interval diastases 1 cm A tiny osseous fragment in distribution of TFCC with unclear donor site, likely from adjacent triquetrum. Mildly comminuted fracture along dorsal margin of hamate (se 309 im 64). Additional impaction fracture of distal hamate at the 5th CMC (series 309 im 65) with 4 mm depression of the subchondral bone plate. There is mild cortical irregularity of 5th metatarsal base, suspicious for a minimally displaced impaction injury (series 309 im 67). Minimally comminuted impaction fracture of distal pole of the triquetrum (series 308 im 61) There is severely comminuted fracture of 1st metacarpal base with intra-articular extension into 1st CMC. Callus deposition about the fracture indicates this is a subacute injury. The DRUJ, intercarpal joints and MCPs articulations are congruent. Soft tissue: ?? Diffuse soft tissue swelling of the wrist. ??The extensor and flexor tendons are grossly intact by CT. ??No significant tenosynovitis. Procedure Note Viet Shaw MD - 03/02/2024 EXAMINATION: CT HAND WO CONTRAST RIGHT (GENERIC), CT UPPER EXTREMITY RECONSTRUCTION CLINICAL HISTORY: Right -displaced fx of 1st metatarsal,displaced fx ofthe radial styloid, triquetral fx and volar wrist dislocation Doi 01/14/2024 S69.91XA, Unspecified injury of right wrist, hand and finger(s), initial encounter - S69.91XA, Unspecified injury of right wrist, hand andfinger(s), initial encounter TECHNIQUE: CT examination of right hand and right wrist performed withoutadministration of intravenous contrast. On an independent workstation, 3-D surfacerendered reformats are generated.. COMPARISON: None FINDINGS: Bone/joints: There is displaced radial styloid fracture. The distal major fragmentshows 1 cm volar displacement with resultant articular surface incongruity. Theentire carpus as a unit is volarly dislocated and disarticulated with thedistal radius. The lunate and scaphoid appears to be perched against volarmargin of the distal radius (series 309 image 42).Marked scapholunate intervaldiastases 1 cm A tiny osseous fragment in distribution of TFCC with unclear donor site,likely from adjacent triquetrum. Mildly comminuted fracture along dorsal margin of hamate (se 309 im 64). Additional impaction fracture of distal hamate at the 5th CMC (series 309im 65) with 4 mm depression of the subchondral bone plate. There is mild cortical irregularity of 5th metatarsal base, suspicious fora minimally displaced impaction injury (series 309 im 67). Minimally comminuted impaction fracture of distal pole of the triquetrum(series 308 im 61) There is severely comminuted fracture of 1st metacarpal base with intra-articular extension into 1st CMC. Callus deposition about thefracture indicates this is a subacute injury. The DRUJ, intercarpal joints and MCPs articulations are congruent. Soft tissue: Diffuse soft tissue swelling of the wrist. The extensor and flexortendons are grossly intact by CT. No significant tenosynovitis. IMPRESSION 1. Displaced radial styloid fracture with a radiocarpal volardislocation. Of note, the lunate, and scaphoid are perched against the volar margin ofthe distal radius. 2. Additional multiple comminuted fractures of hamate, triquetrum and the5th metacarpal base as above. 3. Severely comminuted fracture 1st metacarpal base with extension [id number] CMC with callus deposition likely subacute injury. 4. Markedly diastases of scapholunate interval compatible withscapholunate ligament tear. Thank you for letting us participate in the care of this patient. If youare a health care provider and have any questions regarding this report,please contact the number below. For patients who have questions please contactthe health manager intensive care that requested your imaging first. Electronically signed by: Viet Shaw MD, [facility]([phone]), at 03/02/2024 1:56 PM Petey Benoit MD IMG CT ORDERABLES * CT Hand wo Contrast Right (Generic) (03/02/2024 12:15 PM EDT) WORKSTATION ID [id number] RAD Anatomical Region Laterality Modality Hand Right Computed Tomogra phy Impressions 03/02/2024 1:56 PM EDT 1. ??Displaced radial styloid fracture with a radiocarpal volar dislocation. ??Of note, the lunate, and scaphoid are perched against the volar margin of the distal radius. 2. ??Additional multiple comminuted fractures of hamate, triquetrum and the 5th metacarpal base as above. 3. ??Severely comminuted fracture 1st metacarpal base with extension into 1st CMC with callus deposition likely subacute injury. 4. ??Markedly diastases of scapholunate interval compatible with scapholunate ligament tear. Thank you for letting us participate in the care of this patient. ??If you are a health care provider and have any questions regarding this report, please contact the number below. ??For patients who have questions please contact the health manager intensive care that requested your imaging first. ? Electronically signed by: Viet Shaw MD, [facility] ([phone]), at 03/02/2024 1:56 PM Narrative 03/02/2024 1:56 PM EDT EXAMINATION: CT HAND WO CONTRAST RIGHT (GENERIC), CT UPPER EXTREMITY RECONSTRUCTION CLINICAL HISTORY: Right -displaced fx of 1st metatarsal,displaced fx of the radial styloid, triquetral fx and volar wrist dislocation Doi 01/14/2024 S69.91XA, Unspecified injury of right wrist, hand and finger(s), initial encounter - S69.91XA, Unspecified injury of right wrist, hand and finger(s), initial encounter TECHNIQUE: CT examination of right hand and right wrist performed without administration of intravenous contrast. ??On an independent workstation, 3-D surface rendered reformats are generated.. COMPARISON: None FINDINGS: Bone/joints: There is displaced radial styloid fracture. ??The distal major fragment shows 1 cm volar displacement with resultant articular surface incongruity. ??The entire carpus as a unit is volarly dislocated and disarticulated with the distal radius. ?? The lunate and scaphoid appears to be perched against volar margin of the distal radius (series 309 image 42).Marked scapholunate interval diastases 1 cm A tiny osseous fragment in distribution of TFCC with unclear donor site, likely from adjacent triquetrum. Mildly comminuted fracture along dorsal margin of hamate (se 309 im 64). Additional impaction fracture of distal hamate at the 5th CMC (series 309 im 65) with 4 mm depression of the subchondral bone plate. There is mild cortical irregularity of 5th metatarsal base, suspicious for a minimally displaced impaction injury (series 309 im 67). Minimally comminuted impaction fracture of distal pole of the triquetrum (series 308 im 61) There is severely comminuted fracture of 1st metacarpal base with intra-articular extension into 1st CMC. Callus deposition about the fracture indicates this is a subacute injury. The DRUJ, intercarpal joints and MCPs articulations are congruent. Soft tissue: ?? Diffuse soft tissue swelling of the wrist. ??The extensor and flexor tendons are grossly intact by CT. ??No significant tenosynovitis. Procedure Note Viet Shaw MD - 03/02/2024 EXAMINATION: CT HAND WO CONTRAST RIGHT (GENERIC), CT UPPER EXTREMITY RECONSTRUCTION CLINICAL HISTORY: Right -displaced fx of 1st metatarsal,displaced fx ofthe radial styloid, triquetral fx and volar wrist dislocation Doi 01/14/2024 S69.91XA, Unspecified injury of right wrist, hand and finger(s), initial encounter - S69.91XA, Unspecified injury of right wrist, hand andfinger(s), initial encounter TECHNIQUE: CT examination of right hand and right wrist performed withoutadministration of intravenous contrast. On an independent workstation, 3-D surfacerendered reformats are generated.. COMPARISON: None FINDINGS: Bone/joints: There is displaced radial styloid fracture. The distal major fragmentshows 1 cm volar displacement with resultant articular surface incongruity. Theentire carpus as a unit is volarly dislocated and disarticulated with thedistal radius. The lunate and scaphoid appears to be perched against volarmargin of the distal radius (series 309 image 42).Marked scapholunate intervaldiastases 1 cm A tiny osseous fragment in distribution of TFCC with unclear donor site,likely from adjacent triquetrum. Mildly comminuted fracture along dorsal margin of hamate (se 309 im 64). Additional impaction fracture of distal hamate at the 5th CMC (series 309im 65) with 4 mm depression of the subchondral bone plate. There is mild cortical irregularity of 5th metatarsal base, suspicious fora minimally displaced impaction injury (series 309 im 67). Minimally comminuted impaction fracture of distal pole of the triquetrum(series 308 im 61) There is severely comminuted fracture of 1st metacarpal base with intra-articular extension into 1st CMC. Callus deposition about thefracture indicates this is a subacute injury. The DRUJ, intercarpal joints and MCPs articulations are congruent. Soft tissue: Diffuse soft tissue swelling of the wrist. The extensor and flexortendons are grossly intact by CT. No significant tenosynovitis. IMPRESSION 1. Displaced radial styloid fracture with a radiocarpal volardislocation. Of note, the lunate, and scaphoid are perched against the volar margin ofthe distal radius. 2. Additional multiple comminuted fractures of hamate, triquetrum and the5th metacarpal base as above. 3. Severely comminuted fracture 1st metacarpal base with extension [id number] CMC with callus deposition likely subacute injury. 4. Markedly diastases of scapholunate interval compatible withscapholunate ligament tear. Thank you for letting us participate in the care of this patient. If youare a health care provider and have any questions regarding this report,please contact the number below. For patients who have questions please contactthe health manager intensive care that requested your imaging first. Electronically signed by: Viet Shaw MD, [facility]([phone]), at 03/02/2024 1:56 PM Petey Benoit MD IMG CT ORDERABLES * (ABNORMAL) Comprehensive metabolic panel (non-fasting) (09/09/2017 2:25 PM EDT) Glucose 89 65 - 199 mg/dL [facility] Comment:Diabetes: >=200 mg/d L plus symptoms Blood Urea Nitrogen 18 10 - 20 mg/dL [facility] Creatinine 1.22 0.80 - 1.50 mg/dL [facility] Sodium 139 135 - 145 mmol/L [facility] Potassium 4.0 3.5 - 5.0 mmol/L [facility] Comment: Please note: ??Patients with WBC >100,000 may have falsely elevated Potassium levels. ??For accurate Potassium quantification in these patients send serum separator tube (gold top) for subsequent determinations. ??Contact the Clinical Chemistry Laboratory if there are any questions. Chloride 101 98 - 107 mmol/L [facility] Carbon Dioxide 24 22 - 31 mmol/L [facility] Anion Gap 14 5 - 15 mmol/L [facility] Calcium 9.3 8.5 - 10.5 mg/dL [facility] Protein, Total 7.5 6.1 - 8.0 gm/dL [facility] Albumin 4.1 3.2 - 5.2 gm/dL [facility] Aspartate Aminotransferase 22 0 - 39 unit/L [facility] Alanine Aminotransferase 36 0 - 55 unit/L [facility] Alkaline Phosphatase 74 40 - 120 unit/L [facility] Bilirubin, Total <0.2(L) 0.2 - 1.3 mg/dL [facility] Est Glomerular Filtration Rate >60 >=60 [facility] Comment: The reported eGFR should be multiplied by 1.2 for patients. The MDRD is not an appropriate measure of renal function for patients with body mass extremes or in patients with acute kidney failure. [email or web address]/DHnkdep [email or web address]/DHMCnkf Blood specimen (specimen) 09/09/2017 2:25 PM EDT 09/09/2017 2:41 PM EDT Narrative Resulting Agency Comment Spec In Lab Dilan Gtz MD CHEMISTRY ORDERABLES [facility] [place] [phone] from Last 3 Months or Most Recently Relevant to Health Maintenance Care Teams Coal Screener Relationship Specialty Start Date End Date Philip Eduardo MD [address] [place] [id number] PCP - General General Internal Medicine 02/29/24
--- OUTSIDE RECORDS SUMMARY | 2024-05-31 18:14 | XMS_ITS | Encounter Summary ---
[place] [address] Care Team Providers Care Object Oriented Developer Name Role Phone Philip Eduardo MD Primary Care Provider [phone] Reason for Visit * Auth/Cert (Routine) Specialty Diagnoses / Procedures Referred By Bridget nettles Referred To Contact Diagnoses Retained orthopedic hardware symptomatic hardware s/p surgery Procedures PRO REMOVAL DEEP IMPLANT REMOVAL OF IMPLANT, DEEP, UPPER EXTREMITY (WRVU 5.96) Petey Benoit MD [facility] [place] [address] [facility] Referral ID Status Reason Start Date Expiration Date Visits Re quested Visits Authorized [id number] 1 1 Encounter Details Date Type Department Care Team (Late st Contact Info) Description 05/17/2024 2:16 PM EST Anesthesia Event [place] [address] Donal Marr III, MD [facility] [place] [address] Greg Garcia MD [facility] [place] [address] Anesthesia Record Procedure Summary Procedure Name Responsible Anesthesiologist Anesthesia Start Time Anesthesia Stop Time REMOVAL OF IMPLANT, DEEP, UPPER EXTREMITY (WRVU 5.96) (Right: Finger) Donal Marr III, MD 05/17/24 1416 05/17/24 1556 Events Date Time Event Comment 05/17/2024 1346 1416 Start 1421 AN Verify 1421 An Start Data 1424 An Induction 1425 An Intubation 1426 Anesthesia Ready 1438 An Tourn Inflated 235 torr 1504 Break/Relief In I assumed ca re for Break Relief before which we: 1. Identified the patient 2. Identified the responsible provider(s) 3. Reviewed the pertinent medical history 4. Discussed the surgical plan and course 5. Reviewed intra-op anesthesia management and issues during anesthesia 6. Set expectations for the relief (and/or post-procedure) period 7. Allowed opportunity for questions and acknowledgement of understanding Karen Grossman CRNA 1521 Break/Relief Out 1546 An Tourn Deflated 1551 an stop data 1556 Recovery or ICU Handoff Lalitha ent care was transferred to the destination unit staff after review of the patient's medical history, current anesthetic/surgical status and plan, according to the Provider Handoff Checklist. 1556 Stop Meds Name Total lidocaine IV 20 mg propofoL 200 mg propofol INF 356.96 mg ePHEDrine 15 mg dexAMETHasone 8 mg ondansetron 8 mg BUpivacaine 0.5% 25 mL ceFAZolin (Ancef) (100 mg/mL) injection solution 2 g 2 g sodium chloride 0.9% 900 mL * Agents Name O2 * Blood No blood administrations on file. Lines, Drains, and Airways Type Details Placement Removal Incision 03/03/24; Right, anterior, distal, lower; arm; adaptic, fluffls, webril, bias, plaster, sling 03/03/24 0000 by Sheila Ramsay, ELEN Supraglottic Mask Ventilation: No t Attempted (0); LMA Type: iGel; LMA Size: 4; Inserted by: Portillo Wyatt CRNA 05/17/24 1425 by Portillo Wyatt CRNA Incision 05/17/24; 1438; Righ t; wrist 05/17/24 1438 by Corona Carmona RN PIV 05/17/24; 1330; dkqh-zwd-qubrtz catheter system; 20 gauge; metacarpal vein (top of hand), left; Anatomical Landmarks; ELEN Sexton; distraction, topical anesthetic spray applied; 0; 05/17/24; 1637 05/17/24 1330 by Chasity Gleason RN 05/17/24 1637 by Liz Abel RN documented in this encounter Social History Tobacco Use Types Packs/Day [...] on file documented as of this encounter OR Notes * Anesthesia Postprocedure Evaluation - Donal Marr III, MD - 05/17/2024 4:47 PM EST Department of Anesthesiology Post-procedure Note Patient: Mathew Han Procedure Summary Date: 05/17/24 Room / Location: [facility] [place] [address] [place] [address] [facility] Anesthesia Start: 1416 Anesthesia Stop: 1556 Procedure: REMOVAL OF IMPLANT, DEEP, UPPER EXTREMITY (WRVU 5.96) (Right: Finger) Diagnosis: Retained orthopedic hardware (symptomatic hardware s/p surgery) Surgeons: Petey Benoit MD Responsible Provider: Donal Marr III, MD Anesthesia Type: general ASA Status: 2 All Anesthesia Providers: Anesthesiologist: Donal Marr III, MD FOLDER MACHINE: Portillo Wyatt CRNA Vitals Value Taken Time BP 142/93 05/17/24 1630 Temp 36.3 ??C (97.3 ??F) 05/17/24 1555 Pulse 73 05/17/24 1638 Resp 18 05/17/24 1615 SpO2 98 % 05/17/24 1632 Pain Score 0 05/17/24 1630 Vitals shown include unfiled device data. Patient Location: PACU/[facility] Level of Consciousness: Awake and Alert Pain Management: Satisfactory Analgesia PONV: None Cardiovascular Status: Hemodynamically Stable Respiratory Status: Stable Respiratory Status and Supplemental O2 (NC or FM) Postoperative Fluid Status: Intravascular EUvolemia Possible Anesthetic Complications: NONE apparent at time of evaluation Final Primary Anesthesia Type: General (The anesthetic type performed was the same as planned.) Comments: Donal Marr III, MD * Anesthesia Procedure Notes - Donal Marr III, MD - 05/17/2024 2:00 PM EST Associated Order(s): Anesthesia Block Anesthesia Block Date/Time: 05/17/2024 1:55 PM Start Time: 05/17/2024 1:55 PM End Time: 05/17/2024 2:00 PM Patient Location: Block Room Indication: Post-op Pain Control Post-op pain management at the request of surgeon. Block Type: Supraclavicular nerve block Laterality: Right Position: Supine Prep: Chlorhexidine, patient draped and mask, cap, sterile gloves, hand hygeine Skin Anesthetic: Skin Anesthetic: Lidocaine 1% dose: 3 Block Technique: SonoPlex 21 10 cmUltrasound Guided: YES, in-plane Ultrasound Image Saved Ultrasound guidance was used to identify the targeted neuronal structure. Ultrasound was also used to identify needle position and to identify tissue (bone, muscle, and blood vessels) to prevent inadvertent intraneural or intravascular needle placement and injection. The spread of local anesthetic was confirmed with live ultrasound imaging. Single-Shot: Single-shot Local Anesthetic Volume(s) Injected for Nerve Block: BUpivacaine 0.5% - Perineural 25 mL - 05/17/2024 1:55:00 PM Nerve Sensory/MotorTest: Events: no complications Notes: Target structures, needle, and local anesthetic spread were visualized under US guidance for the duration of the procedure. No blood aspirated, no pain on injection, no paresthesias. No needle to nerve contact was observed on ultrasound. Performed by: Attending Physician: Donal Marr III, MD Authorized by: Donal Marr III, MD * Anesthesia Preprocedure Evaluation - Donal Marr III, MD - 05/17/2024 8:01 AM EST Pre-Anesthesia Evaluation for: Mathew Stephenfatemeh a 58 y.o. male. Procedure(s): REMOVAL OF IMPLANT, DEEP, UPPER EXTREMITY (WRVU 5.96) Patient Active Problem List Diagnosis Date Noted ??? S/P hardware removal R wrist 05/17/24 Dr. Benoit 05/17/2024 ??? Retained orthopedic hardware 03/16/2024 ??? Closed fracture dislocation of lunate of right wrist 03/02/2024 ??? Closed displaced Nestor's fracture of right thumb with malunion 03/02/2024 ??? Chronic kidney disease 09/10/2017 ??? Microscopic hematuria 09/10/2017 ??? Hypertension 09/10/2017 ??? Gout 09/10/2017 No past medical history on file. Past Surgical History: Procedure Laterality Date ??? PRO OPEN REPAIR WRIST DISLOCATION Right 03/03/2024 OPEN TREATMENT RADIOCARPAL-INTERCARPAL DISLOCATION (WRVU 8.09) performed by Petey Benoit MD [facility] ??? PRO OPEN RX DISTAL RADIUS FX, INTRA-ARTICULAR, 2 FRAG Right 03/03/2024 ORIF DISTAL RADIUS, INTRA-ARTICULAR FX.TWO SEG. (WRVU 11.07) performed by Petey Benoit MD at [facility] ??? PRO OPEN TX CARPOMETACARPAL FRACTURE DISLOCATE THUMB Right 03/03/2024 OPEN TX. CARPOMETACARPAL FX. DISLOCATION, THUMB, W W/O FIXATION (WRVU 7.94) performed by Petey Benoit MD at [facility] Social History Tobacco Use ??? Smoking status: Never ??? Smokeless tobacco: Never Substance Use Topics ??? Alcohol use: Not Currently Comment: Hasn't had a drink since 2009 Social History Substance and Sexual Activity Drug Use Not Currently No Known Allergies Medications: MAR and/or home medications have been reviewed. Physical Exam: Preprocedure Vitals Current as of 05/17/24 0801 No BP, pulse, respiration, SpO2, or temperature recorded. Height: 180.3 cm (5' 11) (03/16/24) Weight: 89.8 kg (198 lb) (03/16/24) BMI: 27.61 IBW: 75.3 kg (165 lb 14.8 oz) Airway Assessment: Mallampati: II TM distance: >3 FB Neck ROM: full Cardiovascular Assessment: Rate: normal Pulmonary Assessment: unlabored breathing Dental Assessment: Misc Assessment: IV access: Peripheral line Last Filed Perioperative Cognitive Screening None Anesthesia Plan: ASA 2 general, with a(n) intravenous induction Attending NOTE Brief HPI: 58 y.o. with retained hardware to OR for hardware removal Patient Active Problem List Diagnosis ?? Chronic kidney disease ?? Microscopic hematuria ?? Hypertension ?? Gout ?? Closed fracture dislocation of lunate of right wrist ?? Closed displaced Nestor's fracture of right thumb with malunion ?? Retained orthopedic hardware ?? S/P hardware removal R wrist 05/17/24 Dr. Benoit BP Readings from Last 3 Encounters: 03/03/24 109/80 02/11/24 122/58 09/09/17 132/88 METS:>4 Cardiac Symptoms: denies LABS: Lab Results Component Value Date HGB 15.4 09/09/2017 PLATELET 238 09/09/2017 NA 139 09/09/2017 K 4.0 09/09/2017 CREATININE 1.22 09/09/2017 Type and Screen: No results found for: ABORH Past anesthetic problems: none Previous airway notes (on eDH): Mask Ventilation: Not Attempted (0); LMA Type: iGel; LMA Size: 5; Inserted by: Portillo Wyatt CRNA; Removal Date: 03/03/24; Removal Time: 1332 NPO status: Reviewed and appropriate Anesthetic Plan: pre-op block, GA SGA Monitoring: Standard ASA monitors Region - Other Informed Consent: Anesthetic plan and risks discussed with patient. Plan discussed with attending. Anesthesia Screening documented in this encounter Plan of Treatment Upcoming Encounters Date Type Department Care Team (Late st Contact Info) Description 06/08/2024 3:45 PM EST Appointment XRay at [address] [place] [address] Petey Benoit MD [facility] [place] [address] 06/08/2024 4:30 PM EST Office Visit Orthopaedics at [facility] [place] [address] Petey Benoit MD [facility] [place] [address] documented as of this encounter Procedures Procedure Name Priority Date/Time Associated Diagnosis Comments ANESTHESIA BLOCK Routine 05/17/2024 1:55 PM EST documented in this encounter Results * Anesthesia Block (05/17/2024 1:55 PM EST) Narrative Donal Marr III, MD - 05/17/2024 [...] III, MD ?? Donal Marr III, MD [address] [facility] documented in this encounter Visit Diagnoses Not on filedocumented in this encounter Administered Medications Inactive Administered Medications - up to 3 most recent administrations Medication Order MAR Action Action Date Dose Rate Site BUPivacaine (pf) (Marcaine) (5 mg/mL) 0.5% injection Perineural, Starting on Thu05/17/24 at 1355, Until Thu05/17/24 at 1355, Anesthesia Intra-op, Routine Given 05/17/2024 1:55 PM EST 25 mLs ceFAZolin (Ancef) (100 mg/mL) injection solution 2 g 2 g, Intravenous, WOUND CARE COORDINATOR TO O.R., 1 dose, On Thu05/17/24 at 0730, To be prepared by and administered by Anesthesia. Reconstitute each ceFAZolin 1 gram vial with 10 mL of NS or SWFI = 100 mg/mL May inject IV without further dilution over 3 to 5 minutes., Indication for (Active or Suspected): Prophylaxis New Bag 05/17/2024 2:28 PM EST 2 g dexAMETHasone (Decadron) injection Intravenous, PRN, Starting on Thu05/17/24 at 1428, Until Thu05/17/24 at 1556, Anesthesia Intra-op, Routine Given 05/17/2024 2:28 PM EST 8 mg ePHEDrine sulfate (5 mg/mL) multi-dose injection Intravenous, PRN, Starting on Thu05/17/24 at 1452, Until Thu05/17/24 at 1556, Anesthesia Intra-op, Routine Given 05/17/2024 3:15 PM EST 5 mg Given 05/17/2024 3:01 PM EST 5 mg Given 05/17/2024 2:52 PM EST 5 mg lidocaine (pf) (Xylocaine) (20 mg/mL) 2% injection syringe Intravenous, PRN, Starting on Thu05/17/24 at 1424, Until Thu05/17/24 at 1556, Anesthesia Intra-op, Routine Given 05/17/2024 2:24 PM EST 20 mg ondansetron (pf) (Zofran) (2 mg/mL) injection Intravenous, PRN, Starting on Thu05/17/24 at 1428, Until Thu05/17/24 at 1556, Anesthesia Intra-op, Routine Given 05/17/2024 3:41 PM EST 4 mg Given 05/17/2024 2:28 PM EST 4 mg propofoL (Diprivan) (10 mg/mL) infusion Intravenous, CONTINUOUS PRN, Starting on Thu05/17/24 at 1424, Until Thu05/17/24 at 1556, Anesthesia Intra-op, Routine Rate/Dose Change 05/17/2024 2:49 PM EST 50 mcg/kg/min 25.05 mL/hr Rate/Dose Change 05/17/2024 2:30 PM EST 75 mcg/kg/min 37.5 75 mL/hr New Bag 05/17/2024 2:24 PM EST 50 mcg/kg/min 25.05 mL/h r propofoL (Diprivan) 10 mg/mL bolus injection (Anesthesia) Intravenous, PRN, Starting on Thu05/17/24 at 1424, Until Thu05/17/24 at 1556, Anesthesia Intra-op Given 05/17/2024 2:24 PM EST 200 mg sodium chloride 0.9% infusion Intravenous, CONTINUOUS PRN, Starting on Thu05/17/24 at 1421, Until Thu05/17/24 at 1556, Anesthesia Intra-op New Bag 05/17/2024 2:21 PM EST documented in this encounter Care Teams Object Oriented Developer Relationship Specialty Start Date End Date Philip Eduardo MD [address] [address] PCP - General General Internal Medicine 02/29/24 documented as of this encounter"
--- OUTSIDE RECORDS SUMMARY | 2024-05-31 18:14 | XMS_ITS | Encounter Summary ---
Author Organization [facility] [place] [address] Care Team Providers Care Lens Hardener Name Role Phone Philip Eduardo MD Primary Care Provider [phone] Reason for Visit * Auth/Cert (Routine) Specialty Diagnoses / Procedures Referred By Bridget nettles Referred To Contact Diagnoses Retained orthopedic hardware symptomatic hardware s/p surgery Procedures PRO REMOVAL DEEP IMPLANT REMOVAL OF IMPLANT, DEEP, UPPER EXTREMITY (WRVU 5.96) Rick Benoit MD [facility] [place] [address] [facility] Referral ID Status Reason Start Date Expiration Date Visits Re quested Visits Authorized [id number] 1 1 Encounter Details Date Type Department Care Team (Latest Contact Info) Description 05/17/2024 12:46 PM EST - 05/17/2024 4:54 PM EST Hospital Encounter [place]patient [place] [address] Rick Benoit MD [facility] [place] [address] Retained orthopedic hardware Discharge Disposition: Home Social History Tobacco Use Types Packs/Day Years Used Date Smoking Tobacco: Never Smokeless Tobacco: Never Alcohol Use Standard Drinks/Week Comments Not Currently 0 (1 standard drink = 0.6 oz pure alcohol) Hasn't had a drink since 2009 [facility] Inpatient Questions Answer Date Recorded Does Anyone [...] closest emergency room or call the hospital gas engine operator at [phone] and ask for physician operations officer trust department covering for your physician. Questions or problems after 5pm or on a weekend: Call the [facility] gas engine operator at and ask for the physician operations officer trust department covering for your doctor. At 1:15 pm [...] During clinic hours M-F 8-4:30 please call [phone] If it is after 5:00PM on a weekday or a weekend and it is of an urgent nature please call [phone] and ask for the on-call orthopaedic resident. [...] Center 06/03/2024 1:30 PM CAST ROOM 3A [facility] 06/03/2024 2:15 PM [facility] DX ROOM 1 Xray [facility] Rad 06/03/2024 3:00 PM Natalia Salinas PA [facility] [address] [place] [address] documented in this encounter Medications at Time [...] Operative Note Patient Name: Mathew Han : [id number] MR#: [id number] Case Date: 05/17/2024 Surgeon: Surgeons and Role: * Rick Benoit MD - Primary * Natalia Salinas PA - Physician Helpdesk Manager Preoperative diagnosis: Retained deep orthopedic hardware right thumb and wrist Postoperative diagnosis: Retained deep orthopedic hardware right thumb and wrist Procedure(s) (LRB): REMOVAL OF IMPLANT, DEEP, UPPER EXTREMITY (WRVU 5.96) (Right) Modifiers: : THOMAS/SAVANNA preschool teacher assistant surgeon (no qualified resident available) Anesthesia: General/supraclavicular [...] Benoit MD - 05/17/2024 2:38 PM EST [facility] Operative Note Patient Name: Mathew Han : [id number] MR#: [id number] Case Date: 05/17/2024 Surgeon: Surgeons and Role: * Rick Benoit MD - Primary * Natalia Salinas PA - Physician Helpdesk Manager Preoperative diagnosis: Retained deep orthopedic hardware right [...] This procedure was done with a physician's preschool teacher assistant because there was no qualified resident available to assist. Summary of procedures: After both general and right supraclavicular block anesthesia were performed, and 2 g of intravenous cefazolin were administered, the patient's right upper extremity was prepped with a Hibiclens scrub and a ChloraPrep. His right upper extremity was draped in the usual sterilefashion. A preoperative timeout was performed as per [facility] protocol. His right arm was exsanguinatedwith an [...] were identified and grasped with a needle driver education instructor. They were removed from the carpus without [...] 06/08/2024 3:45 PM EST Appointment XRay at [address] [place] [address] Rick Benoit MD [facility] [place] [address] 06/08/2024 4:30 PM EST Office Visit Orthopaedics at [facility] [place] [address] Rick Benoit MD [facility] [place] [address] documented as of this encounter Procedures Procedure Name Priority Date/Time Associated Diagnosis Comments XR FLUORO NO RAD <1HR - OR USE Routine 05/17/2024 3:59 PM EST Removal Deep Implant (06861) 05/17/2024 2:20 PM EST Retained orthopedic hardware [...] hardware removal R wrist 05/17/24 Dr. Benoit documented in this encounter Administered Medications Inactive Administered Medications - up to 3 most recent administrations Medication Order MAR Action Action Date Dose Rate Site acetaminophen (Tylenol) tablet 975 mg 975 mg (rounded from 1,000 mg), Oral, ONCE, 1 dose, On Thu05/17/24 at 0630 Given 05/17/2024 1:14 PM EST 975 mg midazolam (pf) (Versed) (1 mg/mL) injection 1 [...] solution 2 g (COMPLETED) 2 g, Intravenous, FLOTATION TENDER HELPER TO O.R., 1 dose, On Thu05/17/24 at [...] RN) documented in this encounter Care Teams Lens Hardener Relationship Specialty Start Date End Date Philip Eduardo MD [address] [address] PCP - General General Internal Medicine 02/29/24 documented as of this encounter
--- OUTSIDE RECORDS SUMMARY | 2024-05-31 18:14 | XMS_ITS | Encounter Summary ---
Author Organization [facility] Address [facility] [place] [address] Care Team Providers Care Advanced Manufacturing Technician Name Role Phone Philip Eduardo MD Primary Care Provider Encounter Details Date Type Department Care Team (Latest Contact Info) Description 05/16/2024 9:50 AM EST - 05/16/2024 11:[address] [facility] Hospital Encounter XRay at [address] [place] [address] Petey Benoit MD [facility] [place] [address] Closed fracture dislocation of lunate bone of right wrist with routine healing, subsequent encounter; Closed displaced Nestor's fracture of right thumb with malunion Discharge Disposition: Home Social History Tobacco Use Types Packs/Day Years Used Date Smoking Tobacco: Never Smokeless Tobacco: Never Alcohol Use Standard Drinks/Week Comments Not Currently 0 (1 standard drink = 0.6 oz pure alcohol) Hasn't had a drink since 2009 [facility] Inpatient Questions Answer Date Recorded Does Anyone [...] on file documented as of this encounter Medications at Time of Discharge [...] 1 02/07/2016 documented as of this encounter Plan of Treatment Upcoming Encounters Date Type Department Care Team (Late st Contact Info) Description 06/08/2024 3:45 PM EST Appointment XRay at [address] [place] [address] Petey Benoit MD [facility] [place] [address] 06/08/2024 4:30 PM EST Office Visit Orthopaedics at [facility] [place] [address] Petey Benoit MD [facility] [place] [address] documented as of this encounter Procedures Procedure Name Priority Date/Time Associated Diagnosis Comments XR WRIST 3 VIEWS RIGHT Routine 05/16/2024 10:11 AM EST Closed fracture dislocation of lunate bone of right wrist with routine healing, subsequent encounter Closed displaced Nestor's fracture of right thumb with malunion documented in this encounter Results * XR Wrist 3 Views Right (05/16/2024 10:11 AM EST) [employer] WORKSTATION ID [id number] [facility] Anatomical Region Laterality Modality Right Digital Radiogra [...] who have questions please contact the health hospice care sales consultant that requested your imaging first. ? Electronically signed by: Lisa Rodriguez MD, [facility] ([phone]), at 05/16/2024 10:39 AM Narrative 05/16/2024 10:39 AM EST EXAMINATION: XR [...] patients who have questions please contactthe health hospice care sales consultant that requested your imaging first. Petey Benoit MD IMG DX ORDERABLES documented in this encounter Visit Diagnoses Diagnosis Closed fracture dislocation of lunate bone of right wrist with routine healing, subsequent encounter Closed displaced Nestor's fracture of right thumb with malunion documented in this encounter Care Teams Advanced Manufacturing Technician Relationship Specialty Start Date End Date Philip Eduardo MD [address] [place] [address] PCP - General General Internal Medicine 02/29/24 documented as of this encounter
--- OUTSIDE RECORDS SUMMARY | 2024-05-31 18:14 | XMS_ITS | Encounter Summary ---
Author Organization [facility] [place] [address] Care Team Providers Care Operations And Maintenance Specialist Name Role Phone Philip Eduardo MD Primary Care Provider Encounter Details Date Type Department Care Team (Late st Contact Info) Description 05/23/2024 Orders Only [place] [phone] Natalia Salinas PA [facility] [address] [place] [address] Closed fracture dislocation of lunate of right wrist, initial encounter Social History Tobacco Use Types Packs/Day Years Used Date Smoking Tobacco: Never Smokeless Tobacco: Never Alcohol Use Standard Drinks/Week Comments Not Currently 0 (1 standard drink = 0.6 oz pure alcohol) Hasn't had a drink since 2009 [facility] Inpatient Questions Answer Date Recorded Does Anyone [...] 3:45 PM EST Appointment XRay at [address] [place] [phone] Petey Benoit MD [facility] ORTHOPAED[place] [address] 06/08/2024 4:30 PM EST Office Visit [place] [address] Petey Benoit MD [facility] DR ORTHOPAED[place] [address] Scheduled Orders Name Type Priority Associated Diagnoses Orde r Schedule XR Wrist 3 Views Right Imaging Routine Closed fracture dislocation of lunate of right wrist, initial encounter Expected: 05/30/2024 (Approximate), Expires: 11/29/2024 documented as of this encounter Visit Diagnoses Diagnosis Closed fracture dislocation of lunate of right wrist, initial encounter documented in this encounter Care Teams Operations And Maintenance Specialist Relationship Specialty Start Date End Date Philip Eduardo MD [address] [address] PCP - General General Internal Medicine 02/29/24 documented as of this encounter
--- OUTSIDE RECORDS SUMMARY | 2024-05-31 18:14 | XMS_ITS | Encounter Summary ---
Author Organization [facility] [place] [address] Care Team Providers Care Sociology Adjunct Instructor Name Role Phone Philip Eduardo MD Primary Care Provider Encounter Details Date Type Department Care Team (Latest Contact Info) Description 05/16/2024 Travel Social History Tobacco Use Types Packs/Day Years Used Date Smoking Tobacco: Never Smokeless Tobacco: Never Alcohol Use Standard Drinks/Week Comments Not Currently 0 (1 standard drink = 0.6 oz pure alcohol) Hasn't had a drink since 2009 [facility] Inpatient Questions Answer Date Recorded [...] 06/08/2024 3:45 PM EST Appointment XRay at [address] [place] [address] Petey Benoit MD [facility] [place] [address] 06/08/2024 4:30 PM EST Office Visit Orthopaedics at [facility] [place] [phone] Petey Benoit MD [facility] [place] [address] documented as of this encounter Visit Diagnoses Not on filedocumented in this encounter Care Teams Sociology Adjunct Instructor Relationship Specialty Start Date End Date Philip Eduardo MD [address] [address] PCP - General General Internal Medicine 02/29/24 documented as of this encounter
--- OUTSIDE RECORDS SUMMARY | 2024-05-31 18:15 | XMS_ITS | Encounter Summary ---
[place] [address] Care Team Providers Care Geospatial Image Analyst Name Role Phone Jf Cervantes Primary Care Provider [phone] Reason for Visit * Reason Comments Chronic Kidney Disease * Consultation (Routine) - Closed Specialty Diagnoses / Procedures Referred By Bridget nettles Referred To Contact Nephrology Diagnoses abnormal renal function and proteinuria Jf Cervantes PA [address] [place] [address] [facility] [address] [place] [id number] Referral ID Status Reason Start Date Expiration Date V isits Requested Visits Authorized [id number] Closed Consult, [facility] PCP Updated and/or Approved 01/16/2016 01/15/2017 1 1 Encounter Details Date Type Department Care Team (Latest Contact Info) Description 02/07/2016 3:30 PM EDT Office Visit [place] [address] Mary Kate Emery MD Youssefi, Nick D, CKD (chronic kidney disease), unspecified stage Social [...] documented in this encounter Progress Notes * FrankiducdaniaJagjit Anastasia, DO - 02/07/2016 3:30 PM EDT HYPERTENSION/ [...] from a screening test as part of [facility]. Subsequently had kidney biopsy in 1987 at [facility] which was 'unremarkable'. Patient denies niurka [...] improved 1.28mg/dL (1.48mg/dL previously) -Kidney biopsy (1987 [facility] in [place]): 'normal' -Urine prot/creat 1.0 -Urine microscopy: fatty [...] obtain old kidney biopsy records (1987) from [facility] in [place]. -Renal ultrasound RTC in 2 months Thanks for letting us participate in the care of this patient. Seen and Discussed w/ Dr. Yuly Lennon DO Nephrology Fellow Pager [phone] * Mary Kate Emery MD - 02/07/2016 [...] 06/08/2024 3:45 PM EST Appointment XRay at [address] [place] [address] [facility] [place]THOPAED[place] [address] 06/08/2024 4:30 PM EST Office Visit Orthopaedics at [facility] [place] [address] [facility] ORTHOPAED[place] [address] documented as of this encounter Procedures Procedure [...] 5:21 PM EDT) Neutrophil % 61.5 % [facility] Neutrophil Absolute 4.74 1.70 - 6.10 x10(3)/[facility] Lymph % 20.6 % [facility] Lymphocytes Abs 1.6 0.9 - 3.2 x10(3)/[facility] Monocyte % 11.6 % [facility] Monocyte Abs 0.9 0.3 - 0.9 x10(3)/[facility] Eos % 4.7 % [facility] Eosinophils Abs 0.4 0.0 - 0.4 x10(3)/[facility] Basophil % 1.2 % [facility] Baso Absolute 0.1 0.0 - 0.1 x10(3)/[facility] Immature Gran % 0.40 % [facility] Comment: Immature granulocytes(IG's)percentage and absolute count will include metamyelocytes, myelocytes, and promyelocytes. Blood smears from CBCs yielding IG's will be scanned manually for concordance. If this scan disagrees with the automated IG or if promyelocytes are noted, a manual differential will be performed. Immature Gran Absolute 0.03 0.00 - 0.04 x10(3)/[facility] Blood specimen (specimen) 02/07/2016 5:21 PM EDT 02/07/2016 5:31 PM EDT Narrative Resulting Agency Comment Spec In Lab Mary Kate Emery MD HEMATOLOGY ORDERABLE S [facility] [place] [address] * Hemogram (02/07/2016 5:21 PM EDT) White Blood Cell 7.7 4.0 - 9.5 x10(3)/[facility] Red Blood Cell 4.96 4.58 - 5.54 x10(6)/[facility] Hemoglobin 15.0 13.7 - 16.5 gm/dL [facility] Hematocrit 43.9 40.5 - 48.5 % [facility] Mean Cell Volume 88.5 82.9 - 93.1 [facility] Mean Cell Hemoglobin 30.2 27.5 - 32.1 pg [facility] Mean Cell Hemoglobin Concentration 34.2 32.0 - 35.7 gm/dL [facility] Platelet 287 145 - 357 x10(3)/[facility] RDW Standard Deviation 40.7 36.0 - 45.0 [facility] RDW coefficient of variation 12.4 11.4 - 13.8 % [facility] Mean Platelet Volume 9.9 7.6 - 12.9 [facility] NRBC% auto 0.0 % [facility] NRBC Absolute 0.000 0.000 - 0.000 x10(3)/[facility] Blood specimen (specimen) 02/07/2016 5:21 PM EDT 02/07/2016 5:31 PM EDT Narrative Resulting Agency Comment Spec In Lab Mary Kate Emery MD HEMATOLOGY ORDERABLE S Performing Organization Address [facility] Co de Phone Number [facility] [place] [address] * (ABNORMAL) Uric acid (02/07/2016 5:21 PM EDT) Uric Acid 8.8(H) 3.5 - 8.5 mg/dL [facility] Blood specimen (specimen) 02/07/2016 5:21 PM EDT 02/07/2016 5:31 PM EDT Narrative Resulting Agency Comment Spec In Lab Mary Kate Emery MD CHEMISTRY ORDERABLES Performing Organization Address [facility] Co de Phone Number [facility] [place] [address] * Albumin Level (02/07/2016 5:21 PM EDT) Albumin 3.9 3.2 - 5.2 gm/dL [facility] Blood specimen (specimen) 02/07/2016 5:21 PM EDT 02/07/2016 5:31 PM EDT Narrative Resulting Agency Comment Spec In Lab Mary Kate Emery MD CHEMISTRY ORDERABLES Performing Organization Address [facility] Co de Phone Number [facility] [place] [address] * (ABNORMAL) Basic Metabolic Panel (non-fasting) (02/07/2016 5:21 PM EDT) Glucose 99 65 - 199 mg/dL [facility] Comment:Diabetes: >=200 mg/d L plus symptoms Blood Urea Nitrogen 14 10 - 20 mg/dL [facility] Creatinine 1.28 0.80 - 1.50 mg/dL [facility] Comment: Please note that the pediatric reference intervals supplied above were not validated at [facility]. Results from pediatric patients should be interpreted in conjunction to the patient's age, height and muscle mass. Sodium 140 135 - 145 mmol/L [facility] Potassium 4.2 3.5 - 5.0 mmol/L [facility] Comment: Please note: ??Patients with WBC >100,000 may have falsely elevated Potassium levels. ??For accurate Potassium quantification in these patients send serum separator tube (gold top) for subsequent determinations. ??Contact the Clinical Chemistry Laboratory if there are any questions. Chloride 99 98 - 107 mmol/L [facility] Carbon Dioxide 23 22 - 31 mmol/L [facility] Anion Gap 18(H) 5 - 15 mmol/L [facility] Calcium 8.8 8.5 - 10.5 mg/dL [facility] Est Glomerular Filtration Rate 60 >=60 [facility] Comment: This estimated GFR (eGFR) value [...] the following links into your internet browser. [email or web address] Blood specimen (specimen) 02/07/2016 5:21 PM EDT 02/07/2016 5:31 PM EDT Narrative Resulting Agency Comment Spec In Lab Mary Kate Emery MD CHEMISTRY ORDERABLES [facility] [place] [address] * (ABNORMAL) Protein/Creatinine Ratio, urine (02/07/2016 3:30 PM EDT) Creatinine, Urine 203 mg/dL [facility] Protein, Urine 206(H) 0 - 12 mg/dL [facility] Protein / Creatinine Ratio, Urine 1.0 ratio [facility] Urine specimen (specimen) 02/07/2016 3:30 PM EDT 02/07/2016 5:03 PM EDT Narrative Resulting Agency Comment Spec In Lab Mary Kate Emery MD URINE ORDERABLES [facility] [place] [address] documented in this encounter Visit Diagnoses Diagnosis CKD (chronic kidney disease), unspecified stage documented in this encounter Care Teams Geospatial Image Analyst Relationship Specialty Start Date End Date Jf Cervantes PA [address] [place] [id number] PCP - General General Internal Medicine 01/16/16 documented as of this encounter
--- OUTSIDE RECORDS SUMMARY | 2024-05-31 18:15 | XMS_ITS | Encounter Summary ---
[place] [address] Care Team Providers Care Communications Coordinator Name Role Phone Jf Cervantes Primary Care Provider [phone] Encounter Details Date Type Department Care Team (Late st Contact Info) Description 09/08/2017 Orders Only Nephrology [place] [id number] Stevie Goldsmith DO Hypertension, unspecified type; CKD (chronic kidney disease) [...] 06/08/2024 3:45 PM EST Appointment XRay at [address] [place] [phone] Petey Benoit MD [facility] [place] [address] 06/08/2024 4:30 PM EST Office Visit [place] [phone] Petey Benoit MD [facility] [place] [address] Scheduled Orders Name Type Priority Associated Diagnoses [...] site documented in this encounter Care Teams Communications Coordinator Relationship Specialty Start Date End Date Jf Cervantes PA [address] [place] [id number] PCP - General General Internal Medicine 01/16/16 documented as of this encounter
--- OUTSIDE RECORDS SUMMARY | 2024-05-31 18:15 | XMS_ITS | Encounter Summary ---
Author Organization [facility] [place] [address] Care Team Providers Care Trouble Dispatcher Name Role Phone Philip Eduardo MD Primary Care Provider [phone] Reason for Visit * Reason Comments Follow Up Fracture Closed fracture disl ocation of lunate of right wrist Encounter Details Date Type Department Care Team (Late st Contact Info) Description 03/16/2024 10:30 AM EDT Office [place] [address] Closed displaced Nestor's fracture of right thumb with malunion Social History Tobacco Use Types Packs/Day Years Used Date Smoking Tobacco: Never Smokeless Tobacco: Never Alcohol Use Standard Drinks/Week Comments Not Currently 0 (1 standard drink = 0.6 oz pure alcohol) Hasn't had a drink since 2009 [facility] Inpatient Questions Answer Date Recorded Does Anyone [...] as of this encounter Progress Notes * Bonita Pang - 03/16/2024 10:30 AM EDT Mathew Anastasia Han presents to the clinic for a cast/splint off per Dr. Benoit. The cast was intact upon arrival. The patient was explained how the cast saw works and the cast was removed. The patient tolerated this procedure well. The patient's skin was intact.The patient was then sent to x-ray. Mathew Han presents to the cast room for a cast on per Dr. Benoit. The patient's skin isintact. The patient is placed in a well padded fiberglass short arm thumb spica cast on the right side. The patient tolerated the procedure well. Details on icing, elevation and proper cast care was discussed with the patient. A cast bag was provided to the patient. The patient was given instruction to call the clinic with any questions or concerns. documented in this encounter Plan of Treatment Upcoming Encounters Date Type Department Care Team (Late st Contact Info) Description 06/08/2024 3:45 PM EST Appointment XRay at [address] [place] [address] [facility] [place] [address] 06/08/2024 4:30 PM EST Office Visit Orthopaedics at [facility] [place] [address] [facility] [place] [address] documented as of this encounter Visit Diagnoses Diagnosis Closed displaced Nestor's fracture of right thumb with malunion documented in this encounter Care Teams Trouble Dispatcher Relationship Specialty Start Date End Date Philip Eduardo MD [address] [place] [id number] PCP - General General Internal Medicine 02/29/24 documented as of this encounter
--- OUTSIDE RECORDS SUMMARY | 2024-05-31 18:15 | XMS_ITS | Encounter Summary ---
[place] [address] Care Team Providers Care Neurologist Name Role Phone Philip Eduardo MD Primary Care Provider [phone] Encounter Details Date Type Department Care Team (Late st Contact Info) Description 04/27/2024 1:45 PM EST [place] [address] Closed displaced Nestor's fracture of right thumb with malunion Social History Tobacco Use Types Packs/Day Years Used Date Smoking Tobacco: Never Smokeless Tobacco: Never Alcohol Use Standard Drinks/Week Comments Not Currently 0 (1 standard drink = 0.6 oz pure alcohol) Hasn't had a drink since 2009 [facility] Inpatient Questions Answer Date Recorded Does [...] encounter Progress Notes * Milena Fountain - 04/27/2024 1:45 PM EST Mathew Anastasia Stephenfatemeh presents to the cast room for a cast on per Savana GUZMAN. The patient's skin is intact. The patient is going into a well padded fiberglass thumb spica cast on the right side. The patient tolerated the procedure well. A detailed conversation regarding range of motion exercises were reviewed with patient as well as RICE, and remedies for itching. We have given the patient a Taking care of your cast pamphlet that has a written detail of all of this information along with the names of the cast techs to reach if needed. The patient is informed to call with any questions or concerns. documented in this encounter Plan of Treatment Upcoming Encounters Date Type Department Care Team (Late st Contact Info) Description 06/08/2024 3:45 PM EST Appointment XRay at [address] [place] [address] Petey Benoit MD [facility] [place]OPAEDIC [place] [address] 06/08/2024 4:30 PM EST Office Visit Orthopaedics at [facility] [place] [address] Petey Benoit MD [facility] [place]OPAEDIC [place] [address] documented as of this encounter Visit Diagnoses Diagnosis Closed displaced Nestor's fracture of right thumb with malunion documented in this encounter Care Teams Neurologist Relationship Specialty Start Date End Date Philip Eduardo MD [address] [address] PCP - General General Internal Medicine 02/29/24 documented as of this encounter
--- OUTSIDE RECORDS SUMMARY | 2024-05-31 18:15 | XMS_ITS | Encounter Summary ---
[place] [address] Care Team Providers Care Factory Manager Name Role Phone Philip Eduardo MD Primary Care Provider Reason for Visit * Auth/Cert (Routine) Specialty Diagnoses / Procedures Referred By Contac t Referred To Contact Diagnoses Displaced fracture of lunate (semilunar), right wrist, initial encounter for closed fracture Displaced Nestor's fracture, right hand, initial encounter for closed fracture Right lunate dislocation with distal radius fracture and Nestor fracture right thumb, subacute Procedures PRO OPEN REPAIR WRIST DISLOCATION PRO OPEN TX CARPOMETACARPAL FRACTURE DISLOCATE THUMB OPEN TREATMENT RADIOCARPAL-INTERCARPAL DISLOCATION (WRVU 8.09) OPEN TX. CARPOMETACARPAL FX. DISLOCATION, THUMB, W W/O FIXATION (WRVU 7.94) MODIFIER VARIAX 2 LOCKING MINI FRAGMENT Petey Pereira MD [facility] [place] [address] [facility] Referral ID Status Reason Start Date Expiration Date Visits Re quested Visits Authorized [id number] 1 1 Encounter Details Date Type Department Care Team (Late st Contact Info) Description 03/03/2024 9:37 AM EDT Anesthesia Event [place] [phone] Maryjane Estrada MD [facility] [place] [address] Zack Vance MD [facility] [place] [address] Anesthesia Record Procedure Summary Procedure Name Responsible Anesthesiologist Anesthesia Start Time Anesthesia Stop Time OPEN TREATMENT RADIOCARPAL-INTERCARP AL DISLOCATION (WRVU 8.09) (Right: Arm Lower) Maryjane Estrada MD 03/03/24 0937 03/03/24 1337 Events Date Time Event Comment 03/03/2024 0902 0937 Start 0939 AN Verify 0939 An Start Data 0944 An Induction 0945 An Intubation 0946 Anesthesia Ready 0956 An Tourn Inflated 215 torr 0956 Procedure Start 1200 An Tourn Deflated 1236 An Tourn Inflated 215 torr 1322 An Tourn Deflated 46 minutes 1332 Extubation/LMA Out 1332 an stop data 1337 Recovery or ICU Handoff Lalitha ent care was transferred to the destination unit staff after review of the patient's medical history, current anesthetic/surgical status and plan, according to the Provider Handoff Checklist. 1337 Stop Meds Name Total propofoL 200 mg propofol INF 793.83 mg fentaNYL 50 mcg lidocaine IV 50 mg dexAMETHasone 8 mg ondansetron 8 mg ePHEDrine 25 mg PHENYLephrine 320 mcg BUpivacaine 0.5% 23 mL ceFAZolin (Ancef) (100 mg/mL) injection solution 2 g 2 g PHENYLephrine INF 7,860 mcg lactated ringers infusion 1,000 mL * Agents Name O2 * Blood No blood administrations on file. Lines, Drains, and Airways Type Details Placement Removal Incision 03/03/24; Right, ant erior, distal, lower; arm; adaptic, fluffls, webril, bias, plaster, sling 03/03/24 0000 by Sheila Ramasy RN PIV 03/03/24; 0908; 22 g auge; metacarpal vein (top of hand), left; Anatomical Landmarks; Yola Quinones RN; distraction; 0; 03/03/24; 1430 (site held no ozzing gauze and bandaid) 03/03/24 0908 by Yola Guillermo RN 03/03/24 1430 by Roseann Swartz RN Supraglottic Mask Ventilation: No t Attempted (0); LMA Type: iGel; LMA Size: 5; Inserted by: Portillo Wyatt CRNA; Removal Date: 03/03/24; Removal Time: 1332 03/03/24 0945 by Portillo Wyatt CRNA 03/03/24 1332 by Portillo Wyatt CRNA documented in this encounter Social History Tobacco [...] OR Notes * Anesthesia Postprocedure Evaluation - Maryjane Estrada MD - 03/10/2024 4:47 PM EDT Department of Anesthesiology Post-procedure Note Patient: Mathew Han Procedure Summary Date: 03/03/24 Room / Location: [facility] OR [address] [place] [address] [facility] Anesthesia Start: 936 Anesthesia Stop: 1336 Procedures: OPEN TREATMENT RADIOCARPAL-INTERCARPAL DISLOCATION (WRVU 8.09) (Right: Arm Lower) OPEN TX. CARPOMETACARPAL FX. DISLOCATION, THUMB, W W/O FIXATION (WRVU 7.94) (Right: Hand) MODIFIER VARIAX 2 LOCKING MINI FRAGMENT KAMALA (Right) ORIF DISTAL RADIUS, INTRA-ARTICULAR FX.TWO SEG. (WRVU 11.07) (Right: Arm Lower) Diagnosis: Closed fracture dislocation of lunate of right wrist, initial encounter (Right lunate dislocation with distal radius fracture and Nestor fracture right thumb, subacute) Surgeons: Petey Benoit MD Responsible Provider: Maryjane Estrada MD Anesthesia Type: general ASA Status: 2 All Anesthesia Providers: Anesthesiologist: Maryjane Estrada MD; Jamie López MD MATERIAL HANDLER FLOORPERSON: Portillo Wyatt CRNA Vitals Value Taken Time BP 109/80 03/03/24 1415 Temp 36.8 ??C (98.2 ??F) 03/03/24 1415 Pulse 75 03/03/24 1415 Resp 16 03/03/24 1415 SpO2 95 % 03/03/24 1415 Pain Level 0 03/03/24 141 Patient Location: PACU/SD Level of Consciousness: Awake and Alert Pain Management: Satisfactory Analgesia PONV: None Cardiovascular Status: At Baseline and Hemodynamically Stable Respiratory Status: At Baseline and Room Air Postoperative Fluid Status: Intravascular EUvolemia Possible Anesthetic Complications: NONE apparent at time of evaluation Final Primary Anesthesia Type: General (The anesthetic type performed was the same as planned.) Comments: Maryjane Estrada MD * Anesthesia Procedure Notes - Maryjane Estrada MD - 03/03/2024 9:39 AM EDT Associated Order(s): Anesthesia Block Anesthesia Block Date/Time: 03/03/2024 9:22 AM Start Time: 03/03/2024 9:22 AM End Time: 03/03/2024 9:25 AM Patient Location: [facility] The patient was greeted; the risks and benefits of the procedure were reviewed. Indication: Post-op Pain Control Post-op pain management at the request of surgeon. Block Type: Supraclavicular nerve block Laterality: Right Position: Supine Prep: Chlorhexidine, patient draped and mask, cap, sterile gloves, hand hygeine Skin Anesthetic: dose: 3 Block Technique: [id number] 22 5 cm Ultrasound Guided: YES and in-plane Ultrasound Image Saved Ultrasound guidance was used to identify the targeted neuronal structure. Ultrasound was also used to identify needle position and to identify tissue (bone, muscle, and blood vessels) to prevent inadvertent intraneural or intravascular needle placement and injection. The spread of local anesthetic was confirmed with live ultrasound imaging. Single-Shot: Single-shot Injection Pressure Monitored: <15 PSI Local Anesthetic Volume(s) Injected for Nerve Block: BUpivacaine 0.5% - Perineural 23 mL - 03/03/2024 9:22:00 AM Nerve Sensory/MotorTest: Events: no complications Notes: Performed under sterile technique with light sedation. Negative aspirations every 5 cc. Patient tolerated procedure without issue. Performed by: Attending Physician: Maryjane Estrada MD Authorized by: Maryjane Estrada MD * Anesthesia Preprocedure Evaluation - Maryjane Estrada MD - 03/03/2024 9:00 AM EDT Pre-Anesthesia Evaluation for: Mathew Han a 58 y.o. male. Procedure(s): OPEN TREATMENT RADIOCARPAL-INTERCARPAL DISLOCATION (WRVU 8.09) OPEN TX. CARPOMETACARPAL FX. DISLOCATION, THUMB, W W/O FIXATION (WRVU 7.94) MODIFIER VARIAX 2 LOCKING MINI FRAGMENT KAMALA Patient Active Problem List Diagnosis Date Noted ??? Closed fracture dislocation of lunate of right wrist 03/02/2024 ??? Closed displaced Nestor's fracture of right thumb with malunion 03/02/2024 ??? Chronic kidney disease 09/10/2017 ??? Microscopic hematuria 09/10/2017 ??? Hypertension 09/10/2017 ??? Gout 09/10/2017 History reviewed. No pertinent past medical history. History reviewed. No pertinent surgical history. Social History Tobacco Use ??? Smoking status: Never ??? Smokeless tobacco: Never Substance Use Topics ??? Alcohol use: Not Currently Comment: Hasn't had a drink since 2009 Social History Substance and Sexual Activity Drug Use Not Currently No Known Allergies Medications: MAR and/or home medications have been reviewed. Physical Exam: Preprocedure Vitals Current as of 03/03/24 0900 BP: 154/90 Pulse: 72 Resp: 18 SpO2: 99 Temp: 36.2 ??C (97.2 ??F) Height: 180.3 cm (5' 11) (03/03/24) Weight: 89.8 kg (198 lb) (03/03/24) BMI: 27.61 IBW: 75.3 kg (165 lb 14.8 oz) Last edited 03/03/24 0839 by CL Airway Assessment: Mallampati: II TM distance: >3 FB Neck ROM: full Cardiovascular Assessment: Rhythm: regular Pulmonary Assessment: pulmonary exam normal Dental Assessment: - normal exam Misc Assessment: Patient is wearing No contact(s). IV access: Peripheral line Last Filed Perioperative Cognitive Screening None Anesthesia Plan: ASA 2 general, with a(n) intravenous induction 58 yo 90kg M presents for right wrist ORIF. PMH notable for history of cocaine use - has been sober for 9 months. Normal functional status. Appropriately NPO. No GERD. No anticoagulants. Plan is preop PNB, acetaminophen, GA/LMA. Region - Other Informed Consent: Anesthetic plan and risks discussed with patient. Plan discussed with MATERIAL HANDLER FLOORPERSON. Anesthesia Screening documented in this encounter Plan of Treatment Upcoming Encounters Date Type Department Care Team (Late st Contact Info) Description 06/08/2024 3:45 PM EST Appointment XRay at [address] [place] [address] Petey Benoit MD [facility] [place] [address] 06/08/2024 4:30 PM EST Office Visit Orthopaedics at [facility] [place] [address] Petey Benoit MD [facility] [place] [address] documented as of this encounter Procedures Procedure Name Priority Date/Time Associated Diagnosis Comments ANESTHESIA BLOCK Routine 03/03/2024 9:22 AM EDT documented in this encounter Results * Anesthesia Block (03/03/2024 9:22 AM EDT) Narrative Maryjane Estrada MD - 03/03/2024 9:22 AM EDT Maryjane Estrada MD ? 03/03/2024 ??9:40 AM Anesthesia Block Date/Time: 03/03/2024 9:22 AM Start Time: ??03/03/2024 9:22 AM End Time: ??03/03/2024 9:25 AM Patient Location: ??[facility] The patient was greeted; the risks and benefits of the procedure were reviewed. ?? Indication: ??Post-op Pain Control Post-op pain management at the request of surgeon. ?? Block Type: ??Supraclavicular nerve block Laterality: ??Right Position: ??Supine Prep: ??Chlorhexidine, patient draped and mask, cap, sterile gloves, hand hygeine Skin Anesthetic: ??dose: ??3 Block Technique: ?? [id number]-[id number]-[id number] ?? 22 ?? 5 cm ??Ultrasound Guided: ??YES and in-plane ??Ultrasound Image Saved ?Ultrasound guidance was used to identify the targeted neuronal structure. Ultrasound was also used to identify needle position and to identify tissue (bone, muscle, and blood vessels) to prevent inadvertent intraneural or intravascular needle placement and injection. The spread of local anesthetic was confirmed with live ultrasound imaging. ?Single-Shot: ??Single-shot ??Injection Pressure Monitored: ??<15 PSI Local Anesthetic Volume(s) Injected for Nerve Block: ?? BUpivacaine 0.5% - Perineural 23 mL - 03/03/2024 9:22:00 AM Nerve Sensory/MotorTest: ??Events: no complications ?? Notes: ?? Performed under sterile technique with light sedation. Negative aspirations every 5 cc. Patient tolerated procedure without issue. Performed by: ?? Attending Physician: ? Maryjane Estrada MD Authorized by: Maryjane Estrada MD ?? Maryjane Estrada MD [facility] [facility] documented in this encounter Visit Diagnoses Not on filedocumented in this encounter Administered Medications Inactive Administered Medications - up to 3 most recent administrations Medication Order MAR Action Action Date Dose Rate Site BUPivacaine (pf) (Marcaine) (5 mg/mL) 0.5% injection Perineural, Starting on Abby 03/03/24 at 0922, Until Abby 03/03/24 at 0922, Anesthesia Intra-op, Routine Given 03/03/2024 9:22 AM EDT 23 mLs ceFAZolin (Ancef) (100 mg/mL) injection solution 2 g 2 g, Intravenous, SIZING END BANDER TO O.R., 1 dose, On Abby 03/03/24 at 0915, To be prepared by and administered by Anesthesia. Reconstitute each ceFAZolin 1 gram vial with 10 mL of NS or SWFI = 100 mg/mL May inject IV without further dilution over 3 to 5 minutes., Indication for (Active or Suspected): Prophylaxis New Bag 03/03/2024 9:49 AM EDT 2 g dexAMETHasone (Decadron) injection Intravenous, PRN, Starting on Abby 03/03/24 at 0949, Until Abby 03/03/24 at 1343, Anesthesia Intra-op, Routine Given 03/03/2024 9:49 AM EDT 8 mg ePHEDrine sulfate (5 mg/mL) multi-dose injection Intravenous, PRN, Starting on Abby 03/03/24 at 1005, Until Abby 03/03/24 at 1343, Anesthesia Intra-op, Routine Given 03/03/2024 12:09 PM EDT 5 mg Given 03/03/2024 10:14 AM EDT 5 mg Given 03/03/2024 10:09 AM EDT 5 mg fentaNYL (pf) (50 mcg/mL) multi-dose injection Intravenous, PRN, Starting on Abby 03/03/24 at 0949, Until Abby 03/03/24 at 1343, Anesthesia Intra-op, Routine Given 03/03/2024 9:49 AM EDT 50 mcg lactated ringers infusion 1,000 mL, at 100 mL/hr, Intravenous, CONTINUOUS, Starting on Abby 03/03/24 at 0845, Until Abby 03/03/24 at 1449, Day of Surgery (Day of Procedure) New Bag 03/03/2024 1:30 PM EDT Restarted 03/03/2024 9:37 AM EDT New Bag 03/03/2024 9:08 AM EDT 1,000 mLs 100 mL/hr lidocaine (pf) (Xylocaine) (20 mg/mL) 2% injection syringe Intravenous, PRN, Starting on Abby 03/03/24 at 0944, Until Abby 03/03/24 at 1343, Anesthesia Intra-op, Routine Given 03/03/2024 9:44 AM EDT 50 mg ondansetron (pf) (Zofran) (2 mg/mL) injection Intravenous, PRN, Starting on Abby 03/03/24 at 0949, Until Abby 03/03/24 at 1343, Anesthesia Intra-op, Routine Given 03/03/2024 1:27 PM EDT 4 mg Given 03/03/2024 9:49 AM EDT 4 mg PHENYLephrine (Alessio-Synephrine) (80 mcg/mL) in sodium chloride 0.9% 250 mL infusion Intravenous, CONTINUOUS PRN, Starting on Abby 03/03/24 at 1005, Until Abby 03/03/24 at 1343, Anesthesia Intra-op, Routine Rate/Dose Change 03/03/2024 12:23 PM EDT 40 mcg/min 30 mL/hr Rate/Dose Change 03/03/2024 12:09 PM EDT 50 mcg/min 37.5 m L/hr Rate/Dose Change 03/03/2024 10:49 AM EDT 30 mcg/min 22.5 m L/hr PHENYLephrine in NS (PF) (ALESSIO-SYNEPHRINE) 0.8 mg/10 mL (80 mcg/mL) multi-dose injection Syringe Intravenous, PRN, Starting on Abby 03/03/24 at 0953, Until Abby 03/03/24 at 1343, Anesthesia Intra-op, Routine Given 03/03/2024 10:02 AM EDT 160 mcg Given 03/03/2024 9:56 AM EDT 80 mcg Given 03/03/2024 9:53 AM EDT 80 mcg propofoL (Diprivan) (10 mg/mL) infusion Intravenous, CONTINUOUS PRN, Starting on Abby 03/03/24 at 0946, Until Abby 03/03/24 at 1343, Anesthesia Intra-op, Routine Rate/Dose Change 03/03/2024 12:23 PM EDT 60 mcg/kg/min 32.328 mL/hr Rate/Dose Change 03/03/2024 12:15 PM EDT 75 mcg/kg/min 40. 41 mL/hr Rate/Dose Change 03/03/2024 12:09 PM EDT 85 mcg/kg/min 45. 798 mL/hr propofoL (Diprivan) 10 mg/mL bolus injection (Anesthesia) Intravenous, PRN, Starting on Abby 03/03/24 at 0944, Until Abby 03/03/24 at 1343, Anesthesia Intra-op Given 03/03/2024 9:44 AM EDT 200 mg documented in this encounter Care Teams Factory Manager Relationship Specialty Start Date End Date Philip Eduardo MD [address] [address] PCP - General General Internal Medicine 02/29/24 documented as of this encounter
--- OUTSIDE RECORDS SUMMARY | 2024-05-31 18:15 | XMS_ITS | Encounter Summary ---
Author Organization [facility] [place] [address] Care Team Providers Care Fundraising Officer Name Role Phone Unknown Primary Care Provider Unavailabl e Encounter Details Date Type Department Care Team (Late st Contact Info) Description 01/28/2024 Transcribe Orders eD Incoming Referrals [phone] Emilie Arreola, THOMAS [address] [place] [address] [phone] Social History Tobacco Use Types Packs/Day Years [...] 06/08/2024 3:45 PM EST Appointment XRay at [address] [place] [address] Petey Benoit MD [facility] [place] [address] 06/08/2024 4:30 PM EST Office Visit Orthopaedics at [facility] [place] [address] Petey Benoit MD [facility] [place] [address] documented as of this encounter Visit Diagnoses Not on filedocumented in this encounter Care Teams Fundraising Officer Relationship Specialty Start Date End Date Unknown None PCP - General 05/18/19 02/28/24 documented as of this encounter
--- OUTSIDE RECORDS SUMMARY | 2024-05-31 18:15 | XMS_ITS | Encounter Summary ---
Author Organization [facility] [place] [address] Care Team Providers Care Retail Marketing Manager Name Role Phone Unknown Primary Care Provider Unavailabl e Encounter Details Date Type Department Care Team (Late st Contact Info) Description 01/24/2024 6:20 PM EDT Ancillary Procedure Radiology Library at [facility] [place] [address] Gianfranco Puri PA [address] [place] [address] [place] [address] Social History Tobacco Use Types Packs/Day Years [...] 06/08/2024 3:45 PM EST Appointment XRay at [address] [place] [address] Petey Benoit MD [facility] [place] [address] 06/08/2024 4:30 PM EST Office Visit Orthopaedics at [facility] [place] [phone] Petey Benoit MD [facility] [place] [address] documented as of this encounter Procedures Procedure Name Priority Date/Time Associated Diagnosis Comments FILM LIBRARY STORAGE ONLY DX SPINE Routine 01/24/2024 6:09 PM EDT documented in this encounter Results * Film Library- Storage Only DX Spine (01/24/2024 6:09 PM EDT) Narrative EMELI RIDLEY - 01/24/2024 6:09 PM EDT This exam is auto-finalizing. It's purpose is for storage only. Gianfranco GUZMAN IMRobyn FILM LIBRARY OR DERABLES Performing Organization Address City/State/[facility] Co de Phone Number [place], [place] documented in this encounter Visit Diagnoses Not on filedocumented in this encounter Care Teams Retail Marketing Manager Relationship Specialty Start Date End Date Unknown None PCP - General 05/18/19 02/28/24 documented as of this encounter
--- OUTSIDE RECORDS SUMMARY | 2024-05-31 18:15 | XMS_ITS | Encounter Summary ---
Author Organization [facility] [place] [address] Care Team Providers Care Market Intelligence Consultant Name Role Phone Philip Eduardo MD Primary Care Provider [phone] Encounter Details Date Type Department Care Team (Late st Contact Info) Description 04/08/2024 Orders Only Orthopaedics at [facility] [place] [phone] Petey Benoit MD [facility] [place] [address] Closed displaced Nestor's fracture of right thumb with malunion; Closed fracture dislocation of lunate bone of right wrist with routine healing, subsequent encounter Social History Tobacco Use Types Packs/Day Years Used Date Smoking Tobacco: Never Smokeless Tobacco: Never Alcohol Use Standard Drinks/Week Comments Not Currently 0 (1 standard drink = 0.6 oz pure alcohol) Hasn't had a drink since 2009 [facility] Inpatient Questions Answer Date Recorded Does [...] 06/08/2024 3:45 PM EST Appointment XRay at [address] [place] [phone] Petey Benoit MD [facility] [place] [address] 06/08/2024 4:30 PM EST Office [place] [address] Petey Benoit MD [facility] [place] [address] documented as of this encounter Results * XR Fingers Min 2 views Right (Generic) (04/27/2024 2:13 PM EST) [employer] WORKSTATION ID [id number] RAD Anatomical Region Laterality Modality Hand Right [...] who have questions please contact the health child caregiver private home that requested your imaging first. ? Narrative 04/27/2024 2:47 PM EST EXAMINATION: XR WRIST 3 VIEWS RIGHT, XR FINGERS MIN 2 VIEWS RIGHT (GENERIC) CLINICAL HISTORY: R wrist fx. R thumb disolaction S62.121D, Displaced fracture of lunate (semilunar), right wrist, subsequent encounter for fracture with routine healing (accession [id number]), S62.221P, Displaced Nestor's fracture, right hand, subsequent encounter for fracture with malunion (accession [id number]) TECHNIQUE: * ??Three views of the right [...] encounter for fracture with routine healing (accession [id number]),S62.221P, Displaced Nestor's fracture, right hand, subsequent encounter forfracture with malunion (accession [id number]) TECHNIQUE: * Three views of the right [...] patients who have questions please contactthe health child caregiver private home that requested your imaging first. Electronically signed by: Lisa Rodriguez MD, [facility]([phone]), at 04/27/2024 2:47 PM Petey Benoit MD IMG DX ORDERABLES * XR Wrist 3 Views Right (04/27/2024 2:13 PM EST) [employer] Signature WORKSTATION ID [id number] RAD Anatomical Region Laterality Modality Right Digital Radiogra phy Impressions 04/27/2024 2:47 [...] who have questions please contact the health child caregiver private home that requested your imaging first. ? Electronically signed by: Lisa Rodriguez MD, [facility] ([phone]), at 04/27/2024 2:47 PM Narrative 04/27/2024 2:47 PM EST EXAMINATION: XR WRIST 3 VIEWS RIGHT, XR FINGERS MIN 2 VIEWS RIGHT (GENERIC) CLINICAL HISTORY: R wrist fx. R thumb disolaction S62.121D, Displaced fracture of lunate (semilunar), right wrist, subsequent encounter for fracture with routine healing (accession [id number]), S62.221P, Displaced Nestor's fracture, right hand, subsequent encounter for fracture with malunion (accession [id number]) TECHNIQUE: * ??Three views of the right [...] encounter for fracture with routine healing (accession [id number]),S62.221P, Displaced Nestor's fracture, right hand, subsequent encounter forfracture with malunion (accession [id number]) TECHNIQUE: * Three views of the right [...] patients who have questions please contactthe health child caregiver private home that requested your imaging first. Electronically signed by: Lisa Rodriguez MD, [facility]([phone]), at 04/27/2024 2:47 PM Petey Benoit MD IMG DX ORDERABLES documented in this encounter Visit Diagnoses Diagnosis Closed displaced Nestor's fracture of right thumb with malunion Closed fracture dislocation of lunate bone of right wrist with routine healing, subsequent encounter Closed fracture dislocation of lunate bone of right wrist with routine healing, subsequent encounter Closed displaced Nestor's fracture of right thumb with malunion documented in this encounter Care Teams Market Intelligence Consultant Relationship Specialty Start Date End Date Philip Eduardo MD [address] [address] PCP - General General Internal Medicine 02/29/24 documented as of this encounter
--- OUTSIDE RECORDS SUMMARY | 2024-05-31 18:15 | XMS_ITS | Encounter Summary ---
Author Organization [facility] [place] [address] Care Team Providers Care Cheese Maker Name Role Phone Philip Eduardo MD Primary Care Provider Encounter Details Date Type Department Care Team (Late st Contact Info) Description 03/03/2024 Orders [place] [phone] Petey Benoit MD [facility] [place] [address] Closed fracture dislocation of lunate bone of right wrist with routine healing, subsequent encounter; Injury of right hand including fingers, initial encounter Social History Tobacco Use Types Packs/Day Years Used Date Smoking Tobacco: Never Smokeless Tobacco: Never Alcohol Use Standard Drinks/Week Comments Not Currently 0 (1 standard drink = 0.6 oz pure alcohol) Hasn't had a drink since 2009 [facility] Inpatient Questions Answer Date Recorded Does [...] 06/08/2024 3:45 PM EST Appointment XRay at [address] [place] [address] Petey Benoit MD [facility] [place] [address] 06/08/2024 4:30 PM EST Office [place] [phone] Petey Benoit MD [facility] [place] [address] documented as of this encounter Results * XR Fingers Min 2 views Right (Generic) (03/16/2024 10:29 AM EDT) [employer] WORKSTATION ID [id number] RAD Anatomical Region Laterality Modality Hand Right Digital Radiogra phy Impressions 03/16/2024 12:08 PM EDT Status post ORIF for radiocarpal dislocation, 1st metacarpal base fracture and scapholunate diastases. ??The hardware are intact with maintained post surgical alignment. Thank you for letting us participate in the care of this patient. ??If you are a health care provider and have any questions regarding this report, please contact the number below. ??For patients who have questions please contact the health medicare coordinator that requested your imaging first. ? Narrative 03/16/2024 12:08 PM EDT EXAMINATION: XR WRIST 3 VIEWS RIGHT, XR FINGERS MIN 2 VIEWS RIGHT (GENERIC) CLINICAL HISTORY: Right wrist fx S62.121D, Displaced fracture of lunate (semilunar), right wrist, subsequent encounter for fracture with routine healing (accession [id number]), S69.91XA, Unspecified injury of right wrist, hand and finger(s), initial encounter (accession [id number]) TECHNIQUE: 3 views RIGHT wrist 3 views of RIGHT fingers COMPARISON: Intraoperative fluoroscopy 03/03/2024. Radiographs 03/02/2024. FINDINGS: Extensive postoperative changes status post treatment for radiocarpal dislocation, 1st metacarpal base fracture and scapholunate diastases. ?? * ??radiocarpal dislocation status post ORIF with dorsal plate spanning the distal radius and 3rd metacarpal. ??The radiocarpal joint is anatomical. * ??1st metacarpal comminuted Nestor fracture reduced and fixated by multiple percutaneous pins. * ??Multiple pins fixating lunate and triquetrum joint. * ??Improved alignment of scapholunate interval. ??The scapholunate joint is partially obscured by hardware * ??Radial styloid fracture status post ORIF with plate and screws * ??All the aforementioned hardware are intact without change in alignment compared with intraoperative fluoroscopy. Other bones included are intact. ??Diffuse wrist soft tissue swelling. Procedure Note Viet Shaw MD - 03/16/2024 EXAMINATION: XR WRIST 3 VIEWS RIGHT, XR FINGERS MIN 2 VIEWS RIGHT(GENERIC) CLINICAL HISTORY: Right wrist fx S62.121D, Displaced fracture of lunate (semilunar), right wrist,subsequent encounter for fracture with routine healing (accession [id number]),S69.91XA, Unspecified injury of right wrist, hand and finger(s), initial encounter (accession [id number]) TECHNIQUE: 3 views RIGHT wrist 3 views of RIGHT fingers COMPARISON: Intraoperative fluoroscopy 03/03/2024. Radiographs 03/02/2024. FINDINGS: Extensive postoperative changes status post treatment for radiocarpal dislocation, 1st metacarpal base fracture and scapholunate diastases. * radiocarpal dislocation status post ORIF with dorsal plate spanningthe distal radius and 3rd metacarpal. The radiocarpal joint is anatomical. * 1st metacarpal comminuted Nestor fracture reduced and fixated bymultiple percutaneous pins. * Multiple pins fixating lunate and triquetrum joint. * Improved alignment of scapholunate interval. The scapholunate jointis partially obscured by hardware * Radial styloid fracture status post ORIF with plate and screws * All the aforementioned hardware are intact without change inalignment compared with intraoperative fluoroscopy. Other bones included are intact. Diffuse wrist soft tissue swelling. IMPRESSION Status post ORIF for radiocarpal dislocation, 1st metacarpal base fractureand scapholunate diastases. The hardware are intact with maintained postsurgical alignment. Thank you for letting us participate in the care of this patient. If youare a health care provider and have any questions regarding this report,please contact the number below. For patients who have questions please contactthe health medicare coordinator that requested your imaging first. Petey Benoit MD IMG DX ORDERABLES * XR Wrist 3 Views Right (03/16/2024 10:29 AM EDT) [employer] WORKSTATION ID [id number] RAD Anatomical Region Laterality Modality Right Digital Radiogra phy Impressions 03/16/2024 12:08 PM EDT Status post ORIF for radiocarpal dislocation, 1st metacarpal base fracture and scapholunate diastases. ??The hardware are intact with maintained post surgical alignment. Thank you for letting us participate in the care of this patient. ??If you are a health care provider and have any questions regarding this report, please contact the number below. ??For patients who have questions please contact the health medicare coordinator that requested your imaging first. ? Narrative 03/16/2024 12:08 PM EDT EXAMINATION: XR WRIST 3 VIEWS RIGHT, XR FINGERS MIN 2 VIEWS RIGHT (GENERIC) CLINICAL HISTORY: Right wrist fx S62.121D, Displaced fracture of lunate (semilunar), right wrist, subsequent encounter for fracture with routine healing (accession [id number]), S69.91XA, Unspecified injury of right wrist, hand and finger(s), initial encounter (accession [id number]) TECHNIQUE: 3 views RIGHT wrist 3 views of RIGHT fingers COMPARISON: Intraoperative fluoroscopy 03/03/2024. Radiographs 03/02/2024. FINDINGS: Extensive postoperative changes status post treatment for radiocarpal dislocation, 1st metacarpal base fracture and scapholunate diastases. ?? * ??radiocarpal dislocation status post ORIF with dorsal plate spanning the distal radius and 3rd metacarpal. ??The radiocarpal joint is anatomical. * ??1st metacarpal comminuted Nestor fracture reduced and fixated by multiple percutaneous pins. * ??Multiple pins fixating lunate and triquetrum joint. * ??Improved alignment of scapholunate interval. ??The scapholunate joint is partially obscured by hardware * ??Radial styloid fracture status post ORIF with plate and screws * ??All the aforementioned hardware are intact without change in alignment compared with intraoperative fluoroscopy. Other bones included are intact. ??Diffuse wrist soft tissue swelling. Procedure Note Viet Shaw MD - 03/16/2024 EXAMINATION: XR WRIST 3 VIEWS RIGHT, XR FINGERS MIN 2 VIEWS RIGHT(GENERIC) CLINICAL HISTORY: Right wrist fx S62.121D, Displaced fracture of lunate (semilunar), right wrist,subsequent encounter for fracture with routine healing (accession [id number]),S69.91XA, Unspecified injury of right wrist, hand and finger(s), initial encounter (accession [id number]) TECHNIQUE: 3 views RIGHT wrist 3 views of RIGHT fingers COMPARISON: Intraoperative fluoroscopy 03/03/2024. Radiographs 03/02/2024. FINDINGS: Extensive postoperative changes status post treatment for radiocarpal dislocation, 1st metacarpal base fracture and scapholunate diastases. * radiocarpal dislocation status post ORIF with dorsal plate spanningthe distal radius and 3rd metacarpal. The radiocarpal joint is anatomical. * 1st metacarpal comminuted Nestor fracture reduced and fixated bymultiple percutaneous pins. * Multiple pins fixating lunate and triquetrum joint. * Improved alignment of scapholunate interval. The scapholunate jointis partially obscured by hardware * Radial styloid fracture status post ORIF with plate and screws * All the aforementioned hardware are intact without change inalignment compared with intraoperative fluoroscopy. Other bones included are intact. Diffuse wrist soft tissue swelling. IMPRESSION Status post ORIF for radiocarpal dislocation, 1st metacarpal base fractureand scapholunate diastases. The hardware are intact with maintained postsurgical alignment. Thank you for letting us participate in the care of this patient. If youare a health care provider and have any questions regarding this report,please contact the number below. For patients who have questions please contactthe health medicare coordinator that requested your imaging first. Petey Benoit MD IMG DX ORDERABLES documented in this encounter Visit Diagnoses Diagnosis Closed fracture dislocation of lunate bone of right wrist with routine healing, subsequent encounter Injury of right hand including fingers, initial encounter Closed fracture dislocation of lunate bone of right wrist with routine healing, subsequent encounter Injury of right hand including fingers, initial encounter documented in this encounter Care Teams Cheese Maker Relationship Specialty Start Date End Date Philip Eduardo MD [address] [address] PCP - General General Internal Medicine 02/29/24 documented as of this encounter
--- OUTSIDE RECORDS SUMMARY | 2024-05-31 18:15 | XMS_ITS | Encounter Summary ---
[place] [address] Care Team Providers Care Commercial Lines Insurance Agent Name Role Phone Unknown Primary Care Provider Unavailabl e Reason for Referral * Consultation (Urgent) - Authorized Specialty Diagnoses / Procedures Referred By Apolinarac t Referred To Contact Neurosurgery Diagnoses Collapsed vertebra, not elsewhere classified, lumbar region, initial encounter for fracture Patient was scheduled over the phone today by myself with patient in clinic. Appointment is for February 10 at 3:20 - Emilie Reaves PA [address] [address] [facility] [address] [place] [phone] Referral ID Status Reason Start Date Expiration Date Visits Requested Visits Authorized [id number] Authorized Consult, Test & Treat PCP Updated and/or Approved 01/27/2024 01/26/2025 6 6 Encounter Details Date Type Department Care Team (Late st Contact Info) Description 01/28/2024 Transcribe Orders eDH Incoming Referrals [phone] Emilie Arreola PA [address] [phone] Collapsed vertebra, not elsewhere classified, lumbar region, initial encounter for fracture Social History Tobacco Use Types Packs/Day Years [...] 3:45 PM EST Appointment XRay at [address] [place] [address] Petey Benoit MD [facility] [place] [address] 06/08/2024 4:30 PM EST Office Visit Orthopaedics at [facility] [place] [place] [address] Petey Benoit MD [facility] [place] [address] Scheduled Referrals Name Type Priority Associated Diagnoses Order Schedule Referral to Neurosurgery Outpatient Referral Routine Collapsed vertebra, not elsewhere classified, lumbar region, initial encounter for fracture Ordered: 01/28/2024 documented as of this encounter Visit Diagnoses Diagnosis Collapsed vertebra, not elsewhere classified, lumbar region, initial encounter for fracture documented in this encounter Care Teams Commercial [employer] Insurance Agent Relationship Specialty Start Date End Date Unknown None PCP - General 05/18/19 02/28/24 documented as of this encounter
--- OUTSIDE RECORDS SUMMARY | 2024-05-31 18:15 | XMS_ITS | Encounter Summary ---
Author Organization [facility] [place] [address] Care Team Providers Care Head Of Housekeeping Name Role Phone Unknown Primary Care Provider Unavailabl e Encounter Details Date Type Department Care Team (Latest Contact Info) Description 02/11/2024 Travel Social History Tobacco Use Types Packs/Day Years Used Date Smoking Tobacco: Never Smokeless Tobacco: Never Alcohol Use Standard Drinks/Week Comments Not Currently 0 (1 standard drink = 0.6 oz pure alcohol) Hasn't had a drink since 2009 Sex and Gender Information Value Date Recorded Sex Assigned at Not on file Gender Identity Not on file Sexual Orientation Not on file documented as of this encounter Plan of Treatment Upcoming Encounters Date Type Department Care Team (Late st Contact Info) Description 06/08/2024 3:45 PM EST Appointment XRay at [address] [place] [address] Petey Benoit MD [facility] [place] [address] 06/08/2024 4:30 PM EST Office Visit Orthopaedics at [facility] [place] [address] Petey Benoit MD [facility] [place] [address] documented as of this encounter Visit Diagnoses Not on filedocumented in this encounter Care Teams Head Of Housekeeping Relationship Specialty Start Date End Date Unknown None PCP - General 05/18/19 02/28/24 documented as of this encounter
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
--- OUTSIDE RECORDS SUMMARY | 2024-05-31 18:15 | XMS_ITS | Encounter Summary ---
Author Organization [facility] Address [facility] [place] [address] Care Team Providers Care Academic Affairs Vice President Name Role Phone Philip Eduardo MD Primary Care Provider [phone] Reason for Visit * Reason Onset Date Comments Appointment 03/18/2024 Encounter Details Date Type Department Care Team (Late st Contact Info) Description 03/18/2024 Telephone [place] [phone] Petey Benoit MD [facility] DR [place] [address] Appointment Social History Tobacco Use Types Packs/Day Years Used Date Smoking Tobacco: Never Smokeless Tobacco: Never Alcohol Use Standard Drinks/Week Comments Not Currently 0 (1 standard drink = 0.6 oz pure alcohol) Hasn't had a drink since 2009 [facility] Inpatient Questions Answer Date Recorded Does [...] encounter Miscellaneous Notes * Telephone Encounter - Olinda Amin - 03/18/2024 11:40 AM EDT Called ans spoke to patient to relay upcoming 04/27/24 appointment details, he did not have the ability to write this down and he is having a hard time getting into his patient portal, he asked me carolina Abdalla at [phone] to relay info and provide her the phone number to help him get back into the portal documented in this encounter Plan of Treatment Upcoming Encounters Date Type Department Care Team (Late st Contact Info) Description 06/08/2024 3:45 PM EST Appointment XRay at [address] [place] [address] Petey Benoit MD [facility] [place] [address] 06/08/2024 4:30 PM EST Office Visit Orthopaedics at [facility] [phone] Petey Benoit MD [facility] [place] [address] documented as of this encounter Visit Diagnoses Not on filedocumented in this encounter Care Teams Academic Affairs Vice President Relationship Specialty Start Date End Date Philip Eduardo MD [address] [place] [id number] PCP - General General Internal Medicine 02/29/24 documented as of this encounter
--- OUTSIDE RECORDS SUMMARY | 2024-05-31 18:15 | XMS_ITS | Encounter Summary ---
Author Organization [facility] [place] [address] Care Team Providers Care Nurse Emergency Name Role Phone Unknown Primary Care Provider Unavailabl e Encounter Details Date Type Department Care Team (Late st Contact Info) Description 01/24/2024 6:15 PM EDT Ancillary Procedure Radiology Library at [facility], [place], [facility] [place] [address] Gianfranco Puri PA [address] [place] [address] [place] [address] Social History Tobacco Use Types [...] 06/08/2024 3:45 PM EST Appointment XRay at [address] [place] [address] Petey Benoit MD [facility] [place] [address] 06/08/2024 4:30 PM EST Office Visit Orthopaedics at [facility] [place] [place] [phone] Petey Benoit MD [facility] [place] [address] documented as of this encounter Procedures Procedure Name Priority Date/Time Associated Diagnosis Comments FILM LIBRARY STORAGE ONLY DX PELVIS Routine 01/24/2024 6:09 PM EDT documented in this encounter Results * Film Library- Storage Only DX Pelvis (01/24/2024 6:09 PM EDT) Narrative KHAI - 01/24/2024 6:09 PM EDT This exam is auto-finalizing. It's purpose is for storage only. Gianfranco GUZMAN IMRobyn FILM LIBRARY OR DERABLES Performing Organization Address City/State/[facility] Co de Phone Number [place], [place] documented in this encounter Visit Diagnoses Not on filedocumented in this encounter Care Teams Nurse Emergency Relationship Specialty Start Date End Date Unknown None PCP - General 05/18/19 02/28/24 documented as of this encounter
--- OUTSIDE RECORDS SUMMARY | 2024-05-31 18:15 | XMS_ITS | Encounter Summary ---
Author Organization [facility] [place] [address] Care Team Providers Care Template Worker Name Role Phone Unknown Primary Care Provider Unavailabl e Encounter Details Date Type Department Care Team (Late st Contact Info) Description 01/14/2024 Ancillary Procedure Radiology Library at [facility] [place] [address] Philip Eduardo MD [address] [phone] Social History Tobacco Use Types Packs/Day Years [...] 06/08/2024 3:45 PM EST Appointment XRay at [address] [place] [address] Petey Benoit MD [facility] [place] [address] 06/08/2024 4:30 PM EST Office Visit Orthopaedics at [facility] [place] [phone] Petey Benoit MD [facility] [place] [address] documented as of this encounter Procedures Procedure Name Priority Date/Time Associated Diagnosis Comments FILM LIBRARY STORAGE ONLY DX WRIST Routine 01/14/2024 12:00 AM EDT documented in this encounter Results * Film Library- Storage Only DX Wrist (01/14/2024 12:00 AM EDT) Narrative EMELI RIDLEY - 02/29/2024 2:06 PM EDT This exam is auto-finalizing. It's purpose is for storage only. Philip Eduardo MD IMG FILM LIBRARY ORD ERABLES Performing Organization Address City/State/[facility] Co de Phone Number [place], [place] documented in this encounter Visit Diagnoses Not on filedocumented in this encounter Care Teams Template Worker Relationship Specialty Start Date End Date Unknown None PCP - General 05/18/19 02/28/24 documented as of this encounter
--- OUTSIDE RECORDS SUMMARY | 2024-05-31 18:15 | XMS_ITS | Encounter Summary ---
[place] [address] Care Team Providers Care Thread Roller Name Role Phone Jf Cervantes Primary Care Provider [phone] Encounter Details Date Type Department Care Team (Late st Contact Info) Description 08/03/2017 Orders Only [place] [address] Stevie Goldsmith DO Chronic kidney disease, unspecified CKD stage; Hypertension, [...] 06/08/2024 3:45 PM EST Appointment XRay at [address] [place] [address] Petey Benoit MD [facility] DR [place] [address] 06/08/2024 4:30 PM EST Office [place] [phone] Petey Benoit MD [facility] [place] [address] documented as of this encounter Results * Uric acid (09/09/2017 2:25 PM EDT) Uric Acid 8.1 3.5 - 8.5 mg/dL [facility] Blood specimen (specimen) 09/09/2017 2:25 PM EDT 09/09/2017 2:41 PM EDT Narrative Resulting Agency Comment Spec In Lab Dilan Gtz MD CHEMISTRY ORDERABLES Performing Organization Address City/[facility]/ZIP Co de Phone Number [facility] [place] [address] * Magnesium (09/09/2017 2:25 PM EDT) Magnesium 0.75 0.69 - 1.07 mmol/L [facility] Blood specimen (specimen) 09/09/2017 2:25 PM EDT 09/09/2017 2:41 PM EDT Narrative Resulting Agency Comment Spec In Lab Dilan Gtz MD CHEMISTRY ORDERABLES Performing Organization Address [facility] Co de Phone Number [facility] [place] [address] * Phosphorus (09/09/2017 2:25 PM EDT) Phosphorus 2.7 2.5 - 4.5 mg/dL [facility] Blood specimen (specimen) 09/09/2017 2:25 PM EDT 09/09/2017 2:41 PM EDT Narrative Resulting Agency Comment Spec In Lab Dilan Gtz MD CHEMISTRY ORDERABLES Performing Organization Address City/[facility]/ZIP Co de Phone Number [facility] [place] [address] * PTH (09/09/2017 2:25 PM EDT) Parathyroid Hormone 39 15 - 65 pg/mL [facility] Blood specimen (specimen) 09/09/2017 2:25 PM EDT 09/09/2017 2:41 PM EDT Narrative Resulting Agency Comment Spec In Lab Dilan Gtz MD CHEMISTRY ORDERABLES [facility] [place] [address] * (ABNORMAL) Comprehensive metabolic panel (non-fasting) (09/09/2017 2:25 PM EDT) Glucose 89 65 - 199 mg/dL [facility] Comment:Diabetes: >=200 mg/d L plus symptoms Blood Urea Nitrogen 18 10 - 20 mg/dL [facility] Creatinine 1.22 0.80 - 1.50 mg/dL [facility] Sodium 139 135 - 145 mmol/L [facility] Potassium 4.0 3.5 - 5.0 mmol/L [facility] Comment: Please note: ??Patients with WBC >100,000 may have falsely elevated Potassium levels. ??For accurate Potassium quantification in these patients send serum separator tube (gold top) for subsequent determinations. ??Contact the Clinical Chemistry Laboratory if there are any questions. Chloride 101 98 - 107 mmol/L [facility] Carbon Dioxide 24 22 - 31 mmol/L [facility] Anion Gap 14 5 - 15 mmol/L [facility] Calcium 9.3 8.5 - 10.5 mg/dL [facility] Protein, Total 7.5 6.1 - 8.0 gm/dL [facility] Albumin 4.1 3.2 - 5.2 gm/dL [facility] Aspartate Aminotransferase 22 0 - 39 unit/L [facility] Alanine Aminotransferase 36 0 - 55 unit/L [facility] Alkaline Phosphatase 74 40 - 120 unit/L [facility] Bilirubin, Total <0.2(L) 0.2 - 1.3 mg/dL [facility] Est Glomerular Filtration Rate >60 >=60 [facility] Comment: The reported eGFR should be multiplied by 1.2 for patients. The MDRD is not an appropriate measure of renal function for patients with body mass extremes or in patients with acute kidney failure. [email or web address].com/DHnkdep [email or web address]/DHMCnkf Blood specimen (specimen) 09/09/2017 2:25 PM EDT 09/09/2017 2:41 PM EDT Narrative Resulting Agency Comment Spec In Lab Dilan Gtz MD CHEMISTRY ORDERABLES Performing Organization Address City/State/[facility] Co de Phone Number [facility] [place] [address] documented in this encounter Visit Diagnoses Diagnosis Chronic kidney disease, unspecified CKD stage Hypertension, unspecified type Hematuria, unspecified type documented in this encounter Care Teams Thread Roller Relationship Specialty Start Date End Date Jf Cervantes PA [address] [address] PCP - General General Internal Medicine 01/16/16 documented as of this encounter
--- OUTSIDE RECORDS SUMMARY | 2024-05-31 18:15 | XMS_ITS | Encounter Summary ---
Author Organization [facility] [place] [address] Care Team Providers Care Endoscopy Technician Name Role Phone Philip Eduardo MD Primary Care Provider Reason for Referral * Diagnostic Test (STAT) - Closed Specialty Diagnoses / Procedures Referred By Contac t Referred To Contact Radiology Diagnoses Injury of right hand including fingers, initial encounter Right wrist injury, initial encounter Procedures CT Hand wo Contrast Right (Generic) Petey Benoit MD [facility] [place] [address] [facility] [place] [address] Referral ID Status Reason Start Date Expiration Date V isits Requested Visits Authorized [id number] Closed Specialty Service Requested 03/02/2024 04/16/2024 1 1 Encounter Details Date Type Department Care Team (Late st Contact Info) Description 03/02/2024 Orders [place] [phone] [facility] [place] [address] Injury of right hand including fingers, initial encounter; Right wrist injury, initial encounter Social History Tobacco Use Types Packs/Day Years Used Date Smoking Tobacco: Never Smokeless Tobacco: Never Alcohol Use Standard Drinks/Week Comments Not Currently 0 (1 standard drink = 0.6 oz pure alcohol) Hasn't had a drink since 2009 [facility] Inpatient Questions Answer Date Recorded Does Anyone [...] 06/08/2024 3:45 PM EST Appointment XRay at [address] [place] [address] [facility] [place] [address] 06/08/2024 4:30 PM EST Office Visit Orthopaedics at [facility] [place] [address] [facility] [place] [address] documented as of this encounter Results * CT Hand wo Contrast Right (Generic) (03/02/2024 12:15 PM EDT) [employer] Signature WORKSTATION ID [id number] [facility] Anatomical Region Laterality Modality Hand Right Computed [...] who have questions please contact the health home health aide caregiver that requested your imaging first. ? Narrative 03/02/2024 1:56 PM EDT EXAMINATION: CT [...] comminuted fracture 1st metacarpal base with extension [id number] CMC with callus deposition likely subacute injury. 4. Markedly diastases of scapholunate interval compatible withscapholunate ligament tear. Thank you for letting us participate in the care of this patient. If youare a health care provider and have any questions regarding this report,please contact the number below. For patients who have questions please contactthe health home health aide caregiver that requested your imaging first. Petey Benoit MD IMG CT ORDERABLES * XR Wrist 3 Views Right (03/02/2024 11:23 AM EDT) WORKSTATION ID [id number] RAD Anatomical Region Laterality Modality Right Digital Radiogra phy Impressions 03/02/2024 10:36 PM EDT 1. ??Multiple injuries of the wrist including volar radiocarpal dislocation, severely comminuted 1st metacarpal base fracture as well as scapholunate diastases 2. ??The fractures in the hamate, triquetrum and 5th metacarpal base are better seen on same-day CT. Thank you for letting us participate in the care of this patient. ??If you are a health care provider and have any questions regarding this report, please contact the number below. ??For patients who have questions please contact the health home health aide caregiver that requested your imaging first. ? Narrative 03/02/2024 10:36 PM EDT EXAMINATION: XR WRIST 3 VIEWS RIGHT CLINICAL HISTORY: Right -displaced fx of 1st metatarsal,displaced fx of the radial styloid, triquetral fx and volar wrist dislocation Doi 01/14/2024 S69.91XA, Unspecified injury of right wrist, hand and finger(s), initial encounter - S69.91XA, Unspecified injury of right wrist, hand and finger(s), initial encounter TECHNIQUE: 3 views RIGHT wrist COMPARISON: Same day CT right hand/wrist 03/02/2024 FINDINGS: Current radiograph is interpreted in conjunction with the same day wrist radiograph Multiple fractures fracture of wrist and hand including the following: * ??Volar radiocarpal dislocation with a radial styloid fracture that is laterally and volarly displaced. * ??Scapholunate diastases compatible scapholunate injury. * ??Severely comminuted fracture of 1st metacarpal base with extension to the 1st CMC (Nestor fracture) with callus formation. * ??Additional fractures, including in the hamate, triquetrum and 5th metacarpal base are radiographically occult and better seen on same-day CT. Procedure Note Viet Shaw MD - 03/02/2024 EXAMINATION: XR WRIST 3 VIEWS RIGHT CLINICAL HISTORY: Right -displaced fx of 1st metatarsal,displaced fx ofthe radial styloid, triquetral fx and volar wrist dislocation Doi 01/14/2024 S69.91XA, Unspecified injury of right wrist, hand and finger(s), initial encounter - S69.91XA, Unspecified injury of right wrist, hand andfinger(s), initial encounter TECHNIQUE: 3 views RIGHT wrist COMPARISON: Same day CT right hand/wrist 03/02/2024 FINDINGS: Current radiograph is interpreted in conjunction with the same day wrist radiograph Multiple fractures fracture of wrist and hand including the following: * Volar radiocarpal dislocation with a radial styloid fracture that is laterally and volarly displaced. * Scapholunate diastases compatible scapholunate injury. * Severely comminuted fracture of 1st metacarpal base with extension tothe 1st CMC (Nestor fracture) with callus formation. * Additional fractures, including in the hamate, triquetrum and 5thmetacarpal base are radiographically occult and better seen on same-day CT. IMPRESSION 1. Multiple injuries of the wrist including volar radiocarpaldislocation, severely comminuted 1st metacarpal base fracture as well as scapholunate diastases 2. The fractures in the hamate, triquetrum and 5th metacarpal base arebetter seen on same-day CT. Thank you for letting us participate in the care of this patient. If youare a health care provider and have any questions regarding this report,please contact the number below. For patients who have questions please contactthe health home health aide caregiver that requested your imaging first. Petey Benoit MD IMG DX ORDERABLES * XR Fingers Min 2 views Right (Generic) (03/02/2024 11:23 AM EDT) WORKSTATION ID [id number] RAD Anatomical Region Laterality Modality Hand Right Digital Radiogra phy Impressions 03/02/2024 10:35 PM EDT 1. ??Multiple injuries of the wrist including volar radiocarpal dislocation, severely comminuted 1st metacarpal base fracture as well as scapholunate diastases 2. ??The fractures in the hamate, triquetrum and 5th metacarpal base are better seen on same-day CT. Thank you for letting us participate in the care of this patient. ??If you are a health care provider and have any questions regarding this report, please contact the number below. ??For patients who have questions please contact the health home health aide caregiver that requested your imaging first. ? Narrative 03/02/2024 10:35 PM EDT EXAMINATION: XR FINGERS MIN 2 VIEWS RIGHT (GENERIC) CLINICAL HISTORY: Right -displaced fx of 1st metatarsal,displaced fx of the radial styloid, triquetral fx and volar wrist dislocation Doi 01/14/2024 S69.91XA, Unspecified injury of right wrist, hand and finger(s), initial encounter - S69.91XA, Unspecified injury of right wrist, hand and finger(s), initial encounter TECHNIQUE: 2 views RIGHT finger COMPARISON: Same day CT right wrist/hand 03/02/2024. Radiographs right wrist 01/14/2024 FINDINGS: Current radiograph is interpreted in conjunction with the same day wrist radiograph Multiple fractures fracture of wrist and hand including the following: * ??Volar radiocarpal dislocation with a radial styloid fracture that is laterally and volarly displaced. * ??Scapholunate diastases compatible scapholunate injury. * ??Severely comminuted fracture of 1st metacarpal base with extension to the 1st CMC (Nestor fracture) with callus formation. * ??Additional fractures, including in the hamate, triquetrum and 5th metacarpal base are radiographically occult and better seen on same-day CT. Procedure Note Viet Shaw MD - 03/02/2024 EXAMINATION: XR FINGERS MIN 2 VIEWS RIGHT (GENERIC) CLINICAL HISTORY: Right -displaced fx of 1st metatarsal,displaced fx ofthe radial styloid, triquetral fx and volar wrist dislocation Doi 01/14/2024 S69.91XA, Unspecified injury of right wrist, hand and finger(s), initial encounter - S69.91XA, Unspecified injury of right wrist, hand andfinger(s), initial encounter TECHNIQUE: 2 views RIGHT finger COMPARISON: Same day CT right wrist/hand 03/02/2024. Radiographs right wrist 01/14/2024 FINDINGS: Current radiograph is interpreted in conjunction with the same day wrist radiograph Multiple fractures fracture of wrist and hand including the following: * Volar radiocarpal dislocation with a radial styloid fracture that is laterally and volarly displaced. * Scapholunate diastases compatible scapholunate injury. * Severely comminuted fracture of 1st metacarpal base with extension tothe 1st CMC (Nestor fracture) with callus formation. * Additional fractures, including in the hamate, triquetrum and 5thmetacarpal base are radiographically occult and better seen on same-day CT. IMPRESSION 1. Multiple injuries of the wrist including volar radiocarpaldislocation, severely comminuted 1st metacarpal base fracture as well as scapholunate diastases 2. The fractures in the hamate, triquetrum and 5th metacarpal base arebetter seen on same-day CT. Thank you for letting us participate in the care of this patient. If youare a health care provider and have any questions regarding this report,please contact the number below. For patients who have questions please contactthe health home health aide caregiver that requested your imaging first. Petey Benoit MD IMG DX ORDERABLES documented in this encounter Visit Diagnoses Diagnosis Injury of right hand including fingers, initial encounter Right wrist injury, initial encounter Injury of right hand including fingers, initial encounter Right wrist injury, initial encounter Injury of right hand including fingers, initial encounter Right wrist injury, initial encounter documented in this encounter Care Teams Endoscopy Technician Relationship Specialty Start Date End Date Philip Eduardo MD [address] [address] PCP - General General Internal Medicine 02/29/24 documented as of this encounter
--- OUTSIDE RECORDS SUMMARY | 2024-05-31 18:15 | XMS_ITS | Encounter Summary ---
[place] [address] Care Team Providers Care Folder Machine Operator Name Role Phone Jf Cervantes Primary Care Provider [phone] Reason for Visit * Reason Comments Chronic Kidney Disease Hematuria Encounter Details Date Type Department Care Team (Latest Contact Info) Description 09/09/2017 3:30 PM EDT Office Visit [place] [address] Mary Kate Emery MD Mares, Jon W, DO Chronic kidney disease, unspecified CKD stage; Microscopic [...] documented in this encounter Progress Notes * Stevie Goldsmith DO - 09/09/2017 3:30 PM EDT [facility] Nephrology/Hypertension Follow Up Mathew Han [id number] HPI: 52 y/o WM with a history of microscopic hematuria and CKD presents to Nephrology Clinic for follow-up after being re-referred by his PCP. Patient was initially diagnosed with microscopic hematuria when he was 21 years old as part of routine health screening in the [employer] (where he served for 6 years). Patient subsequently had a renal biopsy performed when patient was stationed at [facility], but patient describes that results were unremarkable. [...] w/ Dr. Yuly Goldsmith DO Nephrology Fellow [facility] THOMAS Malhotra [address] [address] * Mary Kate Emery MD - 09/09/2017 3:30 [...] 06/08/2024 3:45 PM EST Appointment XRay at [address] [place] [address] Petey Benoit MD [facility] [place] [address] 06/08/2024 4:30 PM EST Office Visit Orthopaedics at [facility] [place] [phone] Petey Benoit MD [facility] [place] [address] documented as of this encounter Procedures Procedure Name Priority Date/Time Associated Diagnosis Comments PROTEIN/CREATININE RATIO, URINE Routine 09/09/2017 3:30 PM EDT Chronic kidney disease, unspecified CKD stage U ALBUMIN/CRE RATIO Routine 09/09/2017 3 :30 PM EDT Chronic kidney disease, unspecified CKD stage documented in this encounter Results * (ABNORMAL) Protein/Creatinine Ratio, urine (09/09/2017 3:30 PM EDT) Creatinine, Urine 87 mg/dL [facility] Protein, Urine 62(H) 0 - 12 mg/dL [facility] Protein / Creatinine Ratio, Urine 0.7 ratio [facility] Urine specimen (specimen) 09/09/2017 3:30 PM EDT 09/09/2017 4:28 PM EDT Narrative Resulting Agency Comment Spec In Lab Mary Kate Emery MD URINE ORDERABLES [facility] [place] [address] * (ABNORMAL) U Albumin/Cre Ratio (09/09/2017 3:30 PM EDT) Albumin / Creatinin Ratio, Urine 521(H) 0 - 29 mcg/mg Cr [facility] Comment: Reference Ranges: <30 mcg/mg: [...] 2, 357? 362 Albumin, Urine 453.7 mg/L [facility] Creatinine, Urine 87 mg/dL [facility] Urine specimen (specimen) 09/09/2017 3:30 PM EDT 09/09/2017 4:28 PM EDT Narrative Resulting Agency Comment Spec In Lab Mary Kate Emery MD URINE ORDERABLES Performing Organization Address City/State/[facility] Co de Phone Number [facility] [place] [address] documented in this encounter Visit Diagnoses Diagnosis Chronic kidney disease, unspecified CKD stage Microscopic hematuria Hypertension, unspecified type Gout, unspecified cause, unspecified chronicity, unspecified site documented in this encounter Care Teams Folder Machine Operator Relationship Specialty Start Date End Date Jf Cervantes PA [address] [place] [address] PCP - General General Internal Medicine 01/16/16 documented as of this encounter
--- OUTSIDE RECORDS SUMMARY | 2024-05-31 18:15 | XMS_ITS | Encounter Summary ---
Author Organization [facility] [place] [address] Care Team Providers Care Excellence Leader Name Role Phone Philip Eduardo MD Primary Care Provider [phone] Encounter Details Date Type Department Care Team (Latest Contact Info) Description 03/16/2024 Travel Social History Tobacco Use Types Packs/Day Years Used Date Smoking Tobacco: Never Smokeless Tobacco: Never Alcohol Use Standard Drinks/Week Comments Not Currently 0 (1 standard drink = 0.6 oz pure alcohol) Hasn't had a drink since 2009 [facility] Inpatient Questions Answer Date Recorded Does Anyone [...] 06/08/2024 3:45 PM EST Appointment XRay at [address] [place] [address] Petey Benoit MD [facility] [place] [address] 06/08/2024 4:30 PM EST Office Visit Orthopaedics at [facility] [place] [phone] Petey Benoit MD [facility] [place] [address] documented as of this encounter Visit Diagnoses Not on filedocumented in this encounter Care Teams Excellence Leader Relationship Specialty Start Date End Date Philip Eudardo MD [address] [address] PCP - General General Internal Medicine 02/29/24 documented as of this encounter
--- OUTSIDE RECORDS SUMMARY | 2024-05-31 18:15 | XMS_ITS | Encounter Summary ---
Author Organization [facility] [place] [address] Care Team Providers Care Digital Designer Name Role Phone Philip Eduardo MD Primary Care Provider Reason for Referral * Diagnostic Test (STAT) - Closed Specialty Diagnoses / Procedures Referred By Contac t Referred To Contact Radiology Diagnoses Injury of right hand including fingers, initial encounter Right wrist injury, initial encounter Procedures CT Hand wo Contrast Right (Generic) Petey Benoit MD [facility] DR ORTHOPAEDIC [place] [address] [facility] [place] [address] Referral ID Status Reason Start Date Expiration Date V isits Requested Visits Authorized [id number] Closed Specialty Service Requested 03/02/2024 04/16/2024 1 1 Reason for Visit * Diagnostic Test (STAT) - Closed Specialty Diagnoses / Procedures Referred By Contac t Referred To Contact Radiology Diagnoses Injury of right hand including fingers, initial encounter Right wrist injury, initial encounter Procedures CT Hand wo Contrast Right (Generic) Petey Benoit MD [facility] ORTHOPAED[place] [address] [facility] [place] [address] Referral ID Status Reason Start Date Expiration Date V isits Requested Visits Authorized [id number] Closed Specialty Service Requested 03/02/2024 04/16/2024 1 1 Encounter Details Date Type Department Care Team (Latest Contact Info) Description 03/02/2024 11:31 AM EDT - 03/02/2024 11:59 PM EDT [place] [address] Petey Benoit MD [facility] DR ORTHOPAEDIC [place] [address] Injury of right hand including fingers, initial encounter; Right wrist injury, initial encounter Discharge Disposition: Home Social History Tobacco Use Types Packs/Day Years Used Date Smoking Tobacco: Never Smokeless Tobacco: Never Alcohol Use Standard Drinks/Week Comments Not Currently 0 (1 standard drink = 0.6 oz pure alcohol) Hasn't had a drink since 2009 [facility] Inpatient Questions Answer Date Recorded Does [...] Sig Dispensed Refills Start Date End Date lisinopriL (Zestril) 20 mg tablet Take 1 [...] daily as needed. 30 capsule 1 02/07/2016 oxyCODONE (Roxicodone) 5 mg tablet Take 1 tablet by mouth every 6 hours as needed for up to 7 days. 28 tablet 03/03/2024 03/10/2024 documented as of this encounter Plan of Treatment Upcoming Encounters Date Type Department Care Team (Late st Contact Info) Description 06/08/2024 3:45 PM EST Appointment XRay at [address] [place] [address] Petey Benoit MD [facility] [place]OPAED[place] [address] 06/08/2024 4:30 PM EST Office Visit Orthopaedics at [facility] [place] [address] Petey Benoit MD [facility] ORTHOPAEDIC [place] [address] documented as of this encounter Procedures Procedure Name Priority Date/Time Associated Diagnosis Comments CT UPPER EXTREMITY RECONSTRUCTION STAT 03/02/2024 12:15 PM EDT Injury of right hand including fingers, initial encounter Right wrist injury, initial encounter CT HAND WO CONTRAST RIGHT STAT 03/02/2024 12:15 PM EDT Injury of right hand including fingers, initial encounter Right wrist injury, initial encounter documented in this encounter Results * CT Upper Extremity Reconstruction (03/02/2024 12:15 PM EDT) [employer] WORKSTATION ID [id number] [facility] Anatomical Region Laterality Modality Hip, Leg, Knee, [...] who have questions please contact the health care technician that requested your imaging first. ? Narrative [...] comminuted fracture 1st metacarpal base with extension [id number] CMC with callus deposition likely subacute injury. 4. Markedly diastases of scapholunate interval compatible withscapholunate ligament tear. Thank you for letting us participate in the care of this patient. If youare a health care provider and have any questions regarding this report,please contact the number below. For patients who have questions please contactthe health care technician that requested your imaging first. Petey Benoit MD IMG CT ORDERABLES * CT Hand wo Contrast Right (Generic) (03/02/2024 12:15 PM EDT) WORKSTATION ID [id number] RAD Anatomical Region Laterality Modality Hand Right [...] who have questions please contact the health care technician that requested your imaging first. ? Narrative [...] comminuted fracture 1st metacarpal base with extension [id number] CMC with callus deposition likely subacute injury. 4. Markedly diastases of scapholunate interval compatible withscapholunate ligament tear. Thank you for letting us participate in the care of this patient. If youare a health care provider and have any questions regarding this report,please contact the number below. For patients who have questions please contactthe health care technician that requested your imaging first. Petey Benoit MD IM CT ORDERABLES documented in this encounter Visit Diagnoses Diagnosis Injury of right hand including fingers, initial encounter Right wrist injury, initial encounter documented in this encounter Care Teams Digital Designer Relationship Specialty Start Date End Date Philip Eduardo MD [address] [place] [id number] PCP - General General Internal Medicine 02/29/24 documented as of this encounter
--- OUTSIDE RECORDS SUMMARY | 2024-05-31 18:15 | XMS_ITS | Encounter Summary ---
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 (Given - Provid er: Yola Guillermo RN) lidocaine-EPINEPHrine (1% - 1:100,000) injection (CANCELED) PRN, Starting on Abby 03/03/24 at 1216, Until Abby 03/03/24 at 1654, Intra-Operative (Intra-Procedure), Routine 1216 (Given - Provid er: Rick Benoit MD) midazolam (pf) (Versed) (1 mg/mL) injection 1 mg (CANCELED) 1 mg, Intravenous, EVERY 5 MIN PRN, Starting on Abby 03/03/24 at 0907, Until Abby 03/03/24 at 1449, Other, sedation or prior to injection of local anesthetic, Hold for delirium/agitation. (Maximum dose 5 mg)., Day of Surgery (Day of Procedure), Routine 0911 (Given - Provid er: Yola Guillermo RN) documented in this encounter Care Teams Food Service Assistant Relationship Specialty Start Date End Date Philip Eduardo MD [address] [place] [id number] PCP - General General Internal Medicine 02/29/24 documented as of this encounter
--- OUTSIDE RECORDS SUMMARY | 2024-05-31 18:15 | XMS_ITS | Encounter Summary ---
Author Organization [facility] [place] [address] Care Team Providers Care Sucker Machine Operator Name Role Phone Jf Cervantes Primary Care Provider [phone] Encounter Details Date Type Department Care Team (Latest Contact Info) Description 09/09/2017 2:30 PM EDT Laboratory Appointment Lab [address] [place] [phone] Chronic kidney disease, unspecified CKD stage; Hypertension, [...] 06/08/2024 3:45 PM EST Appointment XRay at [address] [place] [phone] Petey Benoit MD [facility] [place] [address] 06/08/2024 4:30 PM EST Office [place] [phone] Petey Benoit MD [facility] [place] [address] documented as of this encounter Procedures Procedure [...] 2:25 PM EDT) Neutrophil % 64.8 % [facility] Neutrophil Absolute 4.53 1.70 - 6.10 x10(3)/[facility] [place] [facility] Lymph % 19.3 % [facility] Lymphocytes Abs 1.4 0.9 - 3.2 x10(3)/[facility] [place] [facility] Monocyte % 11.2 % [facility] Monocyte Abs 0.8 0.3 - 0.9 x10(3)/[facility] Eos % 3.6 % [facility] Eosinophils Abs 0.2 0.0 - 0.4 x10(3)/[facility] [place] [facility] Basophil % 0.7 % [facility] Baso Absolute 0.0 0.0 - 0.1 x10(3)/[facility] [place] [facility] Immature Gran % 0.40 % [facility] Comment: Immature granulocytes(IG's)percentage and absolute count will include metamyelocytes, myelocytes, and promyelocytes. Blood smears from CBCs yielding IG's will be scanned manually for concordance. If this scan disagrees with the automated IG or if promyelocytes are noted, a manual differential will be performed. Immature Gran Absolute 0.03 0.00 - 0.04 x10(3)/[facility] Blood specimen (specimen) 09/09/2017 2:25 PM EDT 09/09/2017 2:41 PM EDT Narrative Resulting Agency Comment Spec In Lab Stevie Goldsmith DO HEMATOLOGY ORDERABLE S [facility] [place] [address] * Hemogram (09/09/2017 2:25 PM EDT) White Blood Cell 7.0 4.0 - 9.5 x10(3)/[facility] [place] [facility] Red Blood Cell 5.15 4.58 - 5.54 x10(6)/[facility] Hemoglobin 15.4 13.7 - 16.5 gm/dL [facility] Hematocrit 45.9 40.5 - 48.5 % [facility] Mean Cell Volume 89.1 82.9 - 93.1 fL [facility] Mean Cell Hemoglobin 29.9 27.5 - 32.1 pg [facility] Mean Cell Hemoglobin Concentration 33.6 32.0 - 35.7 gm/dL [facility] Platelet 238 145 - 357 x10(3)/[facility] RDW Standard Deviation 42.6 36.0 - 45.0 fL [facility] RDW coefficient of variation 12.9 11.4 - 13.8 % [facility] Mean Platelet Volume 10.2 7.6 - 12.9 fL [facility] NRBC% auto 0.0 % [facility] NRBC Absolute 0.000 0.000 - 0.000 x10(3)/[facility] Blood specimen (specimen) 09/09/2017 2:25 PM EDT 09/09/2017 2:41 PM EDT Narrative Resulting Agency Comment Spec In Lab Stevie Goldsmith DO HEMATOLOGY ORDERABLE S [facility] [place] [address] * Phosphorus (09/09/2017 2:25 PM EDT) Phosphorus 2.7 2.5 - 4.5 mg/dL [facility] Blood specimen (specimen) 09/09/2017 2:25 PM EDT 09/09/2017 2:41 PM EDT Narrative Resulting Agency Comment Spec In Lab Dilan Gtz MD CHEMISTRY ORDERABLES Performing Organization Address City/[facility]/ZIP Co de Phone Number [facility] [place] [address] * PTH (09/09/2017 2:25 PM EDT) Parathyroid Hormone 39 15 - 65 pg/mL [facility] Blood specimen (specimen) 09/09/2017 2:25 PM EDT 09/09/2017 2:41 PM EDT Narrative Resulting Agency Comment Spec In Lab Dilan Gtz MD CHEMISTRY ORDERABLES [facility] [place] [address] * (ABNORMAL) Comprehensive metabolic panel (non-fasting) (09/09/2017 [...] or in patients with acute kidney failure. [email or web address] http://fivesquids.co.uk/DHMCnkf Blood specimen (specimen) 09/09/2017 2:25 PM EDT 09/09/2017 2:41 PM EDT Narrative Resulting Agency Comment Spec In Lab Dilan Gtz MD CHEMISTRY ORDERABLES Performing Organization Address City/[facility]/ZIP Co de Phone Number [facility] [place] [address] * Uric acid (09/09/2017 2:25 PM EDT) Uric Acid 8.1 3.5 - 8.5 mg/dL [facility] Blood specimen (specimen) 09/09/2017 2:25 PM EDT 09/09/2017 2:41 PM EDT Narrative Resulting Agency Comment Spec In Lab Dilan Gtz MD CHEMISTRY ORDERABLES Performing Organization Address [facility] Co de Phone Number [facility] [place] [address] * Magnesium (09/09/2017 2:25 PM EDT) Magnesium 0.75 0.69 - 1.07 mmol/L [facility] Blood specimen (specimen) 09/09/2017 2:25 PM EDT 09/09/2017 2:41 PM EDT Narrative Resulting Agency Comment Spec In Lab Dilan Gtz MD CHEMISTRY ORDERABLES Performing Organization Address [facility] Co de Phone Number [facility] [place] [place] [address] documented in this encounter Visit Diagnoses Diagnosis Chronic kidney disease, unspecified CKD stage Hypertension, unspecified type Hematuria, unspecified type CKD (chronic kidney disease) stage 2, GFR 60-89 ml/min Chronic kidney disease, Stage II (mild) Proteinuria, unspecified type Gout, unspecified cause, unspecified chronicity, unspecified site documented in this encounter Care Teams Sucker Machine Operator Relationship Specialty Start Date End Date Jf Cervantes PA [address] [address] PCP - General General Internal Medicine 01/16/16 documented as of this encounter
--- OUTSIDE RECORDS SUMMARY | 2024-05-31 18:15 | XMS_ITS | Encounter Summary ---
Author Organization [facility] Address [facility] [place] [address] Care Team Providers Care Complex Care Nurse Practitioner Name Role Phone Philip Eduardo MD Primary Care Provider [phone] Encounter Details Date Type Department Care Team (Latest Contact Info) Description 03/02/2024 11:00 AM EDT - 03/02/2024 11:30 AM EDT Hospital Encounter XRay at [address] [place] [address] Petey Benoit MD [facility] [place] [address] Injury of right hand including fingers, initial encounter; Right wrist injury, initial encounter Discharge Disposition: Home Social History Tobacco Use Types Packs/Day Years Used Date Smoking Tobacco: Never Smokeless Tobacco: Never Alcohol Use Standard Drinks/Week Comments Not Currently 0 (1 standard drink = 0.6 oz pure alcohol) Hasn't had a drink since 2009 [facility] Inpatient Questions Answer Date Recorded [...] 3:45 PM EST Appointment XRay at [address] [place] [address] Petey Benoit MD [facility] [place] [address] 06/08/2024 4:30 PM EST Office Visit [place] [address] Petey Benoit MD [facility] [place] [address] documented as of this encounter Procedures Procedure Name Priority Date/Time Associated Diagnosis Comments XR WRIST 3 VIEWS RIGHT Routine 03/02/2024 11:23 AM EDT Injury of right hand including fingers, initial encounter Right wrist injury, initial encounter XR FINGER(S) MIN 2 VIEWS RIGHT Routine 03/02/2024 11:23 AM EDT Injury of right hand including fingers, initial encounter Right wrist injury, initial encounter documented in this encounter Results * XR Wrist 3 Views Right (03/02/2024 11:23 AM EDT) WORKSTATION ID [id number] RAD Anatomical Region Laterality Modality Right Digital [...] who have questions please contact the health healthcare specialist that requested your imaging first. ? Electronically signed by: Viet Shaw MD, [facility] ([phone]), at 03/02/2024 10:36 PM Narrative 03/02/2024 10:36 PM EDT EXAMINATION: XR [...] patients who have questions please contactthe health healthcare specialist that requested your imaging first. Petey Benoit MD IMG DX ORDERABLES * XR Fingers Min 2 views Right (Generic) (03/02/2024 11:23 AM EDT) WORKSTATION ID [id number] RAD Anatomical Region Laterality Modality Hand Right [...] who have questions please contact the health healthcare specialist that requested your imaging first. ? Electronically signed by: Viet Shaw MD, [facility] ([phone]), at 03/02/2024 10:35 PM Narrative 03/02/2024 10:35 PM EDT EXAMINATION: XR [...] patients who have questions please contactthe health healthcare specialist that requested your imaging first. Petey Benoit MD IMG DX ORDERABLES documented in this encounter Visit Diagnoses Diagnosis Injury of right hand including fingers, initial encounter Right wrist injury, initial encounter documented in this encounter Care Teams Complex Care Nurse Practitioner Relationship Specialty Start Date End Date Philip Eduardo MD [address] [address] PCP - General General Internal Medicine 02/29/24 documented as of this encounter
--- OUTSIDE RECORDS SUMMARY | 2024-05-31 18:15 | XMS_ITS | Encounter Summary ---
Author Organization [facility] [place] [address] Care Team Providers Care Duck Operator Name Role Phone Philip Eduardo MD Primary Care Provider Encounter Details Date Type Department Care Team (Latest Contact Info) Description 03/02/2024 Travel Social History Tobacco Use Types Packs/Day [...] 3:45 PM EST Appointment XRay at [address] [place] [address] Petey Benoit MD [facility] ORTHOPAED[place] [address] 06/08/2024 4:30 PM EST Office Visit Orthopaedics at [facility] [place] [phone] Petey Benoit MD [facility] ORTHOPAEDIC [place] [address] documented as of this encounter Visit Diagnoses Not on filedocumented in this encounter Care Teams Duck Operator Relationship Specialty Start Date End Date Philip Eduardo MD [address] [address] PCP - General General Internal Medicine 02/29/24 documented as of this encounter
--- OUTSIDE RECORDS SUMMARY | 2024-05-31 18:15 | XMS_ITS | Encounter Summary ---
[place] [address] Care Team Providers Care Internet Sales Associate Name Role Phone Philip Eduardo MD Primary Care Provider Reason for Referral * Consultation (Urgent) - Closed Specialty Diagnoses / Procedures Referred By Bridget nettles Referred To Contact Orthopaedics Diagnoses Other dislocation of right wrist and hand, initial encounter Chaya Arzola PA [address] [place] [address] [facility] [address] [place] [phone] Referral ID Status Reason Start Date Expiration Date V isits Requested Visits Authorized [id number] Closed Consult, Test & Treat PCP Updated and/or Approved 02/03/2024 02/02/2025 1 1 Encounter Details Date Type Department Care Team (Latest Contact Info) Description 02/29/2024 Transcribe Orders eDH Incoming Referrals [phone] Chaya Arzola PA [address] [place] [phone] Other dislocation of right wrist and hand, initial encounter Social History Tobacco Use Types [...] 06/08/2024 3:45 PM EST Appointment XRay at [address] [place] [address] Petey Benoit MD [facility] [place]OPAED[place] [address] 06/08/2024 4:30 PM EST Office Visit Orthopaedics at [facility] [place] [address] Petey Benoit MD [facility] [place] [address] Scheduled Referrals Name Type Priority Associated Diagnoses Orde r Schedule Referral to Orthopaedics Outpatient Referral Urgent Other dislocation of right wrist and hand, initial encounter Ordered: 02/29/2024 documented as of this encounter Visit Diagnoses Diagnosis Other dislocation of right wrist and hand, initial encounter documented in this encounter Care Teams Internet Sales Associate Relationship Specialty Start Date End Date Philip Eduardo MD [address] [place] [address] PCP - General General Internal Medicine 02/29/24 documented as of this encounter
--- OUTSIDE RECORDS SUMMARY | 2024-05-31 18:15 | XMS_ITS | Encounter Summary ---
Author Organization [facility] [place] [address] Care Team Providers Care Workers Compensation Administrator Name Role Phone Jf Cervantes Primary Care Provider [phone] Encounter Details Date Type Department Care Team (Late st Contact Info) Description 05/06/2016 Telephone [place]ph[place] [phone] Fani Godinez Social History Tobacco Use Types [...] 06/08/2024 3:45 PM EST Appointment XRay at [address] [place] [phone] Petey Benoit MD [facility] [place] [address] 06/08/2024 4:30 PM EST Office [place] [phone] Petey Benoit MD [facility] [place] [address] documented as of this encounter Visit Diagnoses Not on filedocumented in this encounter Care Teams Workers Compensation Administrator Relationship Specialty Start Date End Date Jf Cervantes PA [address] [address] PCP - General General Internal Medicine 01/16/16 documented as of this encounter
--- OUTSIDE RECORDS SUMMARY | 2024-05-31 18:15 | XMS_ITS | Encounter Summary ---
Author Organization [facility] [place] [address] Care Team Providers Care Plugman Name Role Phone Unknown Primary Care Provider Unavailabl e Reason for Visit * Reason Onset Date Comments Appointment 01/26/2024 Referral 01/26/2024 Encounter Details Date Type Department Care Team (Late st Contact Info) Description 01/26/2024 Telephone Neurosurgery at [facility] [place] [address] Albert Lira MD [facility] [place] [address] Appointment; Referral Social History Tobacco Use Types Packs/Day Years Used Date Smoking Tobacco: Never Smokeless Tobacco: Never Sex and Gender Information Value Date Recorded Sex Assigned at Not on file Gender Identity Not on file Sexual Orientation Not on file documented as of this encounter Miscellaneous Notes * Telephone Encounter - Manoj Samuel - 01/27/2024 3:24 PM EDT Mary from [facility] called in to follow-up on patient getting scheduled. This agent informed Mary that the referral has not yet been received, she stated that she will send it right after the call. Mary asked to schedule patient for soonest available appointment, scheduled with Renée Moore PA for 02/10 - Mary stated she will relay information to patient and have him call back if this appointment doesn't work for whatever reason. * Telephone Encounter - Carrie Felton - 01/26/2024 11:46 AM EDT LMOM for patient to call back to schedule as a NEW patient. We have not received a referral. Pleaseinform patient if their insurance requires a referral to have their PCP fax a referral to Neurosurgery. Also we do not do TSLO brace fittings we refer our patients to [facility]. Schedule with Renée Moore, Joana Vivas or Terrie Bach. NEW, L5 Burst Fx, Imaging in edh ~~~~~~~~~~~~~~~~~~~~~~~~~~~~~~~~ ----- Message from RENÉE MOORE sent at 01/26/2024 10:49 AM EDT ----- Regarding: RE: Question No we do not. If I need a LSO or TLSO brace for a patient I will refer them to [facility]. Thank you, Ke From: Albert Lira MD Sent: 01/24/2024 11:49 PM EDT To: [facility] Sales Service Assistant Please have patient follow up in neurosurgery [facility] week of 01/24 with EULALIO. May need TLSO brace fit in clinic as well, is there a way to let Scarlet and Silvia know about this beforehand so that they may be able to help facilitate the brace too? documented in this encounter Plan of Treatment Upcoming Encounters Date Type Department Care Team (Late st Contact Info) Description 06/08/2024 3:45 PM EST Appointment XRay at [address] [place] [address] Petey Benoit MD [facility] [place] [address] 06/08/2024 4:30 PM EST Office [place] [phone] Petey Benoit MD [facility] [place] [address] documented as of this encounter Visit Diagnoses Not on filedocumented in this encounter Care Teams Plugman Relationship Specialty Start Date End Date Unknown None PCP - General 05/18/19 02/28/24 documented as of this encounter
--- OUTSIDE RECORDS SUMMARY | 2024-05-31 18:15 | XMS_ITS | Encounter Summary ---
[place] [address] Care Team Providers Care Car Scrubber Name Role Phone Philip Eduardo MD Primary Care Provider [phone] Reason for Visit * Auth/Cert (Routine) Specialty [...] LOCKING MINI FRAGMENT KAMALA Rick Benoit MD [facility] [place] [address] [facility] Referral ID Status Reason Start Date Expiration Date Visits Re quested Visits Authorized [id number] 1 1 Encounter Details Date Type Department Care Team (Late st Contact Info) Description 03/03/2024 9:20 AM EDT - 03/03/2024 1:10 PM EDT Surgery [place] [address] Rick Benoit MD [facility] [place] [address] OPEN TREATMENT RADIOCARPAL-INTERCARPA L DISLOCATION (WRVU 8.09) Social History Tobacco Use Types Packs/Day Years [...] Sign Reading Time Taken Comments Blood Pressure 122/78 03/03/2024 9:20 AM EDT Pulse 62 03/03/2024 9:20 AM EDT Temperature 36.2 ??C (97.2 ??F) 03/03/2024 8:39 AM ED T Respiratory Rate 16 03/03/2024 9:20 AM EDT Oxygen Saturation 98% 03/03/2024 9:20 AM EDT Inhaled Oxygen Concentration - - Weight [...] closest emergency room or call the hospital chucking lathe operator at [phone] and ask for physician psychological operations officer covering for your physician. Questions or problems after 5pm or on a weekend: Call the [facility] chucking lathe operator at and ask for the physician psychological operations officer covering for your doctor. Upper Extremity Nerve [...] after hours and ask for the anesthesiologist psychological operations officer. * Patient Instructions* Jose Johnson MD - [...] During clinic hours M-F 8-4:30 please call [phone] If it is after 5:00PM on a weekday or a weekend and it is of an urgent nature please call [phone] and ask for the on-call orthopaedic resident. [...] Center 03/16/2024 10:30 AM CAST ROOM 3A [facility] 3A [facility] 03/16/2024 11:00 AM [facility] DX ROOM 6 MH Xray [facility] Rad 03/16/2024 11:15 AM [facility] DX ROOM 6 Xray [facility] Rad 03/16/2024 1:00 PM Rick Benoit MD [facility] [address] [place] [address] documented in this encounter Medications at Time [...] home in stable condition with Elo as uke driver. documented in this encounter H&P Notes [...] Operative Note Patient Name: Mathew Han : [id number] MR#: [id number] Case Date: 03/03/2024 Surgeon: Surgeons and Role: [...] Benoit MD - 03/03/2024 9:56 AM EDT [facility] Operative Note Patient Name: Mathew Han : [id number] MR#: [id number] Case Date: 03/03/2024 Surgeon: Surgeons and Role: [...] A preoperative timeout was performed as per [facility] protocol. His right arm was then exsanguinated [...] radial styloid fracture site was identified. A [place] elevator was inserted into the fracture site [...] traction on the thumb andinsertion of a [place] elevator between the articular fragments I was [...] 3:45 PM EST Appointment XRay at [address] [place] [address] Rick Benoit MD [facility] [place] [address] 06/08/2024 4:30 PM EST Office Visit Orthopaedics at [facility] [place] [phone] Rick Benoit MD [facility] [place] [address] documented as of this encounter Procedures Procedure Name Priority Date/Time Associated Diagnosis Comments XR FLUORO NO RAD <1HR - OR USE Routine 03/03/2024 6:21 PM EDT ORIF DISTAL RADIUS, INTRA-ARTICULAR FX.TWO SEG. Routine 03/03/2024 1:21 PM EDT Closed fracture dislocation of lunate of right wrist, initial encounter Open Rx Distal Radius Fx, Intra-Articular, 2 Frag ([id number]) Yes 03/03/2024 9:38 AM EDT Closed fracture dislocation of lunate of right wrist, initial encounter MODIFIER VARIAX 2 LOCKING MINI FRAGMENT KAMALA Yes 03/03/2024 9:38 AM EDT Closed fracture dislocation of lunate of right wrist, initial encounter Open Tx Carpometacarpal Fracture Dislocate Thumb ([id number]) Yes 03/03/2024 9:38 AM EDT Closed fracture dislocation of lunate of right wrist, initial encounter Open Repair Wrist Dislocation ([id number]) Yes 03/03/2024 9:38 AM EDT Closed fracture [...] initial encounter Closed fracture dislocation of lunate of right [...] Given 03/03/2024 8:45 AM EDT 975 mg fentaNYL (PF) (50 mcg/mL) injection 50 mcg 50 mcg, Intravenous, EVERY 5 MIN PRN, Starting on Abby 03/03/24 at 0907, Until Abby 03/03/24 at 1449, Pain, or prior to injection of local anesthetic., Hold for respiratory rate less than 8 breaths per minute. (maximum dose 200 mcg), Day of Surgery (Day of Procedure), Routine Given 03/03/2024 9:11 AM EDT 25 mcg lactated ringers infusion 1,000 mL, at 100 mL/hr, Intravenous, CONTINUOUS, Starting on Abby 03/03/24 at 0845, Until Abby 03/03/24 at 1449, Day of Surgery (Day of Procedure) New Bag 03/03/2024 1:30 PM EDT Restarted 03/03/2024 9:37 AM EDT New Bag 03/03/2024 9:08 AM EDT 1,000 mLs 100 mL/hr lidocaine-EPINEPHrine (1% - 1:100,000) injection PRN, Starting on Abby 03/03/24 at 1216, Until Abby 03/03/24 at 1654, Intra-Operative (Intra-Procedure), Routine Given 03/03/2024 12:16 PM EDT 10 mLs 19- Surgical Site midazolam (pf) (Versed) (1 mg/mL) injection 1 mg 1 mg, Intravenous, EVERY 5 MIN PRN, Starting on Abby 03/03/24 at 0907, Until Abby 03/03/24 at 1449, Other, sedation or prior to injection of local anesthetic, Hold for delirium/agitation. (Maximum dose 5 mg)., Day of Surgery (Day of Procedure), Routine Given 03/03/2024 9:11 AM EDT 2 mg documented in this encounter Active and Recently [...] solution 2 g (COMPLETED) 2 g, Intravenous, PINKING SEWING MACHINE OPERATOR TO O.R., 1 dose, On Abby 03/03/24 [...] at 0907, Until Abby 03/03/24 at 1449, Pain, or prior to [...] RN) documented in this encounter Care Teams Car Scrubber Relationship Specialty Start Date End Date Philip Eduardo MD [address] [address] PCP - General General Internal Medicine 02/29/24 documented as of this encounter
--- OUTSIDE RECORDS SUMMARY | 2024-05-31 18:15 | XMS_ITS | Encounter Summary ---
Author Organization [facility] [place] [address] Care Team Providers Care Catalytic Converter Operator Name Role Phone Unknown Primary Care Provider Unavailabl e Encounter Details Date Type Department Care Team (Late st Contact Info) Description 01/24/2024 6:10 PM EDT Ancillary Procedure Radiology Library at [facility] [place] [address] Gianfranco Puri PA [address] [place] [address] [place] [address] Social History Tobacco Use Types [...] 06/08/2024 3:45 PM EST Appointment XRay at [address] [place] [address] Petey Benoit MD [facility] [place] [address] 06/08/2024 4:30 PM EST Office Visit Orthopaedics at [facility] [place] [phone] Petey Benoit MD [facility] [place] [address] documented as of this encounter Procedures Procedure Name Priority Date/Time Associated Diagnosis Comments FILM LIBRARY STORAGE ONLY CT SPINE Routine 01/24/2024 6:08 PM EDT documented in this encounter Results * Film Library- Storage Only CT Spine (01/24/2024 6:08 PM EDT) Narrative EMELI RIDLEY - 01/24/2024 6:08 PM EDT This exam is auto-finalizing. It's purpose is for storage only. Gianfranco GUZMAN IMRobyn FILM LIBRARY OR DERABLES Performing Organization Address City/State/[facility] Co de Phone Number [place], [place] documented in this encounter Visit Diagnoses Not on filedocumented in this encounter Care Teams Catalytic Converter Operator Relationship Specialty Start Date End Date Unknown None PCP - General 05/18/19 02/28/24 documented as of this encounter
--- OUTSIDE RECORDS SUMMARY | 2024-05-31 18:15 | XMS_ITS | Encounter Summary ---
Author Organization [facility] Address [facility] [place] [address] Care Team Providers Care Jewel Flat Surfacer Name Role Phone Philip Eduardo MD Primary Care Provider Encounter Details Date Type Department Care Team (Latest Contact Info) Description 04/27/2024 2:00 PM EST - 04/27/2024 11:59 PM [facility] Hospital Encounter XRay at [address] [place] [address] Petey Benoit MD [facility] [place] [address] Closed fracture dislocation of lunate bone of [...] had a drink since 2009 [facility] Inpatient Questions Answer Date Recorded Does Anyone [...] 06/08/2024 3:45 PM EST Appointment XRay at [address] [place] [address] Petey Benoit MD [facility] [place] [address] 06/08/2024 4:30 PM EST Office Visit Orthopaedics at [facility] [place] [address] Petey Benoit MD [facility] [place] [address] documented as of this encounter Procedures Procedure Name Priority Date/Time Associated Diagnosis Comments XR WRIST 3 VIEWS RIGHT Routine 04/27/2024 2:13 PM EST Closed fracture dislocation of lunate bone of right wrist with routine healing, subsequent encounter XR FINGER(S) MIN 2 VIEWS RIGHT Routine 04/27/2024 2:13 PM EST Closed displaced Nestor's fracture of right thumb with malunion documented in this encounter Results * XR Fingers Min 2 views Right (Generic) (04/27/2024 2:13 PM EST) WORKSTATION ID [id number] RAD Anatomical Region Laterality Modality Hand Right [...] who have questions please contact the health daytime caregiver that requested your imaging first. ? Electronically signed by: Lisa Rodriguez MD, [facility] ([phone]), at 04/27/2024 2:47 PM Narrative 04/27/2024 2:47 PM EST EXAMINATION: XR WRIST 3 VIEWS RIGHT, XR FINGERS MIN 2 VIEWS RIGHT (GENERIC) CLINICAL HISTORY: R wrist fx. R thumb disolaction S62.121D, Displaced fracture of lunate (semilunar), right wrist, subsequent encounter for fracture with routine healing (accession [id number]), S62.221P, Displaced Nestor's fracture, right hand, subsequent encounter for fracture with malunion (accession [id number]) TECHNIQUE: * ??Three views of the right [...] encounter for fracture with routine healing (accession [id number]),S62.221P, Displaced Nestor's fracture, right hand, subsequent encounter forfracture with malunion (accession [id number]) TECHNIQUE: * Three views of the right [...] patients who have questions please contactthe health daytime caregiver that requested your imaging first. Electronically signed by: Lisa Rodriguez MD, [facility]([phone]), at 04/27/2024 2:47 PM Petey Benoit MD IMG DX ORDERABLES * XR Wrist 3 Views Right (04/27/2024 2:13 PM EST) WORKSTATION ID [id number] RAD Anatomical Region Laterality Modality Right Digital [...] who have questions please contact the health daytime caregiver that requested your imaging first. ? Electronically signed by: Lisa Rodriguez MD, [facility] ([phone]), at 04/27/2024 2:47 PM Narrative 04/27/2024 2:47 PM EST EXAMINATION: XR WRIST 3 VIEWS RIGHT, XR FINGERS MIN 2 VIEWS RIGHT (GENERIC) CLINICAL HISTORY: R wrist fx. R thumb disolaction S62.121D, Displaced fracture of lunate (semilunar), right wrist, subsequent encounter for fracture with routine healing (accession [id number]), S62.221P, Displaced Nestor's fracture, right hand, subsequent encounter for fracture with malunion (accession [id number]) TECHNIQUE: * ??Three views of the right [...] encounter for fracture with routine healing (accession [id number]),S62.221P, Displaced Nestor's fracture, right hand, subsequent encounter forfracture with malunion (accession [id number]) TECHNIQUE: * Three views of the right [...] patients who have questions please contactthe health daytime caregiver that requested your imaging first. Electronically signed by: Lisa Rodriguez MD, [facility]([phone]), at 04/27/2024 2:47 PM Petey Benoit MD IMG DX ORDERABLES documented in this encounter Visit Diagnoses Diagnosis Closed fracture dislocation of lunate bone of right wrist with routine healing, subsequent encounter Closed displaced Nestor's fracture of right thumb with malunion documented in this encounter Care Teams Jewel Flat Surfacer Relationship Specialty Start Date End Date Philip Eduardo MD [address] [place] [address] PCP - General General Internal Medicine 02/29/24 documented as of this encounter
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
--- OUTSIDE RECORDS SUMMARY | 2024-05-31 18:15 | XMS_ITS | Encounter Summary ---
Author Organization [facility] Address [facility] [place] [address] Care Team Providers Care Rcis Name Role Phone Unknown Primary Care Provider Unavailabl e Encounter Details Date Type Department Care Team (Latest Contact Info) Description 02/11/2024 4:02 PM EDT - 02/11/2024 11:59 PM EDT Hospital Encounter XRay at [address] [place] [address] Eugenio Waller MD [facility] [place] [address] Closed stable burst fracture of fifth lumbar vertebra, initial encounter Discharge Disposition: Home Social History [...] by mouth Daily at Noon. 02/04/2024 fexofenadine (RCAHEL) 60 mg TabletIndications:CKD (chronic kidney disease), unspecified stage Take 60 mg by mouth as needed. allopurinol (ZYLOPRIM) 100 mg Tablet Take 2 tablets by mouth daily. 60 tablet 11 02/07/2016 colchicine (MITIGARE) 0.6 mg Capsule Take 0.6 mg by mouth daily as needed. 30 capsule 1 02/07/2016 gabapentin (Neurontin) 300 mg capsule Take 1 capsule by mouth 3 times daily. 90 capsule 02/11/2024 03/02/2024 lisinopril (PRINIVIL;ZESTRIL) 10 mg TabletIndications:CKD (chronic kidney disease), unspecified stage Take 20 mg by mouth daily. 03/02/2024 documented as of this encounter Plan of Treatment Upcoming Encounters Date Type Department Care Team (Late st Contact Info) Description 06/08/2024 3:45 PM EST Appointment XRay at [address] [place] [address] Petey Benoit MD [facility] [place] [address] 06/08/2024 4:30 PM EST Office Visit Orthopaedics at [facility] [place] [address] Petey Benoit MD [facility] [place] [address] documented as of this encounter Procedures Procedure Name Priority Date/Time Associated Diagnosis Comments XR LUMBAR SPINE 2 OR 3 VIEWS Routine 02/11/2024 4:13 PM EDT Closed stable burst fracture of fifth lumbar vertebra, initial encounter documented in this encounter Results * XR Lumbar Spine 2 Or 3 Views (Generic) (02/11/2024 4:13 PM EDT) [employer] WORKSTATION ID [id number] RAD Anatomical Region Laterality Modality L-spine N/A [...] who have questions please contact the health behavioral health care coordinator that requested your imaging first. ? Electronically signed by: Lisa Rodriguez MD, [facility] ([phone]), at 02/14/2024 10:28 AM Narrative 02/14/2024 10:28 AM EDT EXAMINATION: XR [...] patients who have questions please contactthe health behavioral health care coordinator that requested your imaging first. Electronically signed by: Lisa Rodriguez MD, [facility]([phone]), at 02/14/2024 10:28 AM Eugenio Waller MD IMG DX ORDERABLES documented in this encounter Visit Diagnoses Diagnosis Closed stable burst fracture of fifth lumbar vertebra, initial encounter documented in this encounter Care Teams Rcis Relationship Specialty Start Date End Date Unknown None PCP - General 05/18/19 02/28/24 documented as of this encounter
--- OUTSIDE RECORDS SUMMARY | 2024-05-31 18:15 | XMS_ITS | Encounter Summary ---
Author Organization [facility] [place] [address] Care Team Providers Care Transmitter Engineer Name Role Phone Philip Eduardo MD Primary Care Provider [phone] Reason for Visit * Reason Comments Post Op XR 03-03-24 RIGHT WRIST FRACTURE AND THUMB DISLOCATION Encounter Details Date Type Department Care Team (Late st Contact Info) Description 03/16/2024 1:00 PM EDT Office [place] [address] Petey Benoit MD [facility] DR [place] [address] Retained orthopedic hardware (Primary Dx); Closed displaced [...] alcohol) Hasn't had a drink since 2009 [facility] Inpatient Questions Answer Date Recorded Does Anyone [...] - Inhaled Oxygen Concentration - - Weight 89.8 kg (198 lb) 03/16/2024 12:48 PM EDT Height 180.3 cm (5' 11) 03/16/2024 12:48 PM EDT Body Mass Index 27.62 03/16/2024 12:48 PM EDT documented in this encounter Progress Notes * Petey Benoit MD - 03/16/2024 1:00 PM EDT Mathew Han underwent ORIF of his right wrist fracture dislocation with bridge plating andORIF of his right Nestor fracture which presented in a delayed fashion. The surgery for these was done on 03/03/2024. He still has multiple transarticular K wires as well as a bridge plate which will need to come out after adequate healing is demonstrated. He reports that he has not had particularproblems since his surgery. He is here for his first postoperative visit. Examination of his right hand and wrist reveals that his incisions are all healing in a benign fashion. He does have some dorsal numbness over his thumb. Sensation of the palmar aspect of his digits is intact. His wrist is clinically well aligned. His DRUJ is clinically stable. Flexion of his fingers and MCP joints is intact. His ulnar nerve is working both motor and sensory sanchez. He does have MCP extension and IP joint thumb flexion. X-rays were personally reviewed by me which show disimpaction and ORIF of his Nestor fracture as well as ORIF and bridge plating of his right wrist fracture dislocation. Today sutures were removed and Steri-Strips were applied. He is being placed into a short arm thumbspica cast with his IP joint free as well as his MCPs free. He has been told not to do any lifting with this hand. He will see me for this in about 6 weeks for new x-rays out of cast. He will have x-rays of both his wrist and his thumb. He will need to have hardware removed and we have tentatively chosen a date of approximately May 20, 2024 to have that done. documented in this encounter Plan of Treatment Upcoming Encounters Date Type Department Care Team (Late st Contact Info) Description 06/08/2024 3:45 PM EST Appointment XRay at [address] [place] [address] Petey Benoit MD [facility] [place] [address] 06/08/2024 4:30 PM EST Office Visit Orthopaedics at [facility] [place] [phone] Petey Benoit MD [facility] [place] [address] documented as of this encounter Visit Diagnoses Diagnosis Retained orthopedic hardware- Primary Reserved for inherently not codable concepts WITHOUT codable children Closed displaced Nestor's fracture of right thumb with malunion Closed fracture dislocation of lunate bone of right wrist with routine healing, subsequent encounter documented in this encounter Care Teams Transmitter Engineer Relationship Specialty Start Date End Date Philip Eduardo MD [address] [place] [id number] PCP - General General Internal Medicine 02/29/24 documented as of this encounter
--- OUTSIDE RECORDS SUMMARY | 2024-05-31 18:15 | XMS_ITS | Clinical Summary ---
Author Organization [facility] Address [address] [place] [address] Care Team Providers Care Long Wall Mining Machine Tender Name Role Phone Unknown, Provider Primary Care Provider Unava ilable Allergies No known active allergies Active Problems [...] Recorded Sex Assigned at Not on file Legal Sex Male 9:01 EDT Gender Identity Not on file Sexual Orientation [...] series) 07/03 COVID-19 Vaccine ( season) 2024 Insurance [facility] [place] [phone] , [place] [phone] , [place] [phone] Care Teams Long Wall Mining Machine Tender Relationship Specialty Start Date End Date Unknown, Provider, PCP - General 02/12/19
--- OUTSIDE RECORDS SUMMARY | 2024-05-31 18:15 | XMS_ITS | Encounter Summary ---
Author Organization [facility] Address [facility] [place] [address] Care Team Providers Care Heavy Equipment Field Mechanic Name Role Phone Philip Eduardo MD Primary Care Provider [phone] Encounter Details Date Type Department Care Team (Latest Contact Info) Description 03/16/2024 9:52 AM EDT - 03/16/2024 11:59 PM EDT Hospital Encounter XRay at [address] [place] [address] Petey Benoit MD [facility] [place] [address] Closed fracture dislocation of lunate bone of right wrist with routine healing, subsequent encounter; Injury of right hand including fingers, initial encounter Discharge Disposition: Home Social History Tobacco Use Types Packs/Day Years Used Date Smoking Tobacco: Never Smokeless Tobacco: Never Alcohol Use Standard Drinks/Week Comments Not Currently 0 (1 standard drink = 0.6 oz pure alcohol) Hasn't had a drink since 2009 [facility] Inpatient Questions Answer Date Recorded [...] 3:45 PM EST Appointment XRay at [address] [place] [address] Petey Benoit MD [facility] [place] [address] 06/08/2024 4:30 PM EST Office [place] [address] Petey Benoit MD [facility] [place] [address] documented as of this encounter Procedures Procedure Name Priority Date/Time Associated Diagnosis Comments XR WRIST 3 VIEWS RIGHT Routine 03/16/2024 10:29 AM EDT Closed fracture dislocation of lunate bone of right wrist with routine healing, subsequent encounter XR FINGER(S) MIN 2 VIEWS RIGHT Routine 03/16/2024 10:29 AM EDT Injury of right hand including fingers, initial encounter documented in this encounter Results * XR Fingers Min 2 views Right (Generic) (03/16/2024 10:29 AM EDT) [employer] WORKSTATION ID [id number] RAD Anatomical Region Laterality Modality Hand Right [...] have questions please contact the health child care specialist that requested your imaging first. ? Electronically signed by: Viet Shaw MD, [facility] ([phone]), at 03/16/2024 12:08 PM Narrative 03/16/2024 12:08 PM EDT EXAMINATION: XR WRIST 3 VIEWS RIGHT, XR FINGERS MIN 2 VIEWS RIGHT (GENERIC) CLINICAL HISTORY: Right wrist fx S62.121D, Displaced fracture of lunate (semilunar), right wrist, subsequent encounter for fracture with routine healing (accession [id number]), S69.91XA, Unspecified injury of right wrist, hand and finger(s), initial encounter (accession [id number]) TECHNIQUE: 3 views RIGHT wrist 3 views [...] encounter for fracture with routine healing (accession [id number]),S69.91XA, Unspecified injury of right wrist, hand and finger(s), initial encounter (accession [id number]) TECHNIQUE: 3 views RIGHT wrist 3 views [...] who have questions please contactthe health child care specialist that requested your imaging first. Electronically signed by: Viet Shaw MD, [facility]([phone]), at 03/16/2024 12:08 PM Petey Benoit MD IMG DX ORDERABLES * XR Wrist 3 Views Right (03/16/2024 10:29 AM EDT) WORKSTATION ID [id number] RAD Anatomical Region Laterality Modality Right Digital [...] have questions please contact the health child care specialist that requested your imaging first. ? Electronically signed by: Viet Shaw MD, [facility] ([phone]), at 03/16/2024 12:08 PM Narrative 03/16/2024 12:08 PM EDT EXAMINATION: XR WRIST 3 VIEWS RIGHT, XR FINGERS MIN 2 VIEWS RIGHT (GENERIC) CLINICAL HISTORY: Right wrist fx S62.121D, Displaced fracture of lunate (semilunar), right wrist, subsequent encounter for fracture with routine healing (accession [id number]), S69.91XA, Unspecified injury of right wrist, hand and finger(s), initial encounter (accession [id number]) TECHNIQUE: 3 views RIGHT wrist 3 views [...] encounter for fracture with routine healing (accession [id number]),S69.91XA, Unspecified injury of right wrist, hand and finger(s), initial encounter (accession [id number]) TECHNIQUE: 3 views RIGHT wrist 3 views [...] who have questions please contactthe health child care specialist that requested your imaging first. Electronically signed by: Viet Shaw MD, [facility]([phone]), at 03/16/2024 12:08 PM Petey Benoit MD IMG DX ORDERABLES documented in this encounter Visit Diagnoses Diagnosis Closed fracture dislocation of lunate bone of right wrist with routine healing, subsequent encounter Injury of right hand including fingers, initial encounter documented in this encounter Care Teams Heavy Equipment Field Mechanic Relationship Specialty Start Date End Date Philip Eduardo MD [address] [place] [id number] PCP - General General Internal Medicine 02/29/24 documented as of this encounter
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
--- OUTSIDE RECORDS SUMMARY | 2024-05-31 18:16 | XMS_ITS | Referral Summary ---
Author Organization [facility] Address [address] [place] [address] Care Team Providers Care Drive Man Name Role Phone Unknown, Provider Primary Care [...] Index 29.15 02/12/2019 1504 EDT Functional Status * Are you deaf or do you have serious difficulty hearing? Answer Date of Assessment Author No 01/14/2024 4:11 EDT Aditi Cherry RN Plan of Treatment [place] [address] , [place] [address] , [place] [address] , [place] [address] , [place] [address] Relationship Specialty Start Date End Date Unknown, Provider, PCP - General 02/12/19
--- OUTSIDE RECORDS SUMMARY | 2024-05-31 18:16 | XMS_ITS | Encounter Summary ---
Author Organization [facility] Address [address] [place] [address] Care Team Providers Care Hair Tinter Name Role Phone Unknown, Provider Primary Care Provider Unava ilable Encounter Details Date Type Department Care Team (Late st Contact Info) Description 01/14/2024 Prep for Procedure [facility] Orthopedics & Sport Medicine [address] [place] [address] Agusto Raymond MD [address] [facility] [address] [place], [place] [id number] Closed traumatic volar dislocation of lunate bone, [...] documented as of this encounter Functional Status * Are you deaf or do you have serious difficulty hearing? Answer Date of Assessment Author No 01/14/2024 4:11 EDT Aditi Cherry RN documented as of this encounter Plan of Treatment Not on file documented as of this encounter Visit Diagnoses Diagnosis Closed traumatic volar dislocation of lunate bone, right, initial encounter- Primary documented in this encounter Orders Case Request Count Last Ordered Date First Orde red Date CASE REQUEST OPERATING ROOM 1 01/14/2024 documented in this encounter Care Teams Hair Tinter Relationship Specialty Start Date End Date Unknown, Provider, PCP - General 02/12/19 documented as of this encounter
--- OUTSIDE RECORDS SUMMARY | 2024-05-31 18:16 | XMS_ITS | Encounter Summary ---
Author Organization [facility] Address [address] [place] [address] Care Team Providers Care Crown Ironer Operator Name Role Phone Unknown, Provider Primary Care Provider Unava ilable Encounter Details Date Type Department Care Team (Late st Contact Info) Description 04/11/2020 Lab Requisition [facility] Pathology & Laboratory Medicine - Main [place] [address] [place] [address] Aleja Gaviria MD [address] [place] [id number] Encounter for screening for malignant neoplasm of [...] - Fragments of tubular adenoma. 04/16/2020 15:05 EST [facility] Attestation By the signature below, the attending physician certifies that they have 1) personally conducted a gross and/or microscopic examination of the described specimen(s), and/or personally interpreted the results of laboratory testing of the described specimen(s), and 2) personally rendered or confirmed the above diagnosis. 04/16/2020 15:05 [facility] at 1505 Clinical History Screening; colon polyp 04/16/2020 15:05 EST [facility] Gross Description A. Received in formalin labelled with proper patient identification (initials D, W) and sigmoid polyp are two barlow irregular tissues averaging 0.2 x 0.2 x 0.2 cm. Entirely submitted in A1. THOMAS RODRIGUEZ(ASCP) 04/13/2020 10:10 04/16/2020 15:05 EST [facility] Performing Lab [facility] 04/16/2020 15:05 EST [facility] Scanned Images 04/16/2020 15:05 EST [facility] Tissue POLYP OF COLON / Unknown 04/11/2020 8:40 EST 04/13/2020 8:32 EST us Aleja Gaviria MD PATHOLOGY ORDERABLES Fi nal Result [facility] [address] [place] [address] documented in this encounter Visit Diagnoses Diagnosis Encounter for screening for malignant neoplasm of colon Special screening for malignant neoplasms, colon documented in this encounter Care Teams Crown Ironer Operator Relationship Specialty Start Date End Date Unknown, Provider, PCP - General 02/12/19 documented as of this encounter
--- OUTSIDE RECORDS SUMMARY | 2024-05-31 18:16 | XMS_ITS | Encounter Summary ---
Author Organization [facility] Address [address] [place] [address] Care Team Providers Care Lithographic General Worker Name Role Phone Unknown, Provider Primary Care Provider Unava ilable Reason for Visit * Reason Comments Act 1 Clearance Here for ACT 1 clear ance, denies use of illicit substance today. Arrives alert and oriented, VSS. NAD in triage. Encounter Details Date Type Department Care Team (Late st Contact Info) Description 02/12/2019 14:31 EDT - 02/12/2019 16:36 EDT Emergency [facility] Emergency Department - [facility] [address] [place] [address] Dillon Calixto MD [address] [place] [address], [address] [place] [address] Emergency, MD [place] Cocaine abuse ([facility]) (Primary Dx) Discharge Disposition: Discharged to Other [...] through Care Everywhere. * Drug Overdose: Cocaine (Uzbek) documented in this encounter Discharge Disposition Disposition Code Departure Means Destination Discharged to Other Facility Car documented in this encounter ED Notes * Portillo Denis RN - 02/12/2019 1635 EDT AVS reviewed with patient. Discharge vital signs stable. Ambulatory out of department in no acute distress with ACT 1 civil rights representative. * Dillon Calixto MD - 02/12/2019 1556 EDT This patient received an evaluation and medical screening exam for emergent medical conditions at the [facility] on 02/12/2019 Scribe attestation: This documentation [...] their care. Impression Final diagnoses: Cocaine abuse ([facility]) Disposition Disposition decisions were made [...] this encounter Visit Diagnoses Diagnosis Cocaine abuse ([facility])- Primary Cocaine abuse, unspecified documented in this encounter Care Teams Lithographic General Worker Relationship Specialty Start Date End Date Unknown, Provider, PCP - General 02/12/19 documented as of this encounter
--- OUTSIDE RECORDS SUMMARY | 2024-05-31 18:16 | XMS_ITS | Encounter Summary ---
Author Organization [facility] Address [address] [place] [address] Care Team Providers Care Cnc Technician Name Role Phone Unknown, Provider Primary Care Provider Unava ilable Encounter Details Date Type Department Care Team (Late st Contact Info) Description 08/01/2021 Lab Requisition [facility] Pathology & Laboratory Medicine - [facility] [address] [place], [place] [address] Outr Resulting Lab, Provider Social History Tobacco [...] gonorrhoeae Result Negative Negative 08/02/2021 15:08 EDT [facility] Chlamydia trachomatis Result Negative Negative 08/02/2021 15:08 EDT [facility] Urine URINE / Unknown 07/31/2021 1 1:00 EDT 08/01/2021 19:08 EDT us Provider Outr Resulting Lab MICROBIOLOGY - GENER AL ORDERABLES Final Result [facility] [address] [place] [address] documented in this encounter Visit Diagnoses Not on filedocumented in this encounter Care Teams Cnc Technician Relationship Specialty Start Date End Date Unknown, Provider, PCP - General 02/12/19 documented as of this encounter
--- OUTSIDE RECORDS SUMMARY | 2024-05-31 18:16 | XMS_ITS | Encounter Summary ---
Author Organization [facility] Address [address] [place] [address] Care Team Providers Care Ship Fastener Name Role Phone Unknown, Provider MD Primary Care Provider Unava ilable Reason for Visit * Auth/Cert (Routine) Specialty Diagnoses / Procedures Referred By Bridget nettles Referred To Contact Diagnoses Closed traumatic volar dislocation of lunate bone, right, initial encounter Closed traumatic volar dislocation of lunate bone, right, initial encounter [S63.094A] Procedures CO OPEN TREATMENT LUNATE DISLOCATION CO CAPSL-RHPHY/RCNSTJ WRST OPN CARPL INS OPEN TREATMENT, DISLOCATION, LUNATE BONE CAPSULORRHAPHY OR RECONSTRUCTION, WRIST, OPEN Referral ID Status Reason Start Date Expiration Date Visits Re quested Visits Authorized [id number] 1 1 Encounter Details Date Type Department Care Team (Late st Contact Info) Description 02/08/2024 Hospital Encounter [facility] Operating Room [address] [place] [address] Agusto Raymond MD [address] [facility] [address] [place] [address] Social History Tobacco Use Types Packs/Day Years [...] Date of Assessment Author No 01/14/2024 4:11 Aditi Parisi RN documented as of this encounter Plan of Treatment Not on file documented as of this encounter Procedures Procedure Name Priority Date/Time Associated Diagnosis Comments CAPSULORRHAPHY OR RECONSTRUCTION, WRIST, OPEN Closed traumatic volar dislocation of lunate bone, right, initial encounter Special Needs CM Arthrex internal brace and rep, jt screws, k wires OPEN TREATMENT, DISLOCATION, LUNATE BONE Closed traumatic volar dislocation of lunate bone, right, initial encounter Special Needs CM Arthrex internal brace and rep, jt screws, k wires documented in this encounter Visit Diagnoses Diagnosis Closed traumatic volar dislocation of lunate bone, right, initial encounter- Primary documented in this encounter Admitting Diagnoses Diagnosis Closed traumatic volar dislocation of lunate bone, right, initial encounter documented in this encounter Care Teams Ship Fastener Relationship Specialty Start Date End Date Unknown, Provider, PCP - General 02/12/19 documented as of this encounter
--- OUTSIDE RECORDS SUMMARY | 2024-05-31 18:16 | XMS_ITS | Encounter Summary ---
Author Organization [facility] Address [address] [place] [address] Care Team Providers Care Insurance Verification Rep Name Role Phone Unknown, Provider Primary Care Provider Unava ilable Reason for Visit * Auth/Cert (Routine) Specialty Diagnoses / Procedures [facility] Referred To Contact Diagnoses Closed traumatic volar dislocation of lunate bone, right, initial encounter Closed traumatic volar dislocation of lunate bone, right, initial encounter [S63.094A] Procedures [place] OPEN TREATMENT LUNATE DISLOCATION [place] CAPSL-RHPHY/RCNSTJ WRST OPN CARPL INS OPEN TREATMENT, DISLOCATION, LUNATE BONE CAPSULORRHAPHY OR RECONSTRUCTION, WRIST, OPEN Referral ID Status Reason Start Date Expiration Date Visits Re quested Visits Authorized [id number] 1 1 Encounter Details Date Type Department Care Team (Late st Contact Info) Description 01/26/2024 Surgery [facility] Operating Room [address] [place] [address] Agusto Raymond MD [address] [facility] [address] [place] [address] OPEN TREATMENT, DISLOCATION, LUNATE BONE [[id number] (CPT??)] Surgery Details Date/Time Status Location OR Service Patient Class Case Cl ass Case Type Trauma Case? 01/26/2024 1315 Posted [facility] 1 Procedure LRB Anes Op Region Wound Class Comments OPEN TREATMENT, DISLOCATION, LUNATE BONE Right General Wrist CAPSULORRHAPHY OR RECONSTRUC TION, WRIST, OPEN Right General Wrist Surgeon Surgeon Role Service Panel Agusto Raymond MD Primary Orthoped ics 1 Special Needs CM Arthrex internal brace and rep, jt screws, k wires documented in this encounter Social History Tobacco [...] right, initial encounter documented in this encounter Admitting Diagnoses Diagnosis Closed traumatic volar dislocation of lunate bone, right, initial encounter documented in this encounter Care Teams Insurance Verification Rep Relationship Specialty Start Date End Date Unknown, Provider, PCP - General 02/12/19 documented as of this encounter
--- OUTSIDE RECORDS SUMMARY | 2024-05-31 18:16 | XMS_ITS | Encounter Summary ---
Author Organization [facility] Address [address] [place] [address] Care Team Providers Care Health And Safety Advisor Name Role Phone Unknown, Provider Primary Care [...] of Assessment Author No 01/14/2024 4:11 EDT Aidti Cherry RN documented as of this encounter Plan of Treatment Not on file documented as of this encounter Visit Diagnoses Not on filedocumented in this encounter Care Teams Health And Safety Advisor Relationship Specialty Start Date End Date Unknown, Provider, PCP - General 02/12/19 documented as of this encounter
--- OUTSIDE RECORDS SUMMARY | 2024-05-31 18:16 | XMS_ITS | Encounter Summary ---
Author Organization [facility] Address [address] [place] [address] Care Team Providers Care Chief Dietitian Name Role Phone Gautam Madrigal MD Primary Care Provider Unavail able Encounter Details Date Type Department Care Team (Late st Contact Info) Description 08/28/2015 Results Only [facility] [phone] Sin Cervantes PA [address] [place], [place] [id number] Social History Tobacco Use Types Packs/Day Years [...] ? MATHEW HAN ? Accession #: ? [id number] : ? 1965 (Age: 50) ??M ?Collect Date: ? 08/28/2015 Location: ? [facility] ? Receive Date: ? 08/30/2015 Provider: ? SIN GUZMAN Copy to: ? CYTOLOGIC DIAGNOSIS: URINE, COLLECTION METHOD NOT SPECIFIED, CYTOLOGIC EVALUATION: - ??No malignant cells identified. - ??Urothelial cells with degenerative changes. - ??Polyoma viral changes. Document reviewed and electronically signed by: ? NEGIN ARAMBULA MD [facility] Report Date: ??08/30/2015 15:38 By the [...] cellular enhancement technique. ? End of Report [facility] 08/28/2015 08/30/2015 9:2 7 EDT us Sin GUZMAN PATHOLOGY ORDERABLES Final Resu lt [facility] [address] [place] [address] documented in this encounter Visit Diagnoses Not on filedocumented in this encounter Care Teams Chief Dietitian Relationship Specialty Start Date End Date Gautam Madrigal MD PCP - General 08/30/15 09/02/15 documented as of this encounter
--- OUTSIDE RECORDS SUMMARY | 2024-05-31 18:16 | XMS_ITS | Encounter Summary ---
Author Organization [facility] Address [address] [place] [address] Care Team Providers Care Machine Stone Polisher Name Role Phone Unknown, Provider Primary [...] on filedocumented in this encounter Care Teams Machine Stone Polisher Relationship Specialty Start Date End Date Unknown, Provider, PCP - General 02/12/19 documented as of this encounter
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
--- OUTSIDE RECORDS SUMMARY | 2024-05-31 18:16 | XMS_ITS | Encounter Summary ---
Author Organization [facility] Address [address] [place] [address] Care Team Providers Care Vortex Operator Name Role Phone Unknown, Provider Primary Care Provider Unava ilable Reason for Visit * Reason Onset Date Comments Appointment Related 02/04/2024 Encounter Details Date Type Department Care Team (Late st Contact Info) Description 02/04/2024 Orders Only [facility] - [address] [place] [address] Jessy Cunningham MD [address] [place] [address] [place] [id number] Acute low back pain, unspecified back pain laterality, unspecified whether sciatica present (Primary Dx) Social History Tobacco Use Types [...] Priority Associated Diagnoses Orde r Schedule XR LUMBAR SPINE 2-3 VIEWS Imaging Routine Acute low back pain, unspecified back pain laterality, unspecified whether sciatica present Expected: 02/10/2024 documented as of this encounter Visit Diagnoses Diagnosis Acute low back pain, unspecified back pain laterality, unspecified whether sciatica present- Primary documented in this encounter Care Teams Vortex Operator Relationship Specialty Start Date End Date Unknown, Provider, PCP - General 02/12/19 documented as of this encounter
--- OUTSIDE RECORDS SUMMARY | 2024-05-31 18:16 | XMS_ITS | Encounter Summary ---
Author Organization [facility] Address [address] [place] [address] Care Team Providers Care Director Of Transportation Name Role Phone Merlene Eduardo MD Primary Care Provider [phone] Encounter Details Date Type Department Care Team (Late st Contact Info) Description 11/21/2015 Results Only [facility] - [facility] [address] [place] [address] Isra aFye MD [address] [place] [phone] Social History Tobacco Use Types Packs/Day Years [...] reading/interpreti ng unformatted reports. Name: ? MATHEW HAN ? Accession #: ? [id number] : ? 1965 (Age: 50) ??M ?Collect Date: ? 11/21/2015 Location: ? [facility] ? Receive Date: ? 11/22/2015 Provider: ? ISRA FAYE MD Copy to: ?MERLENE Fischer YAMILETH DO ? CYTOLOGIC DIAGNOSIS: URINE, BARBOTAGE, CYTOLOGIC [...] cellular enhancement technique. ? End of Report [facility] 11/21/2015 11/22/2015 6:3 8 EDT us Isra Faye MD PATHOLOGY ORDERABLES Fin al Result [facility] [address] [place] [address] documented in this encounter Visit Diagnoses Not on filedocumented in this encounter Care Teams Director Of Transportation Relationship Specialty Start Date End Date Merlene Eduardo MD [address] [place] [address] PCP - General 09/03/15 02/11/19 documented as of this encounter
--- OUTSIDE RECORDS SUMMARY | 2024-05-31 18:16 | XMS_ITS | Encounter Summary ---
Author Organization [facility] Address [address] [place] [address] Care Team Providers Care Dormitory Maid Name Role Phone Philip Eduardo MD Primary Care Provider [phone] Encounter Details Date Type Department Care Team (Latest Contact Info) Description 11/21/2015 6:29 EDT - 11/21/2015 23:59 EDT Hospital Encounter [address] [address] Unknown, Provider, MD Discharge Disposition: Home or Self Care Social [...] on filedocumented in this encounter Care Teams Dormitory Maid Relationship Specialty Start Date End Date Philip Eduardo MD [address] [place] [address] PCP - General 09/03/15 02/11/19 documented as of this encounter
--- OUTSIDE RECORDS SUMMARY | 2024-05-31 18:16 | XMS_ITS | Encounter Summary ---
Author Organization [facility] Address [address] [place] [address] Care Team Providers Care Tooth Cutter Name Role Phone Unavailable Primary Care Provider Unavailabl e Encounter Details Date Type Department Care Team (Latest Contact Info) Description 08/29/2015 7:31 EDT - 08/29/2015 23:59 EDT Hospital Encounter [address] [address] Unknown, Provider, MD Discharge Disposition: Home or [...] Code Departure Means Destination Home or Self Custodial documented in this encounter Plan of Treatment Not on file documented as of this encounter Visit Diagnoses Not on filedocumented in this encounter
[2024-05-31 21:46] LABS: Hemoglobin A1C 5.5 % (<5.7)
[2024-05-31 21:50] LABS: ALT 36 U/L (16-63); AST 25 U/L (15-37); Albumin 3.8 g/dL (3.4-5.0); Alkaline Phosphatase 82 U/L (46-116); BUN 18 mg/dL (7-18); Bilirubin, Total 0.31 mg/dL (0.2-1.0); CREATININE 1.2 mg/dL (0.70-1.30); Calcium 9.5 mg/dL (8.5-10.1); Chloride 105 mmol/L (98-107); Estimated GFR 70.98 (mL/min/1.73m2); Glucose 91 mg/dL (74-106); Potassium 4.1 mmol/L (3.5-5.1); Sodium 141 mmol/L (136-145); Total Protein 7.7 g/dL (6.4-8.2)
[2024-05-31 21:53] LABS: COMMENT (LAB VIEW ONLY) 112.17 mg/dL; PROTEIN 54.6 mg/dL; Prot/Crea Ur Ratio 0.48
[2024-06-02 10:07] LABS: HIV-1/2 Ag & Ab Screen Negative (Negative)
[2024-06-02 10:23] LABS: Hepatitis C Ab w Rflx HCV PCR Negative (Negative)
== END 2024-05-31 18:13 | disposition home or self-care (01) ==
LOC: LBN 18:12
PROVIDERS: PCP Internal Medicine; Visit Provider Family Medicine
DX: N18.30 Chronic kidney disease, stage 3 unspecified (principal); Z11.9 Encounter for screening for infectious and parasitic diseases, unspecified; Z13.1 Encounter for screening for diabetes mellitus
CPT/HCPCS: 80053; 86803; 87389; 82565; 83036; 84156